=== PATIENT | male | born 1950 | race Caucasian/White ===

== ENCOUNTER 2023-01-20 08:00 | Emergency (ER) | payer MEDICARE, OTHER, SELFPAY ==
[2023-01-20] VITALS (14 sets, daily range): BP systolic 126–154; BP diastolic 71–110; PULSE 68–73; RESP 16; TEMP 36.8; O2SAT 98; BMI 29.1
--- NOTE | 2023-01-20 08:15 | ECG_ITS ---
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
--- NOTE | 2023-01-20 08:15 | XR_ITS ---
The [address] [address] Patient Name: KRISTEN RODRIGUEZ MRN: [id number] date: 1950 Sex: M Assigned Patient Location: ER Current Patient Location: ER Accession/Order Number: [id number] Exam Date: 01/20/2023 08:30 Report Date: 01/20/2023 09:09 At the request of: SUNG ROA Procedure: XR chest 1V EXAMINATION: XR chest 1V HISTORY: cp ; chest pain COMPARISON: No relevant comparison available. FINDINGS: LUNGS: No significant pulmonary parenchymal abnormalities. VASCULATURE: No increased pulmonary vasculature. PLEURA: No pneumothorax, effusion, or pleural thickening. CARDIAC: No cardiomegaly or cardiac silhouette abnormality. MEDIASTINUM: No visible mass or adenopathy. BONES: No fracture or visible bone lesion. OTHER: Negative. XR/XR chest 1V IMPRESSION: 1. No acute cardiopulmonary process. Electronically authenticated by: LYNDON CONTE Date: 01/20/2023 09:09
--- NOTE | 2023-01-20 08:19 | ED.CHESTPAI1 ---
HPI - Chest Pain General Chief Complaint: Chest Pain Stated Complaint: CHEST PAIN/WEIGHT BY HEART POSS AFIB Time Seen by Provider: 01/20/23 08:05 Source: patient Mode of arrival: walk-in Limitations: no limitations History of Present Illness HPI narrative: The patient have a history of hypertension as well as hyperlipidemia and A-fib coming to the ER with 3 days history of left-sided chest pain its in the upper chest , the pain is constant pressure-like associated with no other symptoms of nausea vomiting , cough or difficulty breathing Patient had a monitor placed for 3 days that was taken off a few days ago to make sure that he is in sinus after he had an ablation He is still taking Xarelto and he has a history of watchman the pt mentioned that the pain 5/10 and constant , and feels like he pulled a muscle no relation to breathing but somtimes moving his left shoulder cause the pain pt has no hx of smoking cigarettes Related Data Home Medications Medication Instructions Recorded Confirmed atorvastatin 20 mg tablet mg 01/20/23 lisinopril 30 mg tablet mg 01/20/23 magnesium 200 mg tablet 200 mg PO DAILY 01/20/23 01/20/23 mecobalamin (vitamin B12) 1,000 1,000 mcg PO DAILY 01/20/23 01/20/23 mcg lozenges metoprolol succinate 25 mg mg PO 01/20/23 tablet,extended release 24 hr rivaroxaban 20 mg tablet (Xarelto) mg 01/20/23 Allergies Allergy/AdvReac Type Severity Reaction Status Date / Time No Known Drug Allergies Allergy Verified 01/20/23 08:12 Review of Systems ROS Status of ROS 10 or more systems reviewed and unremarkable except as noted in history and below [facility] Social History Smoking status: Never smoker Exam Narrative Exam Narrative: Nurses notes and vital signs reviewed and patient is not hypoxic. General: Well-appearing and in no apparent distress. Skin: Warm, dry, no pallor noted. No rash. Head: Normocephalic, atraumatic. Neck: Supple, non-tender. Eye: Pupils are equal, round and EOMI. No scleral icterus. Ears, Nose, Mouth, and Throat: TM are clear, no nasal mucosal hypertrophy. Oral mucosa is moist, no posterior oropharynx erythema, uvula is mid-line Cardiovascular: Regular Rate and Rhythm without murmur, gallop or rub. Respiratory: No accessory muscle use or respiratory distress. Lungs are clear to auscultation, no wheezing, rales or rhonchi Chest Wall: no tenderness Back: No midline thoracic or lumbar vertebral tenderness. No CVA tenderness Musculoskeletal: normal ROM, no calf or popliteal tenderness, no lower extremity edema/swelling GI: Abdomen is soft, non-distended. Normal bowel sounds. No masses appreciated. No tenderness to palpation. No rebound, guarding, or rigidity noted. Neurological: A&O x4. No cranial nerve dysfunction observed. No truncal ataxia. Moves all extremities. Sensation intact. Psychiatric: Cooperative and interactive. Normal mood and affect. Constitutional Vital Signs, click to edit/add: Last Vital Signs Temp 98.2 F 01/20/23 08:13 Pulse 71 01/20/23 08:13 Resp 16 01/20/23 08:13 BP 142/110 H 01/20/23 10:30 Pulse Ox 98 01/20/23 08:13 Course Vital Signs Vital signs: Vital Signs Blood Pressure 148/92 H 01/20/23 08:12 Temperature 98.2 F 01/20/23 08:13 Pulse Rate 71 01/20/23 08:13 Respiratory Rate 16 01/20/23 08:13 Blood Pressure 142/110 H 01/20/23 10:30 Pulse Oximetry 98 01/20/23 08:13 MDM - Chest Pain MDM Narrative Medical decision making narrative: EKG showing some rhythm with a heart rate of 68 there is multiple occasional PVCs The patient CBC and chemistry showed no acute pathology and the repeated EKG still showed the same pattern and the troponin repeated was not elevated CT of the chest without contrast showed that the patient have some nodularity in the right lower lung but the patient have no cough or any signs of infection he will just follow-up with his doctor for that issue The patient have an 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 he be discharged home after his pain resolved with the Toradol in the ER with supportive care with Tylenol for the pain and rest he is to come back to the ER in case of any symptoms of concern Lab Data Labs: Lab Results 01/20/23 01/20/23 Range/Units 08:25 09:49 WBC 5.0 (4.0-11.0) 10^3/uL RBC 4.69 L (4.70-6.10) 10^6/uL Hgb 14.9 (14.0-18.0) g/dL Hct 43.9 (42.0-54.0) % MCV 93.6 (80.0-94.0) fL MCH 31.8 (25.9-34.0) pg MCHC 33.9 (29.9-35.2) g/dL RDW 14.4 (11.0-15.0) % Plt Count 140 L (150-450) 10^3/uL MPV 10.8 (9.5-13.5) fL Neut % (Auto) 62.3 (43.0-75.0) % Lymph % (Auto) 23.8 (20.5-60.0) % [place] % (Auto) 9.3 (1.7-12.0) % Eos % (Auto) 3.6 (0.9-7.0) % Baso % (Auto) 0.6 (0.2-2.0) % Neut # (Auto) 3.1 (1.4-6.5) 10^3/uL Lymph # (Auto) 1.2 (1.2-3.8) 10^3/uL [place] # (Auto) 0.5 (0.3-0.8) 10^3/uL Eos # (Auto) 0.2 (0.0-0.7) 10^3/uL Baso # (Auto) 0.0 (0.0-0.1) 10^3/uL Abs Immat Gran (auto) 0.02 (0.00-0.03) 10^3/uL Imm/Tot Granulo (auto) 0.4 (0.0-0.5) % PT 13.7 H (9.0-11.6) sec INR 1.31 Sodium 140 (136-145) mmol/L Potassium 4.2 (3.5-5.1) mmol/L Chloride 105 (98-107) mmol/L Carbon Dioxide 27.3 (21.0-32.0) mmol/L Anion Gap 11.9 BUN 22.0 H (7.0-18.0) mg/dL Creatinine 1.11 (0.70-1.30) mg/dL Est GFR ( Amer) >60 (>=60) Est GFR (Non-Af Amer) >60 (>=60) BUN/Creatinine Ratio 19.8 Glucose 101 (74-106) mg/dL Calcium 8.9 (8.5-10.1) mg/dL Magnesium 2.2 (1.8-2.4) mg/dL Total Bilirubin 0.6 (0.2-1.0) mg/dL AST 19 (15-37) U/L ALT 25 (16-63) U/L Alkaline Phosphatase 56 (46-116) U/L Troponin I High Sens 13.2 12.4 (4.0-76.1) pg/mL Total Protein 7.2 (6.4-8.2) g/dL Albumin 3.8 (3.4-5.0) g/dL Globulin 3.4 g/dL Albumin/Globulin Ratio 1.1 Heart Score History: Slightly/Non-Suspicious ECG: Normal Age: >65 years Risk Factors: 1 or 2 Risk Factors Troponin: <Normal Limit Total Heart Score Recommendations & Risks:: 3 Discharge Plan Discharge Chief Complaint: Chest Pain Clinical Impression: Atypical chest pain Patient Disposition: Home, Self-Care Time of Disposition Decision: 10:34 Condition: Good Mode of Transportation: Private Vehicle Prescriptions / Home Meds: No Action atorvastatin 20 mg tablet lisinopril 30 mg tablet metoprolol succinate 25 mg tablet extended release 24 hr PO Xarelto 20 mg tablet magnesium 200 mg tablet 200 mg PO DAILY mecobalamin (vitamin B12) 1,000 mcg lozenge 1,000 mcg PO DAILY Rx Instructions: allow to dissolve in mouth OR may chew lightly before swallowing Instructions: Chest Wall Pain (ED) Stand Alone Forms: Portal Instructions Referrals: Jonathon Hahn DO [Primary Care Provider] - 1 week
[2023-01-20 08:36] LABS: Basophils Percent Auto 0.6 % (0.2-2.0); Eosinophils Absolute Auto 0.2 10^3/uL (0.0-0.7); Eosinophils Percent Auto 3.6 % (0.9-7.0); Hematocrit 43.9 % (42.0-54.0); Hemoglobin 14.9 g/dL (14.0-18.0); Immature Granulocytes Abs Auto 0.02 10^3/uL (0.00-0.03); Immature Granulocytes Pct Auto 0.4 % (0.0-0.5); Lymphocytes Absolute Auto 1.2 10^3/uL (1.2-3.8); Lymphocytes Percent Auto 23.8 % (20.5-60.0); Mean Corpuscular HGB Conc 33.9 g/dL (29.9-35.2); Mean Corpuscular Hemoglobin 31.8 pg (25.9-34.0); Mean Corpuscular Volume 93.6 fL (80.0-94.0); Mean Platelet Volume 10.8 fL (9.5-13.5); Monocytes Absolute Auto 0.5 10^3/uL (0.3-0.8); Monocytes Percent Auto 9.3 % (1.7-12.0); Neutrophils Absolute Auto 3.1 10^3/uL (1.4-6.5); Neutrophils Percent Auto 62.3 % (43.0-75.0); Platelet Count 140 10^3/uL (150-450); Red Blood Count 4.69 10^6/uL (4.70-6.10); Red Cell Distribution Width 14.4 % (11.0-15.0)
[2023-01-20 08:49] LABS: Magnesium 2.2 mg/dL (1.8-2.4)
[2023-01-20 08:56] LABS: Anion Gap 11.9; Carbon Dioxide 27.3 mmol/L (21.0-32.0); Chloride 105 mmol/L (98-107); Glucose 101 mg/dL (74-106); Potassium 4.2 mmol/L (3.5-5.1); Sodium 140 mmol/L (136-145)
[2023-01-20 08:57] LABS: Alanine Aminotransferase 25 U/L (16-63); Albumin Globulin Ratio 1.1; Albumin Level 3.8 g/dL (3.4-5.0); Alkaline Phosphatase 56 U/L (46-116); Aspartate Amino Transferase 19 U/L (15-37); BUN Creatinine Ratio 19.8; Bilirubin Total 0.6 mg/dL (0.2-1.0); Calcium 8.9 mg/dL (8.5-10.1); Estimated GFR (African America >60 (>=60); Estimated GFR (Non-African Ame >60 (>=60); Globulin 3.4 g/dL; Total Protein 7.2 g/dL (6.4-8.2)
[2023-01-20 08:58] LABS: Troponin I High Sensitivity 13.2 pg/mL (4.0-76.1)
[2023-01-20] MEDS: FAMOTIDINE/PF 20 MG/2 ML VIAL IV (09:10)
[2023-01-20] MEDS: KETOROLAC TROMETHAMINE 30 MG/ML VIAL 15 MG IVP (09:10)
[2023-01-20 09:16] LABS: INR 1.31; Prothrombin Time 13.7 sec (9.0-11.6)
--- NOTE | 2023-01-20 09:31 | CT_ITS ---
[address] [address] Patient Name: KRISTEN RODRIGUEZ MRN: [id number] date: 1950 Sex: M Assigned Patient Location: ER Current Patient Location: ER Accession/Order Number: [id number] Exam Date: 01/20/2023 09:51 Report Date: 01/20/2023 10:14 At the request of: SUNG ROA Procedure: CT chest wo con EXAMINATION: CT chest wo con HISTORY: chest pain COMPARISON: None. TECHNIQUE: CT examination of the chest performed Without intravenous contrast. Coronal and sagittal reformations were performed. Dose reduction techniques were achieved by using automated exposure control and/or adjustment of mA and/or kV according to patient size and/or use of iterative reconstruction technique. Findings: LUNGS: Mild tree-in-bud nodularity in the right lower lobe. AIRWAYS: No significant finding. PLEURA: No significant finding. MEDIASTINUM AND FANNY: No significant finding. HEART AND PERICARDIUM: Watchman device noted. VESSELS: Heavy coronary calcification. CHEST WALL: No significant finding. NECK BASE: No significant finding. VISUALIZED UPPER ABDOMEN: No significant finding. BONES: Healed remote left clavicle fracture. CT/CT chest wo con Impression: Mild infectious/inflammatory changes in the right lower lobe. Electronically authenticated by: KEYSHA ALVARADO Date: 01/20/2023 10:14
--- NOTE | 2023-01-20 09:32 | ECG_ITS ---
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
[2023-01-20 10:10] LABS: Troponin I High Sensitivity 12.4 pg/mL (4.0-76.1)
== END 2023-01-20 10:39 | disposition home or self-care (01) ==
PROVIDERS: Emergency Provider Emergency Medicine; PCP Internal Medicine
DX: R07.89 Other chest pain (principal); E78.5 Hyperlipidemia, unspecified; I10 Essential (primary) hypertension; Z79.01 Long term (current) use of anticoagulants; Z79.899 Other long term (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 therapy
CPT/HCPCS: 36415; 71045; 71250; 80053; 83735; 84484; 85025; 85610; 93005; 96374; 96375; 99285

== ENCOUNTER 2023-01-22 09:53 | Outpatient (OUT) | payer MEDICARE, OTHER, SELFPAY ==
[2023-01-22 10:55] LABS: Anion Gap 11.7; BUN Creatinine Ratio 19.1; Calcium 9.3 mg/dL (8.5-10.1); Carbon Dioxide 27.8 mmol/L (21.0-32.0); Chloride 103 mmol/L (98-107); Chol HDL Ratio 2.9; Cholesterol 169 mg/dL (<=200); Estimated GFR (African America >60 (>=60); Estimated GFR (Non-African Ame >60 (>=60); Glucose 101 mg/dL (74-106); HDL Cholesterol 58 mg/dL (40-60); LDL Cholesterol Calculated 97.6 mg/dL; Potassium 4.5 mmol/L (3.5-5.1); Sodium 138 mmol/L (136-145); Triglycerides 67 mg/dL (<=150); VLDL CHOLESTEROL 13.4 mg/dL
[2023-01-22 10:59] LABS: Basophils Percent Auto 0.6 % (0.2-2.0); Eosinophils Absolute Auto 0.2 10^3/uL (0.0-0.7); Eosinophils Percent Auto 4.1 % (0.9-7.0); Hematocrit 44.8 % (42.0-54.0); Hemoglobin 14.9 g/dL (14.0-18.0); Immature Granulocytes Abs Auto 0.01 10^3/uL (0.00-0.03); Immature Granulocytes Pct Auto 0.2 % (0.0-0.5); Lymphocytes Absolute Auto 1.2 10^3/uL (1.2-3.8); Lymphocytes Percent Auto 23.9 % (20.5-60.0); Mean Corpuscular HGB Conc 33.3 g/dL (29.9-35.2); Mean Corpuscular Hemoglobin 31.6 pg (25.9-34.0); Mean Corpuscular Volume 94.9 fL (80.0-94.0); Mean Platelet Volume 11.1 fL (9.5-13.5); Monocytes Absolute Auto 0.4 10^3/uL (0.3-0.8); Monocytes Percent Auto 8.2 % (1.7-12.0); Neutrophils Absolute Auto 3.1 10^3/uL (1.4-6.5); Platelet Count 137 10^3/uL (150-450); Red Blood Count 4.72 10^6/uL (4.70-6.10); Red Cell Distribution Width 14.3 % (11.0-15.0); White Blood Count 4.9 10^3/uL (4.0-11.0)
[2023-01-22 12:28] LABS: Prostate Specific Antigen Scrn 0.82 ng/mL (<=4.00)
== END 2023-01-22 09:54 | disposition home or self-care (01) ==
LOC: LAB 09:56
PROVIDERS: PCP Internal Medicine; Visit Provider Internal Medicine
DX: E78.01 Familial hypercholesterolemia (principal); N18.31 Chronic kidney disease, stage 3a; Z12.5 Encounter for screening for malignant neoplasm of prostate; D69.6 Thrombocytopenia, unspecified
CPT/HCPCS: 36415; 80048; 80061; 85025; G0103

== ENCOUNTER 2023-10-29 12:19 | Outpatient (OUT) | payer MEDICARE, OTHER, SELFPAY ==
--- NOTE | 2023-10-29 12:26 | XR_ITS ---
The [place] [id number] Patient Name: KRISTEN RODRIGUEZ MRN: [id number] date: 1950 Sex: M Assigned Patient Location: RAD Current Patient Location: RAD Accession/Order Number: [id number] Exam Date: 10/29/2023 12:30 Report Date: 10/29/2023 14:04 At the request of: MUNA HATCH Procedure: XR hip RT 2V w/ pelvis PROCEDURE: XR hip RT 2V w/ pelvis COMPARISON: None. HISTORY: pain of right hip M25.551 FINDINGS: BONES:No acute fracture or dislocation. Severe right and moderate to severe left hip osteoarthropathy with joint space narrowing. Subchondral lytic and sclerotic changes. Some remodeling of the right acetabulum. Moderate degenerative changes of the spine SOFT TISSUES:Negative. No visible soft tissue swelling. EFFUSION:None visible. OTHER: Negative. XR/XR hip RT 2V w/ pelvis IMPRESSION: Severe right and moderate to severe left hip osteoarthritis Electronically authenticated by: CELENA SEPULVEDA Date: 10/29/2023 14:04
== END 2023-10-29 12:20 | disposition home or self-care (01) ==
LOC: RAD 12:20
PROVIDERS: PCP Internal Medicine; Visit Provider Internal Medicine
DX: M25.551 Pain in right hip (principal); M16.0 Bilateral primary osteoarthritis of hip
CPT/HCPCS: 73502

== ENCOUNTER 2024-01-27 11:59 | Outpatient (OUT) | payer MEDICARE, OTHER, SELFPAY ==
--- OUTSIDE RECORDS SUMMARY | 2024-01-27 12:20 | XMS_ITS | CCD ---
Author Organization [facility] Care Team Providers Care Automotive General Manager Name Role Phone PHYSICIAN, DEFAULT Unavailable Unavailable PHYSICIAN, DEFAULT Unavailable Unavailable PHYSICIAN, DEFAULT Unavailable Unavailable PHYSICIAN, DEFAULT Unavailable Unavailable DORA FERRARI AM Unavailable Unavailable KAREN, DORA AM Unavailable Unavailable JOVANI, JONATHON Unavailable Unavailable JOVANI, JONATHON Unavailable Unavailable ROMARIO, CELENA Campos Unavailable Unavailable CELENA DOSS Unavailable Unavailable SEBASTIAN, BRYAN Brower Unavailable Unavailable JOVANI, DR TORO Primary Care Unavailable BALL, DR TORO Consulting Unavailable BALL, DR TORO Attending Unavailable BALL, DR TORO Admitting Unavailable BALL, DR TORO Primary Care Unavailable BALL, DR TORO Consulting Unavailable BALL, DR TORO Attending Unavailable BALL, DR TORO Admitting Unavailable MISC, DR JACK Attending Unavailable BALL, DR TORO Primary Care Unavailable MISC, DR JACK Admitting Unavailable MISC, DR JACK Consulting Unavailable Bryan Lacy MD Unavailable Jovani CHILDERS Jonathon Unavailable Jonathon Hahn DO Primary Care Provider Bryan Lacy MD Unavailable Gordo Gifford MD Unavailable Brooklynn Woodson MD Unavailable Bryan Lacy MD Unavailable Jovani DO Jonathon Unavailable Jonathon Hahn DO Primary Care Provider Bryan Lacy MD Unavailable [phone] Gordo Gifford MD Unavailable Brooklynn Woodson MD Unavailable Jonathon Hahn Unavailable Bryan Lacy MD Unavailable Jovani CHILDERS Jonathon Unavailable Jonathon Hahn DO Primary Care Provider Bryan Lacy MD Unavailable Ирина COLÓN Gordo Unavailable Brooklynn Woodson MD Unavailable Bryan Lacy MD Unavailable Bryan Lacy MD Unavailable DO Jonathon Hahn Primary Care Provider MD Titi Arora II Attending Provider [phone] Titi Arora II Attending Unavailabl e Titi Arora II Admitting Unavailabl e Jonathon Hahn Primary Care Unavailable SYED, BROOKLYNN Williamson Admitting Unavailable SELF, SELF Referring Unavailable JOVANI, JONATHON Primary Care Unavailable SYED, BROOKLYNN Williamson Attending Unavailable SYED, BROOKLYNN Williamson Admitting Unavailable SYED, BROOKLYNN Williamson Attending Unavailable BALL, JONATHON Primary Care Unavailable BALL, JONATHON Primary Care Unavailable BALL, JONATHON Referring Unavailable SYED, BROOKLYNN Williamson Attending Unavailable SYED, BROOKLYNN Williamson Referring Unavailable JOSE MERRITT Attending Unavailable JOVANI, JONATHON Primary Care Unavailable GEETA JUÁREZ Attending Unavailable BALL, JONATHON Primary Care Unavailable BALL, JONATHON Referring Unavailable SYED, BROOKLYNN Williamsno Referring Unavailable BALL, JONATHON Primary Care Unavailable SYED, BROOKLYNN Williamson Attending Unavailable JOSE MERRITT Attending Unavailable JOSE MERRITT Referring Unavailable BALL, JONATHON Primary Care Unavailable SYED, BROOKLYNN Williamson Referring Unavailable BALL, [place] Primary Care Unavailable SYED, BROOKLYNN Williamson Attending Unavailable Allergies Allergy Classification Reported Allergen(s) Allergy Type Date of Onset Reaction(s) Facility (2 sources) No Known Allergies; Translations: [No Known Allergies] Propensity to adverse reactions (disorder) 7 [facility] Medications Current Medications Medication Drug Class(es) Dates Sig (Normalized) Sig (Original) acetaminophen 500 mg oral tablet (2 sources) take 1 tablet by mouth every six hours as needed acetaminophen (TYLENOL) 500 MG tablet Take 1 tablet by mouth every 6 hours as needed for Mild Pain. PRN for right hip pain Active atorvastatin 20 mg oral tablet (15 sources) HMG-CoA Reductase Inhibitor Start: 12-25-2023 End: 12-24-2023 Start: 11-29-2019 take 1 tablet by gallo th once daily atorvastatin 20 MG tablet Take 1 tablet by mouth daily. 30 tablet 11/29/2019 Active doxycycline hyclate 100 mg oral capsule (3 sources) Tetracycline-class Drug Start: 05-14-2023 take 1 capsule by mouth every twelve hours Doxycycline Hyclate 100 MG 1 capsule Orally Twice a day for 10 days Apr, Active lisinopril 20 mg oral tablet (15 sources) Angiotensin Converting Enzyme Inhibitor Start: 12-25-2023 End: 12-24-2023 Start: 11-11-2022 take 1 tablet by gallo th once daily Lisinopril 20 MG tablet Take 1 tablet by mouth daily. Patient taking 20 mg daily 11/11/2022 Active Start: 11-08-2021 take 1.5 tablets by mouth once daily lisinopril 20 MG tablet Take 1.5 tablets by mouth daily. 135 tablet 3 11/08/2021 Active magnesium oxide 400 mg oral tablet (14 sources) Start: 02-26-2022 take 400 mg by mouth once daily Magnesium Oxide Active 400 MG PO Daily October 28, 2023 12:00am 24 hr metoprolol succinate 25 mg extended release oral tablet (16 sources) beta-Adrenergic Vaughn Start: 12-25-2023 End: 12-24-2023 Start: 01-01-2022 End: 10-03-2023 take 1 tablet by mouth once daily Metoprolol succinate 25 MG tablet XL TAKE 1 TABLET BY MOUTH DAILY 90 tablet 3 12/27/2022 Active vitamin b12 1 mg oral tablet (14 sources) Vitamin B12 Start: 10-28-2023 take 1000 ug by mouth once daily Cyanocobalamin (Vitamin B-12) Active 1000 MCG PO Daily October 28, 2023 12:00am Start: 02-26-2022 take 1 tablet by gallo th every twenty-four hours Vitamin B-12 1000 MCG 1 tablet Orally Once a day for 0 days Jan, Active Start: 02-26-2022 take 1 tablet by gallo th every twenty-four hours Vitamin B-12 1000 MCG 1 tablet Orally Once a day for 0 days Jan, Active take 1 tablet by gallo th once daily Cyanocobalamin (Vitamin B12) 100 MCG tablet Take 1 tablet by mouth daily. Active take 1000 mg by mouth once daily Cyanocobalamin (VITAMIN B12 PO) Take 1,000 mg by mouth daily. 0 Active Completed/Discontinued Medications Medication Drug Class(es) Dates Sig (Normalized) Sig (Original) aspirin 81 mg delayed release oral tablet (10 sources) Platelet Aggregation Inhibitor, Nonsteroidal Anti-inflammatory Drug Start: 10-28-2023 End: 10-29-2023 Aspirin (Adult Low Dose Aspirin) 81 mg tablet,delayed release (DR/EC) Discontinued 81 MG PO Daily October 28, 2023 12:00am October 29, 2023 11:51am Start: 03-12-2022 End: 03-06-2023 aspirin 81 MG Chew Tab chewa ble tablet Chew 1 tablet daily. 30 tablet 5 03/12/2022 03/06/2023 Discontinued Start: 02-26-2022 Aspirin Adult Low Dose 81 MG Aspirin( 81MG Oral ) Active -Hx Entry Oral for 0 Jan, Not-Taking/PRN 2 ml fentaNYL 0.05 mg/ml injection (2 sources) Opioid Agonist Start: 03-06-2023 End: 03-06-2023 fentaNYL (SUBLIMAZE) injection 200 mcg Start: 04-29-2022 End: 04-29-2022 fentaNYL (SUBLIMAZE) injecti on 200 mcg iohexol (OMNIPAQUE) 350 MG/M L injection 1-120 mL (1 source) Start: 03-11-2022 End: 03-11-2022 iohexol (OMNIPAQUE) 350 MG/M L injection 1-120 mL iohexol (OMNIPAQUE) 350 MG/M L injection 1-171 mL (2 sources) Start: 11-10-2023 End: 11-10-2023 1-171 mL, Intravenous, ONCE, 1 dose, On Fri11/10/23 at 1300, Extravasation Risk, CT Procedure Start: 03-06-2023 End: 03-06-2023 iohexol (OMNIPAQUE) 350 MG/M L injection 1-171 mL lidocaine 0.05 mg/mg topical ointment (2 sources) Antiarrhythmic, Amide Local Anesthetic Start: 03-06-2023 End: 03-06-2023 Lidocaine (XYLOCAINE) 5 % ointment 1 Application Start: 04-29-2022 End: 04-29-2022 lidocaine (XYLOCAINE) 5 % oi ntment 1 Application 2 ml midazolam 1 mg/ml injection (2 sources) Benzodiazepine Start: 03-06-2023 End: 03-06-2023 midazolam (VERSED) injection 10 mg Start: 04-29-2022 End: 04-29-2022 midazolam (VERSED) injection 10 mg rivaroxaban 20 mg oral tablet (15 sources) Factor Xa Inhibitor Start: 01-01-2022 End: 12-24-2023 1000 ml sodium chloride 9 mg/ml injection (7 sources) Start: 12-24-2023 End: 12-24-2023 Intravenous, at 20 mL/hr, CONTINUOUS, Starting on Fri12/24/23 at 1245, Until Fri12/24/23 at 1908, KVO fluids, start the morning of procedure., Pre-op/Pre-Proc Start: 12-24-2023 End: 12-24-2023 1 dose, Starting on 12/23 at 1236, Until Fri12/24/23 at 1241, Created by cabinet override Start: 11-10-2023 End: 11-10-2023 1-100 mL, Intravenous, ONCE NEEDED, 1 dose, Starting on Fri11/10/23 at 1246, Until Fri11/10/23 at 1258, Flush, CT Procedure Start: 03-06-2023 End: 03-06-2023 Sodium chloride 0.9% IV solu tion Start: 03-06-2023 End: 03-06-2023 Sodium chloride (PF) 0.9 % i njection 1-100 mL Start: 04-29-2022 End: 04-29-2022 sodium chloride 0.9% IV solu tion Start: 03-11-2022 End: 03-11-2022 sodium chloride (PF) 0.9 % i njection 1-100 mL Vancomycin HCl in NaCl (Vancocin) 1,500 mg 290 ml premade IVPB (1 source) Start: 12-24-2023 End: 12-24-2023 1,500 mg, Intravenous, Admin ister over 1 Hours, 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 Vancomycin is preferred agent for device implants, based on national, community and local ([facility]) MRSA rates., Pre-op/Pre-Proc Problems Active Problems Problem Classification Problem Date Documented Date Episodic/Chronic Abdominal hernia (2 sources) Umbilical hernia; Translations: [Umbilical hernia without obstruction or gangrene] 10-29-2023 Episodic Cancer of kidney and renal pelvis (6 sources) Renal cell carcinoma; Translations: [Malignant neoplasm of right kidney, except renal pelvis] Chronic Cardiac dysrhythmias (20 sources) Bradycardia, unspecified; Translations: [Unspecified atrial fibrillation] Onset: 05-12-2017 Resolved: 04-22-2019 Chronic Chronic kidney disease (13 sources) Chronic kidney disease stage 3A ; Translations: [Chronic kidney disease, stage 3a] 10-28-2023 Chronic Coagulation and hemorrhagic disorders (7 sources) Thrombocytopenic disorder; Translations: [Thrombocytopenia, unspecified] Chronic Coronary atherosclerosis and other heart disease (1 source) Atherosclerotic heart disease of [place] coronary artery without angina pectoris; Translations: [ATHSCL HEART DISEASE OF [place] CORONARY ARTERY W/O ANG PCTRS] Onset: 05-12-2017 Chronic Deficiency and other anemia (7 sources) Pernicious anemia; Translations: [Vitamin B12 deficiency anemia due to intrinsic factor deficiency] 10-28-2023 Episodic Deficiency and other anemia (1 source) Vitamin B12 deficiency anemia due to intrinsic factor deficiency Episodic Diabetes mellitus without complication (1 source) Type 2 diabetes mellitus without complications; Translations: [TYPE 2 DIABETES MELLITUS WITHOUT COMPLICATIONS] Onset: 05-12-2017 Chronic Disorders of lipid metabolism (10 sources) Familial hypercholesterolemia; Translations: [Familial hypercholesterolemia] Onset: 01-25-2022 Chronic Essential hypertension (17 sources) Essential (primary) hypertension; Translations: [Essential hypertension] Onset: 05-12-2017 03-13-2018 Chronic Immunizations and screening for infectious disease (1 source) Encounter for immunization; Translations: [ENCOUNTER FOR IMMUNIZATION] Onset: 01-10-2022 Episodic Osteoarthritis (4 sources) Osteoarthritis of right hip joint; Translations: [Unilateral primary osteoarthritis, right hip] Onset: 11-20-2023 10-28-2023 Chronic Other aftercare (4 sources) Other terminal operations manager (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 therapy; Translations: [OTH CONTROL PANEL ASSEMBLER CURRENT DRUG THERAPY] Onset: 01-22-2022 Episodic Other circulatory disease (5 sources) Device in situ; Translations: [Presence of other cardiac implants and grafts] Onset: 03-12-2022 03-12-2022 Chronic Other circulatory disease (2 sources) Enlarged aortic root; Translations: [Other specified disorders of arteries and arterioles] 03-06-2023 Chronic Other circulatory disease (4 sources) Presence of other cardiac implants and grafts; Translations: [Other specified cardiac device in situ] Onset: 03-12-2022 03-12-2022 Chronic Other circulatory disease (2 sources) Other specified disorders of arteries and arterioles; Translations: [Other specified disorders of arteries and arterioles] Onset: 03-06-2023 Chronic Other non-traumatic joint disorders (1 source) Hip pain; Translations: [Pain in right hip] 10-29-2023 Episodic Other non-traumatic joint disorders (1 source) Pain in right hip; Translations: [Pain in joint, pelvic region and thigh] 10-29-2023 Episodic Other nutritional; endocrine; and metabolic disorders (7 sources) Obese class I; Translations: [Obesity, unspecified] Onset: 03-12-2018 03-12-2018 Chronic Other screening for suspected conditions (not mental disorders or infectious disease) (3 sources) Encounter for screening for malignant neoplasm of prostate; Translations: [Encounter for screening for malignant neoplasm of colon] Onset: 01-25-2022 Episodic Steph-; endo-; and myocarditis; cardiomyopathy (except that caused by tuberculosis or sexually transmitted disease) (7 sources) Cardiomyopathy; Translations: [Other cardiomyopathies] Onset: 03-12-2018 03-13-2018 Chronic Unclassified (2 sources) Unknown / UNK(Unknown) Onset: 05-12-2017 Unclassified (2 sources) New Patient; Translations: [New Patient] Onset: 03-18-2023 Viral infection (4 sources) COVID-19; Translations: [COVID-19] Onset: 01-09-2022 Past or Other Problems Problem Classification Problem Date Documented Date Episodic/Chronic Acute and unspecified renal failure (7 sources) Acute injury of kidney; Translations: [Acute kidney failure, unspecified] Onset: 03-16-2018 Resolved: 03-18-2018 03-18-2018 Episodic Chronic kidney disease (3 sources) Chronic kidney disease; Translations: [CHRONIC KIDNEY DISEASE STAGE 3A] Onset: 01-25-2022 Complication of device; implant or graft (14 sources) Infected pacemaker; Translations: [Infection and inflammatory reaction due to other cardiac and vascular devices, implants and grafts, initial encounter] Onset: 03-11-2018 03-13-2018 Episodic Other aftercare (2 sources) custodial (current) use of anticoagulants; Translations: [custodial (current) use of aspirin] Onset: 05-12-2017 Episodic Other aftercare (7 sources) Taking high risk medication; Translations: [Other senior living (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 therapy] Onset: 03-17-2018 03-17-2018 Episodic Other circulatory disease (1 source) Personal history of transient ischemic attack (TIA), and cerebral infarction without residual deficits; Translations: [PRSNL HX OF TIA (TIA), AND CEREB INFRC W/O RESID DEFICITS] Onset: 05-12-2017 Episodic Residual codes; unclassified (7 sources) H/O: atrial fibrillation; Translations: [Other specified postprocedural states] Onset: 04-20-2019 04-20-2019 Episodic Results Test Name Value Interpretation Reference Range Facility CBC AND ELECTRONIC DIFFon Basophils (Bld) [#/Vol] K/uL 0.00 - 0.09 K/uL [facility] Basophils/100 WBC (Bld) 0.5 % [facility] Differential cell count method Nom (Bld) Electronic Differential [facility] Eosinophils (Bld) [#/Vol] 0.11 10*3/uL 0.00 - 0.48 K/uL [facility] Eosinophils/100 WBC (Bld) 2.0 % [facility] Erythrocyte distribution width (RBC) [Ratio] 13.2 % 10.9 - 14.3 % [facility] Comment on above: This is an appended report. These result s have been appended to a previously preliminary verified report. Hematocrit (Bld) [Volume fraction] 46.7 % 39.6 - 48.8 % [facility] Comment on above: This is an appended report. These result s have been appended to a previously preliminary verified report. Hemoglobin (Bld) [Mass/Vol] 15.1 g/dL 13.4 - 16.8 g/dL [facility] Comment on above: This is an appended report. These result s have been appended to a previously preliminary verified report. Immature granulocytes (Bld) [#/Vol] K/uL NINF - 0.07 K/uL [facility] Immature granulocytes/100 WBC (Bld) 0.5 % [facility] Interpretation and review of laboratory results Abnormal [facility] Lymphocytes (Bld) [#/Vol] 1.40 10*3/uL 0.83 - 3.57 K/uL [facility] Lymphocytes/100 WBC (Bld) 25.4 % [facility] MCH (RBC) [Entitic mass] 31.3 pg 26.1 - 33.3 pg [facility] Comment on above: This is an appended report. These result s have been appended to a previously preliminary verified report. MCHC (RBC) [Mass/Vol] 32.3 g/dL 31.9 - 36.5 g/dL [facility] Comment on above: This is an appended report. These result s have been appended to a previously preliminary verified report. MCV (RBC) [Entitic vol] 96.9 fL High 79.0 - 94.5 fL [facility] Comment on above: This is an appended report. These result s have been appended to a previously preliminary verified report. Monocytes (Bld) [#/Vol] 0.42 10*3/uL 0.24 - 0.93 K/uL [facility] Monocytes/100 WBC (Bld) 7.6 % [facility] Neutrophils (Bld) [#/Vol] 3.53 10*3/uL 1.57 - 6.19 K/uL [facility] Nucleated RBC/100 WBC (Bld) [Ratio] 0.0 % [facility] Comment on above: This is an appended report. These result s have been appended to a previously preliminary verified report. Platelet mean volume (Bld) [Entitic vol] [facility] Comment on above: Not measured Platelets (Bld) [#/Vol] 131 10*3/uL Low 146 - 337 K/uL [facility] Comment on above: This is an appended report. These result s have been appended to a previously preliminary verified report. RBC (Bld) [#/Vol] 4.82 10*6/uL [facility] Comment on above: This is an appended report. These result s have been appended to a previously preliminary verified report. Segmented neutrophils/100 WBC (Bld) 64.0 % [facility] WBC (Bld) [#/Vol] 5.52 10*3/uL 3.73 - 10.10 K/uL [facility] Comment on above: This is an appended report. These result s have been appended to a previously preliminary verified report. [facility] Abs Baso Auto < Normal 0.00-0.09 [facility] Comment on above: Performed By: #### [id number] #### [facility] (DEFAULT) [address] [address] Basophils/100 WBC (Bld) 0.5 % Normal [facility] Comment on above: Performed By: #### [id number] #### [facility] (DEFAULT) [address] [address] DIFF STATUS Electronic Differential Normal [facility] Comment on above: Performed By: #### [id number] #### [facility] (DEFAULT) [address] [address] Eosinophils (Bld) [#/Vol] 0.11 10*3/uL Normal 0.00-0.48 [facility] Comment on above: Performed By: #### [id number] #### [facility] (DEFAULT) [address] [address] Eosinophils/100 WBC (Bld) 2.0 % Normal [facility] Comment on above: Performed By: #### [id number] #### [facility] (DEFAULT) [address] [address] Hematocrit (Bld) [Volume fraction] 46.7 % Normal 39.6-48.8 [facility] Comment on above: Result Comment: This is an appended repo rt. These results have been appended to a previously preliminary verified report. Performed By: #### L [id number] #### [facility] (DEFAULT) [address] [address] Hemoglobin (Bld) [Mass/Vol] 15.1 g/dL Normal 13.4-16.8 [facility] Comment on above: Result Comment: This is an appended repo rt. These results have been appended to a previously preliminary verified report. Performed By: #### L [id number] #### [facility] (DEFAULT) [address] [address] Immature Grans % 0.5 % Normal [facility] Comment on above: Performed By: #### [id number] #### [facility] (DEFAULT) [address] [address] Immature Grans Absolute < Normal <=0.07 [facility] Comment on above: Performed By: #### [id number] #### [facility] (DEFAULT) [address] [address] Lymphocytes (Bld) [#/Vol] 1.40 10*3/uL Normal 0.83-3.57 [facility] Comment on above: Performed By: #### [id number] #### [facility] (DEFAULT) [address] [address] Lymphocytes/100 WBC (Bld) 25.4 % Normal [facility] Comment on above: Performed By: #### [id number] #### [facility] (DEFAULT) [address] [address] MCV (RBC) [Entitic vol] 96.9 fL High 79.0-94.5 [facility] Comment on above: Result Comment: This is an appended repo rt. These results have been appended to a previously preliminary verified report. Performed By: #### L [id number] #### [facility] (DEFAULT) [address] [address] Mean Cell Hgb 31.3 pg Normal 26.1-33.3 [facility] Comment on above: Result Comment: This is an appended repo rt. These results have been appended to a previously preliminary verified report. Performed By: #### L [id number] #### [facility] (DEFAULT) [address] [address] Mean Cell Hgb Conc 32.3 g/dL Normal 31.9-36.5 [facility] Comment on above: Result Comment: This is an appended repo rt. These results have been appended to a previously preliminary verified report. Performed By: #### L [id number] #### [facility] (DEFAULT) [address] [address] Mean Platelet Volume Normal [facility] Comment on above: Result Comment: Not measured Performed By: #### L [id number] #### [facility] (DEFAULT) [address] [address] Monocytes (Bld) [#/Vol] 0.42 10*3/uL Normal 0.24-0.93 [facility] Comment on above: Performed By: #### [id number] #### [facility] (DEFAULT) [address] [address] Monocytes/100 WBC (Bld) 7.6 % Normal [facility] Comment on above: Performed By: #### [id number] #### [facility] (DEFAULT) [address] [address] Nucleated RBC 0.0 /100 WBC Normal <=0.2 [facility] Comment on above: Result Comment: This is an appended repo rt. These results have been appended to a previously preliminary verified report. Performed By: #### L [id number] #### [facility] (DEFAULT) [address] [address] Platelets (Bld) [#/Vol] 131 10*3/uL Low 146-337 [facility] Comment on above: Result Comment: This is an appended repo rt. These results have been appended to a previously preliminary verified report. Performed By: #### L [id number] #### [facility] (DEFAULT) [address] [place] [address] RBC (Bld) [#/Vol] 4.82 10*6/uL Normal 4.38-5.83 [facility] Comment on above: Result Comment: This is an appended repo rt. These results have been appended to a previously preliminary verified report. Performed By: #### L [id number] #### [facility] (DEFAULT) [address] [place] [address] RBC Distribution 13.2 % Normal 10.9-14.3 [facility] Comment on above: Result Comment: This is an appended repo rt. These results have been appended to a previously preliminary verified report. Performed By: #### L [id number] #### [facility] (DEFAULT) [address] [address] Segs + Bands Auto 64.0 % Normal [facility] Comment on above: Performed By: #### [id number] #### [facility] (DEFAULT) [address] [address] Segs + Bands,Absolute Auto 3.53 K/uL Normal 1.57-6.19 [facility] Comment on above: Performed By: #### [id number] #### [facility] (DEFAULT) [address] [address] WBC (Bld) [#/Vol] 5.52 10*3/uL Normal 3.73-10.10 [facility] Comment on above: Result Comment: This is an appended repo rt. These results have been appended to a previously preliminary verified report. Performed By: #### L [id number] #### [facility] (DEFAULT) [address] [address] CHEM 7 (LYTES,BUN,CREA,GLUC) on 12-24-2023 Anion gap [Moles/Vol] 14 mmol/L 7 - 17 mmol/L [facility] Chloride [Moles/Vol] 103 mmol/L 98 - 108 mmol/L [facility] CO2 [Moles/Vol] 23 mmol/L 21 - 31 mmol/L [facility] Creatinine [Mass/Vol] 0.99 mg/dL 0.70 - 1.30 mg/dL [facility] eGFR, CKD-EPI, Male 81 - PINF [facility] Comment on above: Reported eGFR is based on the CKD-EPI 20 21 equation using creatinine, age, and sex. Glucose [Mass/Vol] 81 mg/dL 70 - 99 mg/dL [facility] Osmolality Calc [Osmolality] 286 [facility] Potassium [Moles/Vol] 4.4 mmol/L 3.5 - 5.0 mmol/L [facility] Sodium [Moles/Vol] 136 mmol/L 135 - 145 mmol/L [facility] Urea nitrogen [Mass/Vol] 15 mg/dL 7 - 25 mg/dL [facility] Urea nitrogen/Creatin ine [Mass ratio] 15 mg/mg [facility] Anion gap [Moles/Vol] 14 mmol/L Normal 7-17 [facility] Comment on above: Performed By: #### CHM7 #### [facility] (DEFAULT) [address] [place] [address] Chloride [Moles/Vol] 103 mmol/L Normal 98-108 [facility] Comment on above: Performed By: #### CHM7 #### [facility] (DEFAULT) [address] [place] [address] CO2 [Moles/Vol] 23 mmol/L Normal 21-31 [facility] Comment on above: Performed By: #### CHM7 #### [facility] (DEFAULT) [address] [place] [address] Creatinine [Mass/Vol] 0.99 mg/dL Normal 0.70-1.30 [facility] Comment on above: Performed By: #### CHM7 #### [facility] (DEFAULT) [address] [place] [address] GFR/1.73 sq M.predicted among non-blacks MDRD (S/P/Bld) [Vol rate/Area] 81 mL/min/{1.73_m2} Normal >=60 [facility] Comment on above: Result Comment: Reported eGFR is based o n the CKD-EPI 2020 equation using creatinine, age, and sex. Performed By: #### C HM7 #### [facility] (DEFAULT) [address] [place] [address] Glucose [Mass/Vol] 81 mg/dL Normal 70-99 [facility] Comment on above: Performed By: #### CHM7 #### [facility] (DEFAULT) [address] [place] [address] Osmolality [Osmolality] 286 mosm/kg Normal 278-305 [facility] Comment on above: Performed By: #### CHM7 #### [facility] (DEFAULT) [address] [place] [address] Potassium [Moles/Vol] 4.4 mmol/L Normal 3.5-5.0 [facility] Comment on above: Performed By: #### CHM7 #### [facility] (DEFAULT) [address] [place] [address] Sodium [Moles/Vol] 136 mmol/L Normal 135-145 [facility] Comment on above: Performed By: #### CHM7 #### [facility] (DEFAULT) [address] [place] [address] Urea nitrogen [Mass/Vol] 15 mg/dL Normal 7-25 [facility] Comment on above: Performed By: #### CHM7 #### [facility] (DEFAULT) [address] [place] [address] Urea nitrogen/Creatin ine [Mass ratio] 15 mg/mg Normal [facility] Comment on above: Performed By: #### CHM7 #### [facility] (DEFAULT) [address] [place] [address] PT,INR,PTTon 12-24-2023 aPTT Coag (PPP) [Time] 27.6 s [facility] INR Coag (Bld) [Relative time] 1.1 {INR} 0.9 - 1.1 [facility] Interpretation and review of laboratory results Normal [facility] PT Coag (PPP) [Time] 14.2 s [facility] aPTT Coag (Bld) [Time] 27.6 s Normal 24.0-34.3 [facility] Comment on above: Performed By: #### PTPTT #### [facility] (DEFAULT) [address] [place] [address] INR Coag (PPP) [Relative time] 1.1 {INR} Normal 0.9-1.1 [facility] Comment on above: Performed By: #### PTPTT #### [facility] (DEFAULT) [address] [place] [address] PT Coag (PPP) [Time] 14.2 s Normal 11.9-14.2 [facility] Comment on above: Performed By: #### PTPTT #### [facility] (DEFAULT) [address] [place] [address] XR hip RT min 2V(w/wo pelvis )*on 11-20-2023 XR hip RT min 2V(w/wo pelvis)* [facility] [address] [place] [address] XRay Report Signed Patient: Kristen Coates MR#: [id number] 31 : 1950 Acct:[id number] Age/Sex: 73 / M ADM Date: 11/20/23 [place] [facility] [place] Type: [facility] Attending Dr: Titi Arora II, MD Copies to: Titi Arora MD Ordering Provider: Titi Arora MD Date of Service: 11/20/23 XR/XR hip RT min 2V(w/wo pelvis)*: M16.11 - Unilateral primary osteoarthritis, right hip XR hip RT min 2V(w/wo pelvis)* 11/20/2023 8:50 AM SIGNS AND SYMPTOMS: Right hip pain, pain in right groin PROTOCOL: Frontal radiograph of the pelvis with crosstable lateral view of the right hip COMPARISON: 10/29/2023 FINDINGS: The bony ring of the pelvis is intact. There is no evidence of acute displaced fracture. Degenerative changes are noted in the hips, right greater than left. This is similar to the prior exam. Degenerative changes are noted in the sacroiliac joints. Vascular calcifications are present in the pelvis and thighs. XR/XR hip RT min 2V(w/wo pelvis)* IMPRESSION: No fracture or dislocation. Degenerative changes are noted in the hips bilaterally, right greater than left. This is similar to the prior exam. Impression dictated by: Kristen Thomson M.D.11/20/2023 1:30 PM Dictation Location: [place] [address] Transcribed By: ARASELI 11/20/23 1330 Dictated By: Kristen Thosmon II, MD 11/20/23 1324 Signed By: 11/20/23 1330 Normal [facility] CREAT/GFRon 11-11-2023 Creatinine [Mass/Vol] 0.99 mg/dL 0.70 - 1.30 mg/dL [facility] GFR/1.73 sq M.predicted CKD-EPI (S/P/Bld) [Vol rate/Area] 81 - PINF [facility] Comment on above: Reported eGFR is based on the CKD-EPI 20 21 equation using creatinine, age, and sex. Interpretation and review of laboratory results Normal [facility] Test performed at ad dress of the patient encounter. [facility] CT CARDIAC PULMONARY VENOGRA [facility] 11-11-2023 CT CARDIAC PULMONARY VENOGRAM [facility] CT Report Name: MICHAELKRISTEN : 1950 Scan Date: 2023-11-10 12:55:52 Electronically signed by Smith Solomon 12:02:51 SUMMARY ======= Pulmonary veins: Normal anatomy. No significant stenosis. --------- Chest Wall: Degenerative changes of the thoracic spine Mediastinum: Normal, without adenopathy. Diffuse circumferential esophageal wall thickening. Lindsay: Normal, without adenopathy Pleural Spaces: Normal, without thickening/effusion or pneumothorax Lung Parenchyma: No consolidation or mass. Diffuse bronchial thickening. Pericardium: Normal, without thickening/effusion Atria: Watchman: - Watchman is seen in situ, with asymmetric positioning of the posterior shoulder - Evidence of incomplete LA closure with contrast opacification within the device and the distal ADAN. - Contrast is seen funneling/tracking along the posterior shoulder. More proximally the posterior shoulder-LA distance measures 6 mm in width, with a distal 2-3 mm focal communication to within the device through its struts, likely suggestive of sub-fabric leak (series 6, image 2565). - No definite evidence of device-related thrombus - No evidence of thrombus within the left atrium proper. Right Ventricle: Normal Left Ventricle: Normal Coronary Arteries: Severe multivessel coronary calcifications. Valves: Mild aortic valve leaflets calcification. Pulmonary Arteries: Normal Thoracic Aorta: Dilated thoracic aorta, measuring up to 4.1 cm in diameter at the aortic root level, and 3.9 cm at the ascending segment. Upper abdomen: Unremarkable CRITICAL RESULT: No STUDY QUALITY: Good ======= 1. Findings likely suggestive of small focal sub-fabric leak along the posterior watchman shoulder as described above 2. Ectatic thoracic aorta, measuring up to 4.1 cm at the aortic root level. 3. Other ancillary findings are noted as above. SCAN INFO ======= GENERAL SETUP DATE OF EVENT: SCAN TYPE: Clinical PATIENT TYPE: Outpatient SCAN COVERAGE ZONE: Pulmonary vein/ADAN ECG GATING TECHNIQUE: Retrospective REFERRING PHYSICIAN: 1) Brooklynn Woodson MD ATTENDING PHYSICIAN: SMITH SOLOMON FELLOW: ÁLVARO SANTIAGO TECHNOLOGIST: Lindsay Stafford RT (R) (CT) NURSE: Javi Langston CONTRAST AGENT DOSE: 50 ml RATE: 4 ml/s ROUTE: IV BOLUS TECHNIQUE: Biphasic SCAN DELAY TIME METHOD: Bolus Track DLP: 2555 mGy-cm VITALS HEIGHT: 77 in HEIGHT: 195.58 cm WEIGHT: 260.00 lbs WEIGHT: 117.93 kgs BSA: 2.50 m^2 VITALS SYSTOLIC BP: 163 mmHg DIASTOLIC BP: 91 mmHg BASELINE HR: 67 BPM INDICATION(S) FOR SCAN \X09\Other symptoms OTHER, DESCRIBE:: Post watchman BILLING ======= APPROPRIATENESS OF ORDER: Appropriate BILLING Patient Account [id number] CPT Codes 33539 ICD10 Codes I48.0, I48.4 Report generated by [employer], a product of [employer] Normal [facility] Chest>Heart.atrium.left+Pulm onary veins CT angiogram and 3D reconstruction W contrast Allie 11-10-[address] [facility] [address] Report Name: KRISTEN COATES : 1950 Scan Date: 2023-11-10 12:55:52 Electronically signed by Smith Solomon 14:26:46 SUMMARY ======= Pulmonary veins: Normal anatomy. No significant stenosis. --------- Chest Wall: Degenerative changes of the thoracic spine Mediastinum: Normal, without adenopathy. Diffuse circumferential esophageal wall thickening. Lindsay: Normal, without adenopathy Pleural Spaces: Normal, without thickening/effusion or pneumothorax Lung Parenchyma: No consolidation or mass. Diffuse bronchial thickening. Pericardium: Normal, without thickening/effusion Atria: Watchman: - Watchman is seen in situ. - No definite evidence of device-related thrombus - Evidence of incomplete LA closure with contrast opacification within the device and the distal ADAN. - There is a 2 mm focal contrast filled gap between the superior aspect of the watchman and the atrial wall surface (series 6, image 86), which appears to be communicating to the inside of the device, however the communication with the left atrium proper is not confidently depicted. - No evidence of thrombus within the left atrium proper. Right Ventricle: Normal Left Ventricle: Normal Coronary Arteries: Severe multivessel coronary calcifications. Valves: Mild aortic valve leaflets calcification. Pulmonary Arteries: Normal Thoracic Aorta: Dilated thoracic aorta, measuring up to 4.1 cm in diameter at the aortic root level, and 3.9 cm at the ascending segment. Upper abdomen: Unremarkable CRITICAL RESULT: No STUDY QUALITY: Good IMPRESSION ======= 1. Suspected 2 mm gap between the superior aspect of the watchman, and the atrial surface. 2. Ectatic thoracic aorta, measuring up to 4.1 cm at the aortic root level. 3. Other ancillary findings are noted as above. SCAN INFO ======= GENERAL SETUP DATE OF EVENT: SCAN TYPE: Clinical PATIENT TYPE: Outpatient SCAN COVERAGE ZONE: Pulmonary vein/ADAN ECG GATING TECHNIQUE: Retrospective REFERRING PHYSICIAN: 1) Brooklynn Woodson MD ATTENDING PHYSICIAN: SMITH SOLOMON FELLOW: ÁLVARO SANTIAGO TECHNOLOGIST: Lindsay GRAVES (R) (CT) NURSE: Javi Langston CONTRAST AGENT DOSE: 50 ml RATE: 4 ml/s ROUTE: IV BOLUS TECHNIQUE: Biphasic SCAN DELAY TIME METHOD: Bolus Track DLP: 2555 mGy-cm VITALS HEIGHT: 77 in HEIGHT: 195.58 cm WEIGHT: 260.00 lbs WEIGHT: 117.93 kgs BSA: 2.50 m^2 VITALS SYSTOLIC BP: 163 mmHg DIASTOLIC BP: 91 mmHg BASELINE HR: 67 BPM INDICATION(S) FOR SCAN Other symptoms OTHER, DESCRIBE:: Post watchman BILLING ======= APPROPRIATENESS OF ORDER: Appropriate BILLING Patient Account [id number] CPT Codes 04348 ICD10 Codes I48.0, I48.4 Report generated by [employer], a product of [employer] CARDIOLOGY Smith Solomon M D - 11/10/[address] [facility] [address] Report Name: KRISTEN COATES : 1950 Scan Date: 2023-11-10 12:55:52 Electronically signed by Smith Solomon 14:26:46 SUMMARY ========= Pulmonary veins: Normal anatomy. No significant stenosis. --------- Chest Wall: Degenerative changes of the thoracic spine Mediastinum: Normal, without adenopathy. Diffuse circumferential esophageal wall thickening. Lindsay: Normal, without adenopathy Pleural Spaces: Normal, without thickening/effusion or pneumothorax Lung Parenchyma: No consolidation or mass. Diffuse bronchial thickening. Pericardium: Normal, without thickening/effusion --------- - Atria: Watchman: - Watchman is seen in situ. - No definite evidence of device-related thrombus - Evidence of incomplete LA closure with contrast opacification within the device and the distal ADAN. - There is a 2 mm focal contrast filled gap between the superior aspect of the watchman and the atrial wall surface (series 6, image 86), which appears to be communicating to the inside of the device, however the communication with the left atrium proper is not confidently depicted. - No evidence of thrombus within the left atrium proper. Right Ventricle: Normal Left Ventricle: Normal Coronary Arteries: Severe multivessel coronary calcifications. Valves: Mild aortic valve leaflets calcification. Pulmonary Arteries: Normal --------- -- Thoracic Aorta: Dilated thoracic aorta, measuring up to 4.1 cm in diameter at the aortic root level, and 3.9 cm at the ascending segment. --------- -- Upper abdomen: Unremarkable CRITICAL RESULT: No STUDY QUALITY: Good IMPRESSION ========= 1. Suspected 2 mm gap between the superior aspect of the watchman, and the atrial surface. 2. Ectatic thoracic aorta, measuring up to 4.1 cm at the aortic root level. 3. Other ancillary findings are noted as above. SCAN INFO ========= GENERAL --------- SETUP DATE OF EVENT: SCAN TYPE: Clinical PATIENT TYPE: Outpatient SCAN COVERAGE ZONE: Pulmonary vein/ADAN ECG GATING TECHNIQUE: Retrospective REFERRING PHYSICIAN: 1) Brooklynn Woodson MD ATTENDING PHYSICIAN: SMITH SOLOMON FELLOW: ÁLVARO SANTIAGO TECHNOLOGIST: Lindsay Stafford RT (R) (CT) NURSE: Javi Langston CONTRAST AGENT DOSE: 50 ml RATE: 4 ml/s ROUTE: IV BOLUS TECHNIQUE: Biphasic SCAN DELAY TIME METHOD: Bolus Track DLP: 2555 mGy-cm VITALS HEIGHT: 77 in HEIGHT: 195.58 cm WEIGHT: 260.00 lbs WEIGHT: 117.93 kgs BSA: 2.50 m^2 VITALS SYSTOLIC BP: 163 mmHg DIASTOLIC BP: 91 mmHg BASELINE HR: 67 BPM INDICATION(S) FOR SCAN Other symptoms OTHER, DESCRIBE:: Post watchman BILLING ========= APPROPRIATENESS OF ORDER: Appropriate BILLING --------- Patient Account [id number] CPT Codes 41359 ICD10 Codes I48.0, I48.4 Report generated by [employer], a product of [employer] [facility] Radiology Study observation (narrative) [facility] Chest>Heart.atrium.left+Pulm onary veins CT angiogram and 3D reconstruction W contrast IVOrdered By: Smith Solomon on 11-10-2023 [facility] CREAT/GFRon 03-06-2023 Creatinine [Mass/Vol] 0.82 mg/dL 0.70 - 1.30 mg/dL [facility] GFR/1.73 sq M.predicted CKD-EPI (S/P/Bld) [Vol rate/Area] - PINF [facility] Comment on above: Reported eGFR is based on the CKD-EPI 20 21 equation using creatinine, age, and sex. Interpretation and review of laboratory results Normal [facility] Test performed at ad dress of the patient encounter. [facility] CT ANGIO CHEST (NONCORONARY) on 03-06-2023 CT ANGIO CHEST (NONCORONARY) EXAM: CT ANGIO CHEST (NONCORONARY), 03/06/2023 08:35 AM CLINICAL INDICATIONS: aneurysm; COMPARISON: No prior studies available for comparison. TECHNIQUE: The imaging was performed using a MDCT system. It included a spiral acquisition from the shoulders to the upper abdomen in order to assess the entire thoracic aorta and arch vessels, as well as suprarenal abdominal aorta. 3D reconstruction was performed on an independent workstation based on specific patient condition and were reviewed and approved by Smith Solomon MD. CONTRAST: iohexol (OMNIPAQUE) 350 MG/ML injection 1-171 mL; Route of Administration: Intravenous; Dose: 50 mL. FINDINGS: Chest Wall: Degenerative changes of the thoracic spine Mediastinum: Normal, without adenopathy Lindsay: Normal, without adenopathy Pleural Spaces: Normal, without thickening/effusion or pneumothorax Lung Parenchyma: No mass or consolidation. Fine bibasilar reticular changes. Pericardium: Normal, without thickening/effusion Atria: Watchman device is seen in situ, with incomplete seal with opacification of the left atrial appendage. Right Ventricle: Normal Left Ventricle: Normal Coronary Arteries: Severe multivessel coronary calcifications. Valves: Normal Pulmonary Arteries: Normal Thoracic Aorta: Root: Diameter - 40 mm Sino-Tubular Junction: Intact Mid-Ascending Segment = No atherosclerosis; 37 mm Proximal Arch = No atherosclerosis, Normal in diameter Distal Arch = No atherosclerosis, Normal in diameter Isthmus = Mild atherosclerosis, Normal in diameter Mid-Descending Segment = No atherosclerosis, Normal in diameter Diaphragm Level = No atherosclerosis, Normal in diameter Arch Branches: Normal Abdominal Aorta: Normal Liver: Normal Biliary System: Normal Pancreas: Normal Spleen: Normal Kidneys: Normal Adrenal Glands: Normal Abdominal Wall: Normal IMPRESSION: 1. Borderline dimensions of the aortic root, measuring 4 cm in diameter. 2. Other ancillary findings are noted as above. Normal [facility] IMPRESSION: 1. Borderline dimensions of the aortic root, measuring 4 cm in diameter. 2. Other ancillary findings are noted as above. OLOG Y EXAM: CT ANGIO CHEST (NONCORONARY), 03/06/2023 08:35 AM CLINICAL INDICATIONS: aneurysm; COMPARISON: No prior studies available for comparison. TECHNIQUE: The imaging was performed using a MDCT system. It included a spiral acquisition from the shoulders to the upper abdomen in order to assess the entire thoracic aorta and arch vessels, as well as suprarenal abdominal aorta. 3D reconstruction was performed on an independent workstation based on specific patient condition and were reviewed and approved by Smith Solomon MD. CONTRAST: iohexol (OMNIPAQUE) 350 MG/ML injection 1-171 mL; Route of Administration: Intravenous; Dose: 50 mL. FINDINGS: Chest Wall: Degenerative changes of the thoracic spine Mediastinum: Normal, without adenopathy Lindsay: Normal, without adenopathy Pleural Spaces: Normal, without thickening/effusion or pneumothorax Lung Parenchyma: No mass or consolidation. Fine bibasilar reticular changes. Pericardium: Normal, without thickening/effusion Atria: Watchman device is seen in situ, with incomplete seal with opacification of the left atrial appendage. Right Ventricle: Normal Left Ventricle: Normal Coronary Arteries: Severe multivessel coronary calcifications. Valves: Normal Pulmonary Arteries: Normal Thoracic Aorta: Root: Diameter - 40 mm Sino-Tubular Junction: Intact Mid-Ascending Segment = No atherosclerosis; 37 mm Proximal Arch = No atherosclerosis, Normal in diameter Distal Arch = No atherosclerosis, Normal in diameter Isthmus = Mild atherosclerosis, Normal in diameter Mid-Descending Segment = No atherosclerosis, Normal in diameter Diaphragm Level = No atherosclerosis, Normal in diameter Arch Branches: Normal Abdominal Aorta: Normal Liver: Normal Biliary System: Normal Pancreas: Normal Spleen: Normal Kidneys: Normal Adrenal Glands: Normal Abdominal Wall: Normal RADIOLOGY Smith Solomon M B/[facility] - 03/06/2023 EXAM: CT ANGIO CHEST (NONCORONARY), 03/06/2023 08:35 AM CLINICAL INDICATIONS: aneurysm; COMPARISON: No prior studies available for comparison. TECHNIQUE: The imaging was performed using a MDCT system. It included a spiral acquisition from the shoulders to the upper abdomen in order to assess the entire thoracic aorta and arch vessels, as well as suprarenal abdominal aorta. 3D reconstruction was performed on an independent workstation based on specific patient condition and were reviewed and approved by Smith Solomon MD. CONTRAST: iohexol (OMNIPAQUE) 350 MG/ML injection 1-171 mL; Route of Administration: Intravenous; Dose: 50 mL. FINDINGS: Chest Wall: Degenerative changes of the thoracic spine Mediastinum: Normal, without adenopathy Lindsay: Normal, without adenopathy Pleural Spaces: Normal, without thickening/effusion or pneumothorax Lung Parenchyma: No mass or consolidation. Fine bibasilar reticular changes. Pericardium: Normal, without thickening/effusion --------- -- Atria: Watchman device is seen in situ, with incomplete seal with opacification of the left atrial appendage. Right Ventricle: Normal Left Ventricle: Normal Coronary Arteries: Severe multivessel coronary calcifications. Valves: Normal Pulmonary Arteries: Normal --------- -- Thoracic Aorta: Root: Diameter - 40 mm Sino-Tubular Junction: Intact Mid-Ascending Segment = No atherosclerosis; 37 mm Proximal Arch = No atherosclerosis, Normal in diameter Distal Arch = No atherosclerosis, Normal in diameter Isthmus = Mild atherosclerosis, Normal in diameter Mid-Descending Segment = No atherosclerosis, Normal in diameter Diaphragm Level = No atherosclerosis, Normal in diameter Arch Branches: Normal --------- -- Abdominal Aorta: Normal --------- -- Liver: Normal Biliary System: Normal Pancreas: Normal Spleen: Normal Kidneys: Normal Adrenal Glands: Normal Abdominal Wall: Normal IMPRESSION IMPRESSION: 1. Borderline dimensions of the aortic root, measuring 4 cm in diameter. 2. Other ancillary findings are noted as above. [facility] Radiology Study observation (narrative) [facility] CT ANGIO CHEST (NONCORONARY) Ordered By: Smith Solomon on 03-06-2023 [facility] ECHOCARDIOGRAM TRANSESOPHAGE AL (ALLI)on 03-06-2023 ECHOCARDIOGRAM TRANSESOPHAGEAL (ALLI) S/p LAAOD placement on 03/12/2022 with Watchman FLX 31 mm The left ventricle is normal in size with borderline systolic function LVEF ~50% The right ventricle is normal in size and systolic function. No RA/LA thrombus. No right to left shunt noted on saline contrast study or color doppler. A ADAN occlusion device is present in the ADAN, the device is well seated without thrombus. There is a small residual communication on the lateral aspect of the device, measuring 4 mm in width. There is no significant valve disease. No pericardial effusion is present. Scattered aortic atherosclerosis Table formatting from the original result was not included. Images from the original result were not included. Facility [facility] Patient Information Patient Name Kristen Coates Legal Sex Male Indication for Exam Priority: Routine Dx: Presence of Watchman left atrial appendage closure device [Z95.818 (ICD-10-CM)]; Paroxysmal atrial fibrillation [I48.0 (ICD-10-CM)]; Atypical atrial flutter [I48.4 (ICD-10-CM)] Comments: ALLI in 4 months to see if appendage is closed, s/p Watchman Interpretation Summary S/p LAAOD placement on 03/12/2022 with Watchman FLX 31 mm The left ventricle is normal in size with borderline systolic function LVEF ~50% The right ventricle is normal in size and systolic function. No RA/LA thrombus. No right to left shunt noted on saline contrast study or color doppler. A ADAN occlusion device is present in the ADAN, the device is well seated without thrombus. There is a small residual communication on the lateral aspect of the device, measuring 4 mm in width. There is no significant valve disease. No pericardial effusion is present. Scattered aortic atherosclerosis Findings Left Ventricle Chamber size is normal. Normal global systolic function. Ejection fraction is low normal (50-55%). Diastolic function not assessed. Right Ventricle Chamber size is normal. Systolic function is normal. Left Atrium Chamber size is enlarged. No left atrial appendage thrombus present. No spontaneous contrast is present in the appendage. Left atrial appendage occluder is present. A residual ADAN-LA communication remains. The width of the residual flow is 4.0 mm. Systolic blunting of pulmonary venous inflow in the pulmonary veins. Right Atrium Chamber size is normal. No thrombus is present. Septum The atrial septum is normal. No evidence of patent foramen ovale determined by color flow and saline contrast. Mitral Valve Non-specific leaflet thickening. Leaflet mobility is normal. Mild regurgitation. No valve stenosis. Aortic Valve Trileaflet valve. Leaflet mobility is normal. Trace regurgitation. Tricuspid Valve Normal leaflets. Leaflet mobility is normal. Trace regurgitation. No stenosis. Pulmonic Valve Normal structure. Trace regurgitation. Aorta No dilation to extent seen. There is grade 3 (<5mm) diffuse plaque throughout the aorta.Ascendin.60 cm. Pericardium No pericardial effusion. IVC/SVC The superior vena cava structure is normal. Reading Providers Reading Role Read Date Micky Trent MD Fellow - Performing 03/06/2023 Jose Davis DO Echo [place] 03/06/2023 [facility] Aortic Root - End Diastolic Ascending aorta 3.6 cm Vitals Height Weight BSA (Calculated - sq m) BP Pulse 1.93 m (6' 4 ) 114.3 kg (252 lb) 2.44 m2 144/77 42 Performing Staff Luis Manuel Sahni RN Study Details The risks and alternatives of the procedure and conscious sedation were explained to the patient/family member and/or their power of environmental attorney. Informed consent was obtained. All staff members involved in the procedure completed a timeout prior to the start of the procedure verifying correct patient identity and correct procedure to be performed. A transesophageal echocardiography study (including color flow Doppler, limited spectral Doppler and 3D) was performed. Total time physician provided [id number] service beginning with the administration of sedation medications until the patient was sufficiently recovered after the procedure was 22 minutes. Indications for study: ADAN Occluder pre / post. There were no complications. Exam Details Performed Procedure Technologist Supporting Staff Performing Physician ECHO TRANSESOPHAGEAL W/3D W/COLORFLOW W/LIMITED DOPPLER Luis Manuel Sahni RN Appointment Date/Status Modality Department 03/06/2023 Arrived ALLI TESTING, [facility] ECHOCARDIOGRAPHY ROSS Begin Exam End Exam 03/06/2023 9:01 AM 03/06/2023 9:36 AM Moderate sedation provided by performing physician. Sedation/Procedure Log Medications (03/06/2023 00:00 to 03/06/2023 09:36) 03/06/2023 Event Details User 09:10 Medication Given Lidocaine (XYLOCAINE) 5 % ointment 1 Application - Dose: 1 Application ; Route: Topical Luis Manuel Sahni RN 09:11 Medication $$New Bag$$ Sodium chloride 0.9% IV solution - Rate: 20 mL/hr ; Route: Intrave (more content not included)... Normal [facility] S/p LAAOD placement on 03/12/2022 with Watchman FLX 31 mm The left ventricle is normal in size with borderline systolic function LVEF ~50% The right ventricle is normal in size and systolic function. No RA/LA thrombus. No right to left shunt noted on saline contrast study or color doppler. A ADAN occlusion device is present in the ADAN, the device is well seated without thrombus. There is a small residual communication on the lateral aspect of the device, measuring 4 mm in width. There is no significant valve disease. No pericardial effusion is present. Scattered aortic atherosclerosis Left Ventricle Chamber size is normal. Normal global systolic function. Ejection fraction is low normal (50-55%). Diastolic function not assessed. Right Ventricle Chamber size is normal. Systolic function is normal. Left Atrium Chamber size is enlarged. No left atrial appendage thrombus present. No spontaneous contrast is present in the appendage. Left atrial appendage occluder is present. A residual ADAN-LA communication remains. The width of the residual flow is 4.0 mm. Systolic blunting of pulmonary venous inflow in the pulmonary veins. Right Atrium Chamber size is normal. No thrombus is present. IVC/SVC The superior vena cava structure is normal. Mitral Valve Non-specific leaflet thickening. Leaflet mobility is normal. Mild regurgitation. No valve stenosis. Tricuspid Valve Normal leaflets. Leaflet mobility is normal. Trace regurgitation. No stenosis. Aortic Valve Trileaflet valve. Leaflet mobility is normal. Trace regurgitation. Pulmonic Valve Normal structure. Trace regurgitation. Pericardium No pericardial effusion. Septum The atrial septum is normal. No evidence of patent foramen ovale determined by color flow and saline contrast. Aorta No dilation to extent seen. There is grade 3 (<5mm) diffuse plaque throughout the aorta.Ascendin.60 cm. Study Details The risks and alternatives of the procedure and conscious sedation were explained to the patient/family member and/or their power of environmental attorney. Informed consent was obtained. All staff members involved in the procedure completed a timeout prior to the start of the procedure verifying correct patient identity and correct procedure to be performed. A transesophageal echocardiography study (including color flow Doppler, limited spectral Doppler and 3D) was performed. Total time physician provided [id number] service beginning with the administration of sedation medications until the patient was sufficiently recovered after the procedure was 22 minutes. Indications for study: ADAN Occluder pre / post. There were no complications. [facility] Radiology Study observation (narrative) [facility] ECHOCARDIOGRAM TRANSESOPHAGE AL (ALLI)Ordered By: Jose Davis on 03-06-2023 Ao ASC index 1.48 cm/m2 [facility] Work Phone: Ascending aorta 3.60 cm [facility] Work Phone: Body surface area Derived from formula 2.44 m2 [facility] Work Phone: [facility] Work Phone: CREAT/GFRon 03-11-2022 Creatinine [Mass/Vol] 1.08 mg/dL 0.70 - 1.30 mg/dL [facility] GFR/1.73 sq M.predicted among non-blacks MDRD (S/P/Bld) [Vol rate/Area] 70 mL/min/{1.73_m2} >=60 mL/min/1.7 3m2 [facility] Comment on above: Reported eGFR equation is based on the C KD-EPI 2009 equation. Interpretation and review of laboratory results Normal [facility] Test performed at ad dress of the patient encounter. [facility] CT CARDIAC PULMONARY VENOGRA [facility] 03-11-[address] [facility] [address] Report Name: KRISTEN COATES : 1950 Scan Date: 2022-03-11 10:59:43 Electronically signed by Ailin Roland 14:01:56 VITALS ======= HEIGHT: 76.5 in (194.31 cm) WEIGHT: 270.00 lbs (122.47 kgs) BSA: 2.53 m^2 BMI: 32 kg/m^2 BP: 151 / 90 mmHg BASELINE HR: 55 BPM FINAL IMPRESSION ======= 1. No LA, RA or ADAN thrombus. 2. Severe coronary calcification within the limitation of the study 3. Normal pulmonary venous anatomy STUDY QUALITY: Study quality is good. OTHER FINDINGS: 1. There is no LA, RA or ADAN thrombus by first pass and delayed images. Watchman landing zone: Measured 10 mm from the tip of coumadin ridge. Area 4.75 cm2, Distance 29 x 22 mm. Average Diameter 24 mm. Perimeter 80 mm 2. Severe coronary calcification is seen. However, the study is not optimized for coronary calcification detection or for luminal stenosis evaluation.. 3. There is mild aortic valve calcification. There is mild descending aorta calcification. There is no mitral annular calcification. The ascending aorta is normal in size measuring 34 mm at the PA bifurcation. The main pulmonary artery measure 23 mm in diameter which is normal in size. 4. Extra cardiac findings: limited field of view. Chest Wall: no major deformity. Mediastinum: Normal, without adenopathy. Lindsay: no adenopathy Pleural Spaces: Normal, without thickening/effusion or pneumothorax Lung Parenchyma: No evidence of significantly lung disease, or masses. Evidence of small left sided calcification (<5 mm) PULMONARY VEIN ======= LEFT SIDE MEASUREMENTS UPPER DIMENSIONS: 2.2 cm UPPER DIMENSIONS (2): 1.5 cm LOWER DIMENSIONS: 1.6 cm LOWER DIMENSIONS (2): 0.9 cm RIGHT SIDE MEASUREMENTS UPPER DIMENSIONS: 2.5 cm UPPER DIMENSIONS (2): 1.8 cm LOWER DIMENSIONS: 2.2 cm LOWER DIMENSIONS (2): 1.6 cm SCAN INFO ======= TEST TYPE: Venogram SCANNER BLASTING MINER: Communication Science SCANNER MODEL: [employer] CT750 6Rooms DOSE REDUCTION ALGORITHM: Helical with dose modulation SCAN COVERAGE ZONE: Pulmonary Veins/ADAN EKG GATED: No GENERAL CONTRAST AGENT CONTRAST AGENT USED?: Yes TYPE: Omnipaque 350 DOSE: 70 ml RATE: 4 ml/s ROUTE: IV BOLUS TECHNIQUE: Biphasic SCAN DELAY TIME METHOD: Smart Prep SERUM CREATININE: 1.08 mg/dL GFR: 72.05 ml/min/1.73m^2 CREATININE DATE: CT CONTRAST REACTION: None RADIATION DOSE DLP: 696.96 SETUP DATE OF EVENT: SCAN TYPE: Clinical PATIENT TYPE: Outpatient REASON(S) FOR SCAN: EP procedure planning REFERRING PHYSICIAN: 1) Brooklynn Woodson MD FELLOW: HECTOR BOWMAN DO NURSE: Maria Ines Wong ATTENDING PHYSICIAN: AILIN ROLAND TECHNOLOGIST: Lindsay Stafford RT (R) (CT) BILLING ======= Patient Account [id number] CPT Codes 77543 ICD10 Codes I48.91 Report generated by [employer], a product of [employer] CARDIOLOGY Ailin Roland MBB S - 03/11/2022 [facility] [address] Report Name: KRISTEN COATES : 1950 Scan Date: 2022-03-11 10:59:43 Electronically signed by Ailin Roland 14:01:56 VITALS ========= HEIGHT: 76.5 in (194.31 cm) WEIGHT: 270.00 lbs (122.47 kgs) BSA: 2.53 m^2 BMI: 32 kg/m^2 BP: 151 / 90 mmHg BASELINE HR: 55 BPM FINAL IMPRESSION ========= 1.No LA, RA or ADAN thrombus. 2.Severe coronary calcification within the limitation of the study 3.Normal pulmonary venous anatomy STUDY QUALITY: Study quality is good. OTHER FINDINGS: 1.There is no LA, RA or ADAN thrombus by first pass and delayed images. Watchman landing zone:Measured 10 mm from the tip of coumadin ridge. Area 4.75 cm2, Distance 29 x 22 mm. Average Diameter 24 mm. Perimeter 80 mm 2. Severe coronary calcification is seen. However, the study is not optimized for coronary calcification detection or for luminal stenosis evaluation.. 3.There is mild aortic valve calcification. There is mild descending aorta calcification. There is no mitral annular calcification. The ascending aorta is normal in size measuring 34 mm at the PA bifurcation. The main pulmonary artery measure 23 mm in diameter which is normal in size. 4.Extra cardiac findings: limited field of view. Chest Wall: no major deformity. Mediastinum: Normal, without adenopathy. Lindsay: no adenopathy Pleural Spaces: Normal, without thickening/effusion or pneumothorax Lung Parenchyma: No evidence of significantly lung disease, or masses. Evidence of small left sided calcification (<5 mm) PULMONARY VEIN ========= LEFT SIDE MEASUREMENTS --------- UPPER DIMENSIONS: 2.2 cm UPPER DIMENSIONS (2): 1.5 cm LOWER DIMENSIONS: 1.6 cm LOWER DIMENSIONS (2): 0.9 cm RIGHT SIDE MEASUREMENTS --------- UPPER DIMENSIONS: 2.5 cm UPPER DIMENSIONS (2): 1.8 cm LOWER DIMENSIONS: 2.2 cm LOWER DIMENSIONS (2): 1.6 cm SCAN INFO ========= TEST TYPE: Venogram SCANNER BLASTING MINER: Communication Science SCANNER MODEL: [employer] CT750 6Rooms DOSE REDUCTION ALGORITHM: Helical with dose modulation SCAN COVERAGE ZONE: Pulmonary Veins/ADAN EKG GATED: No GENERAL --------- CONTRAST AGENT CONTRAST AGENT USED?: Yes TYPE: Omnipaque 350 DOSE: 70 ml RATE: 4 ml/s ROUTE: IV BOLUS TECHNIQUE: Biphasic SCAN DELAY TIME METHOD: Smart Prep SERUM CREATININE: 1.08 mg/dL GFR: 72.05 ml/min/1.73m^2 CREATININE DATE: CT CONTRAST REACTION: None RADIATION DOSE DLP: 696.96 SETUP DATE OF EVENT: SCAN TYPE: Clinical PATIENT TYPE: Outpatient REASON(S) FOR SCAN: EP procedure planning REFERRING PHYSICIAN: 1) Brooklynn Woodson MD FELLOW: HECTOR BOWMAN DO NURSE: Maria Ines Wong ATTENDING PHYSICIAN: AILIN ROLAND TECHNOLOGIST: Lindsay Stafford RT (R) (CT) BILLING ========= Patient Account [id number] CPT Codes 08145 ICD10 Codes I48.91 Report generated by [employer], a product of [employer] [facility] Radiology Study observation (narrative) [facility] CT CARDIAC PULMONARY VENOGRA MOrdered By: Ailin Roland on 03-11-2022 [facility] Work Phone: CBC AUTO DIFFon 01-22-2022 BASO # 0.0 103/ul Normal 0.0-0.1 [facility] Comment on above: Performed By: #### CBC #### [facility] [address] [place] [address] Dr. Patricia Mcconnell Basophils/100 WBC (Bld) 0.7 % Normal 0.2-2.0 [facility] Comment on above: Performed By: #### CBC #### [facility] [address] [address] [address] Patricia Mcconnell EO # 0.1 103/ul Normal 0.0-0.7 [facility] Comment on above: Performed By: #### CBC #### [facility] [address] [place] [address] Dr. Patricia Mcconnell Eosinophils/100 WBC (Bld) 2.4 % Normal 0.9-7.0 [facility] Comment on above: Performed By: #### CBC #### [facility] [address] [place] [address] Dr. Patricia Mcconnell Erythrocyte distribution width (RBC) [Ratio] 12.8 % Normal 11.0-15.0 [facility] Comment on above: Performed By: #### CBC #### [facility] [address] [place] [address] Dr. Patricia Mcconnell Hematocrit (Bld) [Volume fraction] 44.5 % Normal 42.0-54.0 [facility] Comment on above: Performed By: #### CBC #### [facility] [address] [place] [address] Dr. Patricia Mcconnell Hemoglobin (Bld) [Mass/Vol] 14.9 g/dL Normal 14.0-18.0 [facility] Comment on above: Performed By: #### CBC #### [facility] [address] [place] [address] Dr. Patricia Mcconnell IG # 0.02 10e3/ul Normal 0.00-0.03 [facility] Comment on above: Performed By: #### CBC #### [facility] [address] [place] [address] Dr. Patricia Mcconnell IG % 0.4 % Normal 0.0-0.5 [facility] Comment on above: Performed By: #### CBC #### [facility] [address] [place] [address] Dr. Patricia Mcconnell LYMPH # 1.8 103/ul Normal 1.2-3.8 [facility] Comment on above: Performed By: #### CBC #### [facility] [address] [place] [address] Dr. Patricia Mcconnell Lymphocytes/100 WBC (Bld) 33.0 % Normal 20.5-60.0 [facility] Comment on above: Performed By: #### CBC #### [facility] [address] [place] [address] Dr. Patricia Mcconnell MANUAL DIFF REQ NO Normal [facility] Comment on above: Performed By: #### CBC #### [facility] [address] [place] [address] Dr. Patricia Mcconnell MCH (RBC) [Entitic mass] 31.6 pg Normal 25.9-34.0 [facility] Comment on above: Performed By: #### CBC #### [facility] [address] [place] [address] Dr. Patricia Mcconnell MCHC (RBC) [Mass/Vol] 33.5 g/dL Normal 29.9-35.2 [facility] Comment on above: Performed By: #### CBC #### [facility] [address] [place] [address] Dr. Patricia Mcconnell MCV (RBC) [Entitic vol] 94.3 fL Critically high 80.0-94.0 [facility] Comment on above: Performed By: #### CBC #### [facility] [address] [place] [address] Dr. Patricia Mcconnell MONO # 0.5 103/ul Normal 0.3-0.8 [facility] Comment on above: Performed By: #### CBC #### [facility] [address] [place] [address] Dr. Patricia Mcconnell Monocytes/100 WBC (Bld) 9.3 % Normal 1.7-12.0 [facility] Comment on above: Performed By: #### CBC #### [facility] [address] [place] [address] Dr. Patricia Mcconnell NEUT # 2.9 103/ul Normal 1.4-6.5 [facility] Comment on above: Performed By: #### CBC #### [facility] [address] [place] [address] Dr. Patricia Mcconnell Neutrophils/100 WBC (Bld) 54.2 % Normal 43.0-75.0 [facility] Comment on above: Performed By: #### CBC #### [facility] [address] [place] [address] Dr. Patricia Mcconnell Platelet mean volume (Bld) [Entitic vol] 11.4 fL Normal 9.5-13.5 [facility] Comment on above: Performed By: #### CBC #### [facility] [address] [place] [address] Dr. Patricia Mcconnell PLT 145 103/ul Critically low 150-450 [facility] Comment on above: Performed By: #### CBC #### [facility] [address] [place] [address] Dr. Patricia Mcconnell RBC 4.72 106/ul Normal 4.70-6.10 [facility] Comment on above: Performed By: #### CBC #### [facility] [address] [place] [address] Dr. Patricia Mcconnell WBC 5.4 103/ul Normal 4.0-11.0 [facility] Comment on above: Performed By: #### CBC #### [facility] [address] [place] [address] Dr. Patricia Mcconnell LIPID PROFILEon 01-22-2022 CHOL-HDL RATIO NORM SEE BELOW Normal [facility] Comment on above: Result Comment: 3.3 - 4.4 LOW RISK 4.4 - 7.1 AVERAGE RISK 7.1 - 11.0 MODERATE RISK >11.0 HIGH RISK Performed By: #### B MP, LIPID, ALT #### [facility] [address] [place] [address] Dr. Patricia Mcconnell Cholesterol [Mass/Vol] 152 mg/dL Normal <=200 [facility] Comment on above: Performed By: #### BMP, LIPID, ALT #### [facility] [address] [place] [address] Dr. Patricia Mcconnell Cholesterol in HDL [Mass/Vol] 47 mg/dL Normal 40-60 [facility] Comment on above: Performed By: #### BMP, LIPID, ALT #### [facility] [address] [address] [address] Patricia Mcconnell Cholesterol in LDL [Mass/Vol] 88.2 mg/dL Normal [facility] Comment on above: Performed By: #### BMP, LIPID, ALT #### [facility] [address] [address] [address] Patricia Mcconnell Cholesterol.tota l/Cholesterol in HDL [Mass ratio] 3.2 {ratio} Normal [facility] Comment on above: Performed By: #### BMP, LIPID, ALT #### [facility] [address] [address] [address] Patricia Mcconnell HDL NORMAL > or = 60 mg/dl - LO W CARDIOVASCULAR RISK <40 mg/dl - HIGH CARDIOVASCULAR RISK Normal [facility] Comment on above: Performed By: #### BMP, LIPID, ALT #### [facility] [address] [place] [address] Dr. Patricia Mcconnell LDL CALC NORMAL SEE BELOW Normal [facility] Comment on above: Result Comment: <100 mg/dl OPTIMAL 100 - 129 mg/dl NEAR OR ABOVE OPTIMAL 130 - 159 mg/dl BORDERLINE HIGH 160 - 189 mg/dl HIGH >190 mg/dl VERY HIGH Performed By: #### B MP, LIPID, ALT #### [facility] [address] [address] [address] Patricia Mcconnell Triglyceride [Mass/Vol] 84 mg/dL Normal <=150 [facility] Comment on above: Performed By: #### BMP, LIPID, ALT #### [facility] [address] [address] [address] Patricia Mcconnell VLDL CALC 16.8 mg/dL Normal [facility] Comment on above: Performed By: #### BMP, LIPID, ALT #### [facility] [address] [address] [address] Patricia Mcconnell PROF CHEM 8 (BAS METB)on Anion gap [Moles/Vol] 12.5 mmol/L Normal [facility] Comment on above: Performed By: #### BMP, LIPID, ALT #### [facility] [address] [place] [address] Dr. Patricia Mcconnell Calcium [Mass/Vol] 9.2 mg/dL Normal 8.5-10.1 [facility] Comment on above: Performed By: #### BMP, LIPID, ALT #### [facility] [address] [address] [address] Patricia Mcconnell Chloride [Moles/Vol] 103 mmol/L Normal 98-107 [facility] Comment on above: Performed By: #### BMP, LIPID, ALT #### [facility] [address] [address] [address] Patricia Mcconnell CO2 [Moles/Vol] 26.1 mmol/L Normal 21.0-32.0 [facility] Comment on above: Performed By: #### BMP, LIPID, ALT #### [facility] [address] [place] [address] Dr. Patricia Mcconnell Creatinine [Mass/Vol] 1.14 mg/dL Normal 0.70-1.30 [facility] Comment on above: Performed By: #### BMP, LIPID, ALT #### [facility] [address] [place] [address] Dr. Patricia Mcconnell EGFR-AF UZBEK >60 Normal >=60 [facility] Comment on above: Performed By: #### BMP, LIPID, ALT #### [facility] [address] [place] [address] Dr. Patricia Mcconnell EGFR-NON AF UZBEK >60 Normal >=60 [facility] Comment on above: Performed By: #### BMP, LIPID, ALT #### [facility] [address] [place] [address] Dr. Patricia Mcconnell Glucose [Mass/Vol] 103 mg/dL Normal 74-106 [facility] Comment on above: Performed By: #### BMP, LIPID, ALT #### [facility] [address] [place] [address] Dr. Patricia Mcconnell Potassium [Moles/Vol] 4.6 mmol/L Normal 3.5-5.1 [facility] Comment on above: Performed By: #### BMP, LIPID, ALT #### [facility] [address] [place] [address] Dr. Patricia Mcconnell Sodium [Moles/Vol] 137 mmol/L Normal 136-145 [facility] Comment on above: Performed By: #### BMP, LIPID, ALT #### [facility] [address] [place] [address] Dr. Patricia Mcconnell Urea nitrogen [Mass/Vol] 22.0 mg/dL Critically high 7.0-18.0 [facility] Comment on above: Performed By: #### BMP, LIPID, ALT #### [facility] [address] [place] [address] Dr. Patricia Mcconnell Urea nitrogen/Creatin ine [Mass ratio] 19.3 mg/mg Normal [facility] Comment on above: Performed By: #### BMP, LIPID, ALT #### [facility] [address] [place] [address] Dr. Patricia Mcconnell SGPTon 01-22-2022 ALT [Catalytic activity/Vol] 43 U/L Normal 16-63 [facility] Comment on above: Performed By: #### JERONIMO, LIPID, ALT #### [facility] [address] [place] [address] Dr. Patricia Mcconnell URINE T PROTEIN CREAT RATIOo n 01-22-2022 UR PROT CREAT RAT 0.07 Normal [facility] Comment on above: Performed By: #### URTPCR #### [facility] [address] [place] [address] Dr. Patricia Mcconnell UR TOTAL PROTEIN <6.0 Normal <=12.0 [facility] Comment on above: Performed By: #### URTPCR #### [facility] [address] [place] [address] Dr. Patricia Mcconnell URINE CREAT 86.86 mg/dL Normal 20.00-300. 00 [facility] Comment on above: Performed By: #### URTPCR #### [facility] [address] [place] [address] Dr. Patricia Mcconnell PROF CHEM 8 (BAS METB)on Anion gap [Moles/Vol] 13.6 mmol/L Normal [facility] Comment on above: Performed By: #### BMP #### [facility] [address] [address] [address] Patricia Mcconnell Calcium [Mass/Vol] 9.2 mg/dL Normal 8.5-10.1 [facility] Comment on above: Performed By: #### BMP #### [facility] [address] [address] [address] Patricia Mcconnell Chloride [Moles/Vol] 101 mmol/L Normal 98-107 [facility] Comment on above: Performed By: #### BMP #### [facility] [address] [address] [address] Patricia Mcconnell CO2 [Moles/Vol] 26.0 mmol/L Normal 21.0-32.0 [facility] Comment on above: Performed By: #### BMP #### [facility] [address] [place] [address] Dr. Patricia Mcconnell Creatinine [Mass/Vol] 1.29 mg/dL Normal 0.70-1.30 [facility] Comment on above: Performed By: #### BMP #### [facility] [address] [place] [address] Dr. Patricia Mcconnell EGFR-AF UZBEK >60 Normal >=60 [facility] Comment on above: Performed By: #### BMP #### [facility] [address] [address] [address] Patricia Mcconnell EGFR-NON AF UZBEK 55 mL/min/1.73m2 Critically low >=60 [facility] Comment on above: Performed By: #### BMP #### [facility] [address] [address] [address] Patricia Mcconnell Glucose [Mass/Vol] 100 mg/dL Normal 74-106 [facility] Comment on above: Performed By: #### BMP #### [facility] [address] [place] [address] Dr. Patricia Mcconnell Potassium [Moles/Vol] 4.6 mmol/L Normal 3.5-5.1 [facility] Comment on above: Performed By: #### BMP #### [facility] [address] [place] [address] Dr. Patricia Mcconnell Sodium [Moles/Vol] 136 mmol/L Normal 136-145 [facility] Comment on above: Performed By: #### BMP #### [facility] [address] [address] [address] Patricia Mcconnell Urea nitrogen [Mass/Vol] 21.0 mg/dL Critically high 7.0-18.0 [facility] Comment on above: Performed By: #### BMP #### [facility] [address] [address] [address] Patricia Mcconnell Urea nitrogen/Creatin ine [Mass ratio] 16.3 mg/mg Normal [facility] Comment on above: Performed By: #### BMP #### [facility] [address] [address] [address] Patricia Mcconnell Auto Diffon 03-23-2018 Basophils Auto #/vol (Bld) 0.8 % Normal 0.0-2.0 [facility] Comment on above: Order Comment: Order Added by True Ex pert. Performed By: #### 2 874465, 9231172, 5236969, 1932473, 63499775, 5299169 ####[facility] [address] [place] [address] Basophils/Leukoc ytes Auto Pure number fraction (Bld) 0.0 E9/L Normal 0.0-0.2 [facility] Comment on above: Order Comment: Order Added by True Ex pert. Performed By: #### 2 241368, 7984777, 9215754, 7251412, 02227828, 1916260 ####[facility] [address] [place] [address] Eosinophils/100 WBC Auto (Bld) 3.7 % Normal 0.0-8.0 [facility] Comment on above: Order Comment: Order Added by True Ex pert. Performed By: #### 2 718317, 2196211, 1202993, 8952818, 44079138, 9220625 ####[facility] [address] [place] [address] Eosinophils/Leuk ocytes Auto Pure number fraction (Bld) 0.2 E9/L Normal 0.0-0.5 [facility] Comment on above: Order Comment: Order Added by True Ex pert. Performed By: #### 2 378931, 5600332, 0539748, 8429346, 79122835, 5649852 ####[facility] [address] [place] [address] Lymphocytes/100 WBC Auto (Bld) 23.1 % Normal 14.0-50.0 [facility] Comment on above: Order Comment: Order Added by True Ex pert. Performed By: #### 2 774054, 1321011, 9299415, 5033609, 62786388, 4002819 ####[facility] [address] [place] [address] Lymphocytes/Leuk ocytes Auto Pure number fraction (Bld) 1.2 E9/L Normal 1.0-4.0 [facility] Comment on above: Order Comment: Order Added by True Ex pert. Performed By: #### 2 487389, 9720834, 1559594, 2635534, 02144851, 6249974 ####[address] [address] Monocytes/100 WBC Auto (Bld) 7.3 % Normal 4.0-14.0 [facility] Comment on above: Order Comment: Order Added by True Ex pert. Performed By: #### 2 284208, 2273017, 2448898, 1547813, 15453368, 3479550 ####[address] [address] Monocytes/Leukoc ytes Auto Pure number fraction (Bld) 0.4 E9/L Normal 0.2-1.0 [facility] Comment on above: Order Comment: Order Added by True Ex pert. Performed By: #### 2 262747, 9563783, 9521505, 8198057, 80569079, 4912292 ####[facility] [address] [place] [address] Neutrophils/100 WBC Auto (Bld) 65.1 % Normal 36.0-75.0 [facility] Comment on above: Order Comment: Order Added by True brasher. Performed By: #### 2 679448, 1424764, 2279497, 1230892, 91526234, 7457114 ####[facility] [address] [place] [address] Neutrophils/Leuk ocytes Auto Pure number fraction (Bld) 3.4 E9/L Normal 2.0-7.5 [facility] Comment on above: Order Comment: Order Added by True brasher. Performed By: #### 2 514986, 8767535, 0674591, 4473240, 90741222, 9804767 ####[facility] [address] [place] [address] BUNon 03-23-2018 Urea nitrogen mass conc 16 mg/dL Normal 5-21 [facility] Comment on above: Performed By: #### 4522416, 4321268, 292 1862, 1016219, 08271912, 9224945 ####[address] [address] CBC w/ Auto Diffon 8 Erythrocyte distribution width Auto Ratio (RBC) 13.6 % Normal 10.9-14.2 [facility] Comment on above: Performed By: #### 0593573, 7872028, 292 1862, 3127908, 59469746, 8500784 ####[address] [place] [address] Hematocrit Auto Volume Fraction (Bld) 41.7 % Normal 37.7-49.0 [facility] Comment on above: Performed By: #### 7552079, 1145387, 292 1862, 6345495, 13182102, 6846805 ####[address] [place] [address] Hemoglobin mass conc (Bld) 14.3 g/dL Normal 13.5-17.5 [facility] Comment on above: Performed By: #### 1596112, 2958212, 292 1862, 5461601, 59663558, 5727917 ####[address] [address] MCH Auto Entitic mass (RBC) 31.8 pg Normal 27.0-34.0 [facility] Comment on above: Performed By: #### 8202961, 3993965, 292 1862, 5479056, 60321058, 4138192 ####[facility] [address] [place] [address] MCHC Auto mass conc (RBC) 34.3 g/dL Normal 31.4-39.3 [facility] Comment on above: Performed By: #### 0756766, 1285940, 292 1862, 7919757, 11697693, 5596944 ####[address] MCV Auto Entitic volume (RBC) 92.5 fL Normal 80.0-100.0 [facility] Comment on above: Performed By: #### 0924070, 6456006, 292 1862, 8862236, 63835555, 2267868 ####[address] Platelet mean volume Auto Entitic volume (Bld) 10.1 fL Normal 6.4-10.8 [facility] Comment on above: Performed By: #### 5482639, 2871068, 292 1862, 6855592, 54768040, 4564790 ####[address] [address] Platelets Auto #/vol (Bld) 142.0 E9/L Low 150.0-500. 0 [facility] Comment on above: Performed By: #### 6788923, 4741362, 292 1862, 8030447, 27366263, 2851482 ####[address] [address] RBC Auto #/vol (Bld) 4.5 E12/L Normal 4.3-5.9 [facility] Comment on above: Performed By: #### 6482523, 8416922, 292 1862, 7975278, 60675260, 9234749 ####[facility] [address] [place] [address] WBC corrected for nucl RBC Auto #/vol (Bld) 5.2 E9/L Normal 4.0-11.0 [facility] Comment on above: Performed By: #### 5175068, 4144486, 292 1862, 8446917, 90986149, 4954926 ####[facility] [address] [place] [address] Coding Summary.on 03-23-2018 Coding Summary. CODING DATE: 018 FINAL [facility] STATUS: PAYOR: Medicare ADMIT DX: REASON FOR VISIT DX: B96.5 Pseudomonas (aeruginosa) (mallei) (pseudomallei) as the cause of diseases classified elsewhere FINAL DX: PRINCIPAL: B96.5 Pseudomonas (aeruginosa) (mallei) (pseudomallei) as the cause of diseases classified elsewhere SECONDARY: PROCEDURES DOCTOR NAME DATE NOTE: The code number assigned matches the documented diagnosis and / or procedure in the patient's chart. However, the narrative phrase printed from the coding software may appear abbreviated, or result in slightly different terminology. Coded By: Lia Salguero Date Saved: 03/23/2018 02:49 pm Normal [facility] Creatinineon 03-23-2018 Creatinine mass conc 1.1 mg/dL Normal 0.5-1.3 [facility] Comment on above: Performed By: #### 1497470, 3549997, 292 1862, 4562488, 66169529, 2669113 ####[facility] [address] [place] [address] Lyteson 03-23-2018 Anion gap 3 molar conc 11 mmol/L Normal 6-16 [facility] Comment on above: Performed By: #### 0959441, 9716106, 292 1862, 7656435, 77455717, 8059224 ####[facility] [address] [place] [address] Chloride molar conc 105 mmol/L Normal 101-111 [facility] Comment on above: Performed By: #### 4780159, 5411573, 292 1862, 1435500, 31532496, 0403940 ####[facility] [address] [place] [address] CO2 molar conc 24 mmol/L Normal 21-31 [facility] Comment on above: Performed By: #### 6685425, 1987240, 292 1862, 0447559, 14545552, 1113347 ####[facility] [address] [place] [address] Potassium molar conc 4.1 mmol/L Normal 3.5-5.3 [facility] Comment on above: Performed By: #### 8488962, 1971415, 292 1862, 0546950, 12640962, 4265188 ####[facility] [address] [place] [address] Sodium molar conc 136 mmol/L Normal 135-145 [facility] Comment on above: Performed By: #### 4051087, 6365290, 292 1862, 4217357, 89558032, 2163550 ####[facility] [address] [place] [address] eGFRon 03-23-2018 GFR/1.73 sq M predicted among blacks MDRD vol rate/area (S/P/Bld) mL/min/{1.73_m2} Normal >=59 [facility] Comment on above: Order Comment: Order added by Discern Ex pert. Result Comment: eGFR is race adjusted. AA=. Performed By: #### 2 114159, 6967915, 9148953, 0937170, 45559827, 8903171 ####[facility] [address] [place] [address] GFR/1.73 sq M predicted among non-blacks MDRD vol rate/area (S/P/Bld) mL/min/{1.73_m2} Normal >=59 [facility] Comment on above: Order Comment: Order added by Discern Ex pert. Result Comment: [employer] alec kidney disease could be indicated at eGFR's of less than 60 mL/min/1.73m2. Kidney failure is indicated at less than 15 mL/min/1.73m2. Performed By: #### 2 848972, 4685486, 1724071, 4797617, 48364142, 2064498 ####[facility] [address] [place] [address] Cardiovascular Lab Reporton 05-15-2017 Cardiovascular Lab Report [facility] #: [id number] Physician: Dora Ferrari,Department of M.D.Medicine Service Date: 05/12/2017Division of Birthdate: 3Cardiology Room #: CC[facility]ult [id number] [place], [place] [address]Nhdls Fax Cardiovascular Laboratory ReportPROCEDURE: LINQ implant.INDICATION: Atrial fibrillation burden and will be following response totherapy.PROCEDURE IN DETAIL: The patient was consented for the procedure. Thepatient was brought to the EP lab, continuous EKG, blood pressure, andoxygenation monitoring. Antibiotics were then given. The left upper chestwas prepped and draped in usual sterile fashion. 1% lidocaine was used tolocally anesthetize the left upper chest and an incision was made over witha 4:00 o'clock to 10:00 o'clock position and then a pocket was fashioned inthe same 4:00 o'clock to 10:00 o'clock position. This was done using theLINQ applicator and then the LINQ applicator was also used to place a LINQinto the pocket and then the pocket was closed using 4-0 absorbable suture.This was followed by Dermabond glue, sterile Steri-Strips, Telfa, andTegaderm. The patient tolerated the procedure well.R-waves equal 0.4 mV.Medtronic LINQ serial #[id number].[employer]onic LINQ model 28759 monitor [id number].CONCLUSION: Successful LINQ implant.Electronically Signed by:Dora Ferrari M.D. 05/21/2017 02:27 P Dora Ferrari M.D.Date Dict: 05/13/2017/11:50 P/Dora Ferrari M.D.Date Trans: 05/14/2017 11:02 P/[id number]: Jonathon Hahn D.O. [address] [place] [address] [facility] [phone] [facility] Vital Signs Date Time Vital Sign Value Performing Clinician Facility 12-24-2023 12:50-0400 Body height 195.6 cm Brooklynn Woodson MD Work Phone: [facility] 12-24-2023 12:50-0400 Body mass index (BMI) [Ratio] 30.83 kg/m2 Brooklynn Woodson MD Work Phone: [facility] 12-24-2023 12:50-0400 Body weight 117.94 kg Brooklynn Woodson MD Work Phone: [facility] 12-24-2023 12:39-0400 Respiratory rate 16 /min Brooklynn Woodson MD Work Phone: [facility] 11-10-2023 12:47-0400 Body height 195.6 cm Brooklynn Woodson MD Work Phone: [facility] 11-10-2023 12:47-0400 Diastolic blood pressure 91 mm[Hg] Brooklynn Woodson MD Work Phone: [facility] 11-10-2023 12:47-0400 Heart rate 67 /min Brooklynn Woodson MD Work Phone: [facility] 11-10-2023 12:47-0400 Systolic blood pressure 163 mm[Hg] Brooklynn Woodson MD Work Phone: [facility] 10-29-2023 11:14-0400 Body height 198.12 cm DO Jonathon Hahn Work Phone: [facility] 10-29-2023 11:14-0400 Body mass index (BMI) [Ratio] 30.4 kg/m2 DO Jonathon Hahn Work Phone: [facility] 10-29-2023 11:14-0400 Body weight 119.74 kg DO Jonathon Ball Work Phone: [facility] 10-29-2023 11:14-0400 Diastolic blood pressure 78 mm[Hg] DO Jonathon Ball Work Phone: [facility] 10-29-2023 11:14-0400 Heart rate 88 /min DO Jonathon Ball Work Phone: [facility] 10-29-2023 11:14-0400 SaO2% (BldA) [Mass fraction] 98 % DO Jonathon Ball Work Phone: [facility] 10-29-2023 11:14-0400 Systolic blood pressure 132 mm[Hg] DO Jonathon Ball Work Phone: [facility] 03-18-2023 11:53-0400 Body height 182.9 cm Jose Merritt MD Work Phone: [facility] 03-18-2023 11:53-0400 Body mass index (BMI) [Ratio] 34.64 kg/m2 Jose Merritt MD Work Phone: [facility] 03-18-2023 11:53-0400 Body temperature 98.29 [degF] Jose Merritt MD Work Phone: [facility] 03-18-2023 11:53-0400 Body weight 115.85 kg Jose Merritt MD Work Phone: [facility] 03-18-2023 11:53-0400 Diastolic blood pressure 80 mm[Hg] Jose Merritt MD Work Phone: [facility] 03-18-2023 11:53-0400 Heart rate 66 /min Jose Merritt MD Work Phone: [facility] 03-18-2023 11:53-0400 Respiratory rate 18 /min Jose Merritt MD Work Phone: [facility] 03-18-2023 11:53-0400 SaO2% (BldA) [Mass fraction] 97 % Jose Merritt MD Work Phone: [facility] 03-18-2023 11:53-0400 Systolic blood pressure 138 mm[Hg] Jose Merritt MD Work Phone: [facility] 03-06-2023 10:00-0400 Diastolic blood pressure 65 mm[Hg] Brooklynn Woodson MD Work Phone: [facility] 03-06-2023 10:00-0400 Heart rate 62 /min Brooklynn Woodson MD Work Phone: [facility] 03-06-2023 10:00-0400 Respiratory rate 22 /min Brooklynn Woodson MD Work Phone: [facility] 03-06-2023 10:00-0400 SaO2% (BldA) [Mass fraction] 95 % Brooklynn Woodson MD Work Phone: [facility] 03-06-2023 10:00-0400 Systolic blood pressure 127 mm[Hg] Brooklynn Woodson MD Work Phone: [facility] 03-06-2023 08:49-0400 Body height 193 cm Brooklynn Woodson MD Work Phone: [facility] 03-06-2023 08:49-0400 Body mass index (BMI) [Ratio] 30.67 kg/m2 Brooklynn Woodson MD Work Phone: [facility] 03-06-2023 08:49-0400 Body weight 114.31 kg Brooklynn Woodson MD Work Phone: [facility] 03-06-2023 08:21-0400 Heart rate 58 /min Jose Merritt MD Work Phone: [facility] 03-06-2023 08:19-0400 Body height 193 cm Jose Merritt MD Work Phone: [facility] 03-06-2023 08:19-0400 Diastolic blood pressure 85 mm[Hg] Jose Merritt MD Work Phone: [facility] 03-06-2023 08:19-0400 Systolic blood pressure 159 mm[Hg] Jose Merritt MD Work Phone: [facility] 01-22-2023 09:00-0400 Body height 198.12 cm Jonathon Ball Other [facility] Other 01-22-2023 09:00-0400 Body mass index (BMI) [Ratio] 29.19 kg/m2 Jonathon Ball Other [facility] Other 01-22-2023 09:00-0400 Body weight 114.58 kg Jonathon Ball Other [facility] Other 01-22-2023 09:00-0400 Diastolic blood pressure 72 mm[Hg] Jonathon Ball Other [facility] Other 01-22-2023 09:00-0400 Respiratory rate 12 /min Jonathon Ball Other [facility] Other 01-22-2023 09:00-0400 Systolic blood pressure 117 mm[Hg] Jonathon Ball Other [facility] Other 04-29-2022 10:50-0400 Diastolic blood pressure 58 mm[Hg] Brooklynn Woodson MD Work Phone: [facility] 04-29-2022 10:50-0400 Heart rate 44 /min Brooklynn Woodson MD Work Phone: [facility] 04-29-2022 10:50-0400 Respiratory rate 17 /min Brooklynn Woodson MD Work Phone: [facility] 04-29-2022 10:50-0400 SaO2% (BldA) [Mass fraction] 92 % Brooklynn Woodson MD Work Phone: [facility] 04-29-2022 10:50-0400 Systolic blood pressure 99 mm[Hg] Brooklynn Woodson MD Work Phone: [facility] 04-29-2022 09:20-0400 Body height 193 cm Brooklynn Woodson MD Work Phone: [facility] 04-29-2022 09:20-0400 Body mass index (BMI) [Ratio] 32.26 kg/m2 Brooklynn Woodson MD Work Phone: [facility] 04-29-2022 09:20-0400 Body weight 120.2 kg Brooklynn Woodson MD Work Phone: [facility] 03-11-2022 10:52-0400 Body height 194.3 cm Brooklynn Woodson MD Work Phone: [facility] 03-11-2022 10:52-0400 Diastolic blood pressure 90 mm[Hg] Brooklynn Woodson MD Work Phone: [facility] 03-11-2022 10:52-0400 Heart rate 55 /min Brooklynn Woodson MD Work Phone: [facility] 03-11-2022 10:52-0400 Systolic blood pressure 151 mm[Hg] Brooklynn Woodson MD Work Phone: [facility] Encounters Encounter Date Encounter Type Care Provider Facility Start: 01-28-2024 ambulatory BROOKLYNN WOODSON Facility: [facility] Start: 12-24-2023 End: 12-24-2023 Evaluation and management of inpatient Brooklynn Woodson MD Work Phone: [facility] Comment on above: PAF (paroxysmal atri al fibrillation) Start: 11-20-2023 End: 11-20-2023 ambulatory Titi Arora II Facility:[facility] Start: 11-20-2023 End: 11-20-2023 ambulatory DO Jonathon Ball Work Phone: [facility] Work Phone: Start: 11-20-2023 End: 11-20-2023 Patient encounter procedure DO Jonathon Ball Work Phone: [facility] Work Phone: Start: 11-10-2023 ambulatory BROOKLYNN WOODSON Facility: [facility] Start: 11-10-2023 End: 11-10-2023 Subsequent hospital visit by physician Brooklynn Woodson MD Work Phone: [facility] Comment on above: Arrived Start: 11-04-2023 ambulatory GEETA JUÁREZ Facility: [facility] Start: 10-29-2023 End: 10-29-2023 Patient encounter procedure DO Jonathon Ball Work Phone: [facility] Work Phone: Start: 10-03-2023 Non-patient / Non-visit DO Jonathon Ball Work Phone: [facility] Work Phone: Start: 07-20-2023 End: 07-20-2023 ambulatory Jonathon Ball Other [facility] Other Start: 07-20-2023 Telephone encounter Jonathon Ball [facility] Start: 05-21-2023 End: 05-21-2023 ambulatory Jonathon Ball Other [facility] Other Start: 05-21-2023 Telephone encounter Jonathon Ball [facility] Start: 05-14-2023 End: 05-14-2023 ambulatory Jonathon Ball Other [facility] Other Start: 05-14-2023 Telephone encounter Jonathon Ball [facility] Start: 04-23-2023 End: 04-23-2023 ambulatory Jonathon Hahn Other [facility] Other Start: 04-23-2023 Telephone encounter [facility] Start: 03-18-2023 End: 03-18-2023 Office outpatient new 60 minutes Jsoe Merritt MD Work Phone: [facility] Comment on above: Enlargement of aorti c root Start: 03-18-2023 ambulatory BROOKLYNN WOODSON Facility: [facility] Start: 03-06-2023 ambulatory JONATHON HAHN Facility: [facility] Start: 03-06-2023 End: 03-06-2023 Subsequent hospital visit by physician Jose Merritt MD Work Phone: [facility] Comment on above: Arrived Start: 01-23-2023 End: 01-23-2023 ambulatory Jonathon Jovani Other [facility] Other Start: 01-23-2023 Telephone encounter [facility] Start: 01-22-2023 End: 01-22-2023 ambulatory Jonathon Hahn Other [facility] Other Start: 01-22-2023 Patient encounter procedure [facility] Start: 04-29-2022 End: 04-29-2022 Subsequent hospital visit by physician Brooklynn Woodson MD Work Phone: [facility] Comment on above: Arrived Start: 03-11-2022 End: 03-11-2022 Subsequent hospital visit by physician Brooklynn Woodson MD Work Phone: [facility] Comment on above: Arrived Start: 01-22-2022 End: 01-23-[address] JONATHON HAHN Facility:[facility] Start: 01-09-2022 End: 01-09-[address] JONATHON HAHN Facility:[facility] Start: 11-19-2021 End: 11-20-[address] DOCTOR BATISTA Facility:[facility] Start: 03-20-2018 End: 03-28-2018 Patient encounter CELENA DOSS Facility:[facility] Start: 05-12-2017 End: 05-13-2017 Ambulatory DORA BUCKLEY FERRARI Facility:[facility] Start: 05-05-2017 End: 05-06-2017 Ambulatory DEFAULT PHYSICIAN Facility:[facility] Start: 04-15-2017 End: 04-16-2017 Ambulatory DEFAULT PHYSICIAN Facility:[facility] Procedures Date Procedure Procedure Detail Performing Clinician Start: 12-24-2023 CBC AND ELECTRONIC DIFF Denise L Tartt [employer] Work Phone: Start: 12-24-2023 Complete blood count with white cell differential, automated Denise L Tartt [employer] Work Phone: Start: 12-24-2023 Creatinine blood Janey ly L Tartt [employer] Work Phone: Start: 11-20-2023 Plain X-ray of right hip DO Jonathon Hahn Work Phone: Start: 11-10-2023 Ct heart contrast ev al cardiac structure&morph Brooklynn oWodson MD Work Phone: Start: 11-10-2023 Creatinine blood Brooklynn Woodson MD Work Phone: Start: 03-06-2023 Echo transesophag r- t 2d w/prb img acquisj i&r Brooklynn Woodson MD Work Phone: Start: 03-06-2023 Ct angiography chest w/contrast/noncontrast Jose Merritt MD Work Phone: Start: 03-06-2023 Creatinine blood Freda Merritt MD Work Phone: Start: 04-29-2022 Echo transesophag r- t 2d w/prb img acquisj i&r Brooklynn Woodson MD Work Phone: Start: 03-11-2022 Ct heart contrast ev al cardiac structure&morph Brooklynn Woodson MD Work Phone: Start: 03-11-2022 Creatinine blood Brooklynn Woodson MD Work Phone: Start: 01-22-[address] SHERIDAN IN [facility] Comment on above: Performed By: #### P [facility] #### [facility] [address] [place] [address] Dr. Patricia Mcconnell Plan of Treatment Date Care Activity Detail Author Start: 04-26-2025 Tetanus vaccination TETANUS [facility] Start: 11-02-2024 End: 11-02-2024 Patient encounter procedure 11/02/2024 9:30 AM EDT Office Visit [facility] [address] [place] [phone] Geeta Juárez, [employer] [address] [place] [phone] [facility] Start: 04-15-2024 Screening for malignant neoplasm of colon COLORECTAL CANCER SCREENING DISCUSSION [facility] Start: 02-29-2024 Influenza vaccination INFLUENZA VACCINE (Season Ended) [facility] Start: 01-15-2024 End: 01-15-2024 Patient encounter procedure 01/15/2024 10:30 AM EDT Office Visit [facility] [address] [place] [phone] Brooklynn Woodson MD [address] [place] [phone] [facility] Start: 11-04-2023 End: 11-04-2023 Patient encounter procedure 11/04/2023 1:30 PM EDT Office Visit [facility] [address] [place] [phone] Geeta Juárez, BIOMETRY TEACHER-RESTROOMS [facility] [address] [place] [phone] [facility] Start: 03-13-2023 End: 03-13-2023 Patient encounter procedure 03/13/2023 12:30 PM EDT Office Visit [facility] [address] [place] [address] [facility] Start: 02-28-2023 COVID-19 VACCINE ( season) COVID-19 VACCINE ( season) [facility] Start: 02-28-2023 Influenza vaccination INFLUENZA VACCINE (#1) [facility] Start: 11-05-2022 End: 11-05-2022 Patient encounter procedure 11/05/2022 Office Visit Electrophysiology Geeta Juárez, BIOMETRY TEACHER-RESTROOMS [facility] MA[facility] [address] [place] [address] [facility] Start: 04-30-2022 End: 04-30-2022 Telemedicine consultation with patient 04/30/2022 Telemedicine Electrophysiology Lisa Medellin, BIOMETRY TEACHER-RESTROOMS [facility] MA[facility] [address] [place] [address] Paroxysmal atrial fibrillation (Primary Dx); Typical atrial flutter; Presence of Watchman left atrial appendage closure device; Hypertension, essential [facility] Comment on above: Paroxysmal atrial fibrillation (Primary Dx); Typical atrial flutter; Presence of Watchman left atrial appendage closure device; Hypertension, essential Start: 02-28-2022 Influenza vaccination INFLUENZA VACCINE (#1) [facility] Start: 01-29-2022 COVID-19 VACCINE (2 - Pfizer series) COVID-19 VACCINE (2 - Pfizer series) [facility] Start: 12-25-2021 COVID-19 VACCINE (2 - Pfizer series) COVID-19 VACCINE (2 - Pfizer series) [facility] Start: 04-03-2021 Colonoscopy COLORECTAL CANCER SCREENING DISCUSSION [facility] Start: 04-03-2021 Screening for malignant neoplasm of colon COLORECTAL CANCER SCREENING DISCUSSION [facility] Start: 2017 Pneumococcal vaccination PNEUMOCOCCAL VACCINE SERIES (1 - PCV) [facility] Start: 2002 Prostate specific antigen measurement PROSTATE CANCER SCREENING DISCUSSION [facility] Start: 2002 Zoster vaccine hzv live for subcutaneous use ZOSTER (SHINGLES) VACCINE (1 of 2) [facility] Start: 1992 Fasting lipid profile LIPID SCREENING [facility] Start: 1992 Lipid panel LIPID SCREENING [facility] Start: 09-23-1971 Third diphtheria, tetanus and acellular pertussis (DTaP) vaccination TDAP (ADULT) [facility] Start: 1970 Tetanus vaccination TETANUS [facility] Start: 1952 Hepatitis C antibody, confirmatory test HEPATITIS C VIRUS SCREENING [facility] Start: 1952 Hepatitis C screening HEPATITIS C VIRUS SCREENING [facility] Start: 1952 Tetanus vaccination TETANUS [facility] End: 12-22-2023 Electrophysiology study EP PROCEDURE - EPS/ABLATION/DEVICE Electrophysiology Routine Paroxysmal atrial fibrillation Atypical atrial flutter One Time for 1 Occurrences starting 12/22/2023 until 12/22/2023 [facility] Comment on above: One Time for 1 Occurrences starting 11/29 until 12/22/2023 Perq clsr tcat l atr apndge w/endocardial implnt LEFT ATRIAL APPENDAGE SCHED CLOSURE W/ IMPLANT ([id number]) Paroxysmal atrial fibrillation Atypical atrial flutter [facility] EP XR Hip - right 2 Views [facility] Immunizations Immunization Date Immunization Notes Care Provider Fa cility 04-24-2020 influenza virus vaccine, split virus (incl. purified surface antigen) Jonathon Hahn Other [facility] Other 04-24-2020 influenza virus vaccine, unspecified formulation Brooklynn Woodson MD Work Phone: [facility] 01-13-2018 pneumococcal polysaccharide vaccine, 23 valent Jonathon Hahn Other [facility] 04-02-2017 influenza virus vaccine, split virus (incl. purified surface antigen) Jonathon Hahn Other [facility] Other 04-02-2017 influenza virus vaccine, unspecified formulation DO Jonathon Hahn Work Phone: [facility] 12-03-2016 pneumococcal conjuga te vaccine, 13 valent Jonathon Hahn Other [facility] 04-26-2015 tetanus and diphther ia toxoids, adsorbed, preservative free, for adult use (5 Lf of tetanus toxoid and 2 Lf of diphtheria toxoid) Jonathon Hahn Other [facility] Payers Date Payer Category Payer Self-pay [id number] 2017 Private Health Insurance [id number] 2013 Medicare MEDICARE MEDICAR E RAILROAD [id number] 2013-Present [address] [place] [address] [id number] 1959 Medicare [id number] 1959 Private Health Insurance [id number] 1952 Unknown [id number]. [id number] 1952 Unknown [id number]. 2.593 1952 Unknown [id number] 2..[id number]. 2.593 1952 Unknown [id number] [id number]. 2.594 1952 Unknown [id number] [id number]. 2.594 1952 Unknown [id number] [id number]. 2.594 1952 Unknown [id number] [id number]. 2.594 1952 Unknown [id number] [id number]. 2.594 1952 Unknown [id number] [id number]. 2.594 1952 Unknown [id number] [id number]. 2.594 1952 Unknown [id number] [id number]. 2.594 Medicare [id number] Unknown Unknown Regular Insurance [id number] Unknown [id number] [id number] Social History Date Type Detail Facility Start: 03-12-2018 End: 04-30-2022 Tobacco smoking status NHIS Never smoked tobacco [facility] Start: 03-12-2018 End: 04-30-2022 Tobacco use and exposure Smokeless tobacco non-user [facility] Start: 11-07-2021 End: 03-18-2023 Alcohol intake Current drinker of alcohol (finding) [facility] Start: 03-12-2018 End: 04-30-2022 Tobacco Comment rare cigar [facility] Start: 1950 Sex Assigned At Not on file [facility] Start: 03-06-2023 End: 12-24-2023 Sex Assigned At [facility] Other Start: 03-06-2023 End: 12-24-2023 History of Social function [facility] Start: 03-10-2018 Gender identity Identifies as male gender (finding) [facility] Start: 12-21-2022 Sexual orientation Heterosexual (finding) [facility] Start: 11-04-2023 End: 12-24-2023 Alcoholic beverage intake Ex-drinker (finding) [facility] Start: 1950 Sex Assigned At Male [facility] Medical Equipment Procedure Code Equipment Code Equipment Original Text Equipment Identifier Dates Occluder Cardiov ascular 31mm Delivery System Watchwally Greenberg - [id number] [facility] Start: 03-12-2022 Clinical Notes 04-29-2022 to 12-24-2023 Discharge Instr - ActivityDischarge Instr - DietDischarge Instr - NotifyDischarge Instr - Wound CareDischarge Instr - DMEResult Encounter Note - Brooklynn Woodson MD - 11/10/2023 1:40 PM EDT Note Date & Type Note Facility 12-24-2023 Hospital Discharg e instructions SHYANNE Singh - 12/24/2023 12:55 PM EDT Your Activity restrictions for the next week - No driving for 48 hours after your surgery - No tub baths or hot tub for 2 weeks or until groin site is healed - Keep groin site incision clean and dry (you may shower) - Return to work in 1 week within the activity limitations listed in your discharge instructions - Avoid lifting any objects heavier than 10 pounds DO NOT make any important decisions for 24 hours. DO NOT work around the stove, machinery or power equipment for 24 hours. SHYANNE Singh - 12/24/2023 12:55 PM EDT Diet: Your doctor has recommended that you follow these diet instructions at home. Refer to the patient education materials you received during your hospital stay. If you would like more nutrition counseling, ask your doctor about making an appointment with an outpatient dietitian. Heart Healthy Diet to promote heart health. Choose healthy fats and oils such as canola or olive oil. Limit high cholesterol foods. Avoid added salt and caffeine in your foods. Controlled Carbohydrate Diet This diet controls carbohydrate intake to help manage and maintain consistent blood glucose levels. Simple sugars are limited and carbohydrate intake is balanced throughout the day. Avoid adding salt to your food and use heart healthy fats such as canola or olive oil. SHYANNE Singh - 12/24/2023 12:55 PM EDT LEFT ATRIAL APPENDAGE CLOSURE DEVICE POST-IMPLANT INSTRUCTIONS At 45 days post-implant, you will be scheduled for a follow-up appointment and we will perform device assessment with ALLI to assess the presence of ADAN blood flow through and/or around the LEFT ATRIAL APPENDAGE CLOSURE device Do NOT stop your medication until advised by your physician that it is safe to do so YOUR ACTIVITY RESTRICTIONS FOR THE NEXT WEEK No driving for 48 hours after your surgery No tub baths or hot tub for 2 weeks or until groin site is healed Keep groin site incision clean and dry (you may shower) Return to work in 1 week within the activity limitations listed in your discharge instructions Avoid lifting any objects heavier than 10 pounds REGARDING YOUR MEDICATIONS - Your medications may have changed during your hospital admission. - Please review the discharge medication list provided and only take the medications listed here. Do NOT take any additional medications unless you first check with your health care provider. - Bring this medication list to all of your follow up appointments. WHEN TO CALL THE DOCTOR: If you have questions or concerns about your EP procedure or EP follow-up care please call: Chest pain or shortness of breath Bleeding/Bruising -If severe bleeding, apply pressure -Increased bleeding from site -Increased bruising or hematoma Symptoms of GI bleed - Slow blood loss: o Black tarry stools o Cold hands and feet o Weakness - Rapid blood loss: o Vomiting of blood o Increase heart rate o Fainting (blacking out) o Bright red blood from the rectum Respiratory Changes -Call your doctor or nurse if you have shortness of breath that gets worse -Cough that gets worse -Coughing up blood Stroke Symptoms Call 911 if you suddenly have any of these signs of a stroke: -Numbness or muscle weakness -Trouble swallowing -Problems talking -Dizziness or feeling unsteady -Unexplained severe headache -Confusion Symptoms of DVT DVT = Deep Vein Thrombus, or Blood Clot -any tender, swollen, or reddened areas from your groin to your heels. -numbness or tingling in groin or calf -the skin on your leg looks pale or blue or it feels cold to touch -any shortness of breath -chest pain -fever or chills While on blood thinners - While on blood thinning medications you have a higher risk of increased or unusual bleeding. - Follow these bleeding precautions: o Plan a safe environment at home. Arrange furniture to reduce falls o Get plenty of rest. Ask for help with walking if unsteady on feet. o Avoid activities where you could fall, get bumps, or cut yourself. o Do not go barefoot. Do not use a bladed razor, use electric razor. - Report signs and symptoms of bleeding to your doctor right away: o Unusual heavy bleeding from gums when brushing teeth. o Increased menstrual flow or vaginal bleeding. o Urine that looks dark brown or red. o Stool that looks black or tarry. o Bruising for unknown reasons, unusual pain, swelling or headache. o Bleeding from cuts, or a nosebleed that does not stop. - Check your skin every day for new cuts, bruises, or injuries. - Apply pressure to any cut for 3-5 minutes; seek medical attention immediately if you continue to bleed or notice any unusual bleeding. SYHANNE Singh - 12/24/2023 12:55 PM EDT Catheter site care You can remove your bandages the day after the procedure. You may shower 24 to 48 hours after the procedure, if your doctor okays it. Pat the incision dry. Do not soak the catheter site until it is healed. Don't take a bath for 1 week, or until your doctor tells you it is okay. Watch for bleeding from the site. A small amount of blood (up to the size of a quarter) on the bandage can be normal. If you are bleeding, lie down and press on the area for 15 minutes to try to make it stop. If the bleeding does not stop, call your doctor or seek immediate medical care. Kristin Stephen APRN-RESTROOMS [facility] - 12/24/2023 12:55 PM EDT EP Patient Information If you have questions or concerns about your EP procedure or EP follow-up care please call: . Appointments You will find your scheduled appointments within your discharge instructions, it is very important that you keep these appointments or reschedule as soon as possible if you are unable to make the appointment that has been scheduled for you. Follow Up Appointment It is your responsibility to check that this appointment is covered by your insurance carrier. If the appointment requires pre-authorization or doctor referral, you must bring that paperwork to your visit. You can verify if the doctor you are scheduled to see is a participant in your insurance plan by calling your carrier. If your insurance will not cover this visit or you have no insurance coverage, you will be required to make a down payment at the time of service. At 45 days post-implant, you will be scheduled for a follow-up appointment and we will perform device assessment with ALLI to assess the presence of ADAN blood flow through and/or around the LEFT ATRIAL APPENDAGE CLOSURE device. Additional Contacts: If you have questions or concerns about your EP procedure or EP follow-up care please call: . Evening and Weekend Contacts If you have questions or concerns during evening, weekend, or holiday hours, please call: [phone] If you having an emergency, call 911. Miscellaneous Education New Depression Warning Sign - The rate of clinical depression is higher in individuals with a serious medical illness, such as heart disease and stroke, than in the general population. Because of this you should be aware of the warning signs for depression. They include problems concentrating and remembering details or making decisions, fatigue, decreased energy, feeling guilty, worthless, helpless, pessimistic or hopeless, insomnia, early-morning waking or excessive sleeping, irritability, restlessness, loss of interest in favorite activities or hobbies, loss of libido, overeating or appetite loss, persistent aches or pains, headaches, cramps and/or digestive problems that do not ease with treatment, persistent sad, anxious or empty feelings, thoughts of suicide and suicide attempts. People treated for depression often have improvement in their overall medical condition and have a better quality of life. If you have any of the symptoms above please contact your primary care doctor. Falls Prevention Many falls can be prevented. Here are some things you can do. First, tell your doctor or nurse if you have fallen or nearly fallen. Ask if you could see a physical therapist (PT) to help you improve your strength and balance. Check with your doctor or pharmacist to see if any of the medicines that you take may increase your risk for falls. Have your vision checked each year. See your doctor if you are dizzy or weak with any illness. Wear comfortable shoes with low, broad heels and soles that travograph operator. Drink enough liquid each day. Ask your doctor how much is enough. Consider using an emergency personal medical alert system. Get up slowly after sitting or lying down. Remove throw rugs, improve lighting, use reflective tape on stairs. If you get a prescription for PT, call the [facility] at [phone] to schedule an appointment. If you don't have a primary doctor, call [phone] or your local hospital to get one. Discharge Instructions You will be given two copies of this discharge instruction. Keep one copy with you. This document has a copy of your current medicines. Take one copy to all of your doctor appointments. If medicines are added or deleted at your doctor visits, update this document. If you are readmitted to the hospital give a copy to the admitting doctor so he or she will know your current medicines. Education: While on blood thinners: - While on blood thinning medications you have a higher risk of increased or unusual bleeding. - Follow these bleeding precautions: - Plan a safe environment at home. Arrange furniture to reduce falls - Get plenty of rest. Ask for help with walking if unsteady on feet - Avoid activities where you could fall, get bumps, or cut yourself. - Do not go barefoot. Do not use a bladed razor, use electric razor. Report signs and symptoms of bleeding to your doctor right away: - Unusual heavy bleeding from gums when brushing teeth. - Increased menstrual flow or vaginal bleeding. - Urine that looks dark brown or red. - Stool that looks black or tarry. - Bruising for unknown reasons, unusual pain, swelling or headache. - Bleeding from cuts, or a nosebleed that does not stop. - Check your skin every day for new cuts, bruises, or injuries. - Apply pressure to any cut for 3-5 minutes; seek medical attention immediately if you continue to bleed or notice any unusual bleeding. EP / ALLI - You will receive information for your follow up ALLI and appt with the nurse practitioner. You must not eat or drink anything after midnight the day before. You MUST have a commercial collections driver with you. If you have any questions please call [phone]. documented in this encounter [facility] 11-10-2023 Miscellaneous Notes Formattin g of this note might be different from the original. I am unsure this leak needs closure. Not clear it connects to posterior ADAN documented in this encounter [facility] 11-10-2023 Progress note Formatting of t his note might be different from the original. I am unsure this leak needs closure. Not clear it connects to posterior ADAN [facility] 07-20-2023 Evaluation note Encounter Date Diagnosis Assessment Notes Jun, Paroxysmal atrial fibrillation (ICD-10 - I48.0) This patient is in NSR. This patient is anticoagulated to prevent thromboembolic events. They are maintaining regular scheduled appts with their is analyst. s/p ablation for atrial fibrillation and atrial flutter. He is being scheduled for Watchman's device in order for him to d/c lifelong anticoagulation and associated increased bleeding complications. [facility] Other 11-22-2023 Evaluation note* Encounter Date Diagnosis Assessment Notes Treatment Notes Treatment Clinical Notes Apr, Familial hypercholesterolemia (ICD-10 - E78.01) Diet and exercise w/ continued statin therapy. [facility] Other 09-19-2023 History of Present illness Narrative* SHYANNE Alvarado - 03/18/2023 12:30 PM EDT Cardiothoracic Surgery H&P CC dilated root HPI Mr. Coates is a 72 y.o. 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 CT with dilated aortic root. He was referred by Dr. Woodson. He denies family history of aortopathy. He denies shortness of breath or chest pain. BP is well controlled. NYHA Classification: [X] Class I - Cardiac disease, but no symptoms and no limitation in ordinary physical activity, e.g. no shortness of breath when walking, climbing stairs etc. [ ] Class II - Mild symptoms (mild shortness of breath and/or angina) and slight limitation during ordinary activity. [ ] Class III - Marked limitation in activity due to symptoms, even during jmgs-jemg-lofaanly activity, e.g. walking short distances (20-100 m). Comfortable only at rest. [ ] Class IV - Severe limitations. Experiences symptoms even while at rest. Mostly bedbound patients. Past Medical History Past Medical History: Diagnosis Date A-fib Arrhythmia Bradycardia Congestive heart failure Coronary arteriosclerosis Dyslipidemia Hyperlipidemia Hypertensive disorder MARYLOU on CPAP Peripheral vascular disease TIA (transient ischemic attack) Transient cerebral ischemia Past Surgical History: Procedure Laterality Date PACEMAKER PLACEMENT 08/2017 APPENDECTOMY ARTHROPLASTY KNEE TOTAL Left CLOSURE PERCUTANEOUS LEFT ATRIAL APPENDAGE WITH IMPLANT Family History Family History Problem Relation Age of Onset Stroke Mother Hypertension Mother Emphysema Father Myocardial Infarction Father Arrhythmia Brother Social History reports that he has never smoked. He has never used smokeless tobacco. He reports current alcohol use of about 3.0 - 4.0 standard drinks of alcohol per week. He reports that he does not use drugs. Social History Tobacco Use Smoking Status Never Smokeless Tobacco Never Tobacco Comments rare cigar Social History Substance and Sexual Activity Alcohol Use Yes Alcohol/week: 3.0 - 4.0 standard drinks of alcohol Types: 3 - 4 Cans of beer per week Allergies No Known Allergies Current Medication Current Outpatient Medications Medication Sig Dispense Refill atorvastatin 20 MG tablet Take 1 tablet by mouth daily. 30 tablet 0 Cyanocobalamin (Vitamin B12) 100 MCG tablet Take 1 tablet by mouth daily. Lisinopril 20 MG tablet Take 1 tablet by mouth daily. Patient taking 20 mg daily magnesium oxide 400 MG tablet Take 1 tablet by mouth daily. Metoprolol succinate 25 MG tablet XL TAKE 1 TABLET BY MOUTH DAILY 90 tablet 3 Rivaroxaban (Xarelto) 20 MG tablet Take 1 tablet by mouth daily with dinner. Take for 30 days and then stop. No current facility-administered medications for this visit. Physical Exam Vitals: 03/18/23 1153 BP: 138/80 Pulse: 66 Resp: 18 Temp: 98.3 degrees F (36.8 degrees C) TempSrc: Oral SpO2: 97% Weight: 115.8 kg (255 lb 6.4 oz) Height: 1.829 m (6') General appearance: alert, cooperative, appears stated age Lungs: clear bilaterally Heart: regular rate and rhythm Abdomen: soft, rounded Extremities: no lower extremity edema. Skin: Warm and dry. Musculoskeletal: gait is coordinated and symmetrical Neurologic: no gross focal deficits noted. Psych: appropriate mood and affect for clinical situation Diagnostic Results/Procedures- Reviewed with Dr. Merritt CTA Chest 03/06/[address] Cardiac 04/20/19 Root 42 mm ALLI 03/06/23 Aortic Valve Trileaflet valve. Leaflet mobility is normal. Trace regurgitation. Left Ventricle Chamber size is normal. Normal global systolic function. Ejection fraction is low normal (50-55%). Diastolic function not assessed. ASSESSMENT AND PLAN Kristen Coates is a 72 y.o. male with dilated aortic root, stable since 2019. Patient evaluated with Dr. Merritt and given the above data, Kristen Coates would benefit from ongoing surveillance. CTA Chest in 2 years. If stable at that time, would likely not continue surveillance. * Lynn Fontana RN - 03/18/2023 12:30 PM EDT Discussed with the patient that an aneurysm is a weakness in a blood vessel that can cause the vessel to bulge like a balloon, disrupting the smooth flow and circulation of blood. Aneurysms also can,like a balloon, swell under pressure and burst. The aorta is the largest artery, supplying oxygen-rich blood directly from the heart to all major regions of the body. It ascends out of the top of theheart, then curls around 180 degrees and descends through the chest (thoracic) cavity to the abdomen. The symptoms of a thoracic aortic aneurysm might be asymptomatic (without symptoms); about half of the people who suffer from thoracic aortic aneurysm do not notice any symptoms. The appearance of symptoms often depends on the aneurysm s size and location, and the presence of aortic dissection (separation of layers within the aorta). Discussed with the patient that when symptoms do appear they may manifest as: Sudden pain in the chest or upper back Difficulty breathing Pain in the jaw or neck region In some instances, the first sign of thoracic aortic aneurysm is a stroke or a transient ischemic attack (TIA, or mini-stroke ). Symptoms of TIA can last up to 24 hours and include: Weakness or numbness on one side the body Loss of control of movement in an arm or leg Loss of vision in one eye Slurring of speech Fainting, dizziness or confusion Sudden, severe headache The goal of self-care regimen is to prevent rupture. If you smoke, you should look into resources that are available to help you stop smoking, as smoking is a risk factor for developing thoracic aortic aneurysm, as well as other life- threatening diseases. Other self-care methods include: Eating a well-balanced, heart-healthy (low-salt, low-fat) diet. Following such a diet can reduce blood pressure, blood cholesterol and blood sugar levels. Maintaining a healthy weight. Receiving regular physical exams. Patient acknowledges understanding of above. Care Coordination/scheduling was coordinated today between departments to facilitate same day testing prior to planned surgery to ensure completion of needed tests and patient satisfaction of care management. * Jose Merritt MD - 03/18/2023 12:30 PM EDT CARDIAC SURGERY - STAFF Today I had the pleasure of seeing and examining Kristen Coates with my advanced practitioner Hafsa KIMBLE in consultation. The patient was referred to me for an aortic root aneurysm. I have reviewed the patient's history, medications, and current complaints. Please see note for details regarding these. 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 He underwent CT that showed a dilated aortic root and he was sent over for evaluation. I have personally reviewed the imaging in regards to this issue and results are as follows: Echocardiogram: EF 50%, trace AI, Watchman in place CT: aortic root of 4.1-4.2cm, ascending 3.7 - similar to 2019 PLAN: Would pursue surveillance and repeat CT aneurysm study in two years given small size and stability over 4 years. All questions were answered. Jose Merritt MD Attending Surgeon Division of Cardiac Surgery documented in this encounterMer[facility] Instructions* Patient Instructions* Hafsa Avalos APRN-RESTROOMS OR LOUNGES MAID - 03/18/2023 12:30 PM EDT Thank you for choosing [facility] s Division of Cardiac Surgery & [facility] for your cardiac surgical needs. We will plan to see you back in our clinic in 2 years for follow-up with Dr. Merritt. Your appointment is on TBD at TBD at the [facility]. In preparation for this appointment, we will need the following testing completed: CT Scan - Your appointment is on TBD at the following facility: TBD. Your arrival time for your study is TBD. For Questions regarding these appointments or if you need to cancel them, please call [phone] Merritt s office administrative assistant. Guidelines for maintaining a healthy and stable Aorta - Blood Pressure Goals: SBP (top number) < 130, DBP (bottom number) < 90, Heart rate < 80. You should monitor these numbers at home on a regular basis. If you notice they are above these recommendations, please see you Primary Doctor (family doctor) or Bakery Team Member (heart doctor) right away. Avoid strenuous exercises that causes increased thoracic (chest) pressure - Activities such as weight lifting or exercises that cause you to bear down. If you have SEVERE chest pain or back pain, or feels of tearing/ripping in your chest or arms, please call 911 as this may be an indication that your aneurysm has become unstable and need immediate attention. Make sure to tell the EMS or Emergency Room personnel that you have an AORTIC ANEURYSM. documented in this encounterU [facility] NoteLAA OCCLUDER COMMUNICATION DIAMETER OF FLOW4.0mmMercy Health Kings Mills Hospital Work Phone: 1(500) 651-912809-07-2023 History and physical note* Micky Trent MD - 03/06/2023 9:00 AM EDT ALLI HISTORY AND PHYSICAL IDENTIFYING INFORMATION PATIENT: Kristen Coates ADMIT DATE: 03/06/2023 TIME OF EVALUATION: 03/06/2023 8:21 AM HPI / Assessment & Plan Kristen Coates is a 72 y.o. male presenting for outpatient ALLI after Watchman device placement. ALLI Review of Systems Dentures / Loose Teeth - NO Dysphagia - NO GI Bleeding- NO Prior Gastric Surgery or Banding - NO Sleep Apnea / Home Oxygen Use - NO Prior Surgery, Radiation, or Malignancy of the Chest or Esophagus - NO EtOH or Drug Use- NO Adverse Reactions/Allergies to Sedatives: No ALLI 04/29/22: Watchman device is well seated with no residual communication. Left ventricle is normal in size with low-normal function; estimated LVEF 50-55%. Normal right ventricle size and systolic function. No thrombus in left atrium, right atrium or left atrial appendage. No hemodynamically significant valvular disease. RVSP estimated 25-30 mmHg. Mildly dilated aortic root, 4.5 cm. Consent signed and sedation assessment completed. Will proceed with ALLI. Micky Trent MD Fellow, Cardiovascular Medicine HISTORY Past Medical History: Diagnosis Date A-fib Arrhythmia Bradycardia Congestive heart failure Coronary arteriosclerosis Dyslipidemia Hyperlipidemia Hypertensive disorder MARYLOU on CPAP Peripheral vascular disease TIA (transient ischemic attack) Transient cerebral ischemia Past Surgical History: Procedure Laterality Date PACEMAKER PLACEMENT 08/2017 APPENDECTOMY ARTHROPLASTY KNEE TOTAL Left CLOSURE PERCUTANEOUS LEFT ATRIAL APPENDAGE WITH IMPLANT Cannot display prior to admission medications because the patient has not been admitted in this contact. No Known Allergies Social History Socioeconomic History Marital status: Spouse name: Not on file Number of children: Not on file Years of education: Not on file Highest education level: Not on file Occupational History Not on file Tobacco Use Smoking status: Never Smokeless tobacco: Never Tobacco comments: rare cigar Vaping Use Vaping Use: Never used Substance and Sexual Activity Alcohol use: Yes Alcohol/week: 3.0 - 4.0 standard drinks of alcohol Types: 3 - 4 Cans of beer per week Drug use: No Sexual activity: Not on file Other Topics Concern Not on file Social History Narrative Not on file Social Determinants of Health Financial Resource Strain: Not on file Food Insecurity: Not on file Transportation Needs: Not on file Physical Activity: Not on file Stress: Not on file Social Connections: Not on file Intimate Partner Violence: Not on file Housing Stability: Not on file Family History Problem Relation Age of Onset Stroke Mother Hypertension Mother Emphysema Father Myocardial Infarction Father Arrhythmia Brother REVIEW OF SYSTEMS A full review of systems and found to be negative unless otherwise mentioned. PHYSICAL EXAM BP: (159)/(85) 159/85 There is no height or weight on file to calculate BMI. General: NAD, lying in bed comfortably HEENT: Normocephalic, atraumatic. Moist mucus membranes, oropharynx clear w/o erythema or exudates,normal dentition. Mallampati Class: 2 Neck: Trachea is midline, normal range of motion Resp/Back: Lungs are clear to auscultation bilaterally; no wheezes/rales/rhonchi Cardiac: Regular rate and rhythm, normal S1+S2; no S3 or S4; no murmurs or rubs LABS Lab Results Component Value Date SODIUM 139 11/11/2022 SODIUM 138 03/20/2018 POTASSIUM 4.3 11/11/2022 POTASSIUM 4.0 03/20/2018 CHLORIDE 105 11/11/2022 CHLORIDE 105 03/20/2018 CO2 27 11/11/2022 CO2 26 03/20/2018 BUN 22 11/11/2022 BUN 17 03/20/2018 CREATSERUM 1.11 11/11/2022 CREATSERUM 1.08 03/11/2022 CREATSERUM 0.96 03/20/2018 Lab Results Component Value Date WBC 5.24 03/11/2022 WBC 6.37 03/20/2018 HGB 15.0 03/11/2022 HGB 13.7 03/20/2018 HCT 44.8 03/11/2022 HCT 42.1 03/20/2018 PLATELET 151 03/11/2022 PLATELET 144 (L) 03/20/2018 MCV 94.7 (H) 03/11/2022 MCV 93.8 (H) 03/20/2018 Lab Results Component Value Date INR 1.1 03/12/2022 INR 1.1 03/11/2018 PTT 28.7 03/12/2022 PTT 100.3 (HH) 03/12/2018 [facility] Work Phone: 1(518) 516-830209-07-2023 History and physical note* Micky Trent MD - 03/06/2023 9:00 AM EDT ALLI HISTORY AND PHYSICAL IDENTIFYING INFORMATION PATIENT: Kristen Coates ADMIT DATE: 03/06/2023 TIME OF EVALUATION: 03/06/2023 8:21 AM HPI / Assessment & Plan Kristen Coates is a 72 y.o. male presenting for outpatient ALLI after Watchman device placement. ALLI Review of Systems Dentures / Loose Teeth - NO Dysphagia - NO GI Bleeding- NO Prior Gastric Surgery or Banding - NO Sleep Apnea / Home Oxygen Use - NO Prior Surgery, Radiation, or Malignancy of the Chest or Esophagus - NO EtOH or Drug Use- NO Adverse Reactions/Allergies to Sedatives: No ALLI 04/29/22: Watchman device is well seated with no residual communication. Left ventricle is normal in size with low-normal function; estimated LVEF 50-55%. Normal right ventricle size and systolic function. No thrombus in left atrium, right atrium or left atrial appendage. No hemodynamically significant valvular disease. RVSP estimated 25-30 mmHg. Mildly dilated aortic root, 4.5 cm. Consent signed and sedation assessment completed. Will proceed with ALLI. Micky Trent MD Fellow, Cardiovascular Medicine HISTORY Past Medical History: Diagnosis Date A-fib Arrhythmia Bradycardia Congestive heart failure Coronary arteriosclerosis Dyslipidemia Hyperlipidemia Hypertensive disorder MARYLOU on CPAP Peripheral vascular disease TIA (transient ischemic attack) Transient cerebral ischemia Past Surgical History: Procedure Laterality Date PACEMAKER PLACEMENT 08/2017 APPENDECTOMY ARTHROPLASTY KNEE TOTAL Left CLOSURE PERCUTANEOUS LEFT ATRIAL APPENDAGE WITH IMPLANT Cannot display prior to admission medications because the patient has not been admitted in this contact. No Known Allergies Social History Socioeconomic History Marital status: Spouse name: Not on file Number of children: Not on file Years of education: Not on file Highest education level: Not on file Occupational History Not on file Tobacco Use Smoking status: Never Smokeless tobacco: Never Tobacco comments: rare cigar Vaping Use Vaping Use: Never used Substance and Sexual Activity Alcohol use: Yes Alcohol/week: 3.0 - 4.0 standard drinks of alcohol Types: 3 - 4 Cans of beer per week Drug use: No Sexual activity: Not on file Other Topics Concern Not on file Social History Narrative Not on file Social Determinants of Health Financial Resource Strain: Not on file Food Insecurity: Not on file Transportation Needs: Not on file Physical Activity: Not on file Stress: Not on file Social Connections: Not on file Intimate Partner Violence: Not on file Housing Stability: Not on file Family History Problem Relation Age of Onset Stroke Mother Hypertension Mother Emphysema Father Myocardial Infarction Father Arrhythmia Brother REVIEW OF SYSTEMS A full review of systems and found to be negative unless otherwise mentioned. PHYSICAL EXAM BP: (159)/(85) 159/85 There is no height or weight on file to calculate BMI. General: NAD, lying in bed comfortably HEENT: Normocephalic, atraumatic. Moist mucus membranes, oropharynx clear w/o erythema or exudates,normal dentition. Mallampati Class: 2 Neck: Trachea is midline, normal range of motion Resp/Back: Lungs are clear to auscultation bilaterally; no wheezes/rales/rhonchi Cardiac: Regular rate and rhythm, normal S1+S2; no S3 or S4; no murmurs or rubs LABS Lab Results Component Value Date SODIUM 139 11/11/2022 SODIUM 138 03/20/2018 POTASSIUM 4.3 11/11/2022 POTASSIUM 4.0 03/20/2018 CHLORIDE 105 11/11/2022 CHLORIDE 105 03/20/2018 CO2 27 11/11/2022 CO2 26 03/20/2018 BUN 22 11/11/2022 BUN 17 03/20/2018 CREATSERUM 1.11 11/11/2022 CREATSERUM 1.08 03/11/2022 CREATSERUM 0.96 03/20/2018 Lab Results Component Value Date WBC 5.24 03/11/2022 WBC 6.37 03/20/2018 HGB 15.0 03/11/2022 HGB 13.7 03/20/2018 HCT 44.8 03/11/2022 HCT 42.1 03/20/2018 PLATELET 151 03/11/2022 PLATELET 144 (L) 03/20/2018 MCV 94.7 (H) 03/11/2022 MCV 93.8 (H) 03/20/2018 Lab Results Component Value Date INR 1.1 03/12/2022 INR 1.1 03/11/2018 PTT 28.7 03/12/2022 PTT 100.3 (HH) 03/12/2018 documented in this encounterMer[facility]07-26-2023 Evaluation note * Encounter Date Diagnosis Assessment Notes Treatment Notes Treatment Clinical Notes Dec, Medicare annual well ness visit, subsequent (ICD-10 - Z00.00) Personalized health advice was given to the beneficiary including a written plan for screenings discussed and provided. Advanced care planning reviewed and/or information given as requested. Additional counseling was provided here today in regards to, [ ]. The above visit was performed by [ ], under direct supervision of [ ]. Document reviewed and amended by provider signed below. Dec, Chronic kidney disea se, stage 3a (ICD-10 - N18.31) The patient is instructed on adequate control of hypertension and diabetes, if appropriate. They are also educated on the associated risks of NSAIDs and PPI use with kidney disease They are also instructed on adequate fluid balance and to avoid dehydration. The patient is instructed on adequate control of hypertension and diabetes, if appropriate. They are also educated on the associated risks of NSAIDs and PPI use with kidney disease. They were instructed on adequate fluid balance and to avoid dehydration. Dec, Familial hypercholesterolemia (ICD-10 - E78.01) Diet and exercise w/ continued statin therapy. Instructed on diet and exercise with continued statin therapy.Discussed the beneficial effects of lowering cholesterol in reducing the risk for cerebrovascular and cardiovascular disease. Dec, Stage 3a chronic kid aj disease (ICD-10 - N18.31) The patient is instructed on adequate control of hypertension and diabetes, if appropriate. They are also educated on the associated risks of NSAIDs and PPI use with kidney disease. They were instructed on adequate fluid balance and to avoid dehydration. Dec, Primary hypertension (ICD-10 - I10) This patient is instructed to consume a healthy, low-fat, low-salt diet. They are also encouraged to continue exercise to achieve/maintain a normal BMI. Dec, Paroxysmal atrial fibrillation (ICD-10 - I48.0) This patient is in NSR. This patient is anticoagulated to prevent thromboembolic events. They are maintaining regular scheduled appts with their is analyst. s/p ablation for atrial fibrillation and atrial flutter. He is being scheduled for Watchman's device in order for him to d/c lifelong anticoagulation and associated increased bleeding complications. This patient is in NSR. This patient is anticoagulated to prevent thromboembolic events. They are maintaining regular scheduled appts with their is analyst. Dec, Pernicious anemia (ICD-10 - D51.0) Continue healthy Dec, Thrombocytopenia (IC D-10 - D69.6) No bleeding complications Recheck Plt count Dec, Screening for colon cancer (ICD-10 - Z12.11) Dec, Screening PSA (prost ate specific antigen) (ICD-10 - Z12.5) [facility] Other 10-31-2022 History and physical note* Jimenez Wilkins MD - 04/29/2022 10:00 AM EDT ALLI HISTORY AND PHYSICAL IDENTIFYING INFORMATION PATIENT: Kristen Coates ADMIT DATE: 04/29/2022 TIME OF EVALUATION: 04/29/2022 9:37 AM HPI / Assessment & Plan Kristen Coates is a 71 y.o. male presenting for outpatient ALLI after Watchman device placement on02/2022. ALLI Review of Systems Dentures / Loose Teeth - NO Dysphagia - NO GI Bleeding- NO Prior Gastric Surgery or Banding - NO Sleep Apnea / Home Oxygen Use - NO Prior Surgery, Radiation, or Malignancy of the Chest or Esophagus - NO EtOH or Drug Use- NO Adverse Reactions/Allergies to Sedatives: No Consent signed and sedation assessment completed. Will proceed with ALLI. Jimenez Wilkins MD Fellow, Cardiovascular Medicine HISTORY Past Medical History: Diagnosis Date A-fib Arrhythmia Bradycardia Coronary arteriosclerosis Dyslipidemia Hyperlipidemia Hypertensive disorder MARYLOU on CPAP Peripheral vascular disease Transient cerebral ischemia Past Surgical History: Procedure Laterality Date PACEMAKER PLACEMENT 08/2017 APPENDECTOMY ARTHROPLASTY KNEE TOTAL Left Cannot display prior to admission medications because the patient has not been admitted in this contact. No Known Allergies Social History Socioeconomic History Marital status: Spouse name: Not on file Number of children: Not on file Years of education: Not on file Highest education level: Not on file Occupational History Not on file Tobacco Use Smoking status: Never Smokeless tobacco: Never Tobacco comments: rare cigar Substance and Sexual Activity Alcohol use: Yes Alcohol/week: 3.0 - 4.0 standard drinks Types: 3 - 4 Cans of beer per week Drug use: No Sexual activity: Not on file Other Topics Concern Not on file Social History Narrative Not on file Social Determinants of Health Financial Resource Strain: Not on file Food Insecurity: Not on file Transportation Needs: Not on file Physical Activity: Not on file Stress: Not on file Social Connections: Not on file Intimate Partner Violence: Not on file Housing Stability: Not on file Family History Problem Relation Age of Onset Stroke Mother Hypertension Mother Emphysema Father Myocardial Infarction Father REVIEW OF SYSTEMS A full review of systems and found to be negative unless otherwise mentioned. PHYSICAL EXAM Pulse (Heart Rate): [58] 58 Resp Rate: [20] 20 BP: (138)/(83) 138/83 O2 Sat (%): [100 %] 100 % There is no height or weight on file to calculate BMI. General: NAD, lying in bed comfortably HEENT: Normocephalic, atraumatic. Moist mucus membranes, oropharynx clear w/o erythema or exudates,normal dentition. Mallampati Class: 2 Neck: Trachea is midline, normal range of motion Resp/Back: Lungs are clear to auscultation bilaterally; no wheezes/rales/rhonchi Cardiac: Regular rate and rhythm, normal S1+S2; no S3 or S4; no murmurs or rubs LABS Lab Results Component Value Date SODIUM 138 03/11/2022 SODIUM 138 03/20/2018 POTASSIUM 4.6 03/11/2022 POTASSIUM 4.0 03/20/2018 CHLORIDE 103 03/11/2022 CHLORIDE 105 03/20/2018 CO2 27 03/11/2022 CO2 26 03/20/2018 BUN 19 03/11/2022 BUN 17 03/20/2018 CREATSERUM 1.08 03/11/2022 CREATSERUM 1.15 03/11/2022 CREATSERUM 0.96 03/20/2018 Lab Results Component Value Date WBC 5.24 03/11/2022 WBC 6.37 03/20/2018 HGB 15.0 03/11/2022 HGB 13.7 03/20/2018 HCT 44.8 03/11/2022 HCT 42.1 03/20/2018 PLATELET 151 03/11/2022 PLATELET 144 (L) 03/20/2018 MCV 94.7 (H) 03/11/2022 MCV 93.8 (H) 03/20/2018 Lab Results Component Value Date INR 1.1 03/12/2022 INR 1.1 03/11/2018 PTT 28.7 03/12/2022 PTT 100.3 (HH) 03/12/2018 [facility] Work Phone: 1(215) 304-741010-31-2022 History and physical note* Jimenez Wilkins MD - 04/29/2022 10:00 AM EDT ALLI HISTORY AND PHYSICAL IDENTIFYING INFORMATION PATIENT: Kristen Coates ADMIT DATE: 04/29/2022 TIME OF EVALUATION: 04/29/2022 9:37 AM HPI / Assessment & Plan Kristen Coates is a 71 y.o. male presenting for outpatient ALLI after Watchman device placement on02/2022. ALLI Review of Systems Dentures / Loose Teeth - NO Dysphagia - NO GI Bleeding- NO Prior Gastric Surgery or Banding - NO Sleep Apnea / Home Oxygen Use - NO Prior Surgery, Radiation, or Malignancy of the Chest or Esophagus - NO EtOH or Drug Use- NO Adverse Reactions/Allergies to Sedatives: No Consent signed and sedation assessment completed. Will proceed with ALLI. Jimenez Wilkins MD Fellow, Cardiovascular Medicine HISTORY Past Medical History: Diagnosis Date A-fib Arrhythmia Bradycardia Coronary arteriosclerosis Dyslipidemia Hyperlipidemia Hypertensive disorder MARYLOU on CPAP Peripheral vascular disease Transient cerebral ischemia Past Surgical History: Procedure Laterality Date PACEMAKER PLACEMENT 08/2017 APPENDECTOMY ARTHROPLASTY KNEE TOTAL Left Cannot display prior to admission medications because the patient has not been admitted in this contact. No Known Allergies Social History Socioeconomic History Marital status: Spouse name: Not on file Number of children: Not on file Years of education: Not on file Highest education level: Not on file Occupational History Not on file Tobacco Use Smoking status: Never Smokeless tobacco: Never Tobacco comments: rare cigar Substance and Sexual Activity Alcohol use: Yes Alcohol/week: 3.0 - 4.0 standard drinks Types: 3 - 4 Cans of beer per week Drug use: No Sexual activity: Not on file Other Topics Concern Not on file Social History Narrative Not on file Social Determinants of Health Financial Resource Strain: Not on file Food Insecurity: Not on file Transportation Needs: Not on file Physical Activity: Not on file Stress: Not on file Social Connections: Not on file Intimate Partner Violence: Not on file Housing Stability: Not on file Family History Problem Relation Age of Onset Stroke Mother Hypertension Mother Emphysema Father Myocardial Infarction Father REVIEW OF SYSTEMS A full review of systems and found to be negative unless otherwise mentioned. PHYSICAL EXAM Pulse (Heart Rate): [58] 58 Resp Rate: [20] 20 BP: (138)/(83) 138/83 O2 Sat (%): [100 %] 100 % There is no height or weight on file to calculate BMI. General: NAD, lying in bed comfortably HEENT: Normocephalic, atraumatic. Moist mucus membranes, oropharynx clear w/o erythema or exudates,normal dentition. Mallampati Class: 2 Neck: Trachea is midline, normal range of motion Resp/Back: Lungs are clear to auscultation bilaterally; no wheezes/rales/rhonchi Cardiac: Regular rate and rhythm, normal S1+S2; no S3 or S4; no murmurs or rubs LABS Lab Results Component Value Date SODIUM 138 03/11/2022 SODIUM 138 03/20/2018 POTASSIUM 4.6 03/11/2022 POTASSIUM 4.0 03/20/2018 CHLORIDE 103 03/11/2022 CHLORIDE 105 03/20/2018 CO2 27 03/11/2022 CO2 26 03/20/2018 BUN 19 03/11/2022 BUN 17 03/20/2018 CREATSERUM 1.08 03/11/2022 CREATSERUM 1.15 03/11/2022 CREATSERUM 0.96 03/20/2018 Lab Results Component Value Date WBC 5.24 03/11/2022 WBC 6.37 03/20/2018 HGB 15.0 03/11/2022 HGB 13.7 03/20/2018 HCT 44.8 03/11/2022 HCT 42.1 03/20/2018 PLATELET 151 03/11/2022 PLATELET 144 (L) 03/20/2018 MCV 94.7 (H) 03/11/2022 MCV 93.8 (H) 03/20/2018 Lab Results Component Value Date INR 1.1 03/12/2022 INR 1.1 03/11/2018 PTT 28.7 03/12/2022 PTT 100.3 (HH) 03/12/2018 documented in this encounterU [facility]* Diagnosis Atrial fibrillation, unspecified type [facility] noteNo InformationNoDepartment of [facility] LetsWombat Other Evaluation note* Diagnosis Enlargement of aortic root [facility]* Diagnosis Presence of Watchman left atrial appendage closure device Paroxysmal atrial fibrillation Atrial fibrillation Atypical atrial flutter Atrial flutter documented in this [facility]* Diagnosis Enlargement of aortic root documented in this encounter [facility]* Diagnosis Paroxysmal atrial fibrillation Atrial fibrillation Atypical atrial flutter Atrial flutter documented [facility] this encounter [facility]* Diagnosis Onset Date Resolution Status Hypertension acute Pain of right hip acute Primary osteoarthritis of right hip acute Umbilical hernia acute Primary osteoarthritis of right hip acute [facility] Work Phone: Evaluation note* Diagnosis PAF (paroxysmal atrial fibrillation)- Primary Atrial fibrillation Paroxysmal atrial fibrillation Atrial fibrillation Atypical atrial flutter Atrial flutter documented [facility] this encounter [facility] Narrative - Reported* Type Description Date Medical History Palpitations Medical History Essential (primary) hypertension Medical History custodial (current) use of antic oagulants Medical History Malignant neoplasm of right kidn ey, except renal pelvis Medical History Neoplasm of uncertain behavior o f other specified sites Medical History Vitamin B deficiency, unspecifie d Medical History Hyperlipidemia, unspecified Medical History Paroxysmal atrial fibrillation Medical History Umbilical hernia wit hout obstruction and without gangrene Medical History Hemorrhage of anus and rectum Surgical History AFib Ablation 2017 Surgical History Watchman Procedure 2020 Surgical History Afib Ablation 2019 Hospitalization History see surgical hx [place] Musement Other Summary Purpose Family History No Family History Records Found Relationship Condition Age at Onset Recorded Date/T yas father Heart disease Unknown Hypertension Unknown Unknown Not Specified Unknown History of stroke Unknown Advance Directives No Advanced Directives Records FoundLatest Code Status on File Code Status Date Activated Date Inactivated Comments Full Code 04/20/2019 7:38 PM Full Code 03/12/2018 11:13 AM 04/20/2019 7:38 PM Latest Code Status on File Code Status Date Activated Date Inactivated Comments Full Code 03/12/2022 2:19 PM Code Status History Code Status Date Activated Date Inactivated Comments Full Code 04/20/2019 7:38 PM 03/12/2022 2:19 PM Full Code 03/12/2018 11:13 AM 04/20/2019 7:38 PM Latest Code Status on File Code Status Date Activated Date Inactivated Comments Full Code 03/12/2022 2:19 PM Code Status History Code Status Date Activated Date Inactivated Comments Full Code 04/20/2019 7:38 PM 03/12/2022 2:19 PM Full Code 03/12/2018 11:13 AM 04/20/2019 7:38 PM Date Activated Date Inactivated Comments 03/12/2022 2:19 PM Date Activated Date Inactivated Comments 04/20/2019 7:38 PM 03/12/2022 2:19 PM Date Activated Date Inactivated Comments 03/12/2018 11:13 AM 04/20/2019 7:38 PM Advance Directive Response Recorded Date/ Time Advance Directives No May 05, 2017 11:32am Reason for Referral Specialty Diagnoses / Procedures Referred By Contac t Referred To Contact Diagnoses Atrial fibrillation, unspecified type Procedures CT CARDIAC PULMONARY [place]ENOGRAM [place] HEART CONTRAST EVAL CARDIAC STRUCT/MORPH Brooklynn Woodson MD [address] [place] [address] Referral ID Status Reason Start Date Expiration Date V isits Requested Visits Authorized [id number] New Request 02/12/2022 03/09/2023 1 1 Specialty Diagnoses / Procedures Referred By Contac t Referred To Contact Diagnoses Enlargement of aortic root Procedures CT ANGIO CHEST (NONCORONARY) [place] CT ANGIO, CHEST (NON-CORON), COMBO, INCL IMG PROC Jose Merritt MD [address] [place] [address] Referral ID Status Reason Start Date Expiration Date V isits Requested Visits Authorized [id number] New Request 08/06/2022 08/31/2023 1 1 Specialty Diagnoses / Procedures Referred By Contac t Referred To Contact Diagnoses Presence of Watchman left atrial appendage closure device Paroxysmal atrial fibrillation Atypical atrial flutter Procedures ECHOCARDIOGRAM TRANSESOPHAGEAL (ALLI) [place] ECHO TRANSESOPHAG R-T 2D W/PRB IMG ACQUISJ I&R Brooklynn Woodson MD [address] [place] [address] Referral ID Status Reason Start Date Expiration Date V isits Requested Visits Authorized [id number] New Request 11/11/2022 12/06/2023 1 1 Specialty Diagnoses / Procedures Referred By Marin poole Referred To Contact Diagnoses Paroxysmal atrial fibrillation Atypical atrial flutter Procedures CT CARDIAC PULMONARY VENOGRAM [place]G CT HEART CONTRAST EVAL CARDIAC STRUCT/MORPH Brooklynn Woodson MD [address] [place] [address] Referral ID Status Reason Start Date Expiration Date V isits Requested Visits Authorized [id number] New Request 11/06/2023 11/30/2024 1 1 Chief Complaint and Reason for Visit Chief Complaint Amb Documentation RIGHT HIP PAIN CONSULT DR HAHN RT HIP PAIN, XR/[facility] M16.11 - Unilateral primary osteoarthritis, right Reason for Visit Hypertension Pain of right hip Primary osteoarthritis of right hip Umbilical hernia Primary osteoarthritis of right hip Additional Source Comments (unrecognized sect ion and content) No Status Records FoundNo Status Records FoundNo Status Records FoundNo Status Records FoundNo Status Records Found INFORMATION SOURCE (unrecogn ized section and content) DATE CREATED AUTHOR 12/23/2017 [facility] DATE CREATED AUTHOR AUTHOR'S ORGANIZ ATION 04/20/2018 [facility] DATE CREATED AUTHOR AUTHOR'S ORGANIZ ATION 01/29/2022 [facility] DATE CREATED AUTHOR AUTHOR'S ORGANIZ ATION 11/22/2023 [facility] DATE CREATED AUTHOR AUTHOR'S ORGANIZ ATION 01/14/2024 [facility] Reason for Visit (unrecogniz ed section and content) Specialty Diagnoses / Procedures Referred By Contac t Referred To Contact Diagnoses Atrial fibrillation, unspecified type Procedures CT CARDIAC PULMONARY VENOGRAM [place] CT HEART CONTRAST EVAL CARDIAC STRUCT/MORPH Brooklynn Woodson MD [address] [place] [address] Referral ID Status Reason Start Date Expiration Date V isits Requested Visits Authorized [id number] New Request 02/12/2022 03/09/2023 1 1 Specialty Diagnoses / Procedures Referred By Contac t Referred To Contact Diagnoses Atrial fibrillation, unspecified type Procedures ECHOCARDIOGRAM TRANSESOPHAGEAL (ALLI) [place] ECHO TRANSESOPHAG R-T 2D W/PRB IMG ACQUKIMBERLY I&R Brooklynn Woodson MD [address] [place] [phone] Referral ID Status Reason Start Date Expiration Date V isits Requested Visits Authorized [id number] New Request 03/13/2022 04/07/2023 1 1 Specialty Diagnoses / Procedures Referred By Contac t Referred To Contact Diagnoses Enlargement of aortic root Procedures CT ANGIO CHEST (NONCORONARY) [place] CT ANGIO, CHEST (NON-CORON), COMBO, INCL IMG PROC Jose Merritt MD [address] [place] [phone] Referral ID Status Reason Start Date Expiration Date V isits Requested Visits Authorized [id number] New Request 08/06/2022 08/31/2023 1 1 Specialty Diagnoses / Procedures Referred By Contac t Referred To Contact Diagnoses Presence of Watchman left atrial appendage closure device Paroxysmal atrial fibrillation Atypical atrial flutter Procedures ECHOCARDIOGRAM TRANSESOPHAGEAL (ALLI) [place] ECHO TRANSESOPHAG R-T 2D W/PRB MIGUELG DRU VenegasR Brooklynn Woodson MD [address] [place] [phone] Referral ID Status Reason Start Date Expiration Date V isits Requested Visits Authorized [id number] New Request 11/11/2022 12/06/2023 1 1 Reason Comments New Patient Specialty Diagnoses / Procedures Referred By Contac t Referred To Contact Thoracic Surgery Diagnoses Enlargement of aortic root Brooklynn Woodson MD [address] [place] [phone] Jose Merritt MD [address] [place] [phone] Referral ID Status Reason Start Date Expiration Date V isits Requested Visits Authorized [id number] New Request 08/13/2022 09/07/2023 1 1 Specialty Diagnoses / Procedures Referred By Contac t Referred To Contact Diagnoses Paroxysmal atrial fibrillation Atypical atrial flutter Procedures CT CARDIAC PULMONARY [place]ENOGRAM [place] CT HEART CONTRAST EVAL CARDIAC STRUCT/MORPH Brooklynn Woodson MD [address] [place] [phone] Referral ID Status Reason Start Date Expiration Date V isits Requested Visits Authorized [id number] New Request 11/06/2023 11/30/2024 1 1 Specialty Diagnoses / Procedures Referred By Contac t Referred To Contact Diagnoses Paroxysmal atrial fibrillation Atypical atrial flutter Paroxysmal atrial fibrillation [I48.0] Atypical atrial flutter [I48.4] Procedures [place] PERQ CLSR TCAT L ATR APNDGE W/ENDOCARDIAL IMPLNT LEFT ATRIAL APPENDAGE SCHED CLOSURE W/ IMPLANT ([id number]) Brooklynn Woodson MD [address] [place] [phone] [facility] [address] [place] [phone] Referral ID Status Reason Start Date Expiration Date Visits Re quested Visits Authorized [id number] 1 1 Care Teams (unrecognized sec tion and content) Automotive General Manager Relationship Specialty Start Date End Date Jonathon Hahn DO [address] [place] [address] PCP - General Internal Medicine 03/17/18 Bryan Lacy MD [address] [place] [address] (Fax) PCP - Referring 1 Cardiovascular Disease 03/17/18 Brooklynn Woodson MD [address] [place] [address] PCP - Referring 2 Clinical Cardiac Electrophysiology 04/20/19 Bryan Lacy MD [address] [facility] [place] [address] Cardiovascular Disease 03/12/18 Jonathon Hahn, DO [address] [place] [facility] [address] Internal Medicine 03/12/18 [place] [address] [place] [address] Consulting Physician Clinical Cardiac Electrophysiology 05/29/18 Automotive General Manager Relationship Specialty Start Date End Date Jonathon Hahn DO [address] [place] [facility] [place] [phone] PCP - General Internal Medicine 03/17/18 Bryan Lacy MD [address] [facility] [place] [facility] [address] (Fax) PCP - Referring 1 Cardiovascular Disease 03/17/18 Brooklynn Woodson MD [address] [place] [address] PCP - Referring 2 Clinical Cardiac Electrophysiology 04/20/19 Bryan Lacy MD [address] [facility] [place] [address] Cardiovascular Disease 03/12/18 Jonathon Hahn DO [address] [place] [facility] [address] Internal Medicine 03/12/18 Gordo Gifford MD [address] [place] [address] Consulting Physician Clinical Cardiac Electrophysiology 05/29/18 Automotive General Manager Relationship Specialty Start Date End Date Jonathon Hahn DO [address] [place] [facility] [place] [address] PCP - General Internal Medicine 03/17/18 Bryan Lacy MD [address] [facility] [place] [facility] [address] (Fax) PCP - Referring 1 Cardiovascular Disease 03/17/18 Brooklynn Woodson MD [address] [place] [phone] PCP - Referring 2 Clinical Cardiac Electrophysiology 04/20/19 Bryan Lacy MD [address] [facility] [place] [address] (Fax) Cardiovascular Disease 03/12/18 Jonathon Hahn DO [address] [place] [facility] [place] [address] Internal Medicine 03/12/18 Gordo Gifford MD [address] [place] [address] Consulting Physician Clinical Cardiac Electrophysiology 05/29/18 Automotive General Manager Relationship Specialty Start Date End Date Jonathon Hahn DO [address] [place] [facility] [place] [phone] PCP - General Internal Medicine 03/17/18 Bryan Lacy MD [address] [place] [address] (Fax) PCP - Referring 1 Cardiovascular Disease 03/17/18 Brooklynn Woodson MD [address] [place] [phone] PCP - Referring 2 Clinical Cardiac Electrophysiology 04/20/19 Bryan Lacy MD [address] [place] [address] Cardiovascular Disease 03/12/18 Jonathon Hahn DO [address] [place] [facility] [place] [address] Internal Medicine 03/12/18 Gordo Gifford MD [address] [place] [address] Consulting Physician Clinical Cardiac Electrophysiology 05/29/18 Automotive General Manager Relationship Specialty Start Date End Date Jonathon Hahn DO [address] [place] [address] PCP - General Internal Medicine 03/17/18 Bryan Lacy MD [address] [place] [address] PCP - Referring 1 Cardiovascular Disease 03/17/18 Brooklynn Woodson MD [address] [place] [address] PCP - Referring 2 Clinical Cardiac Electrophysiology 04/20/19 Bryan Lacy MD [address] [facility] [place] [address] Cardiovascular Disease 03/12/18 Jonathon Hahn DO [address] [place] [facility] [place] [address] Internal Medicine 03/12/18 Gordo Gifford MD [facility] [place] [address] Consulting Physician Clinical Cardiac Electrophysiology 05/29/18 Automotive General Manager Relationship Specialty Start Date End Date Jonathon Hahn DO [address] [place] [address] PCP - General Internal Medicine 03/17/18 Bryan Lacy MD PCP - Referring 1 Cardiovascular Disease 03/17/18 Brooklynn Woodson MD [address] [place] [phone] PCP - Referring 2 Clinical Cardiac Electrophysiology 04/20/19 Bryan Lacy MD Cardiovascular Disease 03/12/18 Jonathon Hahn DO [address] [place] [address] Internal Medicine 03/12/18 Gordo Gifford MD [address] [place] [address] Consulting Physician Clinical Cardiac Electrophysiology 05/29/18 Team Status: Active Member Role Status Dates Jonathon Hahn DO Primary Care Provider Active Team Status: Active Member Role Status Dates Jonathon Hahn DO Primary Care Provider Active Start: October 03, 2023 IZABELLA Cartagena Attending Provider Active Start : October 03, 2023 Team Status: Inactive Member Role Status Dates Jonathon Hahn DO Primary Care Provide r, Attending Provider Active Start: October 29, 2023 End: October 29, 2023 Team Status: Inactive Member Role Status Dates Jonathon Hahn DO Primary Care Provider Active Start: November 20, 2023 End: November 20, 2023 Titi Arora II, MD Attending Provider Active Start: November 20, 2023 End: November 20, 2023 Automotive General Manager Relationship Specialty Start Date End Date Jonathon Hahn DO [address] [place] [address] PCP - General Internal Medicine 03/17/18 Bryan Lacy MD PCP - Referring 1 Cardiovascular Disease 03/17/18 Brooklynn Woodson MD [address] [place] [phone] PCP - Referring 2 Clinical Cardiac Electrophysiology 04/20/19 Bryan Lacy MD Cardiovascular Disease 03/12/18 Jonathon Hahn DO [address] [place] [address] Internal Medicine 03/12/18 Gordo Gifford MD [address] [place] [address] Consulting Physician Clinical Cardiac Electrophysiology 05/29/18 Goals (unrecognized section and content) Goals may be documented in a n alternate section Scheduled Active and Recently Administ ered Medications (unrecognized section and content) Medication Order 12/22/2023 12/23/2023 12/24/2023 Atorvastatin (LIPITOR) tablet 20 mg 20 mg, Oral, DAILY, First dose on Lesli 12/25/23 at 0900, Until Discontinued Lisinopril (PRINIVIL) tablet 20 mg 20 mg, Oral, DAILY, First dose on Lesli 12/25/23 at 0900, Until Discontinued Metoprolol succinate (TOPROL-XL) tablet XL 25 mg 25 mg, Oral, DAILY, First dose on Lesli 12/25/23 at 0900, Until Discontinued, Slow release product. Do not crush. Extended release can be cut in half. Rivaroxaban (XARELTO) tablet 20 mg 20 mg, Oral, DAILY WITH DINNER, First dose on Fri12/24/23 at 1900, Until Discontinued, Restart 4 hours post sheath pull Due to the rapid onset of action of rivaroxaban, no overlap is needed with other anticoagulants (e.g. enoxaparin, heparin). Administer doses of 15mg or greater with food. For patients who cannot swallow whole tablets, the tablets may be crushed and mixed with applesauce immediately prior to use. If administered via feeding tube, crush tablets and mix with 50 mL water. Tube must empty into the stomach for this route., Indications: Atrial Fibrillation 1900 (Canceled Entry - Provider: System Discharge - Comment: Automatically canceled at discontinue of medication order) Continuous Medication Order 12/22/2023 12/23/2023 12/24/2023 Sodium chloride 0.9% IV solution 500 mL Intravenous, at 20 mL/hr, CONTINUOUS, Starting on Fri12/24/23 at 1245, Until Fri12/24/23 at 1908, KVO fluids, start the morning of procedure., Pre-op/Pre-Proc 1241 ($$New Bag$$ - Provider: Isidoro Rouse RN) PRN Medication Order 12/22/2023 12/23/2023 12/24/2023 Vancomycin HCl in NaCl (Vancocin) 1,500 mg 290 ml premade IVPB (COMPLETED) 1,500 mg, Intravenous, Administer over 1 Hours, 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 Vancomycin is preferred agent for device implants, based on national, community and local ([facility]) MRSA rates., Pre-op/Pre-Proc 1254 ($$New Bag$$ - Provider: Isidoro Rouse RN) FOR RECORDS PERTAINING TO PATIENTS WHO ARE OR HAVE BEEN ENROLLED IN A CHEMICAL DEPENDENCY/SUBSTANCEABUSE PROGRAM, SOME INFORMATION MAY BE OMITTED. This clinical summary was aggregated from multiple sources. Caution should be exercised in using it in the provision of clinical care. This summary normalizes information from multiple sources, and as a consequence, information in this document may materially change the coding, format and clinical context of patient data. In addition, data may be omitted in some cases. CLINICAL DECISIONS SHOULD BE BASED ON THE PRIMARY CLINICAL RECORDS. [employer] [facility]. provides no warranty or guarantee of the accuracy or completeness of information in this document.
[2024-01-27 12:58] LABS: Basophils Percent Auto 0.7 % (0.2-2.0); Eosinophils Absolute Auto 0.1 10^3/uL (0.0-0.7); Hematocrit 45.5 % (42.0-54.0); Hemoglobin 14.9 g/dL (14.0-18.0); Immature Granulocytes Abs Auto 0.03 10^3/uL (0.00-0.03); Immature Granulocytes Pct Auto 0.5 % (0.0-0.5); Lymphocytes Absolute Auto 1.3 10^3/uL (1.2-3.8); Lymphocytes Percent Auto 21.5 % (20.5-60.0); Mean Corpuscular HGB Conc 32.7 g/dL (29.9-35.2); Mean Corpuscular Volume 97.8 fL (80.0-94.0); Mean Platelet Volume 11.5 fL (9.5-13.5); Monocytes Absolute Auto 0.5 10^3/uL (0.3-0.8); Monocytes Percent Auto 8.5 % (1.7-12.0); Neutrophils Absolute Auto 4.1 10^3/uL (1.4-6.5); Neutrophils Percent Auto 66.8 % (43.0-75.0); Platelet Count 141 10^3/uL (150-450); Red Blood Count 4.65 10^6/uL (4.70-6.10); Red Cell Distribution Width 13.8 % (11.0-15.0); White Blood Count 6.1 10^3/uL (4.0-11.0)
[2024-01-27 14:01] LABS: Alanine Aminotransferase 25 U/L (16-63); Albumin Globulin Ratio 1.1; Albumin Level 3.8 g/dL (3.4-5.0); Alkaline Phosphatase 57 U/L (46-116); Anion Gap 10.3; Aspartate Amino Transferase 18 U/L (15-37); BUN Creatinine Ratio 13.9; Bilirubin Total 0.8 mg/dL (0.2-1.0); Calcium 9.2 mg/dL (8.5-10.1); Carbon Dioxide 28.1 mmol/L (21.0-32.0); Chloride 102 mmol/L (98-107); Chol HDL Ratio 2.9; Cholesterol 172 mg/dL (<=200); Estimated GFR (African America >60 (>=60); Estimated GFR (Non-African Ame 59 (>=60); Globulin 3.4 g/dL; Glucose 80 mg/dL (74-106); HDL Cholesterol 60 mg/dL (40-60); LDL Cholesterol Calculated 93.8 mg/dL; Potassium 4.4 mmol/L (3.5-5.1); Sodium 136 mmol/L (136-145); Total Protein 7.2 g/dL (6.4-8.2); Triglycerides 91 mg/dL (<=150); VLDL CHOLESTEROL 18.2 mg/dL
[2024-01-27 14:22] LABS: Prostate Specific Antigen Scrn 0.86 ng/mL (<=4.00)
== END 2024-01-27 12:00 | disposition home or self-care (01) ==
LOC: LAB 12:00
PROVIDERS: PCP Internal Medicine; Visit Provider Internal Medicine
DX: E78.00 Pure hypercholesterolemia, unspecified (principal); I48.91 Unspecified atrial fibrillation; N18.9 Chronic kidney disease, unspecified; D51.0 Vitamin B12 deficiency anemia due to intrinsic factor deficiency; Z12.5 Encounter for screening for malignant neoplasm of prostate; I12.9 Hypertensive chronic kidney disease with stage 1 through stage 4 chronic kidney disease, or unspecified chronic kidney disease
CPT/HCPCS: 36415; 80053; 80061; 82607; 85025; G0103

== ENCOUNTER 2025-01-06 11:39 | Emergency (ER) | payer MEDICARE, OTHER, SELFPAY ==
[2025-01-06] VITALS (18 sets, daily range): BP systolic 119–171; BP diastolic 57–122; PULSE 71–125; TEMP 36.9; O2SAT 93–98; BMI 32.0
--- NOTE | 2025-01-06 11:53 | ECG_ITS ---
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1950 Requested By: MUNA HATCH Order Number: [id number] Reading MD: DENISSE DEVRIES Measurements Intervals [place] Rate: 131 P: -76 ID: 168 QRS: 259 QRSD: 158 T: 72 QT: 380 QTc: 457 Interpretive Statements Probable atrial fibrillation 1574 with frequent ventricular premature complexes 2550 Left bundle branch block 6230 Left atrial enlargement 7100 Abnormal right axis deviation 9150 abnormal ECG Compared to ECG 01/20/2023 09:33:22 Left bundle-branch block now present Atrial abnormality now present Sinus rhythm no longer present Possible ischemia no longer present Electronically Signed On 01-11-2025 13:03:40 EDT by DENISSE DEVRIES
--- NOTE | 2025-01-06 11:53 | XR_ITS ---
The [address] [address] Patient Name: KRISTEN RODRIGUEZ MRN: [id number] date: 1950 Sex: M Assigned Patient Location: ER Current Patient Location: ER Accession/Order Number: [id number] Exam Date: 01/06/2025 12:12 Report Date: 01/06/2025 12:16 At the request of: CHRISTIAN JAIMES MD Procedure: XR chest 1V PORTABLE AP ERECT CHEST 1205 hours 01/20/2023 chest x-ray and CT CLINICAL HISTORY: tachycardia COMPARISON: None The heart is top normal in size. The hilar and mediastinal contours are similar. There is a radiopaque rounded density projecting at the AP window suggesting a left atrial appendage occlusion device. There is no vascular congestion. No consolidation is noted. There is no sizable effusion or pneumothorax. The osseous structures are intact. XR/XR chest 1V IMPRESSION: NO ACUTE FINDINGS Impression dictated by: Cheryl Rothman M.D. 01/06/2025 12:16 PM Dictation Location: [place] [address] Electronically authenticated by: [id number] Y Date: 01/06/2025 12:16
--- OUTSIDE RECORDS SUMMARY | 2025-01-06 11:53 | XMS_ITS | Clinical Summary ---
Author Organization [facility] Address [address] [place] [address] Care Team Providers Care Manager Drive Name Role Phone Bryan Lacy MD Unavailable [phone] Jonathon Hahn DO Unavailable [phone] Jonathon Hahn DO Primary Care Provider [phone] Bryan Lacy MD Unavailable Gordo Gifford MD Unavailable Stuart Woodson MD Unavailable [phone] Allergies No known active allergies Medications magnesium oxide 400 MG tablet Take 1 tablet by mouth daily. Active atorvastatin 20 MG tablet Take 1 tablet by mouth daily. 30 tablet 11/29/19 20 Active Cyanocobalamin (Vitamin B12) 100 MCG tablet Take 1 tablet by mouth daily. Active Metoprolol succinate 25 MG tablet XL TAKE 1 TABLET BY MOUTH DAILY 90 tablet 3 12/28/19 23 Active acetaminophen (TYLENOL) 500 MG tablet Take 1 tablet by mouth every 6 hours as needed for Mild Pain. PRN for right hip pain Active Clopidogrel 75 MG tablet Take 1 tablet by mouth daily. 90 tablet 3 11/03/19 25 Active Lisinopril 40 MG tablet Take 1 tablet by mouth daily. Patient taking 20 mg daily 90 tablet 3 12/15/19 25 Active Additional Information Patient taking differently:40 mg Oral DAILY,(No instructions reported), Reported on 12/15/2024 Lisinopril 20 MG tablet Take 1 tablet by mouth daily. Patient taking 20 mg daily 11/12/19 23 025 Discontinued Active Problems Problem Noted Date Diagnosed Date Atrial fibrillation, unspecified type 01/28/2024 Presence of left atrial appe ndage closure device composed of nickel-titanium alloy with polyethylene terephthalate membrane 03/12/2022 Status post ablation of atrial fibrillation 03/31 PAF (paroxysmal atrial fibrillation) 06/17/2018 Overview (06/17/2018): Added automatically from request for surgery [id number] Sick sinus syndrome 03/17/2018 Assessment & Plan (03/19/2018 2:52 PM EDT): Hx dual chamber pacemaker implanted 09/19/17 at [facility] Presented with device infection, now s/p extraction EPS 03/17 with CSNRT ~800ms S/P Chronotropic incompetence assessment with CAEP stress 03/19. Reached 91% MPHR Will hold on reimplanting pacemaker until seen as outpatient High risk medication use 03/17/2018 Assessment & Plan (03/19/2018 2:51 PM EDT): Rythmol stopped due to reduced LV EF Started Sotalol 120 mg Q 12 hours. QT prolonged to 480 after 3rd dose, reduced to 80 mg QT prolonged to 524 after 4th total dose, will reduce to 40 BID Monitor for total of 5 doses Maintain serum K~ 4.0 and Mg ~ 2.0 Will arrange for ongoing outpatient surveillance at discharge. Essential hypertension 03/12/2018 Assessment & Plan (03/19/2018 2:50 PM EDT): Home regimen Lopressor and Benazepril Lisinopril on hold here with renal function, restarted 03/18 Lopressor was changed to Toprol, will discontinue with Sotalol start Monitor with recent medicine changes Nonischemic cardiomyopathy 03/12/2018 Assessment & Plan (03/19/2018 2:51 PM EDT): New diagnosis Likely tachy-mediated from AFL Previous EF 49% on stress test 07/2017; now 20% on echo 02/2018 Continue on sotalol, dced Toprol 08/01 bradycardia. Renal function improved , QUINN resumed Will attempt anglican and maintenance of NSR to improve EF Clinically compensated. Paroxysmal atrial fibrillation 03/12/2018 Assessment & Plan (03/18/2018 4:30 PM EDT): History of PAF, recent device check: now with 100% AT/AF burden Rythmol stopped 2/2 CM, now on Sotalol for suppression. Remains in sinus Obesity: body mass index of 30.0-34.9 03/12/2018 Pacemaker infection 03/11/2018 Assessment & Plan (03/18/2018 4:38 PM EDT): Complete PPM system extraction-- 03/12 ID consulted, appreciate final recommendations Pocket + Pseudomonas Blood cultures NGTD 2 Now on 14 day course of Cefepime. Afebrile, WBC 5.8 Continue packing Q day. Cardiac device, implant, or graft infection or inflammation, initial encounter 03/11/2018 Overview (03/11/2018): Added automatically from request for surgery [id number] Atrial flutter 03/11/2018 Overview (03/16/2018): Added automatically from request for surgery [id number] Resolved Problems Problem Noted Date Diagnosed Date Resolved Date KJ (acute kidney injury) 03/16/2018 Assessment & Plan (03/17/2018 12:18 PM EDT): KJ (Cr 1.36) most likely 2/2 to vancomycin Creatinine improvin.2 today Continue to avoid hypotension and nephrotoxins. Typical atrial flutter 03/12/201804/22 Assessment & Plan (03/18/2018 4:26 PM EDT): Rythmol stopped due to reduced EF and persistent AFL S/P DCCV and isthmus dependent flutter ablation 03/17, Abn SNRT. Started on Sotalol for suppression [id number] Continue Xarelto Encounters Date Type Department Care Team Description 11/30/2024 Nurse Triage [facility] [address] [place] [address] Lindsay Johnson RN 11/29/2024 Documentation Only [facility] [address] [place] [phone] Dottie Brown APRN-CNP Dyspnea on exertion (Primary Dx) 11/05/2024 6:42 AM EDT - 11/05/2024 11:59 PM EDT Hospital Encounter [facility] [place] [id number] [address] Dottie Brown APRN-CNP Discharge Disposition: Home or Self Care 11/02/2024 10:00 AM EDT Ancillary Procedure [facility] [id number] [place] [address] PVC's (premature ventricular contractions) 11/02/2024 9:30 AM EDT Office Visit [facility] [address] [phone] Dottie Brown APRN-CNP Paroxysmal atrial fibrillation (Primary Dx); Atypical atrial flutter; PVC's (premature ventricular contractions); Dyspnea on exertion 10/25/2024 Refill [facility] [address] [phone] Fátima Colon APRN-CNP 10/25/2024 Refill [facility] [address] [phone] Fátima Colon APRN-CNP from Last 3 Months Family History Medical History Relation Name Comments Arrhythmia Brother Emphysema Father Myocardial Infarction Father Hypertension Mother Stroke Mother Relation Name Status Comments Brother Father Mother Social History Tobacco Use Types Packs/Day Years Used Date Smoking Tobacco: Never Smokeless Tobacco: Never Tobacco Cessation:Counseling Given: Not Answered Comments:rare cigar Alcohol Use Standard Drinks/Week Comments Not Currently 11 (1 standard drink = 0.6 oz pu re alcohol) Sex and Gender Information Value Date Recorded Sex Assigned at Not on file Legal Sex Male 1:21 PM EDT Gender Identity Male 03/10/2018 1:53 PM EDT Sexual Orientation Straight 12/21/2022 8: 03 AM EDT Last Filed Vital Signs Vital Sign Reading Time Taken Comments Blood Pressure 162/80 11/02/2024 9:14 AM EDT Pulse 51 11/02/2024 9:14 AM EDT Temperature 36.7 C (98 F) 01/28/2024 2:45 PM EDT Respiratory Rate 16 11/02/2024 9:14 AM EDT Oxygen Saturation 97% 11/02/2024 9:14 AM EDT Inhaled Oxygen Concentration - - Weight 122.5 kg (270 lb) 11/05/2024 9:11 AM EDT Height 196.9 cm (6' 5.5 ) 11/05/2024 9:11 AM EDT Body Mass Index 31.61 11/05/2024 9:11 AM EDT Plan of Treatment Upcoming Encounters Date Type Department Care Team (Late st Contact Info) Description 03/18/2025 9:00 AM EDT Appointment [facility] [address] [facility] 2nd [place] [address] Dottie Brown, RECORDS ANALYSIS MANAGER-MANDOLIN REPAIRER [address] [place] [phone] 11/01/2025 9:30 AM EDT Office Visit [facility] Guajardo [facility] [address] [place] [phone] Dottie Brown, RECORDS ANALYSIS MANAGER-MANDOLIN REPAIRER [address] [place] [phone] Health Maintenance Due Date Last Done Comments HEPATITIS C VIRUS SCREENING 1952 TETANUS 1952 TDAP (ADULT) 09/23/1971 LIPID SCREENING 1992 ZOSTER (SHINGLES) VACCINE (1 of 2) 2002 COVID-19 VACCINE (2 - 2023-2 5 season) 2024 12/04/2021 COLORECTAL CANCER SCREENING DISCUSSION 04/15/2024 04/15/2023, 04/03/2020 INFLUENZA VACCINE (Season Ended) 2025 04/24/2020, 05/01/2018 RSV VACCINE (1 - 1-dose 75+ series) 09/23/2027 PNEUMOCOCCAL VACCINE SERIES Completed 12/28, 12/03/2016 HEP B VACCINE Aged Out No longer elig ible based on patient's age to complete this topic Medical Devices Implanted Type Area Assembler Liquid Center Device Identifier Shelf Expiration Date Model / Serial / Lot Azur 35 Implanted:Qty: 1 on 01/28/2024 by Harinder Varma MD at [facility] Coil N/A: Heart HELICAL HYDROCOIL EMBOLIZATION SYSTEM / [id number] / Azur 35 Implanted:Qty: 1 on 01/28/2024 by Harinder Varma MD at [facility] Coil N/A: Heart 04/29/2025 HELICAL HYDROCOIL EMBOLIZATION SYSTEM / [id number] / [id number] Terumo Azur Cx35 Implanted:Qty: 2 on 01/28/2024 by Harinder Varma MD at [facility] Coil N/A: Heart 11/27/2028 [id number] / [id number] / [id number] Terumo Azur Cx35 Implanted:Qty: 1 on 01/28/2024 by Harinder Varma MD at [facility] Coil N/A: Heart 11/27/2028 [id number] / [id number] / [id number] Terumo Azur Cx35 Implanted:Qty: 1 on 01/28/2024 by Harinder Varma MD at [facility] Coil N/A: Heart 11/27/2028 [id number] / [id number] / [id number] Terumo Azur Cx Coil Implanted:Qty: 1 on 01/28/2024 by Stuart Woodson MD at [facility] Coil N/A: Heart 03/29/2027 [id number] / [id number] / [id number] Azur 35 Implanted:Qty: 1 on 01/28/2024 by Harinder Varma MD at [facility] Coil N/A: Heart 09/27/2028 HELICAL HYDROCOIL EMBOLIZATION / [id number] / [id number] Azur 35 Implanted:Qty: 1 on 01/28/2024 by Harinder Varma MD at [facility] Coil N/A: Heart 09/27/2028 HELICAL HYDROCOIL EMBOLIZATION / [id number] / [id number] Terumo Azur Cx35 Implanted:Qty: 1 on 01/28/2024 by Stuart Woodson MD at [facility] Coil N/A: Heart 11/27/2028 [id number] / [id number] / [id number] Azur Cx35 Implanted:Qty: 1 on 01/28/2024 by Harinder Varma MD at [facility] Coil N/A: Heart 03/29/2027 CX COIL / [id number] / Azur Cx35 Implanted:Qty: 1 on 01/28/2024 by Harinder Varma MD at [facility] Coil N/A: Heart CX COIL / [id number] / Azur Cx35 Implanted:Qty: 1 on 01/28/2024 by Harinder Varma MD at [facility] Coil N/A: Heart 07/30/2028 CX COIL / [id number] / Azur 35 Implanted:Qty: 1 on 01/28/2024 by Harinder Varma MD at [facility] Coil N/A: Heart 03/29/2027 CX COIL / [id number] / Azur 35 Implanted:Qty: 1 on 01/28/2024 by Harinder Varma MD at [facility] Coil N/A: Heart HELICAL HYDROCOIL EMBOLIZATION SYSTEM / [id number] / [id number] Occluder Cardiovascular 31mm Delivery System Watchman Flx - [id number] Implanted:Qty: 1 on 03/12/2022 by Stuart Woodson MD at [facility] ADAN Closure Device N/A: Heart [employer]/PERIPHERAL INTERVEN [id number] 07/04/2024 [id number] / / [id number] Device Closure Perclose Proglide 6fr - [id number] Implanted:Qty: 1 on 01/28/2024 by Stuart Woodson MD at [facility] Other Right: Groin [address] [employer] 10/27/2025 [id number] / [id number] / [id number] Device Closure Perclose Proglide 6fr - [id number] Implanted:Qty: 1 on 01/28/2024 by Ash Lewis DO at [facility] Other Right: Pushpa [address] [employer] 10/27/2025 34476-30 / [id number] / [id number] Explanted Type Area Assembler Liquid Center Device Identifier Shelf Expiration Date Model / Serial / Lot Lead Pace Standard Mdt 5076 - [id number] Explanted:Qty : 1 on 03/12/2018 at [facility] Lead N/A: Heart MEDTRONIC PACER 5076-45 / [id number] / Lead Pace Standard Mdt 5076 - [id number] Explanted:Qty : 1 on 03/12/2018 by Jovon Montero MD at [facility] Lead N/A: Heart MEDTRONIC PACER 5076-45 / [id number] / Pacer Dual Mri Advisa Chamber - [id number] Explanted:Qty : 1 on 03/12/2018 by Jovon Montero MD at [facility] Pacemaker N/A: Chest MEDTRONIC PACER [id number] / [id number] / Procedures Procedure Name Priority Date/Time Associated Diagnosis Comments NUC MYOCARD PERF STRESS MIBI - REST, STRESS, AND ECG Routine 11/05/2024 9:11 AM EDT PVC's (premature ventricular contractions) Dyspnea on exertion HOLTER MONITOR - LONG-TERM Routine 11/02/2024 9:57 AM EDT PVC's (premature ventricular contractions) ECG Routine 11/02/2024 9:24 AM EDT Paroxysmal atrial fibrillation Atypical atrial flutter from Last 3 Months Results * NUC MYOCARD PERF STRESS MIBI - REST, STRESS, AND ECG (11/05/2024 9:11 AM EDT) BSA 2.55 m2 APHRMAX 148 bpm Baseline HR 59 bpm Baseline SBP 172 mmHg Baseline DBP 88 mmHg Peak HR 86 bpm Peak SBP 144 mmHg Peak DBP 72 mmHg Rate Pressure Product 12,384 % APHRMAX 58 % Nuc Stress EF 52.00 % NM ED vol idx 61.17 mL/m2 NM ES vol idx 29.41 mL/m2 Anatomical Region Laterality Modality Chest Nuclear Medicine Narrative 11/05/2024 3:10 PM EDT Overall: This pharmacologic stress nuclear perfusion scan is NORMAL and negative for ischemia. EKG portion indeterminate due to baseline LBBB. Nuclear portion of the exam: There is a small sized, moderate intensity, fixed defect in the mid inferior/inferoseptal wall which improves with stress and revolves with attenuation correction. It likely represents increased subdiaphragmatic activity. There is a moderate sized, moderate intensity, fixed defect in the apex which likely represents apical thinning artifact or artifact due to the LBBB. No evidence of ischemia. No evidence of infarction. Normal left ventricular systolic function (LVEF 52%). There are no regional wall motion abnormalities. ECG portion of the exam: Baseline ECG: normal sinus rhythm with LBBB. He was given 0.4mg regadenason, max HR 86. With Lexiscan, he had no ST segment changes or arrhythmias however baseline LBBB makes it difficult to intepret for ischemia. Stress ECG is indeterminate for ischemia given baseline LBBB. CT portion of the scan: CT images were obtained for attenuation correction purposes only. Diagnostic quality of the images is limited. Coronary calcification (CAC) is seen, although the study is not optimized for CAC detection or quantification. Study Details Pharmacological nuclear stress test performed using 1-day rest/stress protocol. Regadenoson infusion given over 10 seconds. Resting Single-Photon Emission Computed Tomography (SPECT) three axis myocardial perfusion images of the heart were acquired with an acquisition time of 08:17 EDT. Post-stress Single-Photon Emission Computed Tomography (SPECT) three axis myocardial perfusion images of the heart were acquired with an acquisition time of 10:01 EDT. Gated SPECT images obtained. Frame rate: 8 frames/sec. Stress SPECT CT images were obtained. Imaging system used: [facility]. Stress Findings A pharmacological stress test was performed using regadenoson. The patient reported no symptoms prior to the stress test. The patient reported shortness of breath during the stress test. The patient reached the end of the protocol. Patient unable to exercise as ordered; stress changed to pharmacological. ECG Baseline ECG shows left bundle branch block. QRS duration is widened (>120ms). Stress ECG is unchanged from baseline. There was no ST segment deviation noted during stress. There were no arrhythmias during stress. Stress QRS duration is widened (>120ms). Recovery ECG returned to baseline. There were no arrhythmias during recovery. Recovery QRS duration is widened (>120ms). ECG results indeterminate due to left bundle branch block. Nuclear Study Quality Overall image quality is fair. Apical thinning and subdiaphragmatic activity artifact was visualized. Isotope Admin The isotope used for nuclear imaging was technetium sestamibi.No radiopharmaceutical dose was extravasated. Nuclear Stress Gating Stress perfusion cavity size was 142 mL. Resting perfusion cavity size was 150 mL. The stress/rest perfusion ratio is 0.95. There is no evidence of transient ischemic dilation (TID). Ejection fraction is 52.00%. End diastolic index is 61.17 mL/m2. End systolic index is 29.41 mL/m2. Lung to heart ratio is normal determined by sestamibi (less than 0.44). The lung to heart ratio is 0.31. Perfusion Scoring Stress Summed Score: 5 Percent Normal: 7.35% Mild count reduction in the following segments: mid inferoseptal, mid inferior, apical septal, apical inferior and apex. All other segments are normal. Perfusion Scoring Resting Summed Score: 9 Percent Normal: 13.24% Moderate count reduction in the following segments: mid inferoseptal, mid inferior, apical septal and apical inferior. Mild count reduction in the following segments: apex. All other segments are normal. Perfusion Scoring Attenuation Correction Summed Score: 1 Percent Normal: 1.47% Mild count reduction in the following segments: apex. All other segments are normal. Dottie Brown RECORDS ANALYSIS MANAGER-MANDOLIN REPAIRER NM ORDERABLES Final Res ult * HOLTER MONITOR - LONG-TERM (11/02/2024 9:57 AM EDT) Heart rate minimum 36 bpm I [employer] Heart rate maximum 185 bpm I [employer] Heart rate (average) 67 bpm [employer] Ventricular tachycardia - number of episodes 16 [employer] Ventricular tachycardia - heart rate minimum 70 bpm [employer] Ventricular tachycardia - heart rate maximum 182 bpm [employer] Ventricular tachycardia - heart rate (average) 131 bpm [employer] Longest ventricular tachycardia episode start 11/05/2024 4:57:34 PM EDT [employer] Longest ventricular tachycardia episode end 11/05/2024 4:57:37 PM EDT [employer] Longest ventricular tachycardia episode - duration 2.5 [employer] Longest ventricular tachycardia episode - number of beats 5 beats [employer] Longest ventricular tachycardia episode - heart rate minimum 97 bpm [employer] Longest ventricular tachycardia episode - heart rate maximum 146 bpm [employer] Longest ventricular tachycardia episode - heart rate (average) 125 [employer] Ventricular tachycardia with fastest heart rate start 11/06/2024 8:31:10 PM EDT [employer] Ventricular tachycardia with fastest heart rate end 11/06/2024 8:31:12 PM EDT [employer] Ventricular tachycardia with fastest heart rate - duration 1.5 sec [employer] Ventricular tachycardia with fastest heart rate - number of beats 4 beats [employer] Ventricular tachycardia with fastest heart rate - heart rate min 124 [employer] Ventricular tachycardia with fastest heart rate - heart rate max 182 [employer] Ventricular tachycardia with fastest heart rate - heart rate (average) 150 [employer] Supraventricular tachycardia - number of episodes 21 [employer] Supraventricular tachycardia - heart rate minimum 81 bpm [employer] Supraventricular tachycardia - heart rate maximum 185 bpm [employer] Supraventricular tachycardia - heart rate (average) 115 bpm [employer] Longest supraventricular tachycardia episode start 11/06/2024 10:08:26 AM EDT [employer] Longest supraventricular tachycardia episode end 11/06/2024 10:08:51 AM EDT [employer] Longest supraventricular tachycardia episode - duration 25 sec [employer] Longest supraventricular tachycardia episode - number of beats 50 beats [employer] Longest supraventricular tachycardia episode - heart rate min 101 bpm [employer] Longest supraventricular tachycardia episode - heart rate max 152 bpm [employer] Longest supraventricular tachycardia episode - heart rate (average) 120 bpm [employer] Supraventricular tachycardia with fastest heart rate start 11/08/2024 7:53:40 AM EDT [employer] Supraventricular tachycardia with fastest heart rate end 11/08/2024 7:53:47 AM EDT [employer] Supraventricular tachycardia with fastest heart rate - duration 7.1 sec [employer] Supraventricular tachycardia with fastest heart rate - number of beats 18 beats [employer] Supraventricular tachycardia with fastest heart rate - heart rate min 126 bpm [employer] Supraventricular tachycardia with fastest heart rate - heart rate max 185 bpm [employer] Supraventricular tachycardia with fastest heart rate - heart rate (average) 155 bpm [employer] Pause - number of episodes 0 [employer] Longest bigeminy start 11/07/2024 6:46:23 PM EDT [employer] Longest bigeminy end 11/07/2024 6:47:39 PM EDT [employer] Longest bigeminy - duration 76 sec [employer] Longest trigeminy start 11/06/2024 11:47:20 AM EDT [employer] Longest trigeminy end 11/06/2024 11:53:30 AM EDT [employer] Longest trigeminy - duration 369.9 sec [employer] Isolated SVE frequency Occasional [employer] Isolated SVE count 11,582 episodes I [employer] Ectopic SVE isolated percent 3.95 % [employer] SVE couplets frequency Rare [employer] SVE couplets counts 265 episodes [employer] Ecptopic SVE couplet percent 0.18 % [employer] SVE triplets frequency Rare [employer] SVE triplets counts 23 episodes [employer] Ectopic SVE triplet percent 0.02 % [employer] Isolated VE frequency Frequent [employer] Isolated VE counts 48,175 episodes I [employer] Ectopic VE isolated percent 16.43 % [employer] VE couplets frequency Occasional [employer] VE couplets counts 2,531 episodes I [employer] Ecptopic VE couplet percent 1.73 % [employer] VE triplets frequency Rare [employer] VE triplets counts 72 episodes I [employer] Ecptopic VE triplet percent 0.07 % [employer] Enrollment period start 11/05/2024 4:54:51 PM EDT [employer] Enrollment period end 11/08/2024 3:26:01 PM EDT [employer] Total enrollment period 2 days 23 hours [employer] Device analysis time 2 days 22 hours [employer] Total patient event diaries 0 [employer] Total patient event triggers 0 [employer] Combined report prescription status COMPLETE [employer] Anatomical Region Laterality Modality Electrocardiogra phy Impressions 11/16/2024 7:14 PM EDT Agree with Findings. Narrative 11/16/2024 7:14 PM EDT Patient had a min HR of 36 bpm, max HR of 185 bpm, and avg HR of 67 bpm. Predominant underlying rhythm was Sinus Rhythm. First Degree AV Block was present. Bundle Branch Block/IVCD was present. 16 Ventricular Tachycardia runs occurred, the run with the fastest interval lasting 4 beats with a max rate of 182 bpm, the longest lasting 5 beats with an avg rate of 125 bpm. 21 Supraventricular Tachycardia runs occurred, the run with the fastest interval lasting 18 beats with a max rate of 185 bpm, the longest lasting 25.0 secs with an avg rate of 120 bpm. Isolated SVEs were occasional (4.0%, [id number]), SVE Couplets were rare (<1.0%, 265), and SVE Triplets were rare (<1.0%, 23). Isolated VEs were frequent (16.4%, 89485), VE Couplets were occasional (1.7%, 2531), and VE Triplets were rare (<1.0%, 72). Ventricular Bigeminy and Trigeminy were present. Inverted QRS complexes possibly due to inverted placement of device. Procedure Note Zee Mckeon MD - 11/25/2024 Patient had a min HR of 36 bpm, max HR of 185 bpm, and avg HR of 67 bpm.Predominant underlying rhythm was Sinus Rhythm. First Degree AV Block waspresent. Bundle Branch Block/IVCD was present. 16 Ventricular Tachycardiaruns occurred, the run with the fastest interval lasting 4 beats with amax rate of 182 bpm, the longest lasting 5 beats with an avg rate of 125bpm. 21 Supraventricular Tachycardia runs occurred, the run with thefastest interval lasting 18 beats with a max rate of 185 bpm, the longestlasting 25.0 secs with an avg rate of 120 bpm. Isolated SVEs wereoccasional (4.0%, 18511), SVE Couplets were rare (<1.0%, 265), and SVETriplets were rare (<1.0%, 23). Isolated VEs were frequent (16.4%, 56758),VE Couplets were occasional (1.7%, 2531), and VE Triplets were rare(<1.0%, 72). Ventricular Bigeminy and Trigeminy were present. Inverted QRScomplexes possibly due to inverted placement of device. IMPRESSION: Agree with Findings. Dottie Brown RECORDS ANALYSIS MANAGER-MANDOLIN REPAIRER CARDIAC SERVICES ORDERABL ES Final Result * ECG (11/02/2024 9:24 AM EDT) 11/02/2024 9:24 AM EDT 11/05/2024 9:15 PM EDT Dottie Shane Stephanie RECORDS ANALYSIS MANAGER-MANDOLIN REPAIRER ECG ORDERABLES Final Res ult RADIOLOGY from Last 3 Months Insurance [facility] MEDICARE RAILROAD Advance Directives For more information, please contact: [phone] (7:30 AM - 6PM [facility], Friday-Friday) * Full Code (Latest Code Status on File) Date Activated Date Inactivated Comments 03/12/2022 2:19 PM * Full Code Date Activated Date Inactivated Comments 04/20/2019 7:38 PM 03/12/2022 2:19 PM * Full Code Date Activated Date Inactivated Comments 03/12/2018 11:13 AM 04/20/2019 7:[address] Relationship Specialty Start Date End Date Jonathon Hahn DO PCP - General Internal Medicine 03/17/18 Bryan Lacy MD PCP - Referring 1 Cardiovascular Disease 03/17/18 Stuart Woodson MD [address] [place], [place] [phone] PCP - Referring 2 Clinical Cardiac Electrophysiology 04/20/19 Bryan Lacy MD Cardiovascular Disease 03/12/18 Jonathon Hahn DO Internal Medicine 03/12/18 Gordo Gifford MD [address] [place] [address] Consulting Physician Clinical Cardiac Electrophysiology 05/29/18
--- OUTSIDE RECORDS SUMMARY | 2025-01-06 11:53 | XMS_ITS | Clinical Summary ---
Author Organization [facility] Address [address] [place] [address] Care Team Providers Care Clinical Psychologist Name Role Phone Unavailable Primary Care Provider Unavailabl e Social History Tobacco Use Types Packs/Day Years Used Date Smoking Tobacco: Never Assessed Sex and Gender Information Value Date Recorded Sex Assigned at Not on file Legal Sex Male 10:51 PM EDT Gender Identity Not on file Sexual Orientation Not on file Last Filed Vital Signs Vital Sign Reading Time Taken Comments Blood Pressure 141/74 03/30/2019 11:43 AM EDT Pulse 57 03/30/2019 11:43 AM EDT Temperature - - Respiratory Rate - - Oxygen Saturation 98% 03/30/2019 11:44 AM EDT Inhaled Oxygen Concentration - - Weight 126 kg (278 lb) 03/30/2019 11:38 AM EDT Height 195.6 cm (6' 5 ) 03/30/2019 11:38 AM EDT Body Mass Index 32.97 03/30/2019 11:38 AM EDT Plan of Treatment Not on file
--- OUTSIDE RECORDS SUMMARY | 2025-01-06 11:53 | XMS_ITS | Encounter Summary ---
Author Organization [facility] Address [address] [place] [address] Care Team Providers Care Fire Inspector Name Role Phone Bryan Lacy MD Unavailable [phone] Jonathon Hahn DO Unavailable [phone] Jonathon Hahn DO Primary Care Provider [phone] Bryan Lacy MD Unavailable [phone] Gordo Gifford MD Unavailable Stuart Woodson MD Unavailable [phone] Encounter Details Date Type Department Care Team (Late st Contact Info) Description 04/26/2022 Telephone Cardiovascular Imaging Lab [facility] [address] [place] [phone] Nestor [place] RN Social History Tobacco Use Types Packs/Day Years Used Date Smoking Tobacco: Never Smokeless Tobacco: Never Comments:rare cigar Alcohol Use Standard Drinks/Week Comments Yes 3 (1 standard drink = 0.6 oz pur e alcohol) Sex and Gender Information Value Date Recorded Sex Assigned at Not on file Legal Sex Male 1:21 PM EDT Gender Identity Male 03/10/2018 1:53 PM EDT Sexual Orientation Straight 12/21/2022 8: 03 AM EDT documented as of this encounter Functional Status * Are you deaf or do you have serious difficulty hearing? Answer Date of Assessment Author No 03/11/2018 4:39 PM EDT Areli Kendall RN * Are you blind or do you have serious difficulty seeing, even when wearing glasses? Answer Date of Assessment Author No 03/11/2018 4:39 PM EDT Areli Kendall RN * Do you have serious difficulty walking or climbing stairs (5 years or older)? Answer Date of Assessment Author No 03/11/2018 4:39 PM EDT Areli Kendall RN * Do you have difficulty dressing or bathing (5 yrs or older)? Answer Date of Assessment Author No 03/11/2018 4:39 PM EDT Areli Kendall RN * Because of a physical, mental, or emotional condition, do you have difficulty doing errands alone such as visiting a doctor's office or shopping (5 yrs or older)? Answer Date of Assessment Author No 03/11/2018 4:39 PM EDT Areli Kendall RN documented as of this encounter Mental Status * Because of a physical, mental, or emotional condition, do you have serious difficulty concentrating, remembering, or making decisions (5 yrs or older)? Answer Entry Date Author No 03/11/2018 4:39 PM EDT Areli Kendall RN documented in this encounter Plan of Treatment Upcoming Encounters Date Type Department Care Team (Late st Contact Info) Description 03/18/2025 9:00 AM EDT Appointment [facility] and Vascular [address]nd [place] [phone] Dottie Brown, RETURN TO SERVICE INSPECTOR-TEST DESIGNER [address] [place] [phone] 11/01/2025 9:30 AM EDT Office Visit Animal Care Assistant Center Micky Guajardo [facility] [address] [place] [phone] Dottie Brown, RETURN TO SERVICE INSPECTOR-TEST DESIGNER [address] [place] [phone] documented as of this encounter Visit Diagnoses Not on filedocumented in this encounter Care Teams Fire Inspector Relationship Specialty Start Date End Date Jonathon Hahn DO PCP - General Internal Medicine 03/17/18 Bryan Lacy MD PCP - Referring 1 Cardiovascular Disease 03/17/18 Stuart Woodson MD [address] [place] [phone] PCP - Referring 2 Clinical Cardiac Electrophysiology 04/20/19 Bryan Lacy MD Cardiovascular Disease 03/12/18 Jonathon Hahn DO Internal Medicine 03/12/18 Gordo Gifford MD [address] [place] [address] Consulting Physician Clinical Cardiac Electrophysiology 05/29/18 documented as of this encounter
--- OUTSIDE RECORDS SUMMARY | 2025-01-06 11:53 | XMS_ITS | Patient Health Record ---
Author Organization [facility] Address [address] [facility] [address] [place] [address] Care Team Providers Care Resilient Tile Installer Name Role Phone CELENA HONG MD Primary Care Provider Unavail able John Escobarnath Unavailable [phone] Titi Garrison DO Unavailable Unavailable Reason For Referral No Information Medications Medication SIG (Take, Route, Frequency, Duration) Notes Start Date End Date Status Metoprolol 25 mg 1 tab(s) orally 2 times a day Active Fish Oil 500 mg 1 tab(s) orally once daily Active rivaroxaban 20 mg 1 tab(s) orally once a day (in the evening) Not-Taking xarelto 20 mg 1 tab(s) orally once a day (in the evening) Active hydroCHLOROthiazide 12.5 mg 1 tab(s) ora lly once a day Active Vitamin B12 1000 mcg 1 tab(s) orally onc e a day Active BENAZEPRIL 20 mg 1 tab(s) orally once daily Active Aspir 81 81 mg 1 tab(s) orally once a day Not-Taking atorvastatin 10 mg 1 tab(s) orally once daily Active ciprofloxacin 500 mg 1 tab(s) orally every 12 hours Not-Taking magnesium oxide 400 mg 1 tab(s) orally o nce a day Active Problems Problem Type SNOMED Code ICD Code Onset Dates Problem Status W/U Status Risk Notes Problem Sick sinus syndrome (27507522) Sick sinus syndrome (I49.5) Active confirmed Problem Cardiovascular stress test abnormal (714333395) Abnormal stress test (R94.39) Active confirmed Problem Atrial fibrillation (25408507) AF (paroxysmal atrial fibrillation) (I48.0) Active confirmed Problem Essential hypertension (25371737) HTN, goal below 140/90 (I10) Active confirmed Problem Cardiac pacemaker in situ (657878912) S/P placement of cardiac pacemaker (Z95.0) Active confirmed Problem History of cerebrovascular accident without residual deficits (755938790) H/O TIA (transient ischemic attack) and stroke (Z86.73) Active confirmed Problem Personal risk factor (317429595) At risk for coronary artery disease (Z91.89) Active confirmed Plan Of Treatment Pending Test Test Name Order Date Nuclear Cardiolite Stress Test 63374, 93 015, A9500 08/08/2017 LHC/Graft/LV 69533 08/15/2017 PPM SINGLE Insertion of new transvenous electrode(s); atrial 09/12/2017 Pacer check Dual Chamber device [place] [address] 08/08/2017 Loop recoder removal 08057 09/12/2017 Insurance Providers Payer Name Payer Address Payer Phone Subscriber Number Group Number Insured Name Patient Relationship to Insured Coverage Start Date Coverage End Date MEDICARE [employer] [address] [address] [place] [address] [phone] [id number] KRISTEN COWAN Self - patient is the insured [facility] [address] [place] [address] [id number] KRISTEN COWAN Self - patient is the insured Medical (General) History Medical History History ICD Code TIA 2016 htn hyperlipidemia pacemaker atrial fibrilation Surgical History Surgery Date(Month/Year) l tkr 2010 appey 1972 pacemaker placement 09/2017 Hospitalization History Reason Date(Month/Year) No cardiac hospitalizations
--- NOTE | 2025-01-06 11:55 | ED.GENADUL1 ---
HPI HPI - General Adult General Chief complaint: Arrhythmia/Palpitations Stated complaint: HIGH HEART RATE SENT BY DR HATCH Time Seen by Provider: 01/06/25 11:41 Source: patient Mode of arrival: walk-in History of Present Illness HPI narrative: 74-year-old male presents to the emergency department for a chief complaint of. He does not have any symptoms. He was sent in from his PCPs office. The patient has a history of atrial fibrillation and had Watchman procedure. He has had no fever or cough or vomiting or diarrhea. No new medications. Related Data Home Medications ?Medication ?Instructions ?Recorded ?Confirmed atorvastatin 20 mg tablet 40 mg 01/20/23 lisinopril 30 mg tablet 30 mg 01/20/23 magnesium 200 mg tablet 200 mg PO DAILY 01/20/23 01/06/25 mecobalamin (vitamin B12) 1,000 1,000 mcg PO DAILY 01/20/23 01/06/25 mcg lozenges metoprolol succinate 25 mg 25 mg PO 01/20/23 tablet,extended release 24 hr clopidogrel 75 mg tablet mg 01/06/25 Allergies Allergy/AdvReac Type Severity Reaction Status Date / Time No Known Drug Allergies Allergy Verified 01/06/25 11:43 Opioid HPI Opioid Management Most Recent Opioid Data: Last Pain Scale 3 01/20/23, 09:45 Review of Systems ROS Narrative A ten point review of systems is negative except as noted above. [facility] Medical History (Updated 01/06/25 @ 14:00 by Jamison Hernández MD) FHx: total knee replacement ?Z82.69 - Family history of other diseases of the musculoskeletal system and connective tissue (ICD-10) Atrial fibrillation ?I48.91 - Unspecified atrial fibrillation (ICD-10) Social History Smoking status: Never smoker Little interest or pleasure in doing things: not at all Feeling down, depressed, or hopeless: not at all Exam Narrative Exam Narrative: Nurses note and vital signs reviewed and patient is not hypoxic. General: The patient appears well and in no apparent distress. Patient is resting comfortably on cart. Skin: Warm, dry, no pallor noted. There is no rash noted. Head: Normocephalic, atraumatic Eye: Normal conjunctiva, no drainage Ears, Nose, Mouth, and Throat: oral mucosa is moist. Nares patent. Cardiovascular: Regular Rate and Rhythm, tachycardic Respiratory: Patient is in no distress, no accessory muscle use, lungs are clear to auscultation, no wheezing, rales or rhonchi Back: non-tender GI: Soft and nontender Musculoskeletal: Bilateral ankle edema, more on the right than the left. Patient states this is normal since his knee surgeries. Neurological: A&O, normal speech Psychiatric: Cooperative Constitutional Vital Signs, click to edit/add: Last Vital Signs Temp 98.5 F 01/06/25 11:44 Pulse 105 H 01/06/25 12:22 Resp 19 01/06/25 12:22 BP 119/57 01/06/25 12:22 Pulse Ox 96 01/06/25 12:22 O2 Del Method Room Air 01/06/25 11:44 Course Vital Signs Vital signs: Vital Signs Temperature 98.5 F 01/06/25 11:44 Pulse Rate 75 01/06/25 11:44 Respiratory Rate 16 01/06/25 11:44 Blood Pressure 171/122 H 01/06/25 11:44 Pulse Oximetry 98 01/06/25 11:44 Oxygen Delivery Method Room Air 01/06/25 11:44 Temperature 98.5 F 01/06/25 11:44 Pulse Rate 105 H 01/06/25 12:22 Respiratory Rate 19 01/06/25 12:22 Blood Pressure 119/57 01/06/25 12:22 Pulse Oximetry 96 01/06/25 12:22 Oxygen Delivery Method Room Air 01/06/25 11:44 Medical Decision Making MDM Narrative Medical decision making narrative: The patient is in atrial fibrillation and is having some PVCs. He has no symptoms. His workup is negative and no further intervention is needed at this point. Findings were discussed thoroughly with the patient. Differential Diagnosis Differential Diagnosis: Atrial fibrillation, atrial flutter Lab Data Lab results reviewed: Yes I reviewed the patient's lab results Labs: Lab Results 01/06/25 Range/Units 11:55 WBC 6.7 (4.0-11.0) 10^3/uL RBC 4.87 (4.70-6.10) 10^6/uL Hgb 15.4 (14.0-18.0) g/dL Hct 45.7 (42.0-54.0) % MCV 93.8 (80.0-94.0) fL MCH 31.6 (25.9-34.0) pg MCHC 33.7 (29.9-35.2) g/dL RDW 13.5 (11.0-15.0) % Plt Count 141 L (150-450) 10^3/uL MPV 11.6 (9.5-13.5) fL Neut % (Auto) 70.7 (43.0-75.0) % Lymph % (Auto) 18.9 L (20.5-60.0) % Brule % (Auto) 8.2 (1.7-12.0) % Eos % (Auto) 1.3 (0.9-7.0) % Baso % (Auto) 0.6 (0.2-2.0) % Neut # (Auto) 4.8 (1.4-6.5) 10^3/uL Lymph # (Auto) 1.3 (1.2-3.8) 10^3/uL Brule # (Auto) 0.6 (0.3-0.8) 10^3/uL Eos # (Auto) 0.1 (0.0-0.7) 10^3/uL Baso # (Auto) 0.0 (0.0-0.1) 10^3/uL Abs Immat Gran (auto) 0.02 (0.00-0.03) 10^3/uL Imm/Tot Granulo (auto) 0.3 (0.0-0.5) % Sodium 140 (136-145) mmol/L Potassium 4.7 (3.5-5.1) mmol/L Chloride 106 (98-107) mmol/L Carbon Dioxide 23.1 (21.0-32.0) mmol/L Anion Gap 15.6 BUN 17.0 (7.0-18.0) mg/dL Creatinine 1.15 (0.70-1.30) mg/dL Est GFR ( Amer) >60 (>=60 mL/min/1.73m^2) Est GFR (Non-Af Amer) >60 (>=60 mL/min/1.73m^2) BUN/Creatinine Ratio 14.8 Glucose 105 (74-106) mg/dL Calcium 9.6 (8.5-10.1) mg/dL Magnesium 2.2 (1.8-2.4) mg/dL Troponin I High Sens 31.0 (4.0-76.1) pg/mL Imaging Data Chest x-ray: Radiologist's impression: ITS Impressions Chest X-Ray 01/06/25 11:53 IMPRESSION: NO ACUTE FINDINGS Impression dictated by: Cheryl Rothman M.D. 01/06/2025 12:16 PM Dictation Location: [place] [address] Electronically authenticated by: [id number] Y Date: 01/06/2025 12:16 ECG Data Attestation: I personally reviewed and interpreted this ECG as follows: (EKG on my interpretation shows atrial fibrillation with PVCs) Discharge Plan Discharge Chief Complaint: Arrhythmia/Palpitations Clinical Impression: Atrial fibrillation Patient Disposition: Home, Self-Care Time of Disposition Decision: 14:00 Condition: Good Mode of Transportation: Private Vehicle Prescriptions / Home Meds: No Action atorvastatin 20 mg tablet 40 mg lisinopril 30 mg tablet 30 mg metoprolol succinate 25 mg tablet extended release 24 hr 25 mg PO magnesium 200 mg tablet 200 mg PO DAILY mecobalamin (vitamin B12) 1,000 mcg lozenge 1,000 mcg PO DAILY Rx Instructions: allow to dissolve in mouth OR may chew lightly before swallowing clopidogrel 75 mg tablet Print Language: Uzbek Instructions: A-fib (Atrial Fibrillation) (ED) Referrals: Jonathon Hatch DO [Primary Care Provider, Internal Medicine] - 1 week
[2025-01-06 12:06] LABS: Hematocrit 45.7 % (42.0-54.0); Hemoglobin 15.4 g/dL (14.0-18.0); Immature Granulocytes Abs Auto 0.02 10^3/uL (0.00-0.03); Immature Granulocytes Pct Auto 0.3 % (0.0-0.5); Lymphocytes Absolute Auto 1.3 10^3/uL (1.2-3.8); Mean Corpuscular HGB Conc 33.7 g/dL (29.9-35.2); Mean Corpuscular Hemoglobin 31.6 pg (25.9-34.0); Mean Corpuscular Volume 93.8 fL (80.0-94.0); Platelet Count 141 10^3/uL (150-450); Red Blood Count 4.87 10^6/uL (4.70-6.10); White Blood Count 6.7 10^3/uL (4.0-11.0)
[2025-01-06 12:30] LABS: Magnesium 2.2 mg/dL (1.8-2.4)
[2025-01-06 13:16] LABS: Anion Gap 15.6; Blood Urea Nitrogen 17.0 mg/dL (7.0-18.0); Calcium 9.6 mg/dL (8.5-10.1); Carbon Dioxide 23.1 mmol/L (21.0-32.0); Chloride 106 mmol/L (98-107); Estimated GFR (African America >60 (>=60 mL/min/1.73m^2); Estimated GFR (Non-African Ame >60 (>=60 mL/min/1.73m^2); Glucose 105 mg/dL (74-106); Potassium 4.7 mmol/L (3.5-5.1); Sodium 140 mmol/L (136-145)
--- NOTE | 2025-01-06 17:55 | ECG_ITS ---
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1950 Requested By: 1030 Order Number: [id number] Reading MD: DENISSE DEVRIES Measurements Intervals [place] Rate: 96 P: -[address] IA: -78099 QRS: -87 QRSD: 156 T: 87 QT: 408 QTc: 461 Interpretive Statements 85883 Atrial fibrillation with aberrant conduction, or ventricular premature complexes 2550 Left bundle branch block 7200 Abnormal left axis deviation 9150 abnormal ECG Compared to ECG 01/06/2025 11:50:11 Aberrant conduction of supraventricular beat(s) now present Left-axis deviation now present Ventricular premature complex(es) no longer present Atrial abnormality no longer present Right-axis deviation no longer present Electronically Signed On 01-11-2025 13:08:05 EDT by DENISSE DEVRIES
== END 2025-01-06 14:08 | disposition home or self-care (01) ==
PROVIDERS: Emergency Provider Emergency Medicine; PCP Internal Medicine
DX: I48.91 Unspecified atrial fibrillation (principal); Z95.818 Presence of other cardiac implants and grafts
CPT/HCPCS: 36415; 71045; 80048; 83735; 84484; 85025; 93005; 99285

== ENCOUNTER 2025-01-14 15:47 | Outpatient (OUT) | payer MEDICARE, OTHER, SELFPAY ==
--- NOTE | 2025-01-14 15:49 | ECG_ITS ---
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 Measurements Intervals Castell Rate: 99 P: IA: QRS: -78 QRSD: 158 T: 98 QT: 352 QTc: 452 Interpretive Statements ATRIAL FLUTTER/TACHYCARDIA WITH ABERRANT CONDUCTION OR VENTRICULAR PREMATURE COMPLEXES INDETERMINATE AXIS INTRAVENTRICULAR CONDUCTION DELAY [130+ ms QRS DURATION] Compared to ECG 01/06/2025 13:54:40 Indeterminate axis now present Electronically Signed On 01-16-2025 15:35:38 EDT by SMITH ISAAC M.D.
--- OUTSIDE RECORDS SUMMARY | 2025-01-14 15:54 | XMS_ITS | CCD ---
Author Organization [facility] Care Team Providers Care Critical Care Nurse Name Role Phone PHYSICIAN, DEFAULT Unavailable Unavailable PHYSICIAN, DEFAULT Unavailable Unavailable PHYSICIAN, DEFAULT Unavailable Unavailable PHYSICIAN, DEFAULT Unavailable Unavailable DORA FERRARI AM Unavailable Unavailable DORA FERRARI AM Unavailable Unavailable HOLDEN, JONATHON Unavailable Unavailable HOLDEN, JONATHON Unavailable Unavailable ROMARIO, CELENA Campos Unavailable Unavailable ROMARIO, CELENA Campos Unavailable Unavailable BRYAN CORTES Unavailable Unavailable BALL, DR HOLT Primary Care Unavailable BALL, DR HOLT Consulting Unavailable BALL, DR HOLT Attending Unavailable BALL, DR HOLT Admitting Unavailable BALL, DR HOLT Primary Care Unavailable BALL, DR HOLT Consulting Unavailable BALL, DR HOLT Attending Unavailable BALL, DR OHLT Admitting Unavailable MISC, DR JACK Attending Unavailable BALL, DR HOLT Primary Care Unavailable MISC, DR JACK Admitting Unavailable MISC, DR JACK Consulting Unavailable Bryan Cortes MD Unavailable Jonathon Hahn DO Unavailable Jonathon Hahn DO Primary Care Provider [phone] Bryan Cortes MD Unavailable [phone] Gordo Gifford MD Unavailable Brooklynn Woodson MD Unavailable Bryan Cortes MD Unavailable [phone] Holden CHILDERS Jonathon Unavailable Jonathon Hahn DO Primary Care Provider Bryan Cortes MD Unavailable [phone] Gordo Gifford MD Unavailable Brooklynn Woodson MD Unavailable Jonathon Hahn Unavailable Bryan Cortes MD Unavailable [phone] Holden CHILDERS Jonathon Unavailable Jonathon Hahn DO Primary Care Provider [phone] Bryan Cortes MD Unavailable [phone] Ирина COLÓN, Gordo Unavailable Brooklynn Woodson MD Unavailable Regino COLÓN, Bryan Unavailable Bryan Cortes MD Unavailable [phone] BallDO Holt Primary Care Provider [phone] MD Titi Arora II Attending Provider [phone] Holden DO, Jonathon Unavailable Ball DO, Jonathon Primary Care Provider CHINTAN, BROOKLYNN Williamson Referring Unavailable CHINTAN, BROOKLYNN Williamson Admitting Unavailable BALL, JONATHON Primary Care Unavailable CHINTAN, BROOKLYNN Williamson Attending Unavailable CHINTAN, BROOKLYNN Williamson Admitting Unavailable SELF, SELF Referring Unavailable BALL, JONATHON Primary Care Unavailable CHINTAN, BROOKLYNN Williamson Attending Unavailable BALL, JONATHON Primary Care Unavailable GURNEY, DOTTIE Referring Unavailable MAT, CD Hernandez Attending Unavailable BALL, JONATHON Primary Care Unavailable CHINTAN, BROOKLYNN Williamson Referring Unavailable CHINTAN, BROOKLYNN Williamson Referring Unavailable BALL, JONATHON Primary Care Unavailable CHINTAN, BROOKLYNN Williamson Attending Unavailable CHINTAN, BROOKLYNN Williamson Referring Unavailable HOUMSSE, MAHMOUD Attending Unavailable HOLDEN, JONATHON Primary Care Unavailable GURCRISSY, DOTTIE Attending Unavailable GURCRISSY, DOTTIE Referring Unavailable BALL, JONATHON Primary Care Unavailable GURCRISSY, DOTTIE Attending Unavailable BALL, JONATHON Primary Care Unavailable BALL, JONATHON Referring Unavailable Ball DO, Jonathon Primary Care Provider Holden CHILDERS, Jonathon Attending Provider Jonathon Hahn DO Other Provider Cassandra Chavez MD Attending Provider Jonathon Hahn Attending Unavailable Ball, Jonathon Primary Care Unavailable Ball, Jonathon Admitting Unavailable Allergies Allergy Classification Reported Allergen(s) Allergy Type Date of Onset Reaction(s) Facility (2 sources) No Known Allergies; Translations: [No Known Allergies] Propensity to adverse reactions (disorder) 7 [facility] Medications Current Medications Medication Drug Class(es) Dates Sig (Normalized) Sig (Original) atorvastatin 20 mg oral tablet (20 sources) HMG-CoA Reductase Inhibitor Start: 02-14-2024 take 1 tablet by mouth once daily Start: 12-25-2023 End: 12-24-2023 Start: 11-29-2019 End: 02-14-2024 take 1 tablet by mouth once daily Atorvastatin 20 mg tablet Discontinued 20 MG PO Daily October 28, 2023 12:00am February 14, 2024 12:10pm clopidogrel 75 mg oral tablet (4 sources) P2Y12 Platelet Inhibitor Start: 01-06-2025 take 1 tablet by mouth once daily Start: 11-02-2024 take 1 tablet by gallo th once daily Clopidogrel 75 MG tablet Take 1 tablet by mouth daily. 90 tablet 3 11/02/2024 Active doxycycline hyclate 100 mg oral capsule (3 sources) Tetracycline-class Drug Start: 05-14-2023 take 1 capsule by mouth every twelve hours Doxycycline Hyclate 100 MG 1 capsule Orally Twice a day for 10 days Apr, Active hydrocortisone 25 mg/ml topical cream (4 sources) Corticosteroid Start: 01-15-2024 End: 01-15-2024 lisinopril 20 mg oral tablet (20 sources) Angiotensin Converting Enzyme Inhibitor Start: 01-06-2025 take 2 tablets by mouth once daily Start: 12-02-2024 End: 01-06-2025 take 1 tablet by mouth once daily Lisinopril 20 mg tablet Discontinued 0 .ROUTE .COMPLEX 90 December 02, 2024 12:34pm January 06, 2025 10:42am TAKE 1 TABLET BY MOUTH DAILY Start: 12-25-2023 End: 12-24-2023 Start: 12-15-2023 End: 12-15-2023 take 1 tablet by mouth once daily Lisinopril 30 mg tablet Discontinued 0 .ROUTE .COMPLEX 90 December 15, 2023 1:15pm December 15, 2023 5:38pm TAKE 1 TABLET BY MOUTH EVERY DAY Start: 12-15-2023 End: 12-15-2023 take 1 tablet by mouth once daily Lisinopril 30 mg tablet Discontinued 30 MG PO Daily December 15, 2023 12:00am December 15, 2023 12:44pm Start: 11-11-2022 End: 12-02-2024 take 1 tablet by mouth once daily Lisinopril 20 mg tablet Discontinued 20 MG PO Daily October 28, 2023 12:00am December 15, 2023 11:55am Start: 11-08-2021 take 1.5 tablets by mouth once daily lisinopril 20 MG tablet Take 1.5 tablets by mouth daily. 135 tablet 3 11/08/2021 Active 24 hr metoprolol succinate 25 mg extended release oral tablet (20 sources) beta-Adrenergic Vaughn Start: 09-14-2024 End: 10-25-2024 take 1 tablet by mouth once daily Start: 12-25-2023 End: 12-24-2023 Start: 01-01-2022 End: 09-14-2024 take 1 tablet by mouth once daily Metoprolol Succinate 25 mg tablet extended release 24 hr Discontinued 25 MG PO Daily 90 90 October 03, 2023 4:23pm September 14, 2024 7:04am vitamin b12 1 mg oral tablet (20 sources) Vitamin B12 Start: 10-28-2023 take 1 tablet by gallo th once daily Start: 02-26-2022 take 1 tablet by gallo [...] Class(es) Dates Sig (Normalized) Sig (Original) acetaminophen 325 mg oral tablet (7 sources) Start: 01-28-2024 End: 01-28-2024 take 1 tablet by mouth every six hours as needed 650 mg, Oral, EVERY 6 HOURS NEEDED, Starting on Fri01/28/24 at 1448, Until Fri01/28/24 at 2156, Mild Pain, Maximum dose of acetaminophen is 4000 mg from all sources in 24 hours., Post-op/Post-Proc take 1 tablet by gallo th every six hours as needed acetaminophen (TYLENOL) 500 MG tablet Ta ke 1 tablet by mouth every 6 hours as needed for Mild Pain. PRN for right hip pain Active aluminum hydroxide 40 mg/ml / magnesium hydroxide 40 mg/ml / simethicone 4 mg/ml oral suspension (1 source) Start: 01-28-2024 End: 01-28-2024 take 30 mL by mouth every six hours as needed 30 mL, Oral, EVERY 6 HOURS NEEDED, Starting on Fri01/28/24 at 1448, Until Fri01/28/24 at 2156, Indigestion, Per 5 mL is equivalent to: (Alum-Mag Hydroxide 200-225 mg and Simethicone 20 mg) and (Alum-Mag Hydroxide 200-200 mg and Simethicone 20 mg), Post-op/Post-Proc amoxicillin 500 mg oral capsule (2 sources) Penicillin-class Antibacterial Start: 03-04-2024 End: 04-21-2024 Amoxicillin 500 mg capsule Discontinued 2000 MG PO As Directed March 04, 2024 12:00am April 21, 2024 9:35am aspirin 81 mg delayed release oral tablet (12 sources) Platelet Aggregation Inhibitor, Nonsteroidal Anti-inflammatory Drug Start: 10-28-2023 End: 10-29-2023 Aspirin (Adult Low Dose Aspirin) 81 mg tablet,delayed release (DR/EC) Discontinued 81 MG PO Daily October 28, 2023 12:00am October 29, 2023 11:51am Start: 03-12-2022 End: 03-06-2023 aspirin 81 MG Chew Tab chewa ble tablet Chew 1 tablet daily. 30 tablet 03/12/2022 03/06/2023 Discontinued Start: 02-26-2022 Aspirin Adult Low Dose 81 MG Aspirin( 81MG Oral ) Active -Hx Entry Oral for 0 Jan, Not-Taking/PRN 2 ml fentaNYL 0.05 mg/ml injection (3 sources) Opioid Agonist Start: 03-15-2024 End: 03-15-2024 200 mcg, Intravenous, Administer over 2 Minutes, ADMINISTER DIRECTED, Starting on Fri03/15/24 at 1204, Until Fri03/15/24 at 1403, intraoperative procedure pain management, FOR ALLI PROCEDURE ONLY Administration during procedure as directed by physician. Recorded MAR dose is cumulative amount given during procedure., Intra-op/Intra-Proc Start: 03-06-2023 End: 03-06-2023 fentaNYL (SUBLIMAZE) injecti on 200 mcg Start: 04-29-2022 End: 04-29-2022 fentaNYL (SUBLIMAZE) injecti on 200 mcg 1 ml HYDROmorphone hydrochloride 1 mg/ml cartridge (1 source) Opioid Agonist Start: 01-28-2024 End: 01-28-2024 0.2 mg, Intravenous, EVERY 10 MINUTES NEEDED, 10 doses, Starting on Fri01/28/24 at 1210, Until Fri01/28/24 at 2156, Moderate Pain, Severe Pain, May give a total of 2mg in PACU., Recovery iohexol (OMNIPAQUE) 350 MG/ML injection 1-120 mL (1 source) Start: 03-11-2022 End: 03-11-2022 iohexol (OMNIPAQUE) 350 MG/ML injection 1-120 mL iohexol (OMNIPAQUE) 350 MG/ML injection 1-171 mL (2 sources) Start: 11-10-2023 End: 11-10-2023 1-171 mL, Intravenous, ONCE, 1 dose, On Fri11/10/23 at 1300, Extravasation Risk, CT Procedure Start: 03-06-2023 End: 03-06-2023 iohexol (OMNIPAQUE) 350 MG/M L injection 1-171 mL lidocaine 0.05 mg/mg topical ointment (3 sources) Antiarrhythmic, Amide Local Anesthetic Start: 03-15-2024 End: 03-15-2024 1 Application, Topical, ADMINISTER DIRECTED, Starting on Fri03/15/24 at 1204, Until Fri03/15/24 at 1403, FOR ALLI PROCEDURE ONLY, FOR ALLI PROCEDURE ONLY Max: 20gm/day. Apply to back of throat., Intra-op/Intra-Proc Start: 03-06-2023 End: 03-06-2023 Lidocaine (XYLOCAINE) 5 % oi ntment 1 Application Start: 04-29-2022 End: 04-29-2022 lidocaine (XYLOCAINE) 5 % oi ntment 1 Application magnesium oxide 400 mg oral tablet (20 sources) Start: 01-28-2024 End: 01-28-2024 800 mg, Oral, ADMINISTER DIRECTED, Starting on Fri01/28/24 at 1448, Until Fri01/28/24 at 2156, See admin instructions, For Magnesium 1.6 - 2.0, give 800 mg of Magnesium oxide, Post-op/Post-Proc Start: 02-26-2022 take 1 tablet by mouth once da sabra melatonin 3 mg oral tablet (1 source) Start: 01-28-2024 End: 01-28-2024 take 3 mg by mouth once daily at bedtime as needed 3 mg, Oral, DAILY AT BEDTIME NEEDED, Starting on Fri01/28/24 at 1448, Until Fri01/28/24 at 2156, Insomnia, Post-op/Post-Proc 2 ml midazolam 1 mg/ml injection (3 sources) Benzodiazepine Start: 03-15-2024 End: 03-15-2024 10 mg, Intravenous, ADMINISTER DIRECTED, Starting on Fri03/15/24 at 1204, Until Fri03/15/24 at 1403, for procedure sedation, FOR ALLI PROCEDURE ONLY Administration during procedure as directed by physician. Record cumulative dose on AUG., Intra-op/Intra-Proc Start: 03-06-2023 End: 03-06-2023 midazolam (VERSED) injection 10 mg Start: 04-29-2022 End: 04-29-2022 midazolam (VERSED) injection 10 mg 2 ml ondansetron 2 mg/ml injection (1 source) Serotonin-3 Receptor Antagonist Start: 01-28-2024 End: 01-28-2024 4 mg, Intravenous, ONCE NEEDED, 1 dose, Starting on Fri01/28/24 at 1210, Until Fri01/28/24 at 215, Nausea / Vomiting, FIRST line antiemetic, Do not administer within 6 hours of intra-operative dose., Recovery polyethylene glycol [id number] [id number] mg powder for oral solution (1 source) Osmotic Laxative Start: 01-28-2024 End: 01-28-2024 17 g, Oral, DAILY NEEDED, Starting on Fri01/28/24 at 1448, Until Fri01/28/24 at 2156, Constipation 1st Line, Post-op/Post-Proc microencapsulated potassium chloride 20 meq extended release oral tablet (1 source) Start: 01-28-2024 End: 01-28-2024 take 60 mEq by mouth every eight hours 40-60 mEq, Oral, ADMINISTER DIRECTED, Starting on Fri01/28/24 at 1448, Until Fri01/28/24 at 215, See admin instructions, If Cr less than 2.0 mg/dL 1. For Potassium 3.6 - 4.0, give 40 mEq of Potassium Chloride orally, recheck in the AM. 2. For Potassium less than 3.6, give 60 mEq Potassium Chloride orally, recheck in 8 hours. 3. If potassium is low please administer magnesium first if indicated., Post-op/Post-Proc regadenoson (LEXISCAN) injection 0.4 mg (1 source) Start: 11-05-2024 End: 11-05-2024 take 0.4 mg intravenously once 0.4 mg, Intravenous, ONCE, 1 dose, On Fri11/05/24 at 0930, Give rapid iv push over 10 seconds, NM Procedure rivaroxaban 20 mg oral tablet (20 sources) Factor Xa Inhibitor Start: 01-01-2022 End: 01-06-2025 take 1 tablet by mouth once daily Rivaroxaban 20 mg tablet Discontinued 20 MG PO Daily October 28, 2023 12:00am December 01, 2023 12:58pm 1000 ml sodium chloride 9 mg/ml injection (10 sources) Start: 03-15-2024 End: 03-15-2024 Intravenous, at 20 mL/hr, CONTINUOUS, Starting on Fri03/15/24 at 1215, Until Fri03/15/24 at 1414, FOR TRANSESOPHAGEAL ECHO ONLY , Intra-op/Intra-Pro c Start: 01-28-2024 End: 01-28-2024 Intravenous, at 10 mL/hr, CO NTINUOUS, Starting on Fri01/28/24 at 0930, Until Fri01/28/24 at 2129, KVO fluids, start the morning of procedure., Pre-op/Pre-Proc Start: 12-24-2023 End: 12-24-2023 Intravenous, at 20 mL/hr, CO NTINUOUS, Starting on Fri12/24/23 at 1245, Until Fri12/24/23 at 1908, KVO fluids, start the morning of procedure., Pre-op/Pre-Proc Start: 11-10-2023 End: 11-10-2023 1-100 mL, Intravenous, [...] (PF) 0.9 % i njection 1-100 mL Technetium tc 99m sestamibi (SESTAMIBI) 7.2-38.5 millicurie (1 source) Start: 11-05-2024 End: 11-05-2024 7.2-38.5 millicurie, Intravenous, ONCE, 1 dose, On Fri11/05/24 at 0800 Technetium tc 99m sestamibi (SESTAMIBI) 7.2-49.5 millicurie (1 source) Start: 11-05-2024 End: 11-05-2024 7.2-49.5 millicurie, Intravenous, ONCE, 1 dose, On Fri11/05/24 at 0915 Vancomycin HCl in NaCl (Vancocin) 1,500 mg 290 ml premade IVPB (2 sources) Start: 01-28-2024 End: 01-28-2024 1,500 mg, Intravenous, Administer over 1 Hours, INDUSTRIAL RELATIONS WORKER TO PROCEDURE, 1 dose, Starting on Fri01/28/24 at 0000, Until Fri01/28/24 at 1043, Other, Preoperative antibiotic, Order should be timed for day of procedure. 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 Vancomycin is preferred agent for device implants, based on national, community and local ([facility]) MRSA rates., Pre-op/Pre-Proc Start: 12-24-2023 End: 12-24-2023 1,500 mg, Intravenous, Admin ister over 1 Hours, INDUSTRIAL RELATIONS WORKER TO PROCEDURE, 1 dose, Starting on Fri12/24/23 at 0000, Until Fri12/24/23 at 1354, Other, Preoperative antibiotic, Order should be timed for day of procedure. 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 Vancomycin is preferred agent for device implants, based on national, community and local ([facility]) MRSA rates., Pre-op/Pre-Proc Problems Active Problems Problem Classification Problem Date Documented Da te Episodic/Chronic Abdominal hernia (4 sources) Umbilical hernia; Translations: [Umbilical hernia without obstruction or gangrene] 10-29-2023 Episodic Cancer of kidney and renal pelvis (6 sources) Renal cell carcinoma; Translations: [Malignant neoplasm of right kidney, except renal pelvis] Chronic Cardiac dysrhythmias (20 sources) Bradycardia, unspecified; Translations: [Unspecified atrial fibrillation] Onset: 7 Resolved: 9 Chronic Chronic kidney disease (17 sources) Chronic kidney disease stage 3A ; Translations: [Chronic kidney disease, stage 3a] 10-28-2023 Chronic Coagulation and hemorrhagic disorders (7 sources) Thrombocytopenic disorder; Translations: [Thrombocytopenia, unspecified] Chronic Coronary atherosclerosis and other heart disease (1 source) Atherosclerotic heart disease of [place] coronary artery without angina pectoris; Translations: [ATHSCL HEART DISEASE OF [place] CORONARY ARTERY W/O ANG PCTRS] Onset: 7 Chronic Deficiency and other anemia (11 sources) Pernicious anemia; Translations: [Vitamin B12 deficiency anemia due to intrinsic factor deficiency] 10-28-2023 Episodic Deficiency and other anemia (1 source) Vitamin B12 deficiency anemia due to intrinsic factor deficiency Episodic Diabetes mellitus without complication (1 source) Type 2 diabetes mellitus without complications; Translations: [TYPE 2 DIABETES MELLITUS WITHOUT COMPLICATIONS] Onset: 7 Chronic Disorders of lipid metabolism (14 sources) Familial hypercholesterolemia; Translations: [Familial hypercholesterolemia] Onset: 2 Chronic Essential hypertension (20 sources) Essential (primary) hypertension; Translations: [Essential hypertension] Onset: 7 03-13-2018 Chronic Immunizations and screening for infectious disease (1 source) Encounter for immunization; Translations: [ENCOUNTER FOR IMMUNIZATION] Onset: 2 Episodic Osteoarthritis (5 sources) Osteoarthritis of right hip joint; Translations: [Unilateral primary osteoarthritis, right hip] 10-28-2023 Chronic Osteoporosis (2 sources) Osteoporosis; Translations: [Age-related osteoporosis without current pathological fracture] 02-23-2024 Chronic Other aftercare (4 sources) Other 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 terminal operator (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 therapy; Translations: [OTH DIRECTOR INDUSTRIAL MUSEUM CURRENT DRUG THERAPY] Onset: 2 Episodic Other aftercare (2 sources) Long-term current use of drug therapy; Translations: [Other intermediate (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 therapy] 02-23-2024 Episodic Other circulatory disease (5 sources) Device in situ; Translations: [Presence of other cardiac implants and grafts] Onset: 2 03-12-2022 Chronic Other circulatory disease (2 sources) Enlarged aortic root; Translations: [Other specified disorders of arteries and arterioles] 03-06-2023 Chronic Other circulatory disease (10 sources) Presence of other cardiac implants and grafts; Translations: [Other specified cardiac device in situ] Onset: 2 03-12-2022 Chronic Other gastrointestinal disorders (4 sources) Stool DNA-based colorectal cancer screening positive; Translations: [Other fecal abnormalities] 01-25-2024 Episodic Other lower respiratory disease (2 sources) Dyspnea on exertion; Translations: [Other forms of dyspnea] 11-05-2024 Episodic Other lower respiratory disease (2 sources) Other forms of dyspnea; Translations: [Other forms of dyspnea] Onset: 5 Episodic Other non-traumatic joint disorders (3 sources) Hip pain; Translations: [Pain in right hip] 10-29-2023 Episodic Other non-traumatic joint disorders (1 source) Pain in right hip; Translations: [Pain in joint, pelvic region and thigh] 10-29-2023 Episodic Other nutritional; endocrine; and metabolic disorders (11 sources) Obese class I; Translations: [Obesity, unspecified] Onset: 8 03-12-2018 Chronic Other screening for suspected conditions (not mental disorders or infectious disease) (11 sources) Encounter for screening for malignant neoplasm of prostate; Translations: [Encounter for screening for malignant neoplasm of colon] Onset: 2 Episodic Steph-; endo-; and myocarditis; cardiomyopathy (except that caused by tuberculosis or sexually transmitted disease) (11 sources) Cardiomyopathy; Translations: [Other cardiomyopathies] Onset: 8 03-13-2018 Chronic Unclassified (2 sources) Unknown / UNK(Unknown) Onset: 7 Unclassified (1 source) Z12.11 - Encounter for screening for malignant neoplasm of colon,R19.5 - Other fecal abnormalities Viral infection (4 sources) COVID-19; Translations: [COVID-19] Onset: 2 Past or Other Problems Problem Classification Problem Date Documented Date Episodic/Chronic Acute and unspecified renal failure (11 sources) Acute injury of kidney; Translations: [Acute kidney failure, unspecified] Onset: 03-16-2018 Resolved: 03-18-2018 03-18-2018 Episodic Chronic kidney disease (3 sources) Chronic kidney disease; Translations: [CHRONIC KIDNEY DISEASE STAGE 3A] Onset: 01-25-2022 Complication of device; implant or graft (20 sources) Infected pacemaker; Translations: [Infection and inflammatory reaction due to other cardiac and vascular devices, implants and grafts, initial encounter] Onset: 03-11-2018 03-13-2018 Episodic Other aftercare (2 sources) MCFP (current) use of anticoagulants; Translations: [MCFP (current) use of aspirin] Onset: 05-12-2017 Episodic Other aftercare (11 sources) Taking high risk medication; Translations: [Other computer terminal operator (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 therapy] Onset: 03-17-2018 03-17-2018 Episodic Other circulatory disease (1 source) Personal history of transient ischemic attack (TIA), and cerebral infarction without residual deficits; Translations: [PRSNL HX OF TIA (TIA), AND CEREB INFRC W/O RESID DEFICITS] Onset: 05-12-2017 Episodic Residual codes; unclassified (11 sources) H/O: atrial fibrillation; Translations: [Other specified postprocedural states] Onset: 04-20-2019 04-20-2019 Episodic Results Test Name Value Interpretation Reference Range Facility Basophils Auto (Bld) [#/Vol] Ordered By: Jonathon Hahn on 01-06-2025 Basophils (Bld) [#/Vol] 0.0 10 3/uL 0.0-0.1 [facility] Basophils/100 WBC Auto (Bld) Ordered By: Jonathon Hahn on 01-06-2025 Basophils/100 WBC (Bld) 0.6 % 0.2-2.0 [facility] Eosinophils/100 WBC Auto (Bl d)Ordered By: Jonathon Hahn on 01-06-2025 Eosinophils/100 WBC (Bld) 1.3 % 0.9-7.0 [facility] Erythrocyte distribution wid th Auto (RBC) [Ratio]Ordered By: Jonathon Hahn on 01-06-2025 Erythrocyte distribution width (RBC) [Ratio] 13.5 % 11.0-15.0 [facility] Estimated glomerular filtrat ion rate (GFR) non- AmericanOrdered By: Eliazar Hernández on 01-06-2025 GFR/1.73 sq M.predicted among non-blacks MDRD (S/P/Bld) [Vol rate/Area] mL/min/{1.73_m2} >=60 mL/min/1.7 3m 2 [facility] FPG ECG *PCP OFFICE ONLY*on 01-06-2025 FPG ECG *PCP OFFICE ONLY* [facility] Main [place] [address] [place] [address] Electrocardiograph Report Signed Patient: Kristen Coates MR#: [id number] 31 : 1950 Acct:[id number] Age/Sex: 74 / M ADM Date: 01/06/25 Loc: [facility] Room: Type: [facility] Attending Dr: Jonathon Hahn DO Ordering Provider: Jonathon Hahn DO Date of Service: 01/06/2504/23/1121 ECG/FPG ECG *PCP OFFICE ONLY*: I48.0 - Paroxysmal atrial fibrillation Copies to: Test Reason : Blood Pressure : */* mmHG Vent. Rate : 96 BPM Atrial Rate : 277 BPM P-R Int : * ms QRS Dur : 150 ms QT Int : 416 ms P-R-T Axes : 59 -58 139 degrees QTcB Int : 525 ms Atrial flutter with variable AV block frequent premature ventricular complexes. Left bundle branch block Abnormal ECG No previous ECGs available Confirmed by Cassandra Chavez ([id number]) on 01/06/2025 1:57:59 PM Referred By: Electronically Signed By: Cassandra Chavez Transcribed By: MUS Signed By Cassandra Chavez MD [id number] Normal [facility] Hematocrit Auto (Bld) [Volum e fraction]Ordered By: Jonathon Hahn on 01-06-2025 Hematocrit (Bld) [Volume fraction] 45.7 % 42.0-54.0 [facility] Hemoglobin [Mass/volume] in BloodOrdered By: Jonathon Hahn on 01-06-2025 Hemoglobin (Bld) [Mass/Vol] 15.4 g/dL 14.0-18.0 [facility] Laboratory - Chemistry and C hemistry - challengeOrdered By: Eliazar Hernández on 01-06-2025 Calcium [Mass/Vol] 9.6 mg/dL 8.5-10.1 [facility] Chloride [Moles/Vol] 106 mmol/L 98-107 [facility] CO2 [Moles/Vol] 23.1 mmol/L 21.0-32.0 [facility] Creatinine [Mass/Vol] 1.15 mg/dL 0.70-1.30 [facility] GFR/1.73 sq M.predicted MDRD (S/P/Bld) [Vol rate/Area] mL/min/{1.73_m2} >=60 mL/min/1.7 3m 2 [facility] Glucose [Mass/Vol] 105 mg/dL 74-106 [facility] Magnesium [Mass/Vol] 2.2 mg/dL 1.8-2.4 [facility] Potassium [Moles/Vol] 4.7 mmol/L 3.5-5.1 [facility] Sodium [Moles/Vol] 140 mmol/L 136-145 [facility] Urea nitrogen [Mass/Vol] 17.0 mg/dL 7.0-18.0 [facility] Urea nitrogen/Creatinine [Mass ratio] 14.8 mg/mg [facility] Laboratory - Hematology and Cell countsOrdered By: Jonathon Hahn on 01-06-2025 Immature granulocytes/100 WBC (Bld) 0.3 % 0.0-0.5 [facility] Leukocytes [#/volume] correc jose for nucleated erythrocytes in Blood by Automated counOrdered By: Jonathon Hahn on 01-06-2025 WBC corrected for nucl RBC Auto (Bld) [#/Vol] 6.7 10 3/uL 4.0-11.0 [facility] Lymphocytes Auto (Bld) [#/Vo l]Ordered By: Jonathon Hahn on 01-06-2025 Lymphocytes (Bld) [#/Vol] 1.3 10 3/uL 1.2-3.8 [facility] Lymphocytes/100 WBC Auto (Bl d)Ordered By: Jonathon Hahn on 01-06-2025 Lymphocytes/100 WBC (Bld) 18.9 % Low 20.5-60.0 [facility] MCH Auto (RBC) [Entitic mass ]Ordered By: Jonathon Hahn on 01-06-2025 MCH (RBC) [Entitic mass] 31.6 pg 25.9-34.0 [facility] MCHC Auto (RBC) [Mass/Vol]Or dered By: Jonathon Hahn on 01-06-2025 MCHC (RBC) [Mass/Vol] 33.7 g/dL 29.9-35.2 [facility] MCV Auto (RBC) [Entitic vol] Ordered By: Jonathon Hahn on 01-06-2025 MCV (RBC) [Entitic vol] 93.8 fL 80.0-94.0 [facility] Monocytes Auto (Bld) [#/Vol] Ordered By: Jonathon Hahn on 01-06-2025 Monocytes (Bld) [#/Vol] 0.6 10 3/uL 0.3-0.8 [facility] Monocytes/100 WBC Auto (Bld) Ordered By: Jonathon Hahn on 01-06-2025 Monocytes/100 WBC (Bld) 8.2 % 1.7-12.0 [facility] Neutrophils Auto (Bld) [#/Vo l]Ordered By: Jonathon Hahn on 01-06-2025 Neutrophils (Bld) [#/Vol] 4.8 10 3/uL 1.4-6.5 [facility] Neutrophils/100 WBC Auto (Bl d)Ordered By: Jonathon Hahn on 01-06-2025 Neutrophils/100 WBC (Bld) 70.7 % 43.0-75.0 [facility] No Panel InformationOrdered By: Jonathon Hahn on 01-06-2025 Eosinophils # (Auto) 0.1 10 3/uL 0.0-0.7 [facility] Immature Granulocyte # (Auto) 0.02 10 3/uL 0.00-0.03 [facility] No Panel InformationOrdered By: Eliazar Hernández on 01-06-2025 Troponin I High Sensitivity 31.0 pg/mL 4.0-76.1 [facility] Comment on above: CUT-OFF POINTS HAVE BEEN ESTABLISHED BASED ON THE FOURTHUNIVERSAL DEFINITION OF MYOCARDIAL INFARCTION. THE UPPERREFERENCE LIMIT (URL) OF TROPONIN, DEFINED THE 99THPERCENTILE OF cTnI DISTRIBUTION IN A REFERENCE POPULATION,HAS BEEN CONFIRMED THE DECISION THRESHOLD FOR MIDIAGNOSIS.99TH PERCENTILE = 76.2 PG/MLNOTE: HIGH-SENSITIVITY TROPONIN ASSAY IS NOT INTENDED TO BEUSED IN ISOLATION BUT SHOULD BE INTERPRETED IN CONJUNCTIONWITH OTHER DIAGNOSTIC AND CLINICAL INFORMATION. Platelet mean volume Auto (B ld) [Entitic vol]Ordered By: Jonathon Hahn on 01-06-2025 Platelet mean volume (Bld) [Entitic vol] 11.6 fL 9.5-13.5 [facility] Platelets Auto (Bld) [#/Vol] Ordered By: Jonathon Hahn on 01-06-2025 Platelets (Bld) [#/Vol] 141 10 3/uL Low 150-450 [facility] RBC Auto (Bld) [#/Vol]Ordere d By: Jonathon Hahn on 01-06-2025 RBC (Bld) [#/Vol] 4.87 10 6/uL 4.70-6.10 [facility] Serum or plasma anion gap de terminationOrdered By: Eliazar Hernández on 01-06-2025 Anion gap [Moles/Vol] 15.6 mmol/L [facility] NUC MYOCARD PERF STRESS MIBI EXERCISEon 11-05-2024 NUC MYOCARD PERF STRESS MIBI EXERCISE Overall: This pharmacologic stress nuclear perfusion scan [...] not optimized for CAC detection or quantification. Table formatting from the original result was not included. Images from the original result were not included. [facility] Facility [facility] Patient Information Patient Name Kristen Coates Legal Sex Male Indication for Exam Priority: Routine Dx: PVC's (premature ventricular contractions) [I49.3 (ICD-10-CM)]; Dyspnea on exertion [R06.09 (ICD-10-CM)] Order Question Reason for Exam PVCs Interpretation Summary Result History is available. Overall: This pharmacologic stress nuclear perfusion scan [...] not optimized for CAC detection or quantification. Stress Findings ECG Baseline ECG shows left bundle branch [...] indeterminate due to left bundle branch block. Stress Findings A pharmacological stress test was performed using regadenoson. The patient reported no symptoms prior to the stress test. The patient reported shortness of breath during the stress test. The patient reached the end of the protocol. Patient unable to exercise as ordered; stress changed to pharmacological. Reading Providers Reading Role Read Date Kathy Huerta MD Fellow - Reading 11/05/2024 Rubi Saldivar MD ECG Tower, SPECT Tower, Test Electrical Prospecting Observer 11/05/2024 Stress Measurements Baseline Vitals-Supine Baseline HR 59 bpm Baseline SBP 172 mmHg Baseline DBP 88 mmHg Peak Stress Vitals Peak HR 86 bpm Peak SBP 144 mmHg Peak DBP 72 mmHg Rate Pressure Product 12,384 Exercise Data APHRMAX 148 bpm % APHRMAX 58 % Nuclear Stress Findings Isotope Admin The isotope used for nuclear imaging was technetium sestamibi.No radiopharmaceutical dose was extravasated. Nuclear Study Quality Overall image quality is fair. Apical thinning and subdiaphragmatic activity artifact was visualized. Nuclear Stress Gating Stress perfusion cavity size was 142 mL. Resting perfusion cavity size was 150 mL. The stress/rest perfusion ratio is 0.95. There is no evidence of transient ischemic dilation (TID). Ejection fraction is 52.00%. End diastolic index is 61.17 mL/m2. End systolic index is 29.41 mL/m2. Lung to heart ratio is normal (more content not included)... Normal [facility] SPECT Heart perfusion at res t and W stress and W radionuclide IVOrdered By: Rubi Saldivar on 11-05-2024 % APHRMAX 58 % [facility] Work Phone: APHRMAX 148 bpm [facility] Work Phone: Baseline DBP 88 mmHg [facility] Work Phone: Baseline HR 59 bpm [facility] Work Phone: Baseline SBP 172 mmHg [facility] Work Phone: Body surface area Derived from formula 2.55 m2 [facility] Work Phone: NM ED vol idx 61.17 mL/m2 [facility] Work Phone: NM ES vol idx 29.41 mL/m2 [facility] Work Phone: Nuc Stress EF 52 % [facility] Work Phone: Peak DBP 72 mmHg [facility] Work Phone: Peak HR 86 bpm [facility] Work Phone: Peak SBP 144 mmHg [facility] Work Phone: Rate Pressure Product [phone] [facility] Work Phone: [facility] Work Phone: SPECT Heart perfusion at res t and W stress and W radionuclide Allie 11-05-2024 Overall: This pharma cologic stress nuclear perfusion scan is NORMAL and [...] CT images were obtained. Imaging system used: [facility]. Stress Findings A pharmacological stress test was [...] segments: apex. All other segments are normal. [facility] Radiology Study observation (narrative) [facility] EP PROCEDURE - EPS/ABLATION/ DEVICEon 06-10-2024 EP PROCEDURE - EPS/ABLATION/DEVICE ? Successful closure of Watchman steph-device leak via coiling Hx: 73 y.o. 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 Follow up imaging on ALLI at 45 day interval with no evidence of steph-device leak however further imaging in October 2022 revealed steph-device leak on CT. ALLI - no LA thrombus, confirmed steph-device leak 1- Successful access via right femoral vein under the guidance of ultrasound x 2 2- Successful trans-septal puncture under trans-esophageal echocardiogram [ALLI] guidance. 3- Successful contrast injection of ADAN defined anatomy an steph-device leak as well as intraoperative ALLI imaging 4- Successful coiling of the Watchman device with 15 coils implanted with no residual steph-device leak on ALLI imaging 5- Successful removal of sheaths and closure with Perclose x 2 Recommendation Resume oral anticoagulation therapy with Xarelto Continue medical therapy for atrial fibrillation Trans-esophageal echocardiogram [ALLI] in 45 days and then follow up with SL[facility]BING MACHINE OPERATOR clinic at the [facility] at the [place] Femoral access care protocol (Perclose) May send home today if meets criteria ? Successful closure of Watchman steph-device leak via coiling Hx: 73 y.o. 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 Follow up imaging on ALLI at 45 day interval with no evidence of steph-device leak however further imaging in October 2022 revealed steph-device leak on CT. ALLI - no LA thrombus, confirmed steph-device leak 1- Successful access via right femoral vein under the guidance of ultrasound x 2 2- Successful trans-septal puncture under trans-esophageal echocardiogram [ALLI] guidance. 3- Successful contrast injection of ADAN defined anatomy an steph-device leak as well as intraoperative ALLI imaging 4- Successful coiling of the Watchman device with 15 coils implanted with no residual steph-device leak on ALLI imaging 5- Successful removal of sheaths and closure with Perclose x 2 Recommendation Resume oral anticoagulation therapy with Xarelto Continue medical therapy for atrial fibrillation Trans-esophageal echocardiogram [ALLI] in 45 days and then follow up with SLABBING MACHINE OPERATOR clinic at the [facility] at the [place] Femoral access care protocol (Perclose) May send home today if meets criteria Table formatting from the original result was not included. Images from the original result were not included. Kristen Coates EP Procedure - EPS/Ablation/Device Ordering Physician: BROOKLYNN WOODSON Order #: [id number] Study Date: 01/28/2024 Patient Information Name MRN Description Kristen Coates [id number] 73 y.o. male Physicians Panel Physicians Referring Physician Case Authorizing Physician Brooklynn Woodson MD (Primary) MD Harinder Bay MD (Assisting) Ash Lewis DO (Fellow) Procedures Left Atrial Appendage Closure Pre Procedure Diagnosis Atrial fibrillation, unspecified type [I48.91] Post Procedure Diagnosis Atrial fibrillation, unspecified type [I48.91] Indications Atrial fibrillation, unspecified type [I48.91 (ICD-10-CM)] Conclusion ? Successful closure of Watchman steph-device leak via coiling Hx: 73 y.o. 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 Follow up imaging on ALLI at 45 day interval with no evidence of steph-device leak however further imaging in October 2022 revealed steph-device leak on CT. ALLI - no LA thrombus, confirmed steph-device leak 1- Successful access via right femoral vein under the guidance of ultrasound x 2 2- Successful trans-septal puncture under trans-esophageal echocardiogram [ALLI] guidance. 3- Successful contrast injection of ADAN defined anatomy an steph-device leak as well as intraoperative ALLI imaging 4- Successful coiling of the Watchman device with 15 coils implanted with no residual steph-device leak on ALLI imaging 5- Successful removal of sheaths and closure with Perclose x 2 Recommendation Resume oral anticoagulation therapy with Xarelto Continue medical therapy for atrial fibrillation Trans-esophageal echocardiogram [ALLI] in 45 days and then follow up with SLABBING MACHINE OPERATOR clinic at the [facility] at the [place] Femoral access care protocol (Perclose) May send home today if meets criteria Consent The procedure was explained including the potential risks of infection, heart perforation, re-operation, and other risks pertinent to procedure. Informed consent and permission to proceed was given. Site Preparation On the day of the procedure, the patient was brought to the operating room and the groin prepped with chl (more content not included)... Normal [facility] ACT* LOW RANGE, POCon 2023 ACT LOW RANGE, POC 274.0 High [facility] Interpretation and review of laboratory results Abnormal [facility] Test performed at ad dress of the patient encounter. [facility] ACT LOW RANGE, POC 384.0 High [facility] Interpretation and review of laboratory results Abnormal [facility] Test performed at ad dress of the [facility] encounter[facility] ACT LOW RANGE, POC 385.0 High [facility] Interpretation and review of laboratory results Abnormal [facility] Test performed at ad dress of the patient encounter. [facility] ACT LOW RANGE, POC [facility] Comment on above: Out of Range High. The test result is outside clinical range and should not be used for patient-management decisions. Test performed at ad dress of the patient encounter. [facility] CBC AND ELECTRONIC DIFFon Basophils (Bld) [#/Vol] K/uL 0.00 - 0.09 K/uL [facility] Basophils/100 WBC (Bld) 0.6 % [facility] Differential cell count method Nom (Bld) Electronic Differential [facility] Eosinophils (Bld) [#/Vol] 0.10 10*3/uL 0.00 - 0.48 K/uL [facility] Eosinophils/100 WBC (Bld) 1.9 % [facility] Erythrocyte distribution width (RBC) [Ratio] 13.7 % 10.9 - 14.3 % [facility] Comment on above: This is an appended report. These results have been appended to a previously preliminary verified report. Hematocrit (Bld) [Volume fraction] 43.0 % 39.6 - 48.8 % [facility] Comment on above: This is an appended report. These results have been appended to a previously preliminary verified report. Hemoglobin (Bld) [Mass/Vol] 14.7 g/dL 13.4 - 16.8 g/dL [facility] Comment on above: This is an appended report. These results have been appended to a previously preliminary verified report. Immature granulocytes (Bld) [#/Vol] 0.04 10*3/uL NINF - 0.07 K/uL [facility] Immature granulocytes/100 WBC (Bld) 0.8 % [facility] Interpretation and review of laboratory results Abnormal [facility] Lymphocytes (Bld) [#/Vol] 1.16 10*3/uL 0.83 - 3.57 K/uL [facility] Lymphocytes/100 WBC (Bld) 22.2 % [facility] MCH (RBC) [Entitic mass] 32.8 pg 26.1 - 33.3 pg [facility] Comment on above: This is an appended report. These results have been appended to a previously preliminary verified report. MCHC (RBC) [Mass/Vol] 34.2 g/dL 31.9 - 36.5 g/dL [facility] Comment on above: This is an appended report. These results have been appended to a previously preliminary verified report. MCV (RBC) [Entitic vol] 96.0 fL High 79.0 - 94.5 fL [facility] Comment on above: This is an appended report. These results have been appended to a previously preliminary verified report. Monocytes (Bld) [#/Vol] 0.45 10*3/uL 0.24 - 0.93 K/uL [facility] Monocytes/100 WBC (Bld) 8.6 % [facility] Neutrophils (Bld) [#/Vol] 3.44 10*3/uL 1.57 - 6.19 K/uL [facility] Nucleated RBC/100 WBC (Bld) [Ratio] 0.0 % NINF [facility] Comment on above: This is an appended report. These results have been appended to a previously preliminary verified report. Platelet mean volume (Bld) [Entitic vol] [facility] Comment on above: Not measured Platelets (Bld) [#/Vol] 130 10*3/uL Low 146 - 337 K/uL [facility] Comment on above: This is an appended report. These results have been appended to a previously preliminary verified report. RBC (Bld) [#/Vol] 4.48 10*6/uL [facility] Comment on above: This is an appended report. These results have been appended to a previously preliminary verified report. Segmented neutrophils/100 WBC (Bld) 65.9 % [facility] WBC (Bld) [#/Vol] 5.22 10*3/uL 3.73 - 10.10 K/uL [facility] Comment on above: This is an appended report. These results have been appended to a previously preliminary verified report. [facility] Abs Baso Auto < Normal 0.00-0.09 [facility] Comment on above: Performed By: #### L [id number] #### [facility] (DEFAULT) [address] [address] Basophils/100 WBC (Bld) 0.6 % Normal [facility] Comment on above: Performed By: #### L [id number] #### [facility] (DEFAULT) [address] [address] DIFF STATUS Electronic Differential Normal [facility] Comment on above: Performed By: #### L [id number] #### [facility] (DEFAULT) [address] [address] Eosinophils (Bld) [#/Vol] 0.10 10*3/uL Normal 0.00-0.48 [facility] Comment on above: Performed By: #### L [id number] #### [facility] (DEFAULT) [address] [address] Eosinophils/100 WBC (Bld) 1.9 % Normal [facility] Comment on above: Performed By: #### L [id number] #### [facility] (DEFAULT) [address] [address] Hematocrit (Bld) [Volume fraction] 43.0 % Normal 39.6-48.8 [facility] Comment on above: Result Comment: This is an appended report. These results have been appended to a previously preliminary verified report. Performed By: #### L [id number] #### [facility] (DEFAULT) [address] [address] Hemoglobin (Bld) [Mass/Vol] 14.7 g/dL Normal 13.4-16.8 [facility] Comment on above: Result Comment: This is an appended report. These results have been appended to a previously preliminary verified report. Performed By: #### L [id number] #### [facility] (DEFAULT) [address] [address] Immature Grans % 0.8 % Normal [facility] Comment on above: Performed By: #### L [id number] #### [facility] (DEFAULT) [address] [address] Immature Grans Absolute 0.04 K/uL Normal <=0.07 [facility] Comment on above: Performed By: #### L [id number] #### [facility] (DEFAULT) [address] [address] Lymphocytes (Bld) [#/Vol] 1.16 10*3/uL Normal 0.83-3.57 [facility] Comment on above: Performed By: #### L [id number] #### [facility] (DEFAULT) [address] [address] Lymphocytes/100 WBC (Bld) 22.2 % Normal [facility] Comment on above: Performed By: #### L [id number] #### [facility] (DEFAULT) [address] [address] MCV (RBC) [Entitic vol] 96.0 fL High 79.0-94.5 [facility] Comment on above: Result Comment: This is an appended report. These results have been appended to a previously preliminary verified report. Performed By: #### L [id number] #### [facility] (DEFAULT) [address] [address] Mean Cell Hgb 32.8 pg Normal 26.1-33.3 [facility] Comment on above: Result Comment: This is an appended report. These results have been appended to a previously preliminary verified report. Performed By: #### L [id number] #### [facility] (DEFAULT) [address] [address] Mean Cell Hgb Conc 34.2 g/dL Normal 31.9-36.5 [facility] Comment on above: Result Comment: This is an appended report. These results have been appended to a previously preliminary verified report. Performed By: #### L [id number] #### [facility] (DEFAULT) [address] [address] Mean Platelet Volume Normal [facility] Comment on above: Result Comment: Not measured Performed By: #### L [id number] #### [facility] (DEFAULT) [address] [address] Monocytes (Bld) [#/Vol] 0.45 10*3/uL Normal 0.24-0.93 [facility] Comment on above: Performed By: #### L [id number] #### [facility] (DEFAULT) [address] [address] Monocytes/100 WBC (Bld) 8.6 % Normal [facility] Comment on above: Performed By: #### L [id number] #### [facility] (DEFAULT) [address] [address] Nucleated RBC 0.0 /100 WBC Normal <=0.2 [facility] Comment on above: Result Comment: This is an appended report. These results have been appended to a previously preliminary verified report. Performed By: #### L [id number] #### [facility] (DEFAULT) [address] [place] [address] Platelets (Bld) [#/Vol] 130 10*3/uL Low 146-337 [facility] Comment on above: Result Comment: This is an appended report. These results have been appended to a previously preliminary verified report. Performed By: #### L [id number] #### [facility] (DEFAULT) [address] [address] RBC (Bld) [#/Vol] 4.48 10*6/uL Normal 4.38-5.83 [facility] Comment on above: Result Comment: This is an appended report. These results have been appended to a previously preliminary verified report. Performed By: #### L [id number] #### [facility] (DEFAULT) [address] [address] RBC Distribution 13.7 % Normal 10.9-14.3 [facility] Comment on above: Result Comment: This is an appended report. These results have been appended to a previously preliminary verified report. Performed By: #### L [id number] #### [facility] (DEFAULT) [address] [address] Segs + Bands Auto 65.9 % Normal [facility] Comment on above: Performed By: #### L [id number] #### [facility] (DEFAULT) [address] [address] Segs + Bands,Absolute Auto 3.44 K/uL Normal 1.57-6.19 [facility] Comment on above: Performed By: #### L [id number] #### [facility] (DEFAULT) [address] [address] WBC (Bld) [#/Vol] 5.22 10*3/uL Normal 3.73-10.10 [facility] Comment on above: Result Comment: This is an appended report. These results have been appended to a previously preliminary verified report. Performed By: #### L [id number] #### [facility] (DEFAULT) [address] [place] [address] CHEM 7 (LYTES,BUN,CREA,GLUC) on 01-28-2024 Anion gap [Moles/Vol] 12 mmol/L 7 - 17 mmol/L [facility] Chloride [Moles/Vol] 104 mmol/L 98 - 10 8 mmol/L [facility] CO2 [Moles/Vol] 24 mmol/L 21 - 31 mmol/L [facility] Creatinine [Mass/Vol] 1.05 mg/dL 0.70 - 1.30 mg/dL [facility] eGFR, CKD-EPI, Male 78 - PINF [facility] Comment on above: Reported eGFR is bas ed on the CKD-EPI 2020 equation using creatinine, age, and sex. Glucose [Mass/Vol] 97 mg/dL 70 - 99 mg/dL [facility] Osmolality Calc [Osmolality] 287 [facility] Potassium [Moles/Vol] 4.2 mmol/L 3.5 - 5.0 mmol/L [facility] Sodium [Moles/Vol] 136 mmol/L 135 - 145 mmol/L [facility] Urea nitrogen [Mass/Vol] 18 mg/dL 7 - 25 mg/dL [facility] Urea nitrogen/Creatinine [Mass ratio] 17 mg/mg [facility] Anion gap [Moles/Vol] 12 mmol/L Normal 7-17 [facility] Comment on above: Performed By: #### C HM7 #### [facility] (DEFAULT) [address] [place] [address] Chloride [Moles/Vol] 104 mmol/L Normal 98-108 [facility] Comment on above: Performed By: #### C HM7 #### [facility] (DEFAULT) [address] [place] [address] CO2 [Moles/Vol] 24 mmol/L Normal 21-31 [facility] Comment on above: Performed By: #### C HM7 #### [facility] (DEFAULT) [address] [address] Creatinine [Mass/Vol] 1.05 mg/dL Normal 0.70-1.30 [facility] Comment on above: Performed By: #### C HM7 #### [facility] (DEFAULT) [address] [address] GFR/1.73 sq M.predicted among non-blacks MDRD (S/P/Bld) [Vol rate/Area] 76 mL/min/{1.73_m2} Normal >=60 [facility] Comment on above: Result Comment: Repo rted eGFR is based on the CKD-EPI 2020 equation using creatinine, age, and sex. Performed By: #### C HM7 #### [facility] (DEFAULT) [address] [address] Glucose [Mass/Vol] 97 mg/dL Normal 70-99 [facility] Comment on above: Performed By: #### C HM7 #### [facility] (DEFAULT) [address] [address] Osmolality [Osmolality] 287 mosm/kg Normal 278-305 [facility] Comment on above: Performed By: #### C HM7 #### [facility] (DEFAULT) [address] [address] Potassium [Moles/Vol] 4.2 mmol/L Normal 3.5-5.0 [facility] Comment on above: Performed By: #### C HM7 #### [facility] (DEFAULT) [address] [address] Sodium [Moles/Vol] 136 mmol/L Normal 135-145 [facility] Comment on above: Performed By: #### C HM7 #### [facility] (DEFAULT) [address] [address] Urea nitrogen [Mass/Vol] 18 mg/dL Normal 7-25 [facility] Comment on above: Performed By: #### C HM7 #### [facility] (DEFAULT) [address] [address] Urea nitrogen/Creatinine [Mass ratio] 17 mg/mg Normal [facility] Comment on above: Performed By: #### C HM7 #### [facility] (DEFAULT) [address] [address] PT,INR,PTTon 01-28-2024 aPTT Coag (PPP) [Time] 27.4 s [facility] INR Coag (Bld) [Relative time] 1.2 {INR} High 0.9 - 1.1 [facility] Interpretation and review of laboratory results Abnormal [facility] PT Coag (PPP) [Time] 14.8 s High [facility] aPTT Coag (Bld) [Time] 27.4 s Normal 24.0-34.3 [facility] Comment on above: Performed By: #### P TPTT #### [facility] (DEFAULT) [address] [address] INR Coag (PPP) [Relative time] 1.2 {INR} High 0.9-1.1 [facility] Comment on above: Performed By: #### P TPTT #### [facility] (DEFAULT) [address] [address] PT Coag (PPP) [Time] 14.8 s High 11.9-14.2 [facility] Comment on above: Performed By: #### P TPTT #### [facility] (DEFAULT) [address] [address] CBC AND ELECTRONIC DIFFon Basophils (Bld) [#/Vol] K/uL 0.00 - 0.09 K/uL [facility] Basophils/100 WBC (Bld) 0.5 % [facility] Differential cell count method Nom (Bld) Electronic Differential [facility] Eosinophils (Bld) [#/Vol] 0.11 10*3/uL 0.00 - 0.48 K/uL [facility] Eosinophils/100 WBC (Bld) 2.0 % [facility] Erythrocyte distribution width (RBC) [Ratio] 13.2 % 10.9 - 14.3 % [facility] Comment on above: This is an appended report. These results have been appended to a previously preliminary verified report. Hematocrit (Bld) [Volume fraction] 46.7 % 39.6 - 48.8 % [facility] Comment on above: This is an appended report. These results have been appended to a previously preliminary verified report. Hemoglobin (Bld) [Mass/Vol] 15.1 g/dL 13.4 - 16.8 g/dL [facility] Comment on above: This is an appended report. These results have been appended to a previously preliminary verified report. Immature granulocytes (Bld) [#/Vol] K/uL NINF - 0.07 K/uL [facility] Immature granulocytes/100 WBC (Bld) 0.5 % [facility] Interpretation and review of laboratory results Abnormal [facility] Lymphocytes (Bld) [#/Vol] 1.40 10*3/uL 0.83 - 3.57 K/uL [facility] Lymphocytes/100 WBC (Bld) 25.4 % [facility] MCH (RBC) [Entitic mass] 31.3 pg 26.1 - 33.3 pg [facility] Comment on above: This is an appended report. These results have been appended to a previously preliminary verified report. MCHC (RBC) [Mass/Vol] 32.3 g/dL 31.9 - 36.5 g/dL [facility] Comment on above: This is an appended report. These results have been appended to a previously preliminary verified report. MCV (RBC) [Entitic vol] 96.9 fL High 79.0 - 94.5 fL [facility] Comment on above: This is an appended report. These results have been appended to a previously preliminary verified report. Monocytes (Bld) [#/Vol] 0.42 10*3/uL 0.24 - 0.93 K/uL [facility] Monocytes/100 WBC (Bld) 7.6 % [facility] Neutrophils (Bld) [#/Vol] 3.53 10*3/uL 1.57 - 6.19 K/uL [facility] Nucleated RBC/100 WBC (Bld) [Ratio] 0.0 % NINF [facility] Comment on above: This is an appended report. These results have been appended to a previously preliminary verified report. Platelet mean volume (Bld) [Entitic vol] [facility] Comment on above: Not measured Platelets (Bld) [#/Vol] 131 10*3/uL Low 146 - 337 K/uL [facility] Comment on above: This is an appended report. These results have been appended to a previously preliminary verified report. RBC (Bld) [#/Vol] 4.82 10*6/uL [facility] Comment on above: This is an appended report. These results have been appended to a previously preliminary verified report. Segmented neutrophils/100 WBC (Bld) 64.0 % [facility] WBC (Bld) [#/Vol] 5.52 10*3/uL 3.73 - 10.10 K/uL [facility] Comment on above: This is an appended report. These results have been appended to a previously preliminary verified report. [facility] Abs Baso Auto < Normal 0.00-0.09 [facility] Comment on above: Performed By: #### L [id number] #### [facility] (DEFAULT) [address] [address] Basophils/100 WBC (Bld) 0.5 % Normal [facility] Comment on above: Performed By: #### L [id number] #### [facility] (DEFAULT) [address] [address] DIFF STATUS Electronic Differential Normal [facility] Comment on above: Performed By: #### L [id number] #### [facility] (DEFAULT) [address] [address] Eosinophils (Bld) [#/Vol] 0.11 10*3/uL Normal 0.00-0.48 [facility] Comment on above: Performed By: #### L AB980 #### [facility] (DEFAULT) [address] [address] Eosinophils/100 WBC (Bld) 2.0 % Normal [facility] Comment on above: Performed By: #### L [id number] #### [facility] (DEFAULT) [address] [address] Hematocrit (Bld) [Volume fraction] 46.7 % Normal 39.6-48.8 [facility] Comment on above: Result Comment: This is an appended report. These results have been appended to a previously preliminary verified report. Performed By: #### L [id number] #### [facility] (DEFAULT) [address] [address] Hemoglobin (Bld) [Mass/Vol] 15.1 g/dL Normal 13.4-16.8 [facility] Comment on above: Result Comment: This is an appended report. These results have been appended to a previously preliminary verified report. Performed By: #### L [id number] #### [facility] (DEFAULT) [address] [address] Immature Grans % 0.5 % Normal [facility] Comment on above: Performed By: #### L AB980 #### [facility] (DEFAULT) [address] [address] Immature Grans Absolute < Normal <=0.07 [facility] Comment on above: Performed By: #### L [id number] #### [facility] (DEFAULT) [address] [address] Lymphocytes (Bld) [#/Vol] 1.40 10*3/uL Normal 0.83-3.57 [facility] Comment on above: Performed By: #### L AB980 #### [facility] (DEFAULT) [address] [address] Lymphocytes/100 WBC (Bld) 25.4 % Normal [facility] Comment on above: Performed By: #### L [id number] #### [facility] (DEFAULT) [address] [address] MCV (RBC) [Entitic vol] 96.9 fL High 79.0-94.5 [facility] Comment on above: Result Comment: This is an appended report. These results have been appended to a previously preliminary verified report. Performed By: #### L [id number] #### [facility] (DEFAULT) [address] [address] Mean Cell Hgb 31.3 pg Normal 26.1-33.3 [facility] Comment on above: Result Comment: This is an appended report. These results have been appended to a previously preliminary verified report. Performed By: #### L [id number] #### [facility] (DEFAULT) [address] [address] Mean Cell Hgb Conc 32.3 g/dL Normal 31.9-36.5 [facility] Comment on above: Result Comment: This is an appended report. These results have been appended to a previously preliminary verified report. Performed By: #### L [id number] #### [facility] (DEFAULT) [address] [address] Mean Platelet Volume Normal [facility] Comment on above: Result Comment: Not measured Performed By: #### L [id number] #### [facility] (DEFAULT) [address] [address] Monocytes (Bld) [#/Vol] 0.42 10*3/uL Normal 0.24-0.93 [facility] Comment on above: Performed By: #### L AB980 #### [facility] (DEFAULT) [address] [address] Monocytes/100 WBC (Bld) 7.6 % Normal [facility] Comment on above: Performed By: #### L [id number] #### [facility] (DEFAULT) [address] [address] Nucleated RBC 0.0 /100 WBC Normal <=0.2 [facility] Comment on above: Result Comment: This is an appended report. These results have been appended to a previously preliminary verified report. Performed By: #### L [id number] #### [facility] (DEFAULT) [address] [address] Platelets (Bld) [#/Vol] 131 10*3/uL Low 146-337 [facility] Comment on above: Result Comment: This is an appended report. These results have been appended to a previously preliminary verified report. Performed By: #### L [id number] #### [facility] (DEFAULT) [address] [address] RBC (Bld) [#/Vol] 4.82 10*6/uL Normal 4.38-5.83 [facility] Comment on above: Result Comment: This is an appended report. These results have been appended to a previously preliminary verified report. Performed By: #### L [id number] #### [facility] (DEFAULT) [address] [address] RBC Distribution 13.2 % Normal 10.9-14.3 [facility] Comment on above: Result Comment: This is an appended report. These results have been appended to a previously preliminary verified report. Performed By: #### L AB980 #### [facility] (DEFAULT) [address] [address] Segs + Bands Auto 64.0 % Normal [facility] Comment on above: Performed By: #### L AB980 #### [facility] (DEFAULT) [address] [address] Segs + Bands,Absolute Auto 3.53 K/uL Normal 1.57-6.19 [facility] Comment on above: Performed By: #### L [id number] #### [facility] (DEFAULT) [address] [place] [address] WBC (Bld) [#/Vol] 5.52 10*3/uL Normal 3.73-10.10 [facility] Comment on above: Result Comment: This is an appended report. These results have been appended to a previously preliminary verified report. Performed By: #### L [id number] #### [facility] (DEFAULT) [address] [place] [address] CHEM 7 (LYTES,BUN,CREA,GLUC) on 12-24-2023 Anion gap [Moles/Vol] 14 mmol/L 7 - 17 mmol/L [facility] Chloride [Moles/Vol] 103 mmol/L 98 - 10 8 mmol/L [facility] CO2 [Moles/Vol] 23 mmol/L 21 - 31 mmol/L [facility] Creatinine [Mass/Vol] 0.99 mg/dL 0.70 - 1.30 mg/dL [facility] eGFR, CKD-EPI, Male 81 - PINF [facility] Comment on above: Reported eGFR is bas ed on the CKD-EPI 2020 equation using creatinine, age, and sex. Glucose [Mass/Vol] 81 mg/dL 70 - 99 mg/dL [facility] Osmolality Calc [Osmolality] [facility] Potassium [Moles/Vol] 4.4 mmol/L 3.5 - 5.0 mmol/L [facility] Sodium [Moles/Vol] 136 mmol/L 135 - 145 mmol/L [facility] Urea nitrogen [Mass/Vol] 15 mg/dL 7 - 25 mg/dL [facility] Urea nitrogen/Creatinine [Mass ratio] 15 mg/mg [facility] Anion gap [Moles/Vol] 14 mmol/L Normal 7-17 [facility] Comment on above: Performed By: #### C HM7 #### [facility] (DEFAULT) [address] [place] [address] Chloride [Moles/Vol] 103 mmol/L Normal 98-108 [facility] Comment on above: Performed By: #### C HM7 #### [facility] (DEFAULT) [address] [place] [address] CO2 [Moles/Vol] 23 mmol/L Normal 21-31 [facility] Comment on above: Performed By: #### C HM7 #### [facility] (DEFAULT) [address] [place] [address] Creatinine [Mass/Vol] 0.99 mg/dL Normal 0.70-1.30 [facility] Comment on above: Performed By: #### C HM7 #### [facility] (DEFAULT) [address] [address] GFR/1.73 sq M.predicted among non-blacks MDRD (S/P/Bld) [Vol rate/Area] 81 mL/min/{1.73_m2} Normal >=60 [facility] Comment on above: Result Comment: Repo rted eGFR is based on the CKD-EPI 2020 equation using creatinine, age, and sex. Performed By: #### C HM7 #### [facility] (DEFAULT) [address] [address] Glucose [Mass/Vol] 81 mg/dL Normal 70-99 [facility] Comment on above: Performed By: #### C HM7 #### [facility] (DEFAULT) [address] [place] [address] Osmolality [Osmolality] 286 mosm/kg Normal 278-305 [facility] Comment on above: Performed By: #### C HM7 #### [facility] (DEFAULT) [address] [address] Potassium [Moles/Vol] 4.4 mmol/L Normal 3.5-5.0 [facility] Comment on above: Performed By: #### C HM7 #### [facility] (DEFAULT) [address] [place] [address] Sodium [Moles/Vol] 136 mmol/L Normal 135-145 [facility] Comment on above: Performed By: #### C HM7 #### [facility] (DEFAULT) [address] [place] [address] Urea nitrogen [Mass/Vol] 15 mg/dL Normal 7-25 [facility] Comment on above: Performed By: #### C HM7 #### [facility] (DEFAULT) [address] [place] [address] Urea nitrogen/Creatinine [Mass ratio] 15 mg/mg Normal [facility] Comment on above: Performed By: #### C HM7 #### [facility] (DEFAULT) [address] [place] [address] PT,INR,PTTon 12-24-2023 aPTT Coag (PPP) [Time] 27.6 s [facility] INR Coag (Bld) [Relative time] 1.1 {INR} 0.9 - 1.1 [facility] Interpretation and review of laboratory results Normal [facility] PT Coag (PPP) [Time] 14.2 s [facility] aPTT Coag (Bld) [Time] 27.6 s Normal 24.0-34.3 [facility] Comment on above: Performed By: #### P TPTT #### [facility] (DEFAULT) [address] [place] [address] INR Coag (PPP) [Relative time] 1.1 {INR} Normal 0.9-1.1 [facility] Comment on above: Performed By: #### P TPTT #### [facility] (DEFAULT) [address] [place] [address] PT Coag (PPP) [Time] 14.2 s Normal 11.9-14.2 [facility] Comment on above: Performed By: #### P TPTT #### [facility] (DEFAULT) [address] [place] [address] CREAT/GFRon 11-11-2023 Creatinine [Mass/Vol] 0.99 mg/dL 0.70 - 1.30 mg/dL [facility] GFR/1.73 sq M.predicted CKD-EPI (S/P/Bld) [Vol rate/Area] 81 - PINF [facility] Comment on above: Reported eGFR is bas ed on the CKD-EPI 2020 equation using creatinine, age, and sex. Interpretation and review of laboratory results Normal [facility] Test performed at ad dress of the patient encounter. [facility] Chest>Heart.atrium.left+Pulm onary veins CT angiogram and 3D reconstruction W contrast Allie 11-10-[address] [facility] [address] Report Name: KRISTEN COATES : 1950 Scan Date: 2023-11-10 12:55:52 Electronically signed by Smith Solomon 14:26:46 SUMMARY Pulmonary veins: Normal anatomy. No significant stenosis. Chest Wall: Degenerative changes of the thoracic [...] CRITICAL RESULT: No STUDY QUALITY: Good IMPRESSION 1. Suspected 2 mm gap between the superior aspect of the watchman, and the atrial surface. 2. Ectatic thoracic aorta, measuring up to 4.1 cm at the aortic root level. 3. Other ancillary findings are noted as above. SCAN INFO GENERAL ---- SETUP DATE OF EVENT: SCAN TYPE: Clinical [...] Other symptoms OTHER, DESCRIBE:: Post watchman BILLING APPROPRIATENESS OF ORDER: Appropriate BILLING ---- Patient Account [id number] CPT Codes 31479 ICD10 Codes I48.0, I48.4 Report generated by [employer], a product of [employer] CARDIOLOGY Smith Solomon M D - 11/10/[address] [facility] [address] Report Name: KRISTEN COATES : 1950 Scan Date: 2023-11-10 12:55:52 Electronically signed by Smith Solomon 14:26:46 SUMMARY === Pulmonary veins: Normal anatomy. No significant stenosis. Chest Wall: Degenerative changes of the thoracic spine Mediastinum: Normal, without adenopathy. Diffuse circumferential esophageal wall thickening. Lindsay: Normal, without adenopathy Pleural Spaces: Normal, without thickening/effusion or pneumothorax Lung Parenchyma: No consolidation or mass. Diffuse bronchial thickening. Pericardium: Normal, without thickening/effusion - Atria: Watchman: - Watchman is seen [...] aortic valve leaflets calcification. Pulmonary Arteries: Normal -- Thoracic Aorta: Dilated thoracic aorta, measuring up to 4.1 cm in diameter at the aortic root level, and 3.9 cm at the ascending segment. -- Upper abdomen: Unremarkable CRITICAL RESULT: No STUDY QUALITY: Good IMPRESSION === 1. Suspected 2 mm gap between the superior aspect of the watchman, and the atrial surface. 2. Ectatic thoracic aorta, measuring up to 4.1 cm at the aortic root level. 3. Other ancillary findings are noted as above. SCAN INFO === GENERAL SETUP DATE OF EVENT: SCAN TYPE: [...] Other symptoms OTHER, DESCRIBE:: Post watchman BILLING === APPROPRIATENESS OF ORDER: Appropriate BILLING Patient Account [id number] CPT Codes 89001 ICD10 Codes I48.0, I48.4 Report generated by [employer], a product of [employer] [facility] Radiology Study observation (narrative) [facility] Chest>Heart.atrium.left+Pulm onary veins CT angiogram and 3D reconstruction W contrast IVOrdered By: Smith Solomon on 11-10-2023 [facility] CREAT/GFRon 03-06-2023 Creatinine [Mass/Vol] 0.82 mg/dL 0.70 - 1.30 mg/dL [facility] GFR/1.73 sq M.predicted CKD-EPI (S/P/Bld) [Vol rate/Area] - PINF [facility] Comment on above: Reported eGFR is bas ed on the CKD-EPI 2020 equation using creatinine, age, and sex. Interpretation and review of laboratory results Normal [facility] Test performed at ad dress of the patient encounter. [facility] CT ANGIO CHEST (NONCORONARY) on 03-06-2023 IMPRESSION: 1. Borderline dimensions of the aortic root, measuring 4 cm in diameter. 2. Other ancillary findings are noted as above. OLOGY EXAM: CT ANGIO CHEST (NONCORONARY), 03/06/2023 08:35 [...] Abdominal Wall: Normal RADIOLOGY Smith Solomon M B/[facility] - 03/06/2023 EXAM: CT ANGIO CHEST (NONCORONARY), [...] bibasilar reticular changes. Pericardium: Normal, without thickening/effusion -- Atria: Watchman device is seen in situ, with incomplete seal with opacification of the left atrial appendage. Right Ventricle: Normal Left Ventricle: Normal Coronary Arteries: Severe multivessel coronary calcifications. Valves: Normal Pulmonary Arteries: Normal -- Thoracic Aorta: Root: Diameter - 40 mm Sino-Tubular Junction: Intact Mid-Ascending Segment = No atherosclerosis; 37 mm Proximal Arch = No atherosclerosis, Normal in diameter Distal Arch = No atherosclerosis, Normal in diameter Isthmus = Mild atherosclerosis, Normal in diameter Mid-Descending Segment = No atherosclerosis, Normal in diameter Diaphragm Level = No atherosclerosis, Normal in diameter Arch Branches: Normal -- Abdominal Aorta: Normal -- Liver: Normal Biliary System: Normal Pancreas: Normal Spleen: Normal Kidneys: Normal Adrenal Glands: Normal Abdominal Wall: Normal IMPRESSION IMPRESSION: 1. Borderline dimensions of the aortic root, measuring 4 cm in diameter. 2. Other ancillary findings are noted as above. [facility] Radiology Study observation (narrative) [facility] CT ANGIO CHEST (NONCORONARY) Ordered By: Smith Solomon on 03-06-2023 [facility] ECHOCARDIOGRAM TRANSESOPHAGE AL (ALLI)Ordered By: Kt Davis on 03-06-2023 Ao ASC index 1.48 cm/m2 [facility] Work Phone: Ascending aorta 3.60 cm [facility] Work Phone: Body surface area Derived from formula 2.44 m2 [facility] Work Phone: [facility] Work Phone: ECHOCARDIOGRAM TRANSESOPHAGE AL (ALLI)on 03-06-2023 S/p LAAOD placement on 03/12/2022 with Watchman [...] the patient/family member and/or their power of insurance attorney. Informed consent was obtained. All staff members involved in the procedure completed a timeout prior to the start of the procedure verifying correct patient identity and correct procedure to be performed. A transesophageal echocardiography study (including color flow Doppler, limited spectral Doppler and 3D) was performed. Total time physician provided [id number] service beginning with the administration of sedation medications until the patient was sufficiently recovered after the procedure was 22 minutes. Indications for study: ADAN Occluder pre / post. There were no complications. [facility] Radiology Study observation (narrative) [facility] CREAT/GFRon 03-11-2022 Creatinine [Mass/Vol] 1.08 mg/dL 0.70 - 1.30 mg/dL [facility] GFR/1.73 sq M.predicted among non-blacks MDRD (S/P/Bld) [Vol rate/Area] 70 mL/min/{1.73_m2} >=60 mL/min/1.7 3m2 [facility] Comment on above: Reported eGFR equati on is based on the CKD-EPI 2009 equation. Interpretation and review of laboratory results Normal [facility] Test performed at ad dress of the patient encounter. [facility] CT CARDIAC PULMONARY VENOGRA [facility] 03-11-[address] [facility] [address] Report Name: KRISTEN COATES : 1950 Scan Date: 2022-03-11 10:59:43 Electronically signed by Ailin Roland 14:01:56 VITALS HEIGHT: 76.5 in (194.31 cm) WEIGHT: 270.00 lbs (122.47 kgs) BSA: 2.53 m^2 BMI: 32 kg/m^2 BP: 151 / 90 mmHg BASELINE HR: 55 BPM FINAL IMPRESSION 1. No LA, RA or ADAN thrombus. [...] left sided calcification (<5 mm) PULMONARY VEIN LEFT SIDE MEASUREMENTS ---- UPPER DIMENSIONS: 2.2 cm UPPER DIMENSIONS (2): 1.5 cm LOWER DIMENSIONS: 1.6 cm LOWER DIMENSIONS (2): 0.9 cm RIGHT SIDE MEASUREMENTS ---- UPPER DIMENSIONS: 2.5 cm UPPER DIMENSIONS (2): 1.8 cm LOWER DIMENSIONS: 2.2 cm LOWER DIMENSIONS (2): 1.6 cm SCAN INFO TEST TYPE: Venogram SCANNER DIRECTOR CRITICAL CARE: [facility] SCANNER MODEL: [employer] CT750 Effective Measure DOSE REDUCTION ALGORITHM: Helical with dose modulation SCAN COVERAGE ZONE: Pulmonary Veins/ADAN EKG GATED: No GENERAL ---- CONTRAST AGENT CONTRAST AGENT USED?: Yes TYPE: [...] TECHNOLOGIST: Lindsay Stafford RT (R) (CT) BILLING Patient Account [id number] CPT Codes 45222 ICD10 Codes I48.91 Report generated by [employer], a product of [employer] CARDIOLOGY Ailin Roland MBB S - 03/11/[address] [facility] [address] Report Name: KRISTEN COATES : 1950 Scan Date: 2022-03-11 10:59:43 Electronically signed by Ailin Roland 14:01:56 VITALS === HEIGHT: 76.5 in (194.31 cm) WEIGHT: 270.00 lbs (122.47 kgs) BSA: 2.53 m^2 BMI: 32 kg/m^2 BP: 151 / 90 mmHg BASELINE HR: 55 BPM FINAL IMPRESSION === 1.No LA, RA or ADAN thrombus. 2.Severe [...] left sided calcification (<5 mm) PULMONARY VEIN === LEFT SIDE MEASUREMENTS UPPER DIMENSIONS: 2.2 cm UPPER DIMENSIONS (2): 1.5 cm LOWER DIMENSIONS: 1.6 cm LOWER DIMENSIONS (2): 0.9 cm RIGHT SIDE MEASUREMENTS UPPER DIMENSIONS: 2.5 cm UPPER DIMENSIONS (2): 1.8 cm LOWER DIMENSIONS: 2.2 cm LOWER DIMENSIONS (2): 1.6 cm SCAN INFO === TEST TYPE: Venogram SCANNER DIRECTOR CRITICAL CARE: [facility] SCANNER MODEL: [employer] DOSE REDUCTION ALGORITHM: Helical with dose modulation [...] TECHNOLOGIST: Lindsay Stafford RT (R) (CT) BILLING === Patient Account [id number] CPT Codes 50530 ICD10 Codes I48.91 Report generated by [employer], a product of [employer] [facility] Radiology Study observation (narrative) [facility] CT CARDIAC PULMONARY VENOGRA MOrdered By: Ailin Roland on 03-11-2022 [facility] Work Phone: CBC AUTO DIFFon 01-22-2022 BASO # 0.0 103/ul Normal 0.0-0.1 [facility] Comment on above: Performed By: #### C BC #### [facility] [address] [place] [address] Dr. Patricia Mcconnell Basophils/100 WBC (Bld) 0.7 % Normal 0.2-2.0 [facility] Comment on above: Performed By: #### C BC #### [facility] [address] [place] [address] Dr. Patricia Mcconnell EO # 0.1 103/ul Normal 0.0-0.7 [facility] Comment on above: Performed By: #### C BC #### [facility] [address] [place] [address] Dr. Patricia Mcconnell Eosinophils/100 WBC (Bld) 2.4 % Normal 0.9-7.0 [facility] Comment on above: Performed By: #### C BC #### [facility] [address] [place] [address] Dr. Patricia Mcconnell Erythrocyte distribution width (RBC) [Ratio] 12.8 % Normal 11.0-15.0 [facility] Comment on above: Performed By: #### C BC #### [facility] [address] [place] [address] Dr. Patricia Mcconnell Hematocrit (Bld) [Volume fraction] 44.5 % Normal 42.0-54.0 [facility] Comment on above: Performed By: #### C BC #### [facility] [address] [place] [address] Dr. Patricia Mcconnell Hemoglobin (Bld) [Mass/Vol] 14.9 g/dL Normal 14.0-18.0 [facility] Comment on above: Performed By: #### C BC #### [facility] [address] [place] [address] Dr. Patricia Mcconnell IG # 0.02 10e3/ul Normal 0.00-0.03 [facility] Comment on above: Performed By: #### C BC #### [facility] [address] [place] [address] Dr. Patricia Mcconnell IG % 0.4 % Normal 0.0-0.5 [facility] Comment on above: Performed By: #### C BC #### [facility] [address] [place] [address] Dr. Patricia Mcconnell LYMPH # 1.8 103/ul Normal 1.2-3.8 [facility] Comment on above: Performed By: #### C BC #### [facility] [address] [place] [address] Dr. Patricia Mcconnell Lymphocytes/100 WBC (Bld) 33.0 % Normal 20.5-60.0 [facility] Comment on above: Performed By: #### C BC #### [facility] [address] [place] [address] Dr. Patricia Mcconnell MANUAL DIFF REQ NO Normal [facility] Comment on above: Performed By: #### C BC #### [facility] [address] [place] [address] Dr. Patricia Mcconnell MCH (RBC) [Entitic mass] 31.6 pg Normal 25.9-34.0 [facility] Comment on above: Performed By: #### C BC #### [facility] [address] [place] [address] Dr. Patricia Mcconnell MCHC (RBC) [Mass/Vol] 33.5 g/dL Normal 29.9-35.2 [facility] Comment on above: Performed By: #### C BC #### [facility] [address] [place] [address] Dr. Patricia Mcconnell MCV (RBC) [Entitic vol] 94.3 fL Critically high 80.0-94.0 [facility] Comment on above: Performed By: #### C BC #### [facility] [address] [place] [address] Dr. Patricia Mcconnell MONO # 0.5 103/ul Normal 0.3-0.8 [facility] Comment on above: Performed By: #### C BC #### [facility] [address] [place] [address] Dr. Patricia Mcconnell Monocytes/100 WBC (Bld) 9.3 % Normal 1.7-12.0 [facility] Comment on above: Performed By: #### C BC #### [facility] [address] [place] [address] Dr. Patricia Mcconnell NEUT # 2.9 103/ul Normal 1.4-6.5 [facility] Comment on above: Performed By: #### C BC #### [facility] [address] [place] [address] Dr. Patricia Mcconnell Neutrophils/100 WBC (Bld) 54.2 % Normal 43.0-75.0 [facility] Comment on above: Performed By: #### C BC #### [facility] [address] [place] [address] Dr. Patricia Mcconnell Platelet mean volume (Bld) [Entitic vol] 11.4 fL Normal 9.5-13.5 [facility] Comment on above: Performed By: #### C BC #### [facility] [address] [place] [address] Dr. Patricia Mcconnell PLT 145 103/ul Critically low 150-[address] [facility] Comment on above: Performed By: #### C BC #### [facility] [address] [place] [address] Dr. Patricia Mcconnell RBC 4.72 106/ul Normal 4.70-6.[address] [facility] Comment on above: Performed By: #### C BC #### [facility] [address] [place] [address] Dr. Patricia Mcconnell WBC 5.4 103/ul Normal 4.0-11.[address] [facility] Comment on above: Performed By: #### C BC #### [facility] [address] [place] [address] Dr. Patricia Mcconnell LIPID PROFILEon 01-22-2022 CHOL-HDL RATIO NORM SEE BELOW Normal [facility] Comment on above: Result Comment: 3.3 - 4.4 LOW RISK 4.4 - 7.1 AVERAGE RISK 7.1 - 11.0 MODERATE RISK >11.0 HIGH RISK Performed By: #### B MP, LIPID, ALT #### [facility] [address] [address] [address] Patricia Mcconnell Cholesterol [Mass/Vol] 152 mg/dL Normal <=200 [facility] Comment on above: Performed By: #### B MP, LIPID, ALT #### [facility] [address] [place] [address] Dr. Patricia Mcconnell Cholesterol in HDL [Mass/Vol] 47 mg/dL Normal 40-60 [facility] Comment on above: Performed By: #### B MP, LIPID, ALT #### [facility] [address] [place] [address] Dr. Patricia Mcconnell Cholesterol in LDL [Mass/Vol] 88.2 mg/dL Normal [facility] Comment on above: Performed By: #### B MP, LIPID, ALT #### [facility] [address] [place] [address] Dr. Patricia Mcconnell Cholesterol.total/Cho lesterol in HDL [Mass ratio] 3.2 {ratio} Normal [facility] Comment on above: Performed By: #### B MP, LIPID, ALT #### [facility] [address] [place] [address] Dr. Patricia Mcconnell HDL NORMAL > or = 60 mg/dl - LO W CARDIOVASCULAR RISK <40 mg/dl - HIGH CARDIOVASCULAR RISK Normal [facility] Comment on above: Performed By: #### B MP, LIPID, ALT #### [facility] [address] [place] [address] Dr. Patricia Mcconnell LDL CALC NORMAL SEE BELOW Normal [facility] Comment on above: Result Comment: <100 mg/dl OPTIMAL 100 - 129 mg/dl NEAR OR ABOVE OPTIMAL 130 - 159 mg/dl BORDERLINE HIGH 160 - 189 mg/dl HIGH >190 mg/dl VERY HIGH Performed By: #### B MP, LIPID, ALT #### [facility] [address] [address] [address] Patricia Mcconnell Triglyceride [Mass/Vol] 84 mg/dL Normal <=150 [facility] Comment on above: Performed By: #### B MP, LIPID, ALT #### [facility] [address] [address] [address] Patricia Mcconnell VLDL CALC 16.8 mg/dL Normal [facility] Comment on above: Performed By: #### B MP, LIPID, ALT #### [facility] [address] [address] [address] Patricia Mcconnell PROF CHEM 8 (BAS METB)on Anion gap [Moles/Vol] 12.5 mmol/L Normal [facility] Comment on above: Performed By: #### B MP, LIPID, ALT #### [facility] [address] [address] [address] Patricia Mcconnell Calcium [Mass/Vol] 9.2 mg/dL Normal 8.5-10.1 [facility] Comment on above: Performed By: #### B MP, LIPID, ALT #### [facility] [address] [address] [address] Patricia Mcconnell Chloride [Moles/Vol] 103 mmol/L Normal 98-107 [facility] Comment on above: Performed By: #### B MP, LIPID, ALT #### [facility] [address] [address] [address] Patricia Mcconnell CO2 [Moles/Vol] 26.1 mmol/L Normal 21.0-32.0 [facility] Comment on above: Performed By: #### B MP, LIPID, ALT #### [facility] [address] [address] [address] Patricia Mcconnell Creatinine [Mass/Vol] 1.14 mg/dL Normal 0.70-1.30 [facility] Comment on above: Performed By: #### B MP, LIPID, ALT #### [facility] [address] [address] [address] Patricia Mcconnell EGFR-AF INDONESIAN >60 Normal >=[address] [facility] Comment on above: Performed By: #### B MP, LIPID, ALT #### [facility] [address] [address] [address] Patricia Mcconnell EGFR-NON AF INDONESIAN >60 Normal >=60 [facility] Comment on above: Performed By: #### B MP, LIPID, ALT #### [facility] [address] [address] [address] Patricia Mcconnell Glucose [Mass/Vol] 103 mg/dL Normal 74-106 [facility] Comment on above: Performed By: #### B MP, LIPID, ALT #### [facility] [address] [place] [address] Dr. Patricia Mcconnell Potassium [Moles/Vol] 4.6 mmol/L Normal 3.5-5.1 [facility] Comment on above: Performed By: #### B MP, LIPID, ALT #### [facility] [address] [place] [address] Dr. Patricia Mcconnell Sodium [Moles/Vol] 137 mmol/L Normal 136-145 [facility] Comment on above: Performed By: #### B MP, LIPID, ALT #### [facility] [address] [place] [address] Dr. Patricia Mcconnell Urea nitrogen [Mass/Vol] 22.0 mg/dL Critically high 7.0-18.0 [facility] Comment on above: Performed By: #### B MP, LIPID, ALT #### [facility] [address] [place] [address] Dr. Patricia Mcconnell Urea nitrogen/Creatinine [Mass ratio] 19.3 mg/mg Normal [facility] Comment on above: Performed By: #### B MP, LIPID, ALT #### [facility] [address] [place] [address] Dr. Patricia Mcconnell [facility] 01-22-2022 ALT [Catalytic activity/Vol] 43 U/L Normal 16-63 [facility] Comment on above: Performed By: #### B MP, LIPID, ALT #### [facility] [address] [place] [address] Dr. Patricia Mcconnell URINE T PROTEIN CREAT RATIOo n 01-22-2022 UR PROT CREAT RAT 0.07 Normal [facility] Comment on above: Performed By: #### U RTPCR #### [facility] [address] [place] [address] Dr. Patricia Mcconnell UR TOTAL PROTEIN <6.0 Normal <=12.0 [facility] Comment on above: Performed By: #### U RTPCR #### [facility] [address] [place] [address] Dr. Patricia Mcconnell URINE CREAT 86.86 mg/dL Normal 20.00-300. 00 [facility] Comment on above: Performed By: #### U RTPCR #### [facility] [address] [place] [address] Dr. Patricia Mcconnell PROF CHEM 8 (BAS METB)on Anion gap [Moles/Vol] 13.6 mmol/L Normal [facility] Comment on above: Performed By: #### B MP #### [facility] [address] [place] [address] Dr. Patricia Mcconnell Calcium [Mass/Vol] 9.2 mg/dL Normal 8.5-10.1 [facility] Comment on above: Performed By: #### B MP #### [facility] [address] [place] [address] Dr. Patricia Mcconnell Chloride [Moles/Vol] 101 mmol/L Normal 98-[address] [facility] Comment on above: Performed By: #### B MP #### [facility] [address] [place] [address] Dr. Patricia Mcconnell CO2 [Moles/Vol] 26.0 mmol/L Normal 21.0-32.0 [facility] Comment on above: Performed By: #### B MP #### [facility] [address] [place] [address] Dr. Patricia Mcconnell Creatinine [Mass/Vol] 1.29 mg/dL Normal 0.70-1.30 [facility] Comment on above: Performed By: #### B MP #### [facility] [address] [place] [address] Dr. Patricia Mcconnell EGFR-AF INDONESIAN >60 Normal >=60 [facility] Comment on above: Performed By: #### B MP #### [facility] [address] [address] [address] Patricia Mcconnell EGFR-NON AF INDONESIAN 55 mL/min/1.73m2 Critically low >=60 [facility] Comment on above: Performed By: #### B MP #### [facility] [address] [address] [address] Patricia Mcconnell Glucose [Mass/Vol] 100 mg/dL Normal 74-106 [facility] Comment on above: Performed By: #### B MP #### [facility] [address] [place] [address] Dr. Patricia Mcconnell Potassium [Moles/Vol] 4.6 mmol/L Normal 3.5-5.1 [facility] Comment on above: Performed By: #### B MP #### [facility] [address] [place] [address] Dr. Patricia Mcconnell Sodium [Moles/Vol] 136 mmol/L Normal 136-145 [facility] Comment on above: Performed By: #### B MP #### [facility] [address] [place] [address] Dr. Patricia Mcconnell Urea nitrogen [Mass/Vol] 21.0 mg/dL Critically high 7.0-18.0 [facility] Comment on above: Performed By: #### B MP #### [facility] [address] [place] [address] Dr. Patricia Mcconnell Urea nitrogen/Creatinine [Mass ratio] 16.3 mg/mg Normal [facility] Comment on above: Performed By: #### B MP #### [facility] [address] [place] [address] Dr. Patricia Mcconnell Auto Diffon 03-23-2018 Basophils Auto #/vol (Bld) 0.8 % Normal 0.0-2.0 [facility] Comment on above: Order Comment: Order Added by Discern Expert. Performed By: #### 2 486606, 0448998, 8919629, 9078333, 49384329, 2832569 ####[facility] [address] [place] [address] Basophils/Leukocytes Auto Pure number fraction (Bld) 0.0 E9/L Normal 0.0-0.2 [facility] Comment on above: Order Comment: Order Added by Discern Expert. Performed By: #### 2 339254, 4177003, 8615910, 9413939, 71176349, 4863220 ####[address] [place] [address] Eosinophils/100 WBC Auto (Bld) 3.7 % Normal 0.0-8.0 [facility] Comment on above: Order Comment: Order Added by Discern Expert. Performed By: #### 2 616018, 7709505, 5490575, 9422728, 66486766, 4323940 ####[address] [address] Eosinophils/Leukocyte s Auto Pure number fraction (Bld) 0.2 E9/L Normal 0.0-0.5 [facility] Comment on above: Order Comment: Order Added by Discern Expert. Performed By: #### 2 263530, 6691853, 4867375, 5333002, 65423056, 1727277 ####[address] [address] Lymphocytes/100 WBC Auto (Bld) 23.1 % Normal 14.0-50.0 [facility] Comment on above: Order Comment: Order Added by Discern Expert. Performed By: #### 2 498028, 6016677, 7760521, 9212052, 24172122, 8913376 ####[address] [place] [address] Lymphocytes/Leukocyte s Auto Pure number fraction (Bld) 1.2 E9/L Normal 1.0-4.0 [facility] Comment on above: Order Comment: Order Added by Discern Expert. Performed By: #### 2 227262, 8540721, 9468551, 7462940, 58414716, 5186047 ####[address] [place] [address] Monocytes/100 WBC Auto (Bld) 7.3 % Normal 4.0-14.0 [facility] Comment on above: Order Comment: Order Added by Discern Expert. Performed By: #### 2 434272, 6830485, 4848625, 1176431, 06865484, 2656634 ####[facility] [address] [place] [address] Monocytes/Leukocytes Auto Pure number fraction (Bld) 0.4 E9/L Normal 0.2-1.0 [facility] Comment on above: Order Comment: Order Added by Discern Expert. Performed By: #### 2 983871, 1760565, 3643076, 8854068, 31693767, 8580131 ####[facility] [address] [place] [address] Neutrophils/100 WBC Auto (Bld) 65.1 % Normal 36.0-75.0 [facility] Comment on above: Order Comment: Order Added by Discern Expert. Performed By: #### 2 819832, 9276412, 0958343, 5154104, 48725118, 4973614 ####[facility] [address] [place] [address] Neutrophils/Leukocyte s Auto Pure number fraction (Bld) 3.4 E9/L Normal 2.0-7.5 [facility] Comment on above: Order Comment: Order Added by Discern Expert. Performed By: #### 2 189320, 4363962, 9236028, 3937621, 19797106, 8953167 ####[facility] [address] [place] [address] BUNon 03-23-2018 Urea nitrogen mass conc 16 mg/dL Normal 5-21 [facility] Comment on above: Performed By: #### 2 229115, 0343932, 8978988, 3349835, 29302263, 1506562 ####[facility] [address] [place] [address] CBC w/ Auto Diffon 8 Erythrocyte distribution width Auto Ratio (RBC) 13.6 % Normal 10.9-14.2 [facility] Comment on above: Performed By: #### 2 485972, 2514989, 2307288, 3995682, 46293783, 6009025 ####[facility] [address] [id number] Hematocrit Auto Volume Fraction (Bld) 41.7 % Normal 37.7-49.0 [facility] Comment on above: Performed By: #### 2 129497, 2220309, 1018939, 8628068, 40340683, 3551354 ####[facility] [address] [place] [address] Hemoglobin mass conc (Bld) 14.3 g/dL Normal 13.5-17.5 [facility] Comment on above: Performed By: #### 2 408521, 1368325, 6528032, 4862692, 18054473, 8561960 ####[address] MCH Auto Entitic mass (RBC) 31.8 pg Normal 27.0-34.0 [facility] Comment on above: Performed By: #### 2 496016, 9734270, 1296281, 1530867, 35987546, 3862715 ####[facility] [address] [place], [place] [address] MCHC Auto mass conc (RBC) 34.3 g/dL Normal 31.4-39.3 [facility] Comment on above: Performed By: #### 2 717607, 2165210, 1811077, 8020515, 27412398, 5007645 ####[facility] [address] [place] [address] MCV Auto Entitic volume (RBC) 92.5 fL Normal 80.0-100.0 [facility] Comment on above: Performed By: #### 2 490707, 1345453, 4357892, 6898390, 07837829, 1071087 ####[address] Platelet mean volume Auto Entitic volume (Bld) 10.1 fL Normal 6.4-10.8 [facility] Comment on above: Performed By: #### 2 424720, 3875961, 0883716, 8971915, 52838089, 7350538 ####[facility] [address] [place] [address] Platelets Auto #/vol (Bld) 142.0 E9/L Low 150.0-500. 0 [facility] Comment on above: Performed By: #### 2 620345, 7471941, 5396506, 6398249, 53079273, 5876664 ####[facility] [address] [place] [address] RBC Auto #/vol (Bld) 4.5 E12/L Normal 4.3-5.9 [facility] Comment on above: Performed By: #### 2 256712, 5653070, 6227976, 8965879, 23851475, 2887200 ####[facility] [address] [place] [address] WBC corrected for nucl RBC Auto #/vol (Bld) 5.2 E9/L Normal 4.0-11.0 [facility] Comment on above: Performed By: #### 2 708545, 1649044, 8979785, 3599480, 68069784, 7371839 ####[address] [address] Coding Summary.on 03-23-2018 Coding Summary. CODING DATE: 018 FINAL [facility] STATUS: PAYOR: Medicare ADMIT DX: REASON FOR [...] Salguero Date Saved: 03/23/2018 02:49 pm Normal [facility] Creatinineon 03-23-2018 Creatinine mass conc 1.1 mg/dL Normal 0.5-1.3 [facility] Comment on above: Performed By: #### 2 474343, 2084374, 0357602, 6504209, 01292698, 6108663 ####[facility] [address] [place] [address] Lyteson 03-23-2018 Anion gap 3 molar conc 11 mmol/L Normal 6-16 [facility] Comment on above: Performed By: #### 2 616369, 4259277, 2203357, 6661861, 27728454, 8822748 ####[facility] [address] [place] [address] Chloride molar conc 105 mmol/L Normal 101-111 [facility] Comment on above: Performed By: #### 2 072204, 0060492, 3910197, 2830527, 86837078, 1796523 ####[facility] [address] [place] [address] CO2 molar conc 24 mmol/L Normal 21-31 [facility] Comment on above: Performed By: #### 2 345015, 0668100, 0432110, 7461605, 16363910, 6024381 ####[facility] [address] [place] [address] Potassium molar conc 4.1 mmol/L Normal 3.5-5.3 [facility] Comment on above: Performed By: #### 2 333658, 6675070, 7631720, 6061039, 36232166, 8916718 ####[facility] [address] [place] [address] Sodium molar conc 136 mmol/L Normal 135-145 [facility] Comment on above: Performed By: #### 2 889066, 0712841, 4605464, 1626881, 96087003, 3805779 ####[facility] [address] [place] [address] eGFRon 03-23-2018 GFR/1.73 sq M predicted among blacks MDRD vol rate/area (S/P/Bld) mL/min/{1.73_m2} Normal >=59 [facility] Comment on above: Order Comment: Order added by Discern Expert. Result Comment: eGFR is race adjusted. AA=. Performed By: #### 2 840451, 5220649, 4744219, 2710969, 33619500, 7569707 ####[facility] [address] [place] [address] GFR/1.73 sq M predicted among non-blacks MDRD vol rate/area (S/P/Bld) mL/min/{1.73_m2} Normal >=59 [facility] Comment on above: Order Comment: Order added by Discern Expert. Result Comment: [employer] alec kidney disease could be indicated at eGFR's of less than 60 mL/min/1.73m2. Kidney failure is indicated at less than 15 mL/min/1.73m2. Performed By: #### 2 607744, 0454418, 7230209, 6747845, 62585004, 2361906 ####[facility] [address] [place] [address] Cardiovascular Lab Reporton 05-15-2017 Cardiovascular Lab Report [facility] Patient Name: [facility] MR #: [id number] Physician: Dora Ferrari,Department of M.D.Medicine Service Date: 05/12/2017Division of Birthdate: 3Cardiology Room #: CCAdult CardiovascularServices[address] [place], [place] [address]Gbpbe Fax Cardiovascular Laboratory ReportPROCEDURE: LINQ implant.INDICATION: Atrial [...] procedure well.R-waves equal 0.4 mV.[employer]onic LINQ serial #[id number].[employer]onic LINQ model 00458 monitor [id number].CONCLUSION: Successful LINQ implant.Electronically Signed by:Dora Ferrari M.D. 05/21/2017 02:27 P Dora Ferrari M.D.Date Dict: 05/13/2017/11:50 P/Dora Ferrari M.D.Date Trans: 05/14/2017 11:02 P/[id number]: Jonathon Hahn D.O. [address] [place] [id number] [place] [facility] Vital Signs Date Time Vital Sign Value Performing Clinician Facility 01-06-2025 10:43-040 Body height 198.12 cm Jonathon Hahn DO Work Phone: [facility] 01-06-2025 10:43-0400 Body mass index (BMI) [Ratio] 31.4 kg/m2 Jonathon Hahn DO Work Phone: [facility] 01-06-2025 10:43-040 Body weight 123.09 kg Jonathon Hahn DO [facility] System 01-06-2025 10:43-0400 Diastolic blood pressure 84 mm[Hg] Jonathon Hahn DO Work Phone: [facility] 01-06-2025 10:43-0400 Heart rate 153 /min Jonathon Ball DO Work Phone: [facility] 01-06-2025 10:43-0400 Respiratory rate 12 /min Jonathon Ball DO Work Phone: [facility] 01-06-2025 10:43-0400 Systolic blood pressure 121 mm[Hg] Jonathon Ball DO Work Phone: [facility] 11-05-2024 09:11-0400 Body height 196.9 cm Dottie Oswaldcarlos DENTAL TECHNICIAN INSTRUCTOR-SLABBING MACHINE OPERATOR Work Phone: [facility] 11-05-2024 09:11-0400 Body mass index (BMI) [Ratio] 31.61 kg/m2 Dottienaeem Brown DENTAL TECHNICIAN INSTRUCTOR-SLABBING MACHINE OPERATOR Work Phone: [facility] 11-05-2024 09:11-0400 Body weight 122.47 kg Dottienaeem Oswaldcarlos DENTAL TECHNICIAN INSTRUCTOR-SLABBING MACHINE OPERATOR Work Phone: [facility] 03-15-2024 13:09-0400 Diastolic blood pressure 78 mm[Hg] Brooklynn Woodson MD Work Phone: [facility] 03-15-2024 13:09-0400 Heart rate 59 /min Brooklynn Woodson MD Work Phone: [facility] 03-15-2024 13:09-0400 Respiratory rate 20 /min Brooklynn Woodson MD Work Phone: [facility] 03-15-2024 13:09-0400 Systolic blood pressure 148 mm[Hg] Brooklynn Woodson MD Work Phone: [facility] 03-15-2024 13:05-0400 SaO2% (BldA) [Mass fraction] 93 % Brooklynn Woodson MD Work Phone: [facility] 03-15-2024 10:36-0400 Body height 195.6 cm Brooklynn Woodson MD Work Phone: [facility] 03-15-2024 10:36-0400 Body mass index (BMI) [Ratio] 30.48 kg/m2 Brooklynn Woodson MD Work Phone: [facility] 03-15-2024 10:36-0400 Body weight 116.57 kg Brooklynn Woodson MD Work Phone: [facility] 01-28-2024 19:15-0400 Heart rate 68 /min Brooklynn Woodson MD Work Phone: [facility] 01-28-2024 19:15-0400 Respiratory rate 24 /min Brooklynn Woodson MD Work Phone: [facility] 01-28-2024 17:30-0400 Diastolic blood pressure 64 mm[Hg] Brooklynn Woodson MD Work Phone: [phone](136)[phone] [address] 01-28-2024 17:30-0400 SaO2% (BldA) [Mass fraction] 96 % Brooklynn Woodson MD Work Phone: [facility] 01-28-2024 17:30-0400 Systolic blood pressure 117 mm[Hg] Brooklynn Woodson MD Work Phone: [facility] 01-28-2024 14:45-0400 Body temperature 98.01 [degF] Brooklynn Woodson MD Work Phone: [facility] 01-28-2024 09:16-0400 Body height 195.6 cm Brooklynn Woodson MD Work Phone: [facility] 01-28-2024 09:16-0400 Body mass index (BMI) [Ratio] 30.59 kg/m2 Brooklynn Woodson MD Work Phone: [facility] 01-28-2024 09:16-0400 Body weight 117 kg Brooklynn Woodson MD Work Phone: [facility] 12-24-2023 12:50-0400 Body height 195.6 cm Brooklynn Woodson MD Work Phone: [facility] 12-24-2023 12:50-0400 Body mass index (BMI) [Ratio] 30.83 kg/m2 Brooklynn Woodson MD Work Phone: [facility] 12-24-2023 12:50-0400 Body weight 117.94 kg Brooklynn Woodson MD Work Phone: [facility] 12-24-2023 12:39-0400 Respiratory rate 16 /min Brooklynn Woodson MD Work Phone: [facility] 11-10-2023 12:47-0400 Body height 195.6 cm Brooklynn Woodson MD Work Phone: 5([phone] [address] 11-10-2023 12:47-0400 Diastolic blood pressure 91 mm[Hg] Brooklynn Woodson MD Work Phone: [facility] 11-10-2023 12:47-0400 Heart rate 67 /min Brooklynn Woodson MD Work Phone: [facility] 11-10-2023 12:47-0400 Systolic blood pressure 163 mm[Hg] Brooklynn Woodson MD Work Phone: [facility] 10-29-2023 11:14-0400 Body height 198.12 cm DO Jonathon Ball Work Phone: [facility] 10-29-2023 11:14-0400 Body mass index (BMI) [Ratio] 30.4 kg/m2 DO Jonathon Ball Work Phone: [facility] 10-29-2023 11:14-0400 Body weight 119.74 kg DO Jonathon Ball Work Phone: [facility] 10-29-2023 11:14-0400 Diastolic blood pressure 78 mm[Hg] DO Jonathon Ball Work Phone: [facility] 05-01-2024 11:14-0400 Heart rate 88 /min DO Jonathon Ball Work Phone: [facility] 10-29-2023 11:14-0400 SaO2% (BldA) [Mass fraction] 98 % DO Jonathon Ball Work Phone: [facility] 10-29-2023 11:14-0400 Systolic blood pressure 132 mm[Hg] DO Jonathon Ball Work Phone: [facility] 03-18-2023 11:53-0400 Body height 182.9 cm Kt Merritt MD Work Phone: [facility] 03-18-2023 11:53-0400 Body mass index (BMI) [Ratio] 34.64 kg/m2 Kt Merritt MD Work Phone: 3(168)[phone] [place] [address] 03-18-2023 11:53-0400 Body temperature 98.29 [degF] Kt Merritt MD Work Phone: 0(573)[phone] [place] [address] 03-18-2023 11:53-0400 Body weight 115.85 kg Kt Merritt MD Work Phone: 2(564)[phone] [place] [address] 03-18-2023 11:53-0400 Diastolic blood pressure 80 mm[Hg] Kt Merritt MD Work Phone: 9(818)[phone] [place] [address] 03-18-2023 11:53-0400 Heart rate 66 /min Kt Merritt MD Work Phone: 5(646)[phone] [place] [address] 03-18-2023 11:53-0400 Respiratory rate 18 /min Kt Merritt MD Work Phone: 8(411)[phone] [place] [address] 03-18-2023 11:53-0400 SaO2% (BldA) [Mass fraction] 97 % Kt Merritt MD Work Phone: 7(924)129-629076 [place] [address] 03-18-2023 11:53-0400 Systolic blood pressure 138 mm[Hg] Kt Merritt MD Work Phone: [facility] 03-06-2023 10:00-0400 Diastolic blood pressure 65 mm[Hg] Brooklynn Woodson MD Work Phone: [facility] 03-06-2023 10:00-0400 Heart rate 62 /min Brooklynn Woodson MD Work Phone: [facility] 03-06-2023 10:00-0400 Respiratory rate 22 /min Brooklynn Woodson MD Work Phone: [facility] 03-06-2023 10:00-0400 SaO2% (BldA) [Mass fraction] 95 % Brooklynn Woodson MD Work Phone: [facility] 03-06-2023 10:00-0400 Systolic blood pressure 127 mm[Hg] Brooklynn Woodson MD Work Phone: [facility] 03-06-2023 08:49-0400 Body height 193 cm Brooklynn Woodson MD Work Phone: [facility] 03-06-2023 08:49-0400 Body mass index (BMI) [Ratio] 30.67 kg/m2 Brooklynn Woodson MD Work Phone: [facility] 03-06-2023 08:49-0400 Body weight 114.31 kg Brooklynn Woodson MD Work Phone: [facility] 03-06-2023 08:21-0400 Heart rate 58 /min Kt Merritt MD Work Phone: [facility] 03-06-2023 08:19-0400 Body height 193 cm Kt Merritt MD Work Phone: [facility] 03-06-2023 08:19-0400 Diastolic blood pressure 85 mm[Hg] Kt Merritt MD Work Phone: [facility] 03-06-2023 08:19-0400 Systolic blood pressure 159 mm[Hg] Kt Merritt MD Work Phone: [facility] 01-22-2023 09:00-0400 Body height 198.12 cm Jonathon Ball Other [employer] Other 01-22-2023 09:00-0400 Body mass index (BMI) [Ratio] 29.19 kg/m2 Jonathon Ball Other [employer] Other 01-22-2023 09:00-0400 Body weight 114.58 kg Jonathon Ball Other [employer] Other 01-22-2023 09:00-0400 Diastolic blood pressure 72 mm[Hg] Jonathon Ball Other [employer] Other 01-22-2023 09:00-0400 Respiratory rate 12 /min Jonathon Ball Other [employer] Other 01-22-2023 09:00-0400 Systolic blood pressure 117 mm[Hg] Jonathon Ball Other [employer] Other 04-29-2022 10:50-0400 Diastolic blood pressure 58 mm[Hg] Brooklynn Woodson MD Work Phone: [facility] 04-29-2022 10:50-0400 Heart rate 44 /min Brooklynn Woodson MD Work Phone: [facility] 04-29-2022 10:50-0400 Respiratory rate 17 /min Brooklynn Woodson MD Work Phone: [facility] 04-29-2022 10:50-0400 SaO2% (BldA) [Mass fraction] 92 % Brooklynn Woodson MD Work Phone: [facility] 04-29-2022 10:50-0400 Systolic blood pressure 99 mm[Hg] Brooklynn Woodson MD Work Phone: [facility] 04-29-2022 09:20-0400 Body height 193 cm Brooklynn Woodson MD Work Phone: [facility] 04-29-2022 09:20-0400 Body mass index (BMI) [Ratio] 32.26 kg/m2 Brooklynn Woodson MD Work Phone: [facility] 04-29-2022 09:20-0400 Body weight 120.2 kg Brooklynn Woodson MD Work Phone: [facility] 03-11-2022 10:52-0400 Body height 194.3 cm Brooklynn Woodson MD Work Phone: [facility] 03-11-2022 10:52-0400 Diastolic blood pressure 90 mm[Hg] Brooklynn Woodson MD Work Phone: [facility] 03-11-2022 10:52-0400 Heart rate 55 /min Brooklynn Woodson MD Work Phone: [facility] 03-11-2022 10:52-0400 Systolic blood pressure 151 mm[Hg] Brooklynn Woodson MD Work Phone: [facility] Encounters Encounter Date Encounter Type Care Provider Facility Start: 01-06-2025 Non-patient / Non-visit Cassandra Chavez MD -[facility] Work Phone: Start: 01-06-2025 End: 01-06-2025 ambulatory Jonathon Hahn DO Work Phone: [facility] Work Phone: Start: 01-06-2025 End: 01-06-2025 Patient encounter procedure Jonathon Hahn DO -[facility] Work Phone: Start: 11-30-2024 End: 11-30-2024 ambulatory Lindsay Johnson RN [facility] Start: 11-05-2024 End: 11-05-2024 Subsequent hospital visit by physician Dottie Brown DENTAL TECHNICIAN INSTRUCTOR-SLABBING MACHINE OPERATOR Work Phone: [facility] Comment on above: Arrived Start: 11-05-2024 ambulatory DOTTIE VALADEZ Facility:[facility] Start: 11-02-2024 ambulatory JONATHON HAHN Facility: [facility] Start: 03-16-2024 ambulatory DC David CAGLESE Facility: [facility] Start: 03-15-2024 End: 03-15-2024 Subsequent hospital visit by physician Brooklynn Woodson MD Work Phone: [facility] Comment on above: Arrived Start: 03-15-2024 ambulatory BROOKLYNN Williamson CHINTAN Facility: [facility] Start: 01-28-2024 End: 01-28-2024 ambulatory BROOKLYNN Williamson CHINTAN Facility:[facility] Start: 01-28-2024 End: 01-28-2024 Evaluation and management of inpatient Brooklynn Woodson MD Work Phone: [facility] Comment on above: Atrial fibrillation, unspecified type Start: 12-24-2023 End: 12-24-2023 Evaluation and management of inpatient Brooklynn Woodson MD Work Phone: [facility] Comment on above: PAF (paroxysmal atri al fibrillation) Start: 11-20-2023 End: 11-20-2023 ambulatory DO Jonathon Ball Work Phone: [facility] Work Phone: Start: 11-20-2023 End: 11-20-2023 Patient encounter procedure DO Jonathon Ball Work Phone: [facility] Work Phone: Start: 11-10-2023 End: 11-10-2023 Subsequent hospital visit by physician Brooklynn Woodson MD Work Phone: [facility] Comment on above: Arrived Start: 10-29-2023 End: 10-29-2023 Patient encounter procedure DO Jonathon Ball Work Phone: [facility] Work Phone: Start: 10-03-2023 Non-patient / Non-visit DO Jonathon Hahn Work Phone: [facility] [employer] Work Phone: Start: 07-20-2023 End: 07-20-2023 ambulatory Jonathon Hahn Other [facility] [employer] Other Start: 07-20-2023 Telephone encounter Jonathon Hahn [facility] Start: 05-21-2023 End: 05-21-2023 ambulatory Jonathon Hahn Other [facility] [employer] Other Start: 05-21-2023 Telephone encounter Jonathon Hahn [facility] Start: 05-14-2023 End: 05-14-2023 ambulatory Jonathon Hahn Other [facility] [employer] Other Start: 05-14-2023 Telephone encounter Jonathon Hahn [facility] Start: 04-23-2023 End: 04-23-2023 ambulatory Jonathon Hahn Other [facility] [employer] Other Start: 04-23-2023 Telephone encounter Jonathon JONES [facility] Start: 03-18-2023 End: 03-18-2023 Office outpatient new 60 minutes Kt Merritt MD Work Phone: [facility] Comment on above: Enlargement of aorti c root Start: 03-06-2023 End: 03-06-2023 Subsequent hospital visit by physician Kt Merritt MD Work Phone: [facility] Comment on above: Arrived Start: 01-23-2023 End: 01-23-2023 ambulatory Jonathon Hahn Other [facility] [employer] Other Start: 01-23-2023 Telephone encounter Jonathon JONES [facility] Start: 01-22-2023 End: 01-22-2023 ambulatory Jonathon Hahn Other [facility] [employer] Other Start: 01-22-2023 Patient encounter procedure Jonathon Hahn [facility] Start: 04-29-2022 End: 04-29-2022 Subsequent hospital visit by physician Brooklynn Woodson MD Work Phone: [facility] Comment on above: Arrived Start: 03-11-2022 End: 03-11-2022 Subsequent hospital visit by physician Brooklynn Woodson MD Work Phone: [facility] Comment on above: Arrived Start: 01-22-2022 End: 01-23-[address] JONATHON HAHN Facility:[facility] Start: 01-09-2022 End: 01-09-[address] JONATHON HAHN Facility:[facility] Start: 11-19-2021 End: 11-20-[address] DOCTOR BATISTA Facility:[facility] Start: 03-20-2018 End: 03-28-2018 Patient encounter CELENA DOSS Facility:[facility] Start: 05-12-2017 End: 05-13-2017 Ambulatory DORA FERRARI Facility:[facility] Start: 05-05-2017 End: 05-06-2017 Ambulatory DEFAULT PHYSICIAN Facility:[facility] Start: 04-15-2017 End: 04-16-2017 Ambulatory DEFAULT PHYSICIAN Facility:[facility] Procedures Date Procedure Procedure Detail Performing Clinician Start: 11-05-2024 Myocardial spect mul tiple studies Dottie Brown DENTAL TECHNICIAN INSTRUCTOR-SLABBING MACHINE OPERATOR Work Phone: Start: 03-15-2024 Echo transesophag r- t 2d w/prb img acquisj i&r Brooklynn Woodson MD Work Phone: Start: 01-28-2024 Perq clsr tcat l atr apndge w/endocardial implnt Brooklynn Woodson MD Work Phone: Start: 01-28-2024 ACT* LOW RANGE, POC Sharif Woodson MD Work Phone: Start: 01-28-2024 End: 01-28-2024 ACT* LOW RANGE, POC Brooklynn Woodson MD Work Phone: Start: 01-28-2024 CBC AND ELECTRONIC DIFF Kiera Lacey DENTAL TECHNICIAN INSTRUCTOR-SLABBING MACHINE OPERATOR Work Phone: Start: 01-28-2024 Complete blood count with white cell differential, automated Kiera Lacey DENTAL TECHNICIAN INSTRUCTOR-SLABBING MACHINE OPERATOR Work Phone: Start: 01-28-2024 Creatinine blood Antoinette Lacey DENTAL TECHNICIAN INSTRUCTOR-SLABBING MACHINE OPERATOR Work Phone: Start: 12-24-2023 CBC AND ELECTRONIC DIFF Denise L Tartt DENTAL TECHNICIAN INSTRUCTOR-SLABBING MACHINE OPERATOR Work Phone: Start: 12-24-2023 Complete blood count with white cell differential, automated Denise L Tartt DENTAL TECHNICIAN INSTRUCTOR-SLABBING MACHINE OPERATOR Work Phone: Start: 12-24-2023 Creatinine blood Janey ly L Tartt DENTAL TECHNICIAN INSTRUCTOR-SLABBING MACHINE OPERATOR Work Phone: Start: 11-20-2023 Plain X-ray of right hip DO Jonathon Hahn Work Phone: Start: 11-10-2023 Ct heart contrast ev al cardiac structure&morph Brooklynn Woodson MD Work Phone: Start: 11-10-2023 Creatinine blood Brooklynn Woodson MD Work Phone: Start: 03-06-2023 Echo transesophag r- t 2d w/prb img acquisj i&r Brooklynn Woodson MD Work Phone: Start: 03-06-2023 Ct angiography chest w/contrast/noncontrast Kt Merritt MD Work Phone: Start: 03-06-2023 Creatinine blood Freda Merritt MD Work Phone: Start: 04-29-2022 Echo transesophag r- t 2d w/prb img acquisj i&r Brooklynn Woodson MD Work Phone: Start: 03-11-2022 Ct heart contrast ev al cardiac structure&morph Brooklynn Woodson MD Work Phone: Start: 03-11-2022 Creatinine blood Brooklynn Woodson MD Work Phone: Start: 01-22-[address] SHERIDAN [facility] [place] Comment on above: Performed By: #### P [facility] #### [facility] [address] [place] [address] Dr. Patricia Mcconnell Plan of Treatment Date Care Activity Detail Author Start: 09-23-2027 RSV VACCINE (1 - 1-dose 75+ series) RSV VACCINE (1 - 1-dose 75+ series) [facility] Start: 11-01-2025 End: 11-01-2025 Patient encounter procedure 11/01/2025 9:30 AM EDT Office Visit [facility] [address] [place] [phone] Dottie Brown, DENTAL TECHNICIAN INSTRUCTOR-SLABBING MACHINE OPERATOR [address] [place] [phone] [facility] Start: 04-26-2025 Tetanus vaccination TETANUS [facility] Start: 02-28-2025 Influenza vaccination INFLUENZA VACCINE (Season Ended) [facility] Start: 01-06-2025 Patient referral [facility] Work Phone: Start: 01-06-2025 End: 01-06-2025 [facility] Start: 11-02-2024 End: 11-02-2024 Patient encounter procedure 11/02/2024 9:30 AM EDT Office Visit [facility] [address] [place] [address] [phone] Dottie Brown, DENTAL TECHNICIAN INSTRUCTOR-SLABBING MACHINE OPERATOR [address] [place] [address] [phone] [facility] Start: 04-15-2024 Screening for malignant neoplasm of colon COLORECTAL CANCER SCREENING DISCUSSION [facility] Start: 02-29-2024 COVID-19 VACCINE ( season) COVID-19 VACCINE ( season) [facility] Start: 02-29-2024 COVID-19 VACCINE ( season) COVID-19 VACCINE ( season) [facility] Start: 02-29-2024 Influenza vaccination [facility] Start: 01-15-2024 End: 01-15-2024 Patient encounter procedure 01/15/2024 10:30 AM EDT Office Visit [facility] [address] [place] [phone] Brooklynn Woodson MD [address] [place] [phone] [facility] Start: 11-04-2023 End: 11-04-2023 Patient encounter procedure 11/04/2023 1:30 PM EDT Office Visit [facility] [address] [place] [address] [phone] Dottie Brown, DENTAL TECHNICIAN INSTRUCTOR-SLABBING MACHINE OPERATOR [address] [place] [phone] [facility] Start: 03-13-2023 End: 03-13-2023 Patient encounter procedure 03/13/2023 12:30 PM EDT Office Visit [facility] [address] [place] [address] [phone] [facility] Start: 02-28-2023 COVID-19 VACCINE ( season) COVID-19 VACCINE () [facility] Start: 02-28-2023 Influenza vaccination INFLUENZA VACCINE (#1) [facility] Start: 11-05-2022 End: 11-05-2022 Patient encounter procedure 11/05/2022 Office Visit Electrophysiology Dottie Brown, DENTAL TECHNICIAN INSTRUCTOR-SLABBING MACHINE OPERATOR [address] [place] [phone] [facility] Start: 04-30-2022 End: 04-30-2022 Telemedicine consultation with patient 04/30/2022 Telemedicine Electrophysiology Lisa Medellin, DENTAL TECHNICIAN INSTRUCTOR-SLABBING MACHINE OPERATOR [address] [place] [phone] Paroxysmal atrial fibrillation (Primary Dx); Typical atrial flutter; Presence of Watchman left atrial appendage closure device; Hypertension, essential [facility] Comment on above: Paroxysmal atrial fibrillation (Primary Dx); Typical atrial flutter; Presence of Watchman left atrial appendage closure device; Hypertension, essential Start: 02-28-2022 Influenza vaccination INFLUENZA VACCINE (#1) [facility] Start: 01-29-2022 COVID-19 VACCINE (2 - Pfizer series) COVID-19 VACCINE (2 - Pfizer series) [facility] Start: 12-25-2021 COVID-19 VACCINE (2 - Pfizer series) COVID-19 VACCINE (2 - Pfizer series) [facility] Start: 04-03-2021 Colonoscopy COLORECTAL CANCER SCREENING DISCUSSION [facility] Start: 04-03-2021 Screening for malignant neoplasm of colon COLORECTAL CANCER SCREENING DISCUSSION [facility] Start: 2017 Pneumococcal vaccination PNEUMOCOCCAL VACCINE SERIES (1 - PCV) [facility] Start: 2012 RSV VACCINE (1 - 1-dose 60+ series) RSV VACCINE (1 - 1-dose 60+ series) [facility] Start: 2002 Prostate specific antigen measurement PROSTATE CANCER SCREENING DISCUSSION [facility] Start: 2002 Zoster vaccine hzv live for subcutaneous use ZOSTER (SHINGLES) VACCINE (1 of 2) [facility] Start: 1992 Fasting lipid profile LIPID SCREENING [facility] Start: 1992 Lipid panel LIPID SCREENING [facility] Start: 09-23-1971 Third diphtheria, tetanus and acellular pertussis (DTaP) vaccination TDAP (ADULT) [facility] Start: 1970 Tetanus vaccination TETANUS [facility] Start: 1952 Hepatitis C antibody, confirmatory test HEPATITIS C VIRUS SCREENING [facility] Start: 1952 Hepatitis C screening HEPATITIS C VIRUS SCREENING [facility] Start: 1952 Tetanus vaccination [facility]US [facility] Comprehensive metabo lic 2000 panel - Serum or Plasma [facility] End: 01-28-2024 ECHOCARDIOGRAM TRANSESOPHAGEAL (ALLI) IN OR - IMAGES ECHOCARDIOGRAM TRANSESOPHAGEAL (ALLI) IN OR - IMAGES Imaging Routine One Time for 1 Occurrences starting 01/28/2024 until 01/28/2024 [facility] Work Phone: Comment on above: One Time for 1 Occurrences starting 12/30 until 01/28/2024 End: 12-22-2023 Electrophysiology study EP PROCEDURE - EPS/ABLATION/DEVICE Electrophysiology Routine Paroxysmal atrial fibrillation Atypical atrial flutter One Time for 1 Occurrences starting 12/22/2023 until 12/22/2023 [facility] Comment on above: One Time for 1 Occurrences starting 11/29 until 12/22/2023 Electrophysiology study EP PROCE DURE - EPS/ABLATION/DEVICE Electrophysiology Routine Atrial fibrillation, unspecified type 01/28/2024 2:44 PM EDT [facility] Patient referral [facility] Work Phone: Perq clsr tcat l atr apndge w/endocardial implnt LEFT ATRIAL APPENDAGE SCHED CLOSURE W/ IMPLANT ([id number]) Paroxysmal atrial fibrillation Atypical atrial flutter [facility] EP XR Hip - right 2 Views [facility] Immunizations Immunization Date Immunization Notes Care Provider Fa cility 04-24-2020 influenza virus vaccine, split virus (incl. purified surface antigen) Jonathon Hahn Other [employer] Other 04-24-2020 influenza virus vaccine, unspecified formulation Brooklynn Woodson MD Work Phone: [facility] 01-13-2018 pneumococcal polysaccharide vaccine, 23 valent Jonathon Hahn Other [facility] 04-02-2017 influenza virus vaccine, split virus (incl. purified surface antigen) Jonathon Hahn Other [employer] Other 04-02-2017 influenza virus vaccine, unspecified formulation DO Jonathon Hahn Work Phone: [facility] 12-03-2016 pneumococcal conjuga te vaccine, 13 valent Jonathon Hahn Other [facility] 04-26-2015 tetanus and diphther ia toxoids, adsorbed, preservative free, for adult use (5 Lf of tetanus toxoid and 2 Lf of diphtheria toxoid) Jonathon Hahn Other [facility] Payers Date Payer Category Payer Self-pay [id number] 2017 Managed Care (unspecified) [facility] [place] [place] [address] [id number] 2017 Private Health Insurance [id number] 2013 Medicare [id number] 1959 Medicare [id number] 1959 Private Health Insurance [id number] 1952 Unknown [id number] [id number]. 2.593 1952 Unknown [id number] [id number]. 2.593 1952 Unknown [id number] [id number]. 2.593 1952 Unknown [id number] [id number]. 2.594 1952 Unknown [id number] [id number]. 2.594 1952 Unknown [id number] [id number]. 2.594 1952 Unknown [id number] 2.16.840.1.365634.3.579. 2.594 1952 Unknown [id number] [id number]. 2.594 1952 Unknown [id number] 2.16.840.1.202965.3.579. 2.594 1952 Unknown [id number] 2.16.840.1.279484.3.579. 2.594 1952 Unknown [id number] [id number]. 2.594 Medicare [id number] Unknown Unknown Regular Insurance [id number] Unknown [id number] [id number] Social History Date Type Detail Facility Start: 03-12-2018 End: 01-06-2025 Tobacco smoking status NHIS Never smoked tobacco [facility] Start: 03-12-2018 End: 04-30-2022 Tobacco use and exposure Smokeless tobacco non-user [facility] Start: 11-07-2021 End: 03-18-2023 Alcohol intake Current drinker of alcohol (finding) [facility] Start: 03-12-2018 End: 04-30-2022 Tobacco Comment rare cigar [facility] Start: 1950 Sex Assigned At Not on file [facility] Start: 03-06-2023 End: 11-03-2024 Sex Assigned At [employer] Other Start: 03-06-2023 End: 11-03-2024 History of Social function [facility] Start: 03-10-2018 Gender identity Identifies as male gender (finding) [facility] Start: 12-21-2022 Sexual orientation Heterosexual (finding) [facility] Start: 11-04-2023 End: 11-03-2024 Alcoholic beverage intake Ex-drinker (finding) [facility] Start: 1950 Sex Assigned At Male [facility] Start: 03-10-2018 Sex Male (finding) [facility] Medical Equipment Procedure Code Equipment Code Equipment Original Text Equipment Identifier Dates Occluder Cardiov ascular 31mm Delivery System WatchPoikos Flx - [id number] FDA Start: 03-12-2022 Terumo Azur [id number] [id number] Start: 01-28-2024 Terumo Azur [id number] [id number] Start: 01-28-2024 Terumo Azur Cx Coil [id number] Star t: 01-28-2024 Azur 35 [id number] Start: 01-28-2024 Azur 35 [id number] Start: 01-28-2024 Terumo Azur Cx35 [id number] Start: 01-28-2024 Azur Cx35 [id number] Start: 01-28-2024 Azur Cx35 [id number] Start: 01-28-2024 Azur Cx35 [id number] Start: 01-28-2024 Azur 35 [id number] Start: 01-28-2024 Azur 35 [id number] Start: 01-28-2024 Azur 35 [id number] Start: 01-28-2024 Azur 35 [id number] Start: 01-28-2024 Terumo Azur Cx35 [id number] Start: 01-28-2024 Device Closure P erclose Proglide 6fr - [id number] Start: 01-28-2024 Device Closure P erclose Proglide 6fr - [id number] Start: 01-28-2024 Functional Status Date Assessment Result Facility 03-11-2018 Are you deaf, or do you have serious difficulty hearing No 03/11/2018 4:39 PM Areli Brown, ESAU No [facility] 03-11-2018 Are you blind, or do you have serious difficulty seeing, even when wearing glasses No 03/11/2018 4:39 PM Areli Brown, ESAU No [facility] 03-11-2018 Do you have serious difficulty walking or climbing stairs No 03/11/2018 4:39 PM Areli Brown, ESAU [facility] 03-11-2018 Do you have difficul ty dressing or bathing No 03/11/2018 4:39 PM Areli Brown, ESAU [facility] 03-11-2018 Because of a physica l, mental, or emotional condition, do you have difficulty doing errands alone such as visiting a physician's office or shopping No 03/11/2018 4:39 PM Areli Brown, ESAU [facility] Mental Status Date Assessment Result Facility 03-11-2018 Because of a physica l, mental, or emotional condition, do you have serious difficulty concentrating, remembering, or making decisions No 03/11/2018 4:39 PM Areli Brown, ESAU No [facility] Clinical Notes 04-29-2022 to 01-06-2025 Note Date & Type Note Facility 01-06-2025 Evaluation note Diagnosis Onset Date Resolution Atrial fibrillation acute January 06, 2025 10:16am Chronic kidney disease acute 2024 10:16am Elevated cholesterol acute January 06, 2025 10:16am Hypertension acute January 06, 025 10:16am Pernicious anemia acute January 062024 10:16am Positive colorectal cancer screening using Cologuard test acute January 06, 2025 10:16am Screening for colon cancer acute January 06, 2025 10:16am Screening PSA (prostate specific antigen) acute January 06 10:16am Medicare annual wellness visit, subsequent noneactive January 06, 2025 10:16am [facility] Work Phone: 1(818) 870-560706-03-2025 Telephone encounter Note* Telephone Encounter - Lindsay Johnson RN - 11/30/2024 11:19 AM EDT Pt called back in returning Dottienaeem Muniz' phone message. Results read: Reviewed results of stress testing- no evidence of ischemia. LVEF 52% 3 day Holter monitor showed a PVC burden average of 16%, PAC burden of 4.0%. Average heart rate 67 bpm. Heart rate range 36-97 bpm. Called patient and left VM to return call. Discussed case with Dr. Woodson. Will plan to repeat echo in 3 months. Message to Dottie Brown. [facility]06-03-2025 Miscellaneous Notes* Telephone Encounter - Lindsay Johnson RN - 11/30/2024 11:19 AM EDT Pt called back in returning Dottienaeem Muniz' phone message. Results read: Reviewed results of stress testing- no evidence of ischemia. LVEF 52% 3 day Holter monitor showed a PVC burden average of 16%, PAC burden of 4.0%. Average heart rate 67 bpm. Heart rate range 36-97 bpm. Called patient and left VM to return call. Discussed case with Dr. Woodson. Will plan to repeat echo in 3 months. Message to Dottie Brown. [facility] NoteThere is a watchman device placed 02/2022 c/b steph-device leaked fixed with coiling procedure 12/2023. No device leak or thrombus seen on 2D/3D or Doppler imaging of watchman today. Left ventricle is normal in size and has low normal to mildly reduced systolic function, visual EF 45-50%. Right ventricle is normal in size and has normal systolic function. Normal valve structure and function. No pericardial effusion is present. Grade 3 aortic atherosclerosis noted in the descending aorta. No interatrial shunt noted by Bubble study or color Doppler during normal respiration. Table formatting from the original result was not included. Images from the original result were not included. Facility [facility] Patient Information Patient Name Kristen Coates Legal Sex Male Indication for Exam Priority: Routine Dx: Atrial fibrillation, unspecified type [I48.91 (ICD-10-CM)] Comments: 45 day LAACD (watchman) assess device and r/o thrombus Interpretation Summary Result History is available. There is a watchman device placed 02/2022 c/b steph-device leaked fixed with coiling procedure 12/2023. No device leak or thrombus seen on 2D/3D or Doppler imaging of watchman today. Left ventricle is normal in size and has low normal to mildly reduced systolic function, visual EF 45-50%. Right ventricle is normal in size and has normal systolic function. Normal valve structure and function. No pericardial effusion is present. Grade 3 aortic atherosclerosis noted in the descending aorta. No interatrial shunt noted by Bubble study or color Doppler during normal respiration. Findings Left Ventricle Chamber size is normal. Mild global hypokinesis. Regional wall motion is normal. Ejection fraction is mildly reduced (45 - 50%). Diastolic function not assessed. Right Ventricle Chamber size is normal. Systolic function is normal. Left Atrium Chamber size is normal. Left atrial appendage occluder is present. No significant residual ADAN-LA communication. Right Atrium Chamber size is normal. Septum The atrial septum is normal. No evidence of patent foramen ovale determined by color flow and saline contrast. Mitral Valve Normal appearing leaflets. Mild posterior leaflet prolapse. Trace regurgitation. Aortic Valve Trileaflet valve. Lambl's Excrescences visualized. Leaflet mobility is normal. Trace regurgitation. Tricuspid Valve Normal leaflets. Leaflet mobility is normal. Trace regurgitation. Pulmonic Valve Normal structure. Trace regurgitation. Aorta Sinuses of Valsalva/aortic root is normal size. Ascending aorta is normal size. There is a grade 3 (<5mm) atheromatous plaque present in the descending aorta.SOV index: 1.72 cm/m2. Ascendingindex: 1.47 cm/m2. Reading Providers Reading Role Read Date Kathy Huerta MD Fellow - Reading 03/15/2024 Michael Walker MD Echo Tower, Test Electrical Prospecting Observer 03/15/2024 Great Vessels Aortic Root - End Diastolic Sinus 4.28 cm Ascending aorta 3.67 cm Vitals Height Weight BSA (Calculated - sq m) BP Pulse 1.956 m (6' 5 ) 116.6 kg (257 lb) 2.49 m2 170/96 57 Performing Staff Pat Go RN Study Details The risks and alternatives of the procedure and conscious sedation were explained to the patient/family member and/or their power of insurance attorney. Informed consent was obtained. All staff members involved in the procedure completed a timeout prior to the start of the procedure verifying correct patient identity and correct procedure to be performed. A transesophageal echocardiography study (including color flow Doppler and limited spectral Doppler) was performed. Overall study quality was good. ALLI probe type used: Bhavik. Probe insertion was not difficult. Patient reaction to probe was well-tolerated. Clinical history: s/p Coil procedure for leak repair. Indications for study: ADAN Occluder pre / post. There were no complications. Exam Details Performed Procedure Technologist Supporting Staff Performing Physician ECHO TRANSESOPHAGEAL STUDY DETAILS BILLING Pat Go RN Appointment Date/Status Modality Department 03/15/2024 Arrived ALLI TESTING, [facility] ECHOCARDIOGRAPHY ROSS Begin Exam End Exam 03/15/2024 12:03 PM 03/15/2024 12:50 PM Sedation Time Moderate sedation was performed on the patient. Patient was monitored by independent personnel for the duration of the procedure under the direct supervision of the physician for a total time of approximately 20 minutes. Please refer to the procedure log for information on medications given during the procedure. Sedation/Procedure Log Medications (03/15/2024 00:00 to 03/15/2024 12:50) 03/15/2024 Event Details User 12:11 Medication $$New Bag$$ Sodium chloride 0.9% IV solution - Rate: 20 mL/hr ; Route: Intravenous; Line: Peripheral IV Line - Single Lumen 03/15/24 1112 forearm, posterior, right 20 gauge ; Scheduled Time: 1215 [place] (more content not included)...[facility] 03-15-2024 History and physical note* Kathy Huerta MD - 03/15/2024 11:00 AM EDT ALLI HISTORY AND PHYSICAL IDENTIFYING INFORMATION PATIENT: Kristen Coates ADMIT DATE: 03/15/2024 TIME OF EVALUATION: 03/15/2024 11:13 AM HPI / Assessment & Plan Kristen Coates is a 73 y.o. male presenting for outpatient ALLI after Watchman device revision viacoiling on 01/28/24. ALLI Review of Systems Dentures / Loose Teeth - NO Dysphagia - NO GI Bleeding- NO Prior Gastric Surgery or Banding - NO Sleep Apnea / Home Oxygen Use - YES: on cpap Prior Surgery, Radiation, or Malignancy of the Chest or Esophagus - NO EtOH or Drug Use- NO Consent signed and sedation assessment completed. Will proceed with ALLI. Kathy Huerta MD Fellow, Cardiovascular Medicine HISTORY Past Medical [...] Tobacco comments: rare cigar Vaping Use Vaping status: Never Used Substance and Sexual Activity Alcohol use: Not Currently Alcohol/week: 11.0 standard drinks of alcohol Types: 10 Cans of beer, 1 Shots of liquor per week Drug use: No Sexual activity: [...] otherwise mentioned. PHYSICAL EXAM Pulse (Heart Rate): [60] 60 Resp Rate: [16] 16 BP: (155)/(98) 155/98 O2 Sat (%): [91 %] 91 % Weight: [116.6 kg (257 lb)] 116.6 kg (257 lb) Body mass index is 30.48 kg/m . General: NAD, lying in bed comfortably HEENT: Normocephalic, atraumatic. Moist mucus membranes, oropharynx clear w/o erythema or exudates,normal dentition. Mallampati Class: 2 Neck: Trachea is midline, normal range of motion Resp/Back: Lungs are clear to auscultation bilaterally Cardiac: Regular rate and rhythm, normal S1+S2 LABS Lab Results Component Value Date SODIUM 136 01/28/2024 SODIUM 138 03/20/2018 POTASSIUM 4.2 01/28/2024 POTASSIUM 4.0 03/20/2018 CHLORIDE 104 01/28/2024 CHLORIDE 105 03/20/2018 CO2 24 01/28/2024 CO2 26 03/20/2018 BUN 18 01/28/2024 BUN 17 03/20/2018 CREATSERUM 1.05 01/28/2024 CREATSERUM 0.99 11/10/2023 CREATSERUM 0.96 03/20/2018 Lab Results Component Value Date WBC 5.22 01/28/2024 WBC 6.37 03/20/2018 HGB 14.7 01/28/2024 HGB 13.7 03/20/2018 HCT 43.0 01/28/2024 HCT 42.1 03/20/2018 PLATELET 130 (L) 01/28/2024 PLATELET 144 (L) 03/20/2018 MCV 96.0 (H) 01/28/2024 MCV 93.8 (H) 03/20/2018 Lab Results Component Value Date INR 1.2 (H) 01/28/2024 INR 1.1 03/11/2018 PTT 27.4 01/28/2024 PTT 100.3 (HH) 03/12/2018 [facility] Work Phone: 1(110) 373-999509-16-2024 History and physical note* Kathy Whitaker MD - 03/15/2024 11:00 AM EDT ALLI HISTORY AND PHYSICAL IDENTIFYING INFORMATION PATIENT: Kristen Coates ADMIT DATE: 03/15/2024 TIME OF EVALUATION: 03/15/2024 11:13 AM HPI / Assessment & Plan Kristen Coates is a 73 y.o. male presenting for outpatient ALLI after Watchman device revision viacoiling on 01/28/24. ALLI Review of Systems Dentures / Loose Teeth - NO Dysphagia - NO GI Bleeding- NO Prior Gastric Surgery or Banding - NO Sleep Apnea / Home Oxygen Use - YES: on cpap Prior Surgery, Radiation, or Malignancy of the Chest or Esophagus - NO EtOH or Drug Use- NO Consent signed and sedation assessment completed. Will proceed with ALLI. Kathy Huerta MD Fellow, Cardiovascular Medicine HISTORY Past Medical [...] Tobacco comments: rare cigar Vaping Use Vaping status: Never Used Substance and Sexual Activity Alcohol use: Not Currently Alcohol/week: 11.0 standard drinks of alcohol Types: 10 Cans of beer, 1 Shots of liquor per week Drug use: No Sexual activity: [...] otherwise mentioned. PHYSICAL EXAM Pulse (Heart Rate): [60] 60 Resp Rate: [16] 16 BP: (155)/(98) 155/98 O2 Sat (%): [91 %] 91 % Weight: [116.6 kg (257 lb)] 116.6 kg (257 lb) Body mass index is 30.48 kg/m . General: NAD, lying in bed comfortably HEENT: Normocephalic, atraumatic. Moist mucus membranes, oropharynx clear w/o erythema or exudates,normal dentition. Mallampati Class: 2 Neck: Trachea is midline, normal range of motion Resp/Back: Lungs are clear to auscultation bilaterally Cardiac: Regular rate and rhythm, normal S1+S2 LABS Lab Results Component Value Date SODIUM 136 01/28/2024 SODIUM 138 03/20/2018 POTASSIUM 4.2 01/28/2024 POTASSIUM 4.0 03/20/2018 CHLORIDE 104 01/28/2024 CHLORIDE 105 03/20/2018 CO2 24 01/28/2024 CO2 26 03/20/2018 BUN 18 01/28/2024 BUN 17 03/20/2018 CREATSERUM 1.05 01/28/2024 CREATSERUM 0.99 11/10/2023 CREATSERUM 0.96 03/20/2018 Lab Results Component Value Date WBC 5.22 01/28/2024 WBC 6.37 03/20/2018 HGB 14.7 01/28/2024 HGB 13.7 03/20/2018 HCT 43.0 01/28/2024 HCT 42.1 03/20/2018 PLATELET 130 (L) 01/28/2024 PLATELET 144 (L) 03/20/2018 MCV 96.0 (H) 01/28/2024 MCV 93.8 (H) 03/20/2018 Lab Results Component Value Date INR 1.2 (H) 01/28/2024 INR 1.1 03/11/2018 PTT 27.4 01/28/2024 PTT 100.3 (HH) 03/12/2018 documented in [facility]07-31-[facility]24 Nurse Note* Nursing Notes - Heidi Sanchez RN - 01/28/2024 7:53 PM EDTSummary: avs Patient verbalize understanding of discharge instructions, saline lock removed, catheter intact, to transport home [facility]07-31-2024 Miscellaneous Notes* Nursing Notes - Heidi Sanchez RN - 01/28/2024 7:53 PM EDTSummary: avs Patient verbalize understanding of discharge instructions, saline lock removed, catheter intact, to transport home * Nursing Notes - Rochelle Garcia RN - 01/28/2024 9:30 AM EDT Consults Vascular Access Consult Note Assessment: Patient seen and evaluated for peripheral IV insertion using ultrasound guidance. ID band present, allergies verified and patient/nurse questioned of limb precautions. Skin integrity within normal limits at time of insertion. No evidence of ecchymosis, infiltration, hematoma, or any condition that would prevent safe insertion of a peripheral IV with ultrasound. Insertion Ultrasound guided access: 18 gauge 1.25 length Nexiva catheter inserted into left forearm. Peripheral IV placed per aseptic technique under ultrasound guidance. Positive blood return, flushes easily without symptoms, occlusive dressing applied. Patient tolerated procedure well. [x]Obtained labs. [x]Call light. [x]Bed locked. [x]Bed low. [x]Tray table within reach. [x]Physician and/hauling contractor notified of the above Education Patient/Family informed to notify nurse of any complications including pain, redness, swelling, or leaking post-insertion. [facility] Hospital Discharge instructions* Discharge Instr - Activity* Jordyn Vela APRN-DEANGELO - 01/28/2024 3:24 PM EDT Your Activity restrictions for the [...] machinery or power equipment for 24 hours. * Discharge Instr - Diet* SHYANNE Gandara - 01/28/2024 3:24 PM EDT Diet: Cardiac 4gm NA Low sodium, low fat, low cholesterol, caffeine controlled. Sodium restricted to 4 grams. * Discharge Instr - Notify* SHYANNE Gandara - 01/28/2024 3:24 PM EDT LEFT ATRIAL APPENDAGE CLOSURE DEVICE [...] to bleed or notice any unusual bleeding. * Discharge Instr - Wound Care* SHYANNE Gandara - 01/28/2024 3:24 PM EDT Catheter site care You can [...] your doctor or seek immediate medical care. * Attachments The following attachments cannot be sent through Care Everywhere. * Healthy Diet: Heart ([place]) * Heart Healthy Diet ([facility]) ([place]) documented in this encounterTriHealth07-31-2024 History and physical note* SHYANNE Gandara - 01/28/2024 10:28 AM EDT Chief Complaint LAAO steph-device communication HPI Kristen Coates is a 73 y.o. male with persistent AF s/p WACA PVI 2018, AFL s/p CTI 2018, HTN, LBBB, TIA, MARYLOU on CPAP, enlarged aortic root, prior PPM followed by a complete system extraction due toinfection. Stress testing after pacemaker removed showed appropriate heart rate response. A Watchman device was placed in February 2023 and his ALLI post Watchman showed no residual leak so his OAC was stopped. Last October, he was in an atypical atrial flutter so a repeat cardioversion was performed. Prior to the cardioversion, a ALLI was performed and it showed a 4mm gap between the LA and ADAN. The patient is now back on Xarelto, due to his [id number] score of 4. He presents today to proceed withLAAO device plug placement. Past Medical History: Diagnosis Date A-fib Arrhythmia Bradycardia Congestive heart failure Coronary arteriosclerosis Dyslipidemia Hyperlipidemia Hypertensive disorder MARYLOU on CPAP Peripheral vascular disease TIA (transient ischemic attack) Transient cerebral ischemia Past Surgical History: Procedure Laterality Date PACEMAKER PLACEMENT 08/2017 APPENDECTOMY ARTHROPLASTY KNEE TOTAL Left CLOSURE PERCUTANEOUS LEFT ATRIAL APPENDAGE WITH IMPLANT Medications Prior to Admission Medication Sig Dispense Refill Last Dose acetaminophen (TYLENOL) 500 MG tablet Take 1 tablet by mouth every 6 hours as needed for Mild Pain.PRN for right hip pain 01/27/2024 atorvastatin 20 MG tablet Take 1 tablet by mouth daily. 30 tablet 0 01/27/2024 Cyanocobalamin (Vitamin B12) 100 MCG tablet Take 1 tablet by mouth daily. 01/27/2024 Lisinopril 20 MG tablet Take 1 tablet by mouth daily. Patient taking 20 mg daily 01/27/2024 magnesium oxide 400 MG tablet Take 1 tablet by mouth daily. 01/27/2024 Metoprolol succinate 25 MG tablet XL TAKE 1 TABLET BY MOUTH DAILY 90 tablet 3 01/27/2024 Rivaroxaban (Xarelto) 20 MG tablet Take 1 tablet by mouth daily with dinner. Take for 30 days and then stop. 01/27/2024 No Known Allergies Social History Socioeconomic History Marital status: Tobacco Use Smoking status: Never Smokeless tobacco: Never Tobacco comments: rare cigar Vaping Use Vaping status: Never Used Substance and Sexual Activity Alcohol use: Not Currently Alcohol/week: 11.0 standard drinks of alcohol Types: 10 Cans of beer, 1 Shots of liquor per week Drug use: No Family History Problem Relation Age of Onset Stroke Mother Hypertension Mother Emphysema Father Myocardial Infarction Father Arrhythmia Brother PCP Jonathon HURTADO MD: Chintan Anticoagulation: Xarelto Has the patient missed any doses of anticoagulation. none When was the last dose taken. 01/26 [id number]- Vasc score: 4 ( age, HTN, TIA ) Previous antiarrythmic medications: Rythmol Sotalol Amiodarone Prior Cardiac testing: ECHOCARDIOGRAM TRANSESOPHAGEAL (ALLI) 03/06/2023 (Final) Interpretation Summary S/p LAAOD placement on 03/12/2022 [...] pericardial effusion is present. Scattered aortic atherosclerosis CT CARDIAC PULMONARY VENOGRAM 11/10/2023 Watchman: - Watchman is seen in situ, with asymmetric positioning of the posterior shoulder - Evidence of incomplete LA closure with contrast opacification within the device and the distal ADAN. - Contrast is seen funneling/tracking along the posterior shoulder. More proximally the posterior shoulder-LA distance measures 6 mm in width, with a distal 2-3 mm focal communication to within thedevice through its struts, likely suggestive of sub-fabric leak (series 6, image [id number]). - No definite evidence of device-related thrombus - No evidence of thrombus within the left atrium proper. Review of System Constitutional: Negative for fever, weight loss, weight gain and malaise/fatigue. Skin: Negative. HEENT: Negative. Cardiovascular: Negative for leg swelling. Negative for palpitations, chest pain, dyspnea, orthopnea, claudication, edema and PND. Negative for lightheadedness or syncope. Respiratory: Negative for cough. Is not experiencing shortness of breath currently. Gastrointestinal: Negative for abdominal pain, nausea, vomiting, diarrhea, melena, and constipation. Endocrine: Negative for polyuria, polydipsia, heat or cold intolerance. Genitourinary: Negative for frequency or burning with urination. Neurological: Negative for dizziness and headaches. Psychiatric: Negative for depression, nervous/anxious and substance abuse. Telemetry/EKG: NSR with PVCs BP 155/90 (BP Location: Right arm, BP Position: Sitting) Pulse 55 Temp 98.1 F (36.7 C) (Oral) Resp 16 Ht 1.956 m (6' 5 ) Wt 117 kg (257 lb 15 oz) SpO2 95% BMI 30.59 kg/m Smoking Status Never Body mass index is 30.59 kg/m . Physical Exam General appearance - alert, LOC x 3, well appearing, and in no distress Neck - supple, no significant adenopathy, carotids upstroke normal bilaterally without bruits. Chest - respirations easy and unlabored Heart - regular rate and rhythm, S1 and S2 normal, no murmurs, clicks, gallops or rubs, normal bilateral carotid upstroke without bruits, no JVD Abdomen - soft, nontender, nondistended, no masses or organomegaly, bowel sounds present x 4 quadrants. Extremities - peripheral pulses normal, no pedal edema, no clubbing or cyanosis Skin - normal coloration and turgor, no rashes, no suspicious skin lesions noted Lab Results Component Value Date SODIUM 136 12/24/2023 POTASSIUM 4.4 12/24/2023 CHLORIDE 103 12/24/2023 CO2 23 12/24/2023 BUN 15 12/24/2023 CREATSERUM 0.99 12/24/2023 GLUCOSE 81 12/24/2023 Lab Results Component Value Date WBC 5.52 12/24/2023 HGB 15.1 12/24/2023 HCT 46.7 12/24/2023 PLATELET 131 (L) 12/24/2023 MCV 96.9 (H) 12/24/2023 INR Date Value Ref Range Status 01/28/2024 1.2 (H) 0.9 - 1.1 Final 12/24/2023 1.1 0.9 - 1.1 Final 03/12/2022 1.1 0.9 - 1.1 Final Assessment and Plan LAAO device with steph-device communication Here for LAAO device plug placement Arrived in NSR with PVCs NPO since 2099 NO missed doses of Xarelto >4 weeks OK to proceed today pending lab results Associated attestation - Brooklynn Woodson MD - 01/28/2024 11:46 AM EDT Patient EP plan progressing well. I discussed plan with patient and answered questions. We discussed the procedure, alternatives and risks and the patient wishes to proceed in this direction. Physical Exam: Constitutional: Alert and oriented x 3 Eyes: Extraocular motions are normal. Musculoskeletal: No edema. Neurological: Nonfocal Skin: Skin is warm and dry. Psychiatric: Affect normal. I have independently seen and examined the patient and agree with the history, physicial, assessment and plan of the certified nurse practitioner as addended by me. Brooklynn Woodson MD01/28/2024 [facility]07-31-2024 History and physical note* Jordyn Vela APRN-DEANGELO - 01/28/2024 10:28 AM EDT Chief Complaint LAAO steph-device communication HPI Kristen Coates is a 73 y.o. male with persistent AF s/p WACA PVI 2018, AFL s/p CTI 2018, HTN, LBBB, TIA, MARYLOU on CPAP, enlarged aortic root, prior PPM followed by a complete system extraction due toinfection. Stress testing after pacemaker removed showed appropriate heart rate response. A Watchman device was placed in February 2023 and his ALLI post Watchman showed no residual leak so his OAC was stopped. Last October, he was in an atypical atrial flutter so a repeat cardioversion was performed. Prior to the cardioversion, a ALLI was performed and it showed a 4mm gap between the LA and ADAN. The patient is now back on Xarelto, due to his [id number] score of 4. He presents today to proceed withLAAO device plug placement. Past Medical History: Diagnosis Date A-fib Arrhythmia Bradycardia Congestive heart failure Coronary arteriosclerosis Dyslipidemia Hyperlipidemia Hypertensive disorder MARYLOU on CPAP Peripheral vascular disease TIA (transient ischemic attack) Transient cerebral ischemia Past Surgical History: Procedure Laterality Date PACEMAKER PLACEMENT 08/2017 APPENDECTOMY ARTHROPLASTY KNEE TOTAL Left CLOSURE PERCUTANEOUS LEFT ATRIAL APPENDAGE WITH IMPLANT Medications Prior to Admission Medication Sig Dispense Refill Last Dose acetaminophen (TYLENOL) 500 MG tablet Take 1 tablet by mouth every 6 hours as needed for Mild Pain.PRN for right hip pain 01/27/2024 atorvastatin 20 MG tablet Take 1 tablet by mouth daily. 30 tablet 0 01/27/2024 Cyanocobalamin (Vitamin B12) 100 MCG tablet Take 1 tablet by mouth daily. 01/27/2024 Lisinopril 20 MG tablet Take 1 tablet by mouth daily. Patient taking 20 mg daily 01/27/2024 magnesium oxide 400 MG tablet Take 1 tablet by mouth daily. 01/27/2024 Metoprolol succinate 25 MG tablet XL TAKE 1 TABLET BY MOUTH DAILY 90 tablet 3 01/27/2024 Rivaroxaban (Xarelto) 20 MG tablet Take 1 tablet by mouth daily with dinner. Take for 30 days and then stop. 01/27/2024 No Known Allergies Social History Socioeconomic History Marital status: Tobacco Use Smoking status: Never Smokeless tobacco: Never Tobacco comments: rare cigar Vaping Use Vaping status: Never Used Substance and Sexual Activity Alcohol use: Not Currently Alcohol/week: 11.0 standard drinks of alcohol Types: 10 Cans of beer, 1 Shots of liquor per week Drug use: No Family History Problem Relation Age of Onset Stroke Mother Hypertension Mother Emphysema Father Myocardial Infarction Father Arrhythmia Brother PCP Jonathon HURTADO MD: Chintan Anticoagulation: Xarelto Has the patient missed any doses of anticoagulation. none When was the last dose taken. 01/26 [id number]- Vasc score: 4 ( age, HTN, TIA ) Previous antiarrythmic medications: Rythmol Sotalol Amiodarone Prior Cardiac testing: ECHOCARDIOGRAM TRANSESOPHAGEAL (ALLI) 03/06/2023 (Final) Interpretation Summary S/p LAAOD placement on 03/12/2022 [...] pericardial effusion is present. Scattered aortic atherosclerosis CT CARDIAC PULMONARY VENOGRAM 11/10/2023 Watchman: - Watchman is seen in situ, with asymmetric positioning of the posterior shoulder - Evidence of incomplete LA closure with contrast opacification within the device and the distal ADAN. - Contrast is seen funneling/tracking along the posterior shoulder. More proximally the posterior shoulder-LA distance measures 6 mm in width, with a distal 2-3 mm focal communication to within thedevice through its struts, likely suggestive of sub-fabric leak (series 6, image [id number]). - No definite evidence of device-related thrombus - No evidence of thrombus within the left atrium proper. Review of System Constitutional: Negative for fever, weight loss, weight gain and malaise/fatigue. Skin: Negative. HEENT: Negative. Cardiovascular: Negative for leg swelling. Negative for palpitations, chest pain, dyspnea, orthopnea, claudication, edema and PND. Negative for lightheadedness or syncope. Respiratory: Negative for cough. Is not experiencing shortness of breath currently. Gastrointestinal: Negative for abdominal pain, nausea, vomiting, diarrhea, melena, and constipation. Endocrine: Negative for polyuria, polydipsia, heat or cold intolerance. Genitourinary: Negative for frequency or burning with urination. Neurological: Negative for dizziness and headaches. Psychiatric: Negative for depression, nervous/anxious and substance abuse. Telemetry/EKG: NSR with PVCs BP 155/90 (BP Location: Right arm, BP Position: Sitting) Pulse 55 Temp 98.1 F (36.7 C) (Oral) Resp 16 Ht 1.956 m (6' 5 ) Wt 117 kg (257 lb 15 oz) SpO2 95% BMI 30.59 kg/m Smoking Status Never Body mass index is 30.59 kg/m . Physical Exam General appearance - alert, LOC x 3, well appearing, and in no distress Neck - supple, no significant adenopathy, carotids upstroke normal bilaterally without bruits. Chest - respirations easy and unlabored Heart - regular rate and rhythm, S1 and S2 normal, no murmurs, clicks, gallops or rubs, normal bilateral carotid upstroke without bruits, no JVD Abdomen - soft, nontender, nondistended, no masses or organomegaly, bowel sounds present x 4 quadrants. Extremities - peripheral pulses normal, no pedal edema, no clubbing or cyanosis Skin - normal coloration and turgor, no rashes, no suspicious skin lesions noted Lab Results Component Value Date SODIUM 136 12/24/2023 POTASSIUM 4.4 12/24/2023 CHLORIDE 103 12/24/2023 CO2 23 12/24/2023 BUN 15 12/24/2023 CREATSERUM 0.99 12/24/2023 GLUCOSE 81 12/24/2023 Lab Results Component Value Date WBC 5.52 12/24/2023 HGB 15.1 12/24/2023 HCT 46.7 12/24/2023 PLATELET 131 (L) 12/24/2023 MCV 96.9 (H) 12/24/2023 INR Date Value Ref Range Status 01/28/2024 1.2 (H) 0.9 - 1.1 Final 12/24/2023 1.1 0.9 - 1.1 Final 03/12/2022 1.1 0.9 - 1.1 Final Assessment and Plan LAAO device with steph-device communication Here for LAAO device plug placement Arrived in NSR with PVCs NPO since 2099 NO missed doses of Xarelto >4 weeks OK to proceed today pending lab results Associated attestation - Brooklynn Woodson MD - 01/28/2024 11:46 AM EDT Patient EP plan progressing well. I discussed plan with patient and answered questions. We discussed the procedure, alternatives and risks and the patient wishes to proceed in this direction. Physical Exam: Constitutional: Alert and oriented x 3 Eyes: Extraocular motions are normal. Musculoskeletal: No edema. Neurological: Nonfocal Skin: Skin is warm and dry. Psychiatric: Affect normal. I have independently seen and examined the patient and agree with the history, physicial, assessment and plan of the certified nurse practitioner as addended by me. Brooklynn Woodson MD01/28/2024 documented [facility] this [facility] Nurse Note* Nursing Notes - Rochelle Garcia RN - 01/28/2024 9:30 AM EDT Consults Vascular Access Consult Note Assessment: Patient seen and evaluated for peripheral IV insertion using ultrasound guidance. ID band present, allergies verified and patient/nurse questioned of limb precautions. Skin integrity within normal limits at time of insertion. No evidence of ecchymosis, infiltration, hematoma, or any condition that would prevent safe insertion of a peripheral IV with ultrasound. Insertion Ultrasound guided access: 18 gauge 1.25 length Nexiva catheter inserted into left forearm. Peripheral IV placed per aseptic technique under ultrasound guidance. Positive blood return, flushes easily without symptoms, occlusive dressing applied. Patient tolerated procedure well. [x]Obtained labs. [x]Call light. [x]Bed locked. [x]Bed low. [x]Tray table within reach. [x]Physician and/hauling contractor notified of the above Education Patient/Family informed to notify nurse of any complications including pain, redness, swelling, or leaking post-insertion. [facility] Hospital Discharge instructions* Discharge Instr - Activity* SHYANNE Singh - 12/24/2023 12:55 PM EDT [...] machinery or power equipment for 24 hours. * Discharge Instr - Diet* SHYANNE Singh - 12/24/2023 12:55 PM EDT [...] help manage and maintain consistent blood glucose levels.Simple sugars are limited and carbohydrate intake is balanced throughout the day. Avoid adding saltto your food and use heart healthy fats such as canola or olive oil. * Discharge Instr - Notify* SHYANNE Singh - 12/24/2023 12:55 PM EDT [...] to bleed or notice any unusual bleeding. * Discharge Instr - Wound Care* SHYANNE Singh - 12/24/2023 12:55 PM EDT Catheter [...] your doctor or seek immediate medical care. * Discharge Instr - DME* SHYANNE Singh - 12/24/2023 12:55 PM EDT EP Patient Information If you have questions or concerns about your EP procedure or EP follow-up care please call: [phone]. Appointments You will find your scheduled appointments [...] see is a participant in your insurance planby calling your carrier. If your insurance will not cover this visit or you have no insurance coverage, you will be required to make a down payment at the time of service. At 45 days post-implant, you will be scheduled for a follow-up appointment and we will perform device assessment with ALLI to assess the presence of AADN blood flow through and/or around the LEFT ATRIAL APPENDAGE CLOSURE device. Additional Contacts: If you have questions or concerns about your EP procedure or EP follow-up care please call: [phone]. Evening and Weekend Contacts If you have questions or concerns during evening, weekend, or holiday hours, please call: [phone] If you having an emergency, call 911. Miscellaneous Education New Depression Warning Sign - The rate of clinical depression is higher in individuals with a serious medical illness, such as heart disease and stroke, than in the general population. Because of this you should be aware of the warning signs for depression. They include problems concentrating and re membering details or making decisions, fatigue, decreased energy, feeling guilty, worthless, helpless, pessimistic or hopeless, insomnia, early-morning waking or excessive sleeping, irritability, restlessness, loss of interest in favorite activities or hobbies, loss of libido, overeating or appetite loss, persistent aches or pains, headaches, cramps and/or digestive problems that do not ease withtreatment, persistent sad, anxious or empty feelings, thoughts [...] with low, broad heels and soles that tank cleaner. Drink enough liquid each day. Ask your doctor how much is enough. Consider using an emergency personal medical alert system. Get up slowly after sitting or lying down. Remove throw rugs, improve li ghting, use reflective tape on stairs. If you get a prescription for PT, call the [facility] at [phone] to schedule an appointment. If you don't have a primary doctor, call [phone] or your local hospital to get one. [...] the day before. You MUST have a tow motor driver with you.If you have any questions please call [phone]. documented in this encounterOS[facility] Miscellaneous Notes* Result Encounter Note - Brooklynn Woodson MD - 11/10/2023 1:40 PM EDT I am unsure this leak needs closure. Not clear it connects to posterior ADAN documented in this encounterOS[facility] Progress note* Result Encounter Note - Brooklynn Woodson MD - 11/10/2023 1:40 PM EDT I am unsure this leak needs closure. Not clear it connects to posterior ADAN [facility]01-21-2024 Evaluation note* Encounter Date Diagnosis Assessment Notes Treatment Notes Treatment Clinical Notes Jun, Paroxysmal atrial fibrillation (ICD-10 - I48.0) This patient is in NSR. This patient is anticoagulated to prevent thromboembolic events. They are maintaining regular scheduled appts with their vice president of compliance. s/p ablation for atrial fibrillation and atrial flutter. He is being scheduled for Watchman's device in order for him to d/c lifelong anticoagulation and associated increased bleeding complications. [employer] Other 11-22-2023 Evaluation note* Encounter Date Diagnosis Assessment Notes Treatment Notes Treatment Clinical Notes Apr, Familial hypercholesterolemia (ICD-10 - E78.01) Diet and exercise w/ continued statin therapy. [employer] Other 09-19-2023 History of Present illness Narrative* Hafsa Avalos, NAE-DEANGELO - 03/18/2023 12:30 PM EDT Cardiothoracic Surgery [...] in activity due to symptoms, even during gtzu-kray-[id number] activity, e.g. walking short distances (20-100 m). [...] and patient satisfaction of care management. * Kt Merritt MD - 03/18/2023 12:30 PM EDT [...] over 4 years. All questions were answered. Kt Merritt MD Attending Surgeon Division of Cardiac Surgery documented in this [facility] Instructions* Patient Instructions* SHYANNE Alvarado - 03/18/2023 12:30 PM EDT Thank you for choosing [facility] Division of Cardiac Surgery [facility] for your cardiac surgical needs. We will plan to see you back in our clinic in 2 years for follow-up with Dr. Merritt. Your appointment is on TBD at TBD at the [facility]. In preparation for this appointment, we will need the following testing completed: CT Scan - Your appointment is on TBD at the following facility: TBD. Your arrival time for your study is TBD. For Questions regarding these appointments or if you need to cancel them, please call [phone] Merritt s senior administrative support. Guidelines for maintaining a healthy and stable Aorta - Blood Pressure Goals: SBP (top number) < 130, DBP (bottom number) < 90, Heart rate < 80. You should monitor these numbers at home on a regular basis. If you notice they are above these recommendations, please see you Primary Doctor (family doctor) or Video Arcade Manager (heart doctor) right away. Avoid strenuous exercises [...] have an AORTIC ANEURYSM. documented in this encounterOS[facility]23 NoteLAA OCCLUDER COMMUNICATION DIAMETER OF FLOW4.0mmOSU [facility] Work Phone: 1(349) 733-806109-07-2023 History and physical note* Micky Trent MD [...] sedation assessment completed. Will proceed with ALLI. Mikcy Trent MD Fellow, Cardiovascular Medicine HISTORY Past [...] PTT 28.7 03/12/2022 PTT 100.3 (HH) 03/12/2018 [facility] Work Phone: 1(794) 563-556709-07-2023 History and physical note* Micky Trent MD [...] PTT 100.3 (HH) 03/12/2018 documented in this encounterTri[facility]07-26-2023 Evaluation note * Encounter Date Diagnosis Assessment [...] cardiovascular disease. 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 s/p ablation for atrial fibrillation and atrial flutter. He is being scheduled for Watchman's device in order for him to d/c lifelong anticoagulation and associated increased bleeding complications. This patient is in NSR. This patient is anticoagulated to prevent thromboembolic events. They are maintaining regular scheduled appts with their vice president of compliance. Dec, Pernicious anemia (ICD-10 - D51.0) Continue healthy Dec, Thrombocytopenia (IC D-10 - D69.6) No bleeding complications Recheck Plt count Dec, Screening for colon cancer (ICD-10 - Z12.11) Dec, Screening PSA (prost ate specific antigen) (ICD-10 - Z12.5) [employer] Other 10-31-2022 History and physical note* Jimenez [...] PTT 28.7 03/12/2022 PTT 100.3 (HH) 03/12/2018 [facility] Work Phone: [phone]) 882-650710-31-2022 History and physical note* Jimenez Wilkins MD [...] PTT 100.3 (HH) 03/12/2018 documented in this encounterOS[facility]* Diagnosis Atrial fibrillation, unspecified type documented in this encounter [facility] noteNo PharmaxisRoff [facility] Other Evaluation note* Diagnosis Enlargement of aortic root documented in this [facility]* Diagnosis Presence of Watchman left atrial appendage closure device Paroxysmal atrial fibrillation Atrial fibrillation Atypical atrial flutter Atrial flutter documented [facility]* Diagnosis Enlargement of aortic root documented in [facility]* Diagnosis Paroxysmal atrial fibrillation Atrial fibrillation Atypical atrial flutter Atrial flutter documented [facility]* Diagnosis Onset Date Resolution Status Hypertension acute Pain of right hip acute Primary osteoarthritis of right hip acute Umbilical hernia acute Primary osteoarthritis of right hip acute [facility] Work Phone: Evaluation note* Diagnosis PAF (paroxysmal atrial fibrillation)- Primary Atrial fibrillation Paroxysmal atrial fibrillation Atrial fibrillation Atypical atrial flutter Atrial flutter documented [facility]* Diagnosis Atrial fibrillation, unspecified type- Primary Atrial fibrillation, unspecified type 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-titanium alloy with polyethylene terephthalate membrane Atrial fibrillation, unspecified type documented in this [facility]* Diagnosis Atrial flutter- Primary Cardiac device, implant, or graft infection or inflammation, initial encounter Atrial flutter, unspecified type High risk medication use Encounter for long-term (current) use of other medications Pacemaker infection Infection and inflammatory reaction due to cardiac device, implant, and graft Essential hypertension Unspecified essential hypertension Nonischemic cardiomyopathy Other primary cardiomyopathies Paroxysmal atrial fibrillation Atrial fibrillation Obesity: body mass index of 30.0-34.9 Obesity, unspecified KJ (acute kidney injury) Acute kidney failure, unspecified Sick sinus syndrome Sinoatrial node dysfunction High risk medication use Encounter for long-term (current) use of other medications PVC's (premature ventricular contractions) Other premature beats Dyspnea on exertion Other dyspnea and respiratory abnormality documented in this encounter [facility]* Diagnosis Onset Date Resolution Status Admit Date Atrial fibrillation acute January 06, 2025 10:16am Chronic kidney disease acute Ju 2024 10:16am Elevated cholesterol acute January 06, 2025 10:16am Hypertension acute January 06, 025 10:16am Pernicious anemia acute January 062024 10:16am Positive colorectal cancer screening using Cologuard test acute J lance 2024 10:16am Screening for colon cancer acute January 06, 2025 10:16am Screening PSA (prostate specific antigen) acute January 06 10:16am Medicare annual wellness visit, subsequent noneactive January 06 10:16am [facility] Work Phone: History general Narrative - Reported* Type Description Date Medical History Palpitations Medical History Essential (primary) hypertension 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 Medical History [...] Watchman Procedure 2020 Surgical History Afib Ablation 2018 Hospitalization History see surgical hx [employer] Other Reason for referral (narrative)No reason for referral information availableTrihealth [facility] Work Phone: Reason for visit Narrative* Radiology (Routine) - New Request Specialty Diagnoses / Procedures Referred By Contac t Referred To Contact Diagnoses PVC's (premature ventricular contractions) Dyspnea on exertion Procedures NUC MYOCARD PERF STRESS MIBI EXERCISE CHG MYOCARDIAL SPECT MULTIPLE STUDIES NJ CV STRS TST XERS&/OR RX CONT ECG TRCG ONLY Dottie Brown, DENTAL TECHNICIAN INSTRUCTOR-SLABBING MACHINE OPERATOR [address] [place] [address] Phone: tel: fax: Referral ID Status Reason Start Date Expiration Date V isits Requested Visits Authorized [id number] New Request 11/02/2024 11/27/2025 1 1 [facility] Summary Purpose Family History No Family History Records Found Relationship Condition Age at Onset Recorded Date/T yas father Heart disease Unknown Hypertension Unknown Unknown Not Specified Unknown History of stroke Unknown Relationship Condition Age at Onset Recorded Date/T yas father Heart disease Unknown Hypertension Unknown Unknown mother Unknown History of stroke Unknown Advance Directives [...] Advance Directives No May 05, 2017 11:32am Date Activated Date Inactivated Comments 03/12/2022 2:19 PM Date Activated Date Inactivated Comments 04/20/2019 7:38 PM 03/12/2022 2:19 PM Date Activated Date Inactivated Comments 03/12/2018 11:13 AM 04/20/2019 7:38 PM Reason for Referral Specialty Diagnoses / Procedures Referred By Contac t Referred To Contact Diagnoses Atrial fibrillation, unspecified type Procedures CT CARDIAC PULMONARY VENOGRAM NJ CHG CT HEART CONTRAST EVAL CARDIAC STRUCT/MORPH Brooklynn Woodson MD [address] [place] [address] Referral ID Status Reason Start Date Expiration Date V isits Requested Visits Authorized [id number] New Request 02/12/2022 03/09/2023 1 1 Specialty Diagnoses / Procedures Referred By Contac t Referred To Contact Diagnoses Enlargement of aortic root Procedures CT ANGIO CHEST (NONCORONARY) NJ CT ANGIO, CHEST (NON-CORON), COMBO, INCL IMG PROC Kt Merritt MD [address] [place] [address] Referral ID Status Reason Start Date Expiration Date V isits Requested Visits Authorized [id number] New Request 08/06/2022 08/31/2023 1 1 Specialty Diagnoses / Procedures Referred By Marin poole Referred To Contact Diagnoses Presence of Watchman left atrial appendage closure device Paroxysmal atrial fibrillation Atypical atrial flutter Procedures ECHOCARDIOGRAM TRANSESOPHAGEAL (ALLI) NJ ECHO TRANSESOPHAG R-T 2D W/PRB IMG ACQUISJ I&R Brooklynn Woodson MD [address] [place] [address] Referral ID Status Reason Start Date Expiration Date V isits Requested Visits Authorized [id number] New Request 11/11/2022 12/06/2023 1 1 Specialty Diagnoses / Procedures Referred By Marin poole Referred To Contact Diagnoses Paroxysmal atrial fibrillation Atypical atrial flutter Procedures CT CARDIAC PULMONARY VENOGRAM NJ CHG CT HEART CONTRAST EVAL CARDIAC STRUCT/MORPH Brooklynn Woodson MD [address] [place] [address] Referral ID Status Reason Start Date Expiration Date V isits Requested Visits Authorized [id number] New Request 11/06/2023 11/30/2024 1 1 Specialty Diagnoses / Procedures Referred By Marin poole Referred To Contact Procedures ECHOCARDIOGRAM TRANSESOPHAGEAL (ALLI) IN OR - IMAGES Clem Frost MD [address] [place] [address] Referral ID Status Reason Start Date Expiration Date V isits Requested Visits Authorized [id number] New Request 01/28/2024 02/21/2025 1 1 Chief Complaint and Reason for Visit Chief Complaint Amb Documentation RIGHT HIP PAIN CONSULT DR HAHN RT HIP PAIN, [place]R/[facility] [place] M16.11 - Unilateral primary osteoarthritis, right Reason for Visit Hypertension Pain of right hip Primary osteoarthritis of right hip Umbilical hernia Primary osteoarthritis of right hip Chief Complaint Admit Date Wellness January 06, 2025 10:1 6am Reason for Visit Admit Date Atrial fibrillation January 06, 2025 10:1 6am Chronic kidney disease January 06, 2025 1 0:16am Elevated cholesterol January 06, 2025 10: 16am Hypertension January 06, 2025 10:1 6am Pernicious anemia January 06, 2025 10:1 6am Positive colorectal cancer screening usi ng Cologuard test January 06, 2025 10:16am Screening for colon cancer January 06 10:16am Screening PSA (prostate specific antigen ) January 06, 2025 10:16am Medicare annual wellness visit, subseque nt January 06, 2025 10:16am Additional Source Comments (unrecognized sect ion and content) No Status Records FoundNo Status Records FoundNo Status Records FoundNo Status Records FoundNo Status Records Found INFORMATION SOURCE (unrecogn ized section and content) DATE CREATED AUTHOR 12/23/2017 [facility] DATE CREATED AUTHOR AUTHOR'S ORGANIZ ATION 04/20/2018 [facility] DATE CREATED AUTHOR AUTHOR'S ORGANIZ ATION 01/29/2022 [facility] DATE CREATED AUTHOR AUTHOR'S ORGANIZ ATION 12/16/2024 [facility] DATE CREATED AUTHOR AUTHOR'S ORGANIZ ATION 01/10/2025 [facility] Reason for Visit (unrecogniz ed section and content) Specialty Diagnoses / Procedures Referred By Contac t Referred To Contact Diagnoses Atrial fibrillation, unspecified type Procedures CT CARDIAC PULMONARY VENOGRAM [place] CHG CT HEART CONTRAST EVAL CARDIAC STRUCT/MORPH Brooklynn Woodson MD [address] [place] [address] Referral ID Status Reason Start Date Expiration Date V isits Requested Visits Authorized [id number] New Request 02/12/2022 03/09/2023 1 1 Specialty Diagnoses / Procedures Referred By Contac t Referred To Contact Diagnoses Atrial fibrillation, unspecified type Procedures ECHOCARDIOGRAM TRANSESOPHAGEAL (ALLI) NJ ECHO TRANSESOPHAG R-T 2D W/PRB IMG ACQUISJ I&R Brooklynn Woodson MD [address] [place] [address] Referral ID Status Reason Start Date Expiration Date V isits Requested Visits Authorized [id number] New Request 03/13/2022 04/07/2023 1 1 Specialty Diagnoses / Procedures Referred By Contac t Referred To Contact Diagnoses Enlargement of aortic root Procedures CT ANGIO CHEST (NONCORONARY) [place] CT ANGIO, CHEST (NON-CORON), COMBO, INCL IMG PROC Kt Merritt MD [address] [place] [phone] Referral ID Status Reason Start Date Expiration Date V isits Requested Visits Authorized [id number] New Request 08/06/2022 08/31/2023 1 1 Specialty Diagnoses / Procedures Referred By Contac t Referred To Contact Diagnoses Presence of Watchman left atrial appendage closure device Paroxysmal atrial fibrillation Atypical atrial flutter Procedures ECHOCARDIOGRAM TRANSESOPHAGEAL (ALLI) NJ ECHO TRANSESOPHAG R-T 2D W/PRB IMG ACQUISJ I&R Brooklynn Woodson MD [address] [place] [phone] Referral ID Status Reason Start Date Expiration Date V isits Requested Visits Authorized [id number] New Request 11/11/2022 12/06/2023 1 1 Reason Comments New Patient Specialty Diagnoses / Procedures [facility] To Contact Thor[facility] Surgery Diagnoses Enlargement of aortic root Brooklynn Woodson MD [address] [place] [phone] Kt Merritt MD [address] [place] [phone] Referral ID Status Reason Start Date Expiration Date V isits Requested Visits Authorized [id number] New Request 08/13/2022 09/07/2023 1 1 Specialty Diagnoses / Procedures [facility] Referred To Contact Diagnoses Paroxysmal atrial fibrillation Atypical atrial flutter Procedures CT CARDIAC PULMONARY VENOGRAM [place] CHG CT HEART CONTRAST EVAL CARDIAC STRUCT/MORPH Brooklynn Woodson MD [address] [place] [phone] Referral ID Status Reason Start Date Expiration Date V isits Requested Visits Authorized [id number] New Request 11/06/2023 11/30/2024 1 1 Specialty Diagnoses / Procedures Referred By Contac t Referred To Contact Diagnoses Paroxysmal atrial fibrillation Atypical atrial flutter Paroxysmal atrial fibrillation [I48.0] Atypical atrial flutter [I48.4] Procedures NJ PERQ CLSR TCAT L ATR APNDGE W/ENDOCARDIAL IMPLNT LEFT ATRIAL APPENDAGE SCHED CLOSURE W/ IMPLANT ([id number]) Brooklynn Woodson MD [address] [place] [phone] [facility] [address] [place] [phone] Referral ID Status Reason Start Date Expiration Date Visits Re quested Visits Authorized [id number] 1 1 Specialty Diagnoses / Procedures Referred By Contac t Referred To Contact Diagnoses Atrial fibrillation, unspecified type Atrial fibrillation, unspecified type [I48.91] Procedures NJ PERQ CLSR TCAT L ATR APNDGE W/ENDOCARDIAL IMPLNT LEFT ATRIAL APPENDAGE SCHED CLOSURE W/ IMPLANT ([id number]) Brooklynn Woodson MD [address] [place] [phone] [facility] [address] [place] [phone] Referral ID Status Reason Start Date Expiration Date Visits Re quested Visits Authorized [id number] 1 1 Referral ID Status Reason Start Date Expiration Date V isits Requested Visits Authorized [id number] New Request 02/02/2024 02/26/2025 1 1 Reason Onset Date Comments Results 11/30/2024 Care Teams (unrecognized sec tion and content) Team Status: Active Member Role Status Dates Jonathon Hahn DO Primary Care Provider Active Team Status: Inactive Member Role Status Dates Jonathon Hahn DO Primary Care Provider Active Start: January 06, 2025 End: January 06, 2025 Jonathon Hahn DO Attending Provider Active Sta rt: January 06, 2025 End: January 06, 2025 Team Status: Active Member Role Status Dates Jonathon Hahn DO Primary Care Provider Active Start: January 06, 2025 Jonathon Hahn DO Attending Provider Active Sta rt: January 06, 2025 Critical Care Nurse Relationship Specialty Start Date End Date Jonathon Hahn DO [address] [place] [address] PCP - General Internal Medicine 03/17/18 Bryan Cortes MD [address] [place] [facility] [place] [address] (Fax) PCP - Referring 1 Cardiovascular Disease 03/17/18 Brooklynn Woodson MD [address] [place] [address], [place] [address] PCP - Referring 2 Clinical Cardiac Electrophysiology 04/20/19 Bryan Cortes MD [address] [place] [facility] [place] [address] Cardiovascular Disease 03/12/18 Jonathon Hahn, DO [address] [place] [facility] [address] Internal Medicine 03/12/18 Gordo Gifford MD [address] [place] [address] Consulting Physician Clinical Cardiac Electrophysiology 05/29/18 Critical Care Nurse Relationship Specialty Start Date End Date Jonathon Hahn, DO [address] [place] [facility] [place] [address] PCP - General Internal Medicine 03/17/18 Bryan Cortes MD [address] [place] [facility] [place] [address] (Fax) PCP - Referring 1 Cardiovascular Disease 03/17/18 Brooklynn Woodson MD [address] [place] [address], [place] [address] PCP - Referring 2 Clinical Cardiac Electrophysiology 04/20/19 Bryan Cortes MD [address] [place] [facility] [place] [address] Cardiovascular Disease 03/12/18 Jonathon Hahn, DO [address] [place] [facility] [place] [address] Internal Medicine 03/12/18 Gordo Gifford MD [address] [place] [address] Consulting Physician Clinical Cardiac Electrophysiology 05/29/18 Critical Care Nurse Relationship Specialty Start Date End Date Jonathon Hahn DO [address] [place] [facility] [address] PCP - General Internal Medicine 03/17/18 Bryan Cortes MD [address] [place] [facility] [address] (Fax) PCP - Referring 1 Cardiovascular Disease 03/17/18 Brooklynn Woodson MD [address] [place] [phone] PCP - Referring 2 Clinical Cardiac Electrophysiology 04/20/19 Bryan Cortes MD [address] [place] [facility] [place] [address] (Fax) Cardiovascular Disease 03/12/18 Jonathon Hahn DO [address] [place] [facility] [address] Internal Medicine 03/12/18 [place] [address] [place] [address] Consulting Physician Clinical Cardiac Electrophysiology 05/29/18 Critical Care Nurse Relationship Specialty Start Date End Date Jonathon Hahn DO [address] [place] [facility] [place] [address] PCP - General Internal Medicine 03/17/18 Bryan Cortes MD [address] [place] [facility] [place] [address] PCP - Referring 1 Cardiovascular Disease 03/17/18 Brooklynn Woodson MD [address] [place] [phone] PCP - Referring 2 Clinical Cardiac Electrophysiology 04/20/19 Bryan Cortes MD [address] [place] [facility] [place] [address] Cardiovascular Disease 03/12/18 Jonathon Hahn DO [address] [place] [facility] [place] [address] Internal Medicine 03/12/18 Gordo Gifford MD [address] [place] [address] Consulting Physician Clinical Cardiac Electrophysiology 05/29/18 Critical Care Nurse Relationship Specialty Start Date End Date Jonathon Hahn DO [address] [place] [facility] [address] PCP - General Internal Medicine 03/17/18 Bryan Cortes MD [address] [place] [facility] [address] PCP - Referring 1 Cardiovascular Disease 03/17/18 Brooklynn Woodson MD [address] [place] [address] PCP - Referring 2 Clinical Cardiac Electrophysiology 04/20/19 Bryan Cortes MD [address] [place] [facility] [place] [address] Cardiovascular Disease 03/12/18 Jonathon Hahn DO [address] [place] [address] Internal Medicine 03/12/18 Gordo Gifford MD [address] [place] [address] Consulting Physician Clinical Cardiac Electrophysiology 05/29/18 Critical Care Nurse Relationship Specialty Start Date End Date Jonathon Hahn DO [address] [place] [address] PCP - General Internal Medicine 03/17/18 Bryan Cortes MD PCP - Referring 1 Cardiovascular Disease 03/17/18 Brooklynn Woodson MD [address] [place] [phone] PCP - Referring 2 Clinical Cardiac Electrophysiology 04/20/19 Bryan Cortes MD Cardiovascular Disease 03/12/18 Jonathon Hahn DO [address] [place] [address] Internal Medicine 03/12/18 Gordo Gifford MD [facility] [place] [address] Consulting Physician Clinical Cardiac Electrophysiology 05/29/18 Team [...] November 20, 2023 End: November 20, 2023 Critical Care Nurse Relationship Specialty Start Date End Date Jonathon Hahn DO [address] [place] [facility] [place] [address] PCP - General Internal Medicine 03/17/18 Bryan Cortes MD PCP - Referring 1 Cardiovascular Disease 03/17/18 Brooklynn Woodson MD [address] [place] [phone] PCP - Referring 2 Clinical Cardiac Electrophysiology 04/20/19 Bryan Cortes MD Cardiovascular Disease 03/12/18 Jonathon Hahn DO [address] [place] [facility] [place] [address] Internal Medicine 03/12/18 Gordo Gifford MD [address] [place] [address] Consulting Physician Clinical Cardiac Electrophysiology 05/29/18 Critical Care Nurse Relationship Specialty Start Date End Date Jonathon Hahn DO [address] [place] [facility] [place] [address] PCP - General Internal Medicine 03/17/18 Bryan Cortes MD PCP - Referring 1 Cardiovascular Disease 03/17/18 Brooklynn Woodson MD [address] [place] [phone] PCP - Referring 2 Clinical Cardiac Electrophysiology 04/20/19 Bryan Cortes MD Cardiovascular Disease 03/12/18 Jonathon Hahn DO [address] [place] [address] Internal Medicine 03/12/18 [place] [address] [place], [place] [phone] Consulting Physician Clinical Cardiac Electrophysiology 05/29/18 Critical Care Nurse Relationship Specialty Start Date End Date Jonathon Hahn DO [address] [place] [address] PCP - General Internal Medicine 03/17/18 Bryan Cortes MD PCP - Referring 1 Cardiovascular Disease 03/17/18 Brooklynn Woodson MD [address] [place] [address] PCP - Referring 2 Clinical Cardiac Electrophysiology 04/20/19 Bryan Cortes MD Cardiovascular Disease 03/12/18 Jonathon Hahn DO [address] [place] [address] Internal Medicine 03/12/18 Gordo Gifford MD [address] [place] [address] Consulting Physician Clinical Cardiac Electrophysiology 05/29/18 Critical Care Nurse Relationship Specialty Start Date End Date Jonathon Hahn DO PCP - General Internal Medicine 03/17/18 Bryan Cortes MD PCP - Referring 1 Cardiovascular Disease 03/17/18 Brooklynn Woodson MD [address] [place] [address] PCP - Referring 2 Clinical Cardiac Electrophysiology 04/20/19 Bryan Cortes MD Cardiovascular Disease 03/12/18 Jonathon Hahn DO Internal Medicine 03/12/18 Gordo Gifford MD [address] [place], [place] [phone] Consulting Physician Clinical Cardiac Electrophysiology 05/29/18 Critical Care Nurse Relationship Specialty Start Date End Date Jonathon Hahn DO PCP - General Internal Medicine 03/17/18 Bryan Cortes MD PCP - Referring 1 Cardiovascular Disease 03/17/18 Brooklynn Woodson MD [address] [place] [address] PCP - Referring 2 Clinical Cardiac Electrophysiology 04/20/19 Bryan Cortes MD Cardiovascular Disease 03/12/18 Jonathon Hahn DO Internal Medicine 03/12/18 Gordo Gifford MD [address] [place] [address] Consulting Physician Clinical Cardiac Electrophysiology 05/29/18 Team Status: Active Member Role Status Dates Jonathon Hahn DO Primary Care Provider Active Start: January 06, 2025 Jonathon Hahn DO Other Provider Active Start: January 06, 2025 Cassandra Chavez MD Attending Provider Active Sta rt: January 06, 2025 Goals (unrecognized section and content) Goals may [...] 1,500 mg, Intravenous, Administer over 1 Hours, INDUSTRIAL RELATIONS WORKER TO PROCEDURE, 1 dose, Starting on Fri12/24/23 at 0000, Until Fri12/24/23 at 1354, Other, Preoperative antibiotic, Order should be timed for day of procedure. 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 Vancomycin is preferred agent for device implants, based on national, community and local ([facility]) MRSA rates., Pre-op/Pre-Proc 1254 ($$New Bag$$ - Provider: Isidoro Rouse RN) Scheduled Medication Order 01/26/2024 01/27/2024 01/28/2024 Rivaroxaban (XARELTO) tablet 20 mg 20 mg, Oral, DAILY WITH DINNER, First dose on Fri01/28/24 at 2100, Until Discontinued, Due to the rapid onset of action [...] the stomach for this route., Indications: Atrial Fibrillation, Post-op/Post-Proc 2100 (Canceled Entry - Provider: System Discharge - Comment: Automatically canceled at discontinue of medication order) Continuous Medication Order 01/26/2024 01/27/2024 01/28/2024 Sodium chloride 0.9% IV solution 500 mL Intravenous, at 10 mL/hr, CONTINUOUS, Starting on Fri01/28/24 at 0930, Until Fri01/28/24 at 2129, KVO fluids, start the morning of procedure., Pre-op/Pre-Proc 0942 ($$New Bag$$ - Provider: Isidoro Rouse RN)1238 (Paused - Provider: LUANN Montes - Comment: Switch to gravity)1239 (Restarted - Provider: LUANN Montes)1456 (Anesthesia Volume Adjustment - Provider: ROXIE Johnson) PRN Medication Order 01/26/2024 01/27/2024 01/28/2024 Acetaminophen (TYLENOL) tablet 650 mg 650 mg, Oral, EVERY 6 HOURS NEEDED, Starting on Fri01/28/24 at 1448, Until Fri01/28/24 at 2156, Mild Pain, Maximum dose of acetaminophen is 4000 mg from all sources in 24 hours., Post-op/Post-Proc alum/mag hydrox.-simethicone oral suspension 30 mL 30 mL, Oral, EVERY 6 HOURS NEEDED, Starting on Fri01/28/24 at 1448, Until Fri01/28/24 at 2156, Indigestion, Per 5 mL is equivalent to: (Alum-Mag Hydroxide 200-225 mg and Simethicone 20 mg) and (Alum-Mag Hydroxide 200-200 mg and Simethicone 20 mg), Post-op/Post-Proc HYDROmorphone (DILAUDID) injection 0.2 mg 0.2 mg, Intravenous, EVERY 10 MINUTES NEEDED, 10 doses, Starting on Fri01/28/24 at 1210, Until Fri01/28/24 at 2156, Moderate Pain, Severe Pain, May give a total of 2mg in PACU., Recovery Iohexol (OMNIPAQUE) 300 MG/ML vial (CANCELED) NEEDED, Starting on Fri01/28/24 at 1431, Until Fri01/28/24 at 1455, Intra-op/Intra-Proc 1431 (Given - Provid er: Brooklynn Woodson MD - Comment: total for whole case) Lidocaine (XYLOCAINE) 10 mg/mL injection (CANCELED) NEEDED, Starting on Fri01/28/24 at 1302, Until Fri01/28/24 at 1450, Intra-op/Intra-Proc 1302 (Given - Provid er: Ash Lewis DO) magnesium oxide (MAG-OX) tablet 800 mg 800 mg, Oral, ADMINISTER DIRECTED, Starting on Fri01/28/24 at 1448, Until Fri01/28/24 at 2156, See admin instructions, For Magnesium 1.6 - 2.0, give 800 mg of Magnesium oxide, Post-op/Post-Proc Melatonin tablet 3 mg 3 mg, Oral, DAILY AT BEDTIME NEEDED, Starting on Fri01/28/24 at 1448, Until Fri01/28/24 at 2156, Insomnia, Post-op/Post-Proc Ondansetron 4mg/2ml (ZOFRAN) injection 4 mg 4 mg, Intravenous, ONCE NEEDED, 1 dose, Starting on Fri01/28/24 at 1210, Until Fri01/28/24 at 215, Nausea / Vomiting, FIRST line antiemetic, Do not administer within 6 hours of intra-operative dose., Recovery Polyethylene glycol (MIRALAX) packet 17 g 17 g, Oral, DAILY NEEDED, Starting on Fri01/28/24 at 1448, Until Fri01/28/24 at 2156, Constipation 1st Line, Post-op/Post-Proc Potassium chloride (K-DUR) tablet ER 40-60 mEq 40-60 mEq, Oral, ADMINISTER DIRECTED, Starting on Fri01/28/24 at 1448, Until Fri01/28/24 at 2156, See admin instructions, If Cr less than 2.0 mg/dL 1. For Potassium 3.6 - 4.0, give 40 mEq of Potassium Chloride orally, recheck in the AM. 2. For Potassium less than 3.6, give 60 mEq Potassium Chloride orally, recheck in 8 hours. 3. If potassium is low please administer magnesium first if indicated., Post-op/Post-Proc Vancomycin HCl in NaCl (Vancocin) 1,500 mg 290 ml premade IVPB (COMPLETED) 1,500 mg, Intravenous, Administer over 1 Hours, INDUSTRIAL RELATIONS WORKER TO PROCEDURE, 1 dose, Starting on Fri01/28/24 at 0000, Until Fri01/28/24 at 1043, Other, Preoperative antibiotic, Order should be timed for day of procedure. 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 Vancomycin is preferred agent for device implants, based on national, community and local ([facility]) MRSA rates., Pre-op/Pre-Proc 0943 ($$New Bag$$ - Provider: Isidoro Rouse RN) [...] BE BASED ON THE PRIMARY CLINICAL RECORDS. [employer] [facility]. provides no warranty or guarantee of the accuracy or completeness of information in this document.
== END 2025-01-14 15:48 | disposition home or self-care (01) ==
PROVIDERS: PCP Internal Medicine
DX: I48.0 Paroxysmal atrial fibrillation (principal)
CPT/HCPCS: 93005

== ENCOUNTER 2025-01-19 09:17 | Outpatient (OUT) | payer MEDICARE, OTHER, SELFPAY ==
--- OUTSIDE RECORDS SUMMARY | 2025-01-14 11:45 | XMS_ITS | Encounter Summary ---
Author Organization [facility] enter Address [address] [place] [address] Care Team Providers Care Correspondence Section Supervisor Name Role Phone Bryan Lacy MD Unavailable [phone] Jonathon Hahn DO Unavailable [phone] Jonathon Hahn DO Primary Care Provider [phone] Bryan Lacy MD Unavailable Gordo Gifford MD Unavailable Stuart Woodson MD Unavailable [phone] Reason for Visit * Radiology (Routine) - New Request Specialty Diagnoses / Procedures Referred By Contac t Referred To Contact Diagnoses Paroxysmal atrial fibrillation Procedures [facility]IN[facility] Dottie Brown APRN-OPTICAL GLASS INSPECTOR [address] [place] [address] Phone: tel: fax: Referral ID Status Reason Start Date Expiration Date V isits Requested Visits Authorized [id number] New Request 01/14/2025 02/08/2026 1 1 Encounter Details Date Type Department Care Team (Latest Contact Info) Description 01/14/2025 11:45 AM EDT Ancillary Procedure [facility] [address] [facility] [address] [place] [address] Paroxysmal atrial fibrillation Social History [...] PM EDT Appointment Imaging [facility] [address] [place] [address] [address] [place] [address] Hafsa Avalos, FRINGING MACHINE OPERATOR-OPTICAL GLASS INSPECTOR [address] [place] [phone] 03/01/2025 3:00 PM EDT Office Visit [facility] [address] [place] [phone] Kt Merritt MD [address] [place] [phone] 03/18/2025 9:00 AM EDT Appointment [facility] [address] [facility] 2nd [place] [address] Dottie Brown, FRINGING MACHINE OPERATOR-OPTICAL GLASS INSPECTOR [address] [place] [phone] 11/01/2025 9:30 AM EDT Office Visit [facility] Guajardo [facility] [address] [place] [phone] Dottie Brown, FRINGING MACHINE OPERATOR-OPTICAL GLASS INSPECTOR [address] [place] [phone] Pending Results Name Type Priority Associated Diagnoses Date /Time [facility]OLTER MONITOR - CUSTODIAL Cardiac Services Routine Paroxysmal atrial fibrillation 01/14/2025 11:40 AM EDT Scheduled Procedures Name Priority Associated Diagnoses Date/Ti me CARDIOVERSION (EP LAB) Persistent atrial fibrillation documented as of this encounter Visit Diagnoses Diagnosis Paroxysmal atrial fibrillation Atrial fibrillation documented in this encounter Care Teams Correspondence Section Supervisor Relationship Specialty Start Date End Date Jonathon Hahn DO PCP - General Internal Medicine 03/17/18 Bryan Lacy MD PCP - Referring 1 Cardiovascular Disease 03/17/18 Stuart Woodson MD [address] [place] [phone] PCP - Referring 2 Clinical Cardiac Electrophysiology 04/20/19 Bryan Lacy MD Cardiovascular Disease 03/12/18 Jonathon Hahn DO Internal Medicine 03/12/18 Gordo Gifford MD [address] [place] [address] Consulting Physician Clinical Cardiac Electrophysiology 05/29/18 documented as of this encounter
--- OUTSIDE RECORDS SUMMARY | 2025-01-19 09:21 | XMS_ITS | Clinical Summary ---
Author Organization [facility] Address [address] [place] [address] Care Team Providers Care Teacher Of The Deaf Name Role Phone Unavailable Primary Care Provider [...]
--- OUTSIDE RECORDS SUMMARY | 2025-01-19 09:21 | XMS_ITS | Encounter Summary ---
Author Organization [facility] enter Address [address] [place] [address] Care Team Providers Care Hand Compositor Name Role Phone Bryan Lacy MD Unavailable Jonathon Hahn DO Unavailable [phone] Jonathon Hahn DO Primary Care Provider [phone] Bryan Lacy MD Unavailable Gordo Gifford MD Unavailable Stuart Woodson MD Unavailable [phone] Reason for Referral * (Routine) - New Request Specialty Diagnoses / Procedures Referred By Contac t Referred To Contact Diagnoses Persistent atrial fibrillation Procedures CASE REQUEST - EP CARDIOVERSION EXTERNAL Geeta Juárez APRN-CNP [address] [place] [phone] Phone: tel: fax: Referral ID Status Reason Start Date Expiration Date V isits Requested Visits Authorized [id number] New Request 01/17/2025 02/11/2026 1 1 * Radiology (Routine) - New Request Specialty Diagnoses / Procedures Referred By Contac t Referred To Contact Diagnoses Paroxysmal atrial fibrillation Procedures ECG Geeta Juárez APRN-CNP [address] [place] [phone] Phone: tel: fax: Referral ID Status Reason Start Date Expiration Date V isits Requested Visits Authorized [id number] New Request 01/14/2025 02/08/2026 1 1 * Radiology (Routine) - New Request Specialty Diagnoses / Procedures Referred By Marin poole Referred To Contact Diagnoses Paroxysmal atrial fibrillation Procedures HOLTER MONITOR - CUSTODIAL Geeta Juárez APRN-CNP [address] [place] [phone] Phone: tel: fax: Referral ID Status Reason Start Date Expiration Date V isits Requested Visits Authorized [id number] New Request 01/14/2025 02/08/2026 1 1 Reason for Visit * Reason Comments Follow-up Encounter Details Date Type Department Care Team (Latest Contact Info) Description 01/14/2025 Documentation Only [facility] Gu[facility]ardo [facility] [address] [place] [address] Geeta Juárez APRN-CNP [address] [place] [phone] Paroxysmal atrial fibrillation (Primary Dx); Persistent atrial fibrillation Social History Tobacco Use Types [...] of Assessment Author No 03/11/2018 4:39 PM EDAreli Hartley RN * Do you have difficulty dressing or bathing (5 yrs or older)? Answer Date of Assessment Author No 03/11/2018 4:39 PM EDAreli Hartley RN * Because of a physical, mental, or emotional condition, do you have difficulty doing errands alone such as visiting a doctor's office or shopping (5 yrs or older)? Answer Date of Assessment Author No 03/11/2018 4:39 PM EDAreli Hartley RN documented as of this encounter Mental Status * Because of a physical, mental, or emotional condition, do you have serious difficulty concentrating, remembering, or making decisions (5 yrs or older)? Answer Entry Date Author No 03/11/2018 4:39 PM Areli Brown RN documented in this encounter Progress Notes * SHYANNE Mathur - 01/14/2025 11:36 AM EDT Received [employer] message from patient: Patient notes he was at his PCP 100-125 and took and EKG that showed atrial fibrillation Went to the ER and was shown to be atrial fibrillation but his heart rate slowed down so they endedup sending him home. He was told to take an extra dose of Metoprolol. Patient notes that he has no symptoms and he notes that he never really knows when he is in atrial fibrillation. BP was checked today and it was 140/105 but he states he had been working outside so was a little higher than normal. HR was at 69 today when he checked it. He is currently taking 25 mg of Metoprolol Succinate once per day. He is also taking 40 mg of Lisinopril. He is post Watchman and is on Plavix 75 mg daily. Patient does not have any device to confirm his rhythm. Will check an ECG to confirm he is back in SR. If so, will recommend continuing metoprolol and willhave patient wear a 3 day Holter monitor prior to his next OV. If not, will plan for cardioversion. Reviewed ECG, patient remains in atrial fibrillation. Cardioversion ordered * Mena King RN - 01/14/2025 11:36 AM EDT Geeta reviewed 12 lead and has ordered a CT/cardioversion for pt. LMOM and sent pt instructions viamychart. Need to hold lisinopril am. Pt to message or call back if any questions. PT has a watchman. documented in this encounter Miscellaneous Notes * Addendum Note - SHYANNE Mathur - 01/14/2025 11:36 AM EDTAddended by: GEETA JUÁREZ on: 01/14/2025 01:12 PM Modules accepted: Orders * Addendum Note - SHYANNE Mathur - 01/14/2025 11:36 AM EDTAddended by: GEETA JUÁREZ on: 01/17/2025 01:06 PM Modules accepted: Orders documented in this encounter Plan of Treatment Upcoming Encounters Date Type Department Care Team (Late st Contact Info) Description 03/01/2025 1:45 PM EDT Appointment Imaging [facility] [address] [facility] 2nd [place] [address] Hafsa Avalos APRN-CNP [address] [place] [address] 03/01/2025 3:00 PM EDT Office Visit [facility] [address] [place] [phone] Kt Merritt MD [address] [place] [address] 03/18/2025 9:00 AM EDT Appointment Heart and Vascular [facility] [address] [facility] 2nd [place] [address] Geeta Juárez, CADD MANAGER-MILLING/POLISHING OPERATOR [address] [place] [phone] 11/01/2025 9:30 AM EDT Office Visit [facility] [address] [place] [phone] Geeta Juárez, CADD MANAGER-MILLING/POLISHING OPERATOR [address] [place] [phone] Pending Results Name Type Priority Associated Diagnoses Date /Time HOLTER MONITOR - CUSTODIAL Cardiac Services Routine Paroxysmal atrial fibrillation 01/14/2025 11:40 AM EDT Scheduled Orders Name Type Priority Associated Diagnoses Orde r Schedule HOLTER MONITOR - SIZING MACHINE OPERATOR Cardiac Services Routine Paroxysmal atrial fibrillation Expected: 10/31/2025, Expires: 01/14/2026 ECG ECG Routine Paroxysmal atrial fibrillation Ordered: 01/14/2025 Scheduled Procedures Name Priority Associated Diagnoses Date/Ti me CARDIOVERSION (EP LAB) Persistent atrial fibrillation documented as of this encounter Visit Diagnoses Diagnosis Paroxysmal atrial fibrillation- Primary Atrial fibrillation Persistent atrial fibrillation Atrial fibrillation documented in this encounter Care Teams Hand Compositor Relationship Specialty Start Date End Date Jonathon Hahn DO PCP - General Internal Medicine 03/17/18 Bryan Lacy MD PCP - Referring 1 Cardiovascular Disease 03/17/18 Stuart Woodson MD [address] [place] [phone] PCP - Referring 2 Clinical Cardiac Electrophysiology 04/20/19 Bryan Lacy MD Cardiovascular Disease 03/12/18 Jonathon Hahn DO Internal Medicine 03/12/18 Gordo Gifford MD [address] [place] [address] Consulting Physician Clinical Cardiac Electrophysiology 05/29/18 documented as of this encounter
--- OUTSIDE RECORDS SUMMARY | 2025-01-19 09:21 | XMS_ITS | Encounter Summary ---
Author Organization [facility] enter Address [address] [place] [address] Care Team Providers Care Credit Collections Rep Name Role Phone Bryan Lacy MD Unavailable Jonathon Hahn DO Unavailable [phone] Jonathon Hahn DO Primary Care Provider [phone] Bryan Lacy MD Unavailable [phone] Gordo Gifford MD Unavailable Stuart Woodson MD Unavailable [phone] Reason for Visit * Reason Onset Date Comments Appointment 01/14/2025 Encounter Details Date Type Department Care Team (Late st Contact Info) Description 01/14/2025 Telephone Central Scheduling [address] [place] [address] Verna Owusu Appointment Social History Tobacco Use Types Packs/Day Years [...] Author No 03/11/2018 4:39 PM EDT Areli Kendall, RN * Are you blind or do [...] Areli Kendall RN documented in this encounter Miscellaneous Notes * Telephone Encounter - Verna Owusu - 01/14/2025 11:13 AM EDT Called pt and got him scheduled for [address] and apt w Dr. Merritt. Ishaan Coates [phone] needs a CT & René appt please documented in this encounter Plan of Treatment Upcoming Encounters Date Type Department Care Team (Late st Contact Info) Description 03/01/2025 1:45 PM EDT Appointment Imaging [facility] [address] [facility] 2nd [place] [address] Hafsa Avalos, MANAGER COSMETICS-PENSION ADMINISTRATOR [address] [place] [address] 03/01/2025 3:00 PM EDT Office Visit [facility] [address] [place] [phone] Kt Merritt MD [address] [place] [address] 03/18/2025 9:00 AM EDT Appointment Heart and Vascular [facility] [address] 2nd [place] [address] Dottie Brown, MANAGER COSMETICS-PENSION ADMINISTRATOR [address] [place] [phone] 11/01/2025 9:30 AM EDT Office Visit [facility] [address] [place] [phone] Dottie Brown, MANAGER COSMETICS-PENSION ADMINISTRATOR [address] [place] [phone] Scheduled Procedures Name Priority Associated Diagnoses Date/Ti me CARDIOVERSION (EP LAB) Persistent atrial fibrillation documented as of this encounter Visit Diagnoses Not on filedocumented in this encounter Care Teams Credit Collections Rep Relationship Specialty Start Date End Date Jonathon Hahn DO PCP - General Internal Medicine 03/17/18 Bryan Lacy MD PCP - Referring 1 Cardiovascular Disease 03/17/18 Stuart Woodson MD [address] [place] [phone] PCP - Referring 2 Clinical Cardiac Electrophysiology 04/20/19 Bryan Lacy MD Cardiovascular Disease 03/12/18 Jonathon Hahn DO Internal Medicine 03/12/18 Gordo Gifford MD [address] [place] [address] Consulting Physician Clinical Cardiac Electrophysiology 05/29/18 documented as of this encounter
--- OUTSIDE RECORDS SUMMARY | 2025-01-19 09:21 | XMS_ITS | Encounter Summary ---
Author Organization [facility] enter Address [address] [place] [address] Care Team Providers Care Taxicab Starter Name Role Phone Bryan Lacy MD Unavailable Jonathon Hahn DO Unavailable [phone] Jonathon Hahn DO Primary Care Provider [phone] Bryan Lacy MD Unavailable Gordo Gifford MD Unavailable Stuart Woodson MD Unavailable [phone] Encounter Details Date Type Department Care Team (Late st Contact Info) Description 04/26/2022 Telephone Cardiovascular Imaging Lab [facility] [address] [place] [phone] Nestor Preston RN Social History Tobacco [...] PM EDT Appointment Imaging [facility] [address] [place] [phone] Hafsa Avalos, YOUTH AGENT-MOVING PICTURE OPERATOR [address] [place] [phone] 03/01/2025 3:00 PM EDT Office Visit [facility] [address] [place] [phone] Kt Merritt MD [address] [place] [address] 03/18/2025 9:00 AM EDT Appointment [facility] and Vascular [facility] [address] [phone] Dottie Brown, YOUTH AGENT-MOVING PICTURE OPERATOR [address] [place] [phone] 11/01/2025 9:30 AM EDT Office Visit [facility] [address] [place] [phone] Dottie Brown, YOUTH AGENT-MOVING PICTURE OPERATOR [address] [place] [phone] Scheduled Procedures Name Priority Associated Diagnoses Date/Ti me CARDIOVERSION (EP LAB) Persistent atrial fibrillation documented as of this encounter Visit Diagnoses Not on filedocumented in this encounter Care Teams Taxicab Starter Relationship Specialty Start Date End Date Jonathon Hahn DO PCP - General Internal Medicine 03/17/18 Bryan Lacy MD PCP - Referring 1 Cardiovascular Disease 03/17/18 Stuart Woodson MD [address] [place] [phone] PCP - Referring 2 Clinical Cardiac Electrophysiology 04/20/19 Bryan Lacy MD Cardiovascular Disease 03/12/18 Jonathon Hahn DO Internal Medicine 03/12/18 Gordo Gifford MD [address] [place] [address] Consulting Physician Clinical Cardiac Electrophysiology 05/29/18 documented as of this encounter
--- OUTSIDE RECORDS SUMMARY | 2025-01-19 09:21 | XMS_ITS | Encounter Summary ---
Author Organization [facility] enter Address [address] [place] [address] Care Team Providers Care Coroner Name Role Phone Bryan Lacy MD Unavailable [phone] Jonathon Hahn DO Unavailable [phone] Jonathon Hahn DO Primary Care Provider Bryan Lacy MD Unavailable [phone] Gordo Gifford MD Unavailable Stuart Woodson MD Unavailable [phone] Reason for Referral * MRI/CAT Scan (Routine) - New Request Specialty Diagnoses / Procedures Referred By Contac t Referred To Contact Diagnoses Enlargement of aortic root Procedures CT ANGIO CHEST (NONCORONARY) CHG CT ANGIOGRAPHY CHEST W/CONTRAST/NONCONTRAST Hafsa Avalos APRN-CNP [address] [place] [phone] Phone: tel: fax: Referral ID Status Reason Start Date Expiration Date V isits Requested Visits Authorized [id number] New Request 01/14/2025 02/08/2026 1 1 Encounter Details Date Type Department Care Team (Late st Contact Info) Description 01/14/2025 Orders Only [facility] [address] [place] [address] Hafsa Avalos APRN-CNP [address] [place] [phone] Enlargement of aortic root (Primary Dx) Social History Tobacco Use Types Packs/Day Years [...] of Assessment Author No 03/11/2018 4:39 PM WARNERT Areli Kendall RN * Do you have [...] of Assessment Author No 03/11/2018 4:39 PM Areli Brown RN documented as of this encounter Mental Status * Because of a physical, mental, or emotional condition, do you have serious difficulty concentrating, remembering, or making decisions (5 yrs or older)? Answer Entry Date Author No 03/11/2018 4:39 PM Areli Brown RN documented in this encounter Plan of Treatment Upcoming Encounters Date Type Department Care Team (Late st Contact Info) Description 03/01/2025 1:45 PM EDT Appointment Imaging [facility] [address] [facility] 2nd [place] [address] Hafsa Avalos, HARVESTING CONTRACTOR-AUDITING CONTROL CLERK [address] [place] [phone] 03/01/2025 3:00 PM EDT Office Visit [facility] [address] [place] [phone] Kt Merritt MD [address] [place] [address] 03/18/2025 9:00 AM EDT Appointment Heart and Vascular [facility] [address] [facility] 2nd [place] [phone] Dottie Brown, HARVESTING CONTRACTOR-AUDITING CONTROL CLERK [address] [place] [phone] 11/01/2025 9:30 AM EDT Office Visit [facility] [address] [place] [phone] Dottie Brown, HARVESTING CONTRACTOR-AUDITING CONTROL CLERK [address] [place] [phone] Scheduled Orders Name Type Priority Associated Diagnoses Orde r Schedule CT ANGIO CHEST (NONCORONARY) Imaging Routine Enlargement of aortic root Expected: 01/14/2025, Expires: 01/14/2026 Scheduled Procedures Name Priority Associated Diagnoses Date/Ti me CARDIOVERSION (EP LAB) Persistent atrial fibrillation documented as of this encounter Visit Diagnoses Diagnosis Enlargement of aortic root- Primary documented in this encounter Care Teams Coroner Relationship Specialty Start Date End Date Jonathon Hahn DO PCP - General Internal Medicine 03/17/18 Bryan Lacy MD PCP - Referring 1 Cardiovascular Disease 03/17/18 Stuart Woodson MD [address] [place], [place] [address] [place] [address] PCP - Referring 2 Clinical Cardiac Electrophysiology 04/20/19 Bryan Lacy MD Cardiovascular Disease 03/12/18 Jonathon Hahn DO Internal Medicine 03/12/18 Gordo Gifford MD [address] [place] [address] Consulting Physician Clinical Cardiac Electrophysiology 05/29/18 documented as of this encounter
--- OUTSIDE RECORDS SUMMARY | 2025-01-19 09:21 | XMS_ITS | Patient Health Record ---
Author Organization [facility] Address [address] [facility] [address] [place] [address] Care Team Providers Care Ice Cream Dipper Name Role Phone CELENA HONG MD Primary Care Provider Unavail able John Escobarnath Unavailable [phone] Titi Garrison DO Unavailable Unavailable Reason For [...] Status Risk Notes Problem Sick sinus syndrome (28467432) Sick sinus syndrome (I49.5) Active confirmed Problem Cardiovascular stress test abnormal (605321895) Abnormal stress test (R94.39) Active confirmed Problem Atrial fibrillation (93540518) AF (paroxysmal atrial fibrillation) (I48.0) Active confirmed Problem Essential hypertension (56430397) HTN, goal below 140/90 (I10) Active confirmed Problem Cardiac pacemaker in situ (473619432) S/P placement of cardiac pacemaker (Z95.0) Active confirmed Problem History of cerebrovascular accident without residual deficits (702285623) H/O TIA (transient ischemic attack) and stroke (Z86.73) Active confirmed Problem Personal risk factor (381409368) At risk for coronary artery disease (Z91.89) Active confirmed Plan Of Treatment Pending Test Test Name Order Date Nuclear Cardiolite Stress Test 25909, 93 015, A9500 08/08/2017 LHC/Graft/LV 96926 08/15/2017 PPM SINGLE Insertion of new transvenous electrode(s); atrial 09/12/2017 Pacer check Dual Chamber device [place] [address] 08/08/2017 Loop recoder removal [id number] 09/12/2017 Insurance Providers Payer Name Payer Address Payer Phone Subscriber Number Group Number Insured Name Patient Relationship to Insured Coverage Start Date Coverage End Date MEDICARE [employer] [address] [address] [place] [address] [id number] KRISTEN COWAN Self - patient is the insured [facility] [address] [place] [address] [id number] KRISTEN COWAN Self - patient is the insured Medical (General) History Medical History History ICD Code TIA 2016 htn hyperlipidemia pacemaker atrial fibrilation Surgical History Surgery Date(Month/Year) l tkr 2010 appey 1972 pacemaker placement 09/2017 Hospitalization History Reason Date(Month/Year) No cardiac hospitalizations
--- OUTSIDE RECORDS SUMMARY | 2025-01-19 09:21 | XMS_ITS | Encounter Summary ---
Author Organization [facility] enter Address [address] [place] [address] Care Team Providers Care Scheduling Assistant Name Role Phone Bryan Lacy MD Unavailable [phone] Jonathon Hahn DO Unavailable [phone] Jonathon Hahn DO Primary Care Provider Bryan Lacy MD Unavailable Gordo Gifford MD Unavailable Stuart Woodson MD Unavailable Reason for Visit * Reason Onset Date Comments Advice Only 01/06/2025 Change In Symptoms 01/06/2025 Encounter Details Date Type Department Care Team (Late st Contact Info) Description 01/06/2025 Telephone Central Scheduling [address] [place] [address] Tanja Sanchez Advice Only; Change In Symptoms Social History Tobacco Use Types Packs/Day Years [...] encounter Miscellaneous Notes * Telephone Encounter - Anahi Castillo RN - 01/14/2025 1:35 PM EDT Called patient and let him know that Dottie wanted to get and EKG to see if still out of rhythm. If EKG still shows atrial fibrillation then we will plan for cardioversion. EKG order was faxed to PCP with confirmation obtained. Patient agreeable with the plan. * Telephone Encounter - Anahi Castillo RN - 01/14/2025 11:15 AM EDT Patient notes he was at his PCP and his heart rate was 100-125. Did an EKG that showed atrial fibrillation and his PCP sent him to the ER. Went to the ER and was shown to be atrial fibrillation but his heart rate slowed down so they ended up sending him home. He was told to [...] have any device to confirm his rhythm. States overall he is feeling well. * Telephone Encounter - Anahi Castillo RN - 01/13/2025 9:56 AM EDT Attempted to call patient at this time to try and obtain some more information in regards to his recent ER visit. No answer at this time so left a message with our callback number. * Telephone Encounter - Tanja Sanchez - 01/06/2025 3:39 PM EDT Patient Symptom Message Provider: Dottie Brown Date of Last Office Visit: 11/02/24 Patients Symptom(s) (including location) : Pt was seen in ER with low HR. Was told to call EP and take Metoprolol Duration of symptom/complaint: this week Frequency: daily High Risk Questions (If Yes, route as high priority & warm transfer to RN) Actively Having Chest Pain: no Pain level and location. scale of 1-10 : 0 (No Pain) Shortness of Breath: no Fainting or dizziness:no Pt has complained of any of the following symptoms: Slow or Fast Heart Rate Additional comments: Low HR documented in this encounter Plan of Treatment Upcoming Encounters Date Type Department Care Team (Late st Contact Info) Description 03/01/2025 1:45 PM EDT Appointment Imaging [facility] [address] [facility] 2nd [place] [address] Hafsa Avalos, MOLD PARTER-FIG WASHER [address] [place] [address] 03/01/2025 3:00 PM EDT Office Visit Insurance Claim Approver [facility] [address] [place] [address], [place] [address] Kt Merritt MD [address] [place] [id number] 03/18/2025 9:00 AM EDT Appointment Heart and Vascular [facility] [address] [facility] 2nd [place] [phone] Dottie Brown, MOLD PARTER-FIG WASHER [address] [place] [phone] 11/01/2025 9:30 AM EDT Office Visit Insurance Claim Approver [facility] [address] [place] [address], [place] [address] Dottie Brown, MOLD PARTER-FIG WASHER [address] [place] [phone] Scheduled Procedures Name Priority Associated Diagnoses Date/Ti me CARDIOVERSION (EP LAB) Persistent atrial fibrillation documented as of this encounter Visit Diagnoses Not on filedocumented in this encounter Care Teams Scheduling Assistant Relationship Specialty Start Date End Date Jonathon Hahn DO PCP - General Internal Medicine 03/17/18 Bryan Lacy MD PCP - Referring 1 Cardiovascular Disease 03/17/18 Stuart Woodson MD [address] [place] [phone] PCP - Referring 2 Clinical Cardiac Electrophysiology 04/20/19 Bryan Lacy MD Cardiovascular Disease 03/12/18 Jonathon Hahn DO Internal Medicine 03/12/18 Gordo Gifford MD [address] [place] [address] Consulting Physician Clinical Cardiac Electrophysiology 05/29/18 documented as of this encounter
--- OUTSIDE RECORDS SUMMARY | 2025-01-19 09:21 | XMS_ITS | Encounter Summary ---
Author Organization [facility] enter Address [address] [place] [address] Care Team Providers Care Sign Builder Supervisor Name Role Phone Bryan Lacy MD Unavailable [phone] Jonathon Hahn DO Unavailable [phone] Jonathon Hahn DO Primary Care Provider [phone] Bryan Lacy MD Unavailable [phone] Gordo Gifford MD Unavailable Stuart Woodson MD Unavailable [phone] Reason for Visit * Reason Onset Date Comments Outside Medical Records Request 01/07/2025 Encounter Details Date Type Department Care Team (Late st Contact Info) Description 01/07/2025 Telephone [facility] [address] [place] [phone] Lesia Zurita Outside Medical Records Request Social History Tobacco Use Types Packs/Day Years [...] encounter Miscellaneous Notes * Telephone Encounter - Lesia Zurita - 01/07/2025 8:19 AM EDT Received ER visit notes from [facility]. Sent to Sara. documented in this encounter Plan of Treatment Upcoming Encounters Date Type Department Care Team (Late st Contact Info) Description 03/01/2025 1:45 PM EDT Appointment Imaging [facility] [address] [place] [address] 2nd [place] [address] Hafsa Avalos, NEWS VIDEOTAPE EDITOR-ARTIST SUSPECT [address] [place] [phone] 03/01/2025 3:00 PM EDT Office Visit [facility] Micky Casandra [facility] [address] [place] [phone] Kt Merritt MD [address] [place] [phone] 03/18/2025 9:00 AM EDT Appointment Heart and Vascular [facility] [address] [facility] 2nd [place] [phone] Dottie Brown, NEWS VIDEOTAPE EDITOR-ARTIST SUSPECT [address] [place] [phone] 11/01/2025 9:30 AM EDT Office Visit [facility] [address] [place] [phone] Dottie Brown, NEWS VIDEOTAPE EDITOR-ARTIST SUSPECT [address] [place] [phone] Scheduled Procedures Name Priority Associated Diagnoses Date/Ti me CARDIOVERSION (EP LAB) Persistent atrial fibrillation documented as of this encounter Visit Diagnoses Not on filedocumented in this encounter Care Teams Sign Builder Supervisor Relationship Specialty Start Date End Date Jonathon Hahn DO PCP - General Internal Medicine 03/17/18 Bryan Lacy MD PCP - Referring 1 Cardiovascular Disease 03/17/18 Stuart Woodson MD [address] [place] [phone] PCP - Referring 2 Clinical Cardiac Electrophysiology 04/20/19 Bryan Lacy MD Cardiovascular Disease 03/12/18 Jonathon Hahn DO Internal Medicine 03/12/18 Gordo Gifford MD [address] [place] [address] Consulting Physician Clinical Cardiac Electrophysiology 05/29/18 documented as of this encounter
--- OUTSIDE RECORDS SUMMARY | 2025-01-19 09:21 | XMS_ITS | Clinical Summary ---
Author Organization [facility] Address [address] [place] [address] Care Team Providers Care Distribution Warehouse Manager Name Role Phone Bryan Lacy MD Unavailable Jonathon Hahn DO Unavailable [phone] Jonathon Hahn DO Primary Care Provider [phone] Bryan Lacy MD Unavailable Gordo Gifford MD Unavailable Stuart Woodson MD Unavailable [phone] Allergies No known active allergies Medications magnesium oxide 400 MG tablet Take 1 tablet by mouth daily. Active atorvastatin 20 MG tablet Take 1 tablet by mouth daily. 30 tablet 0 Active Cyanocobalamin (Vitamin B12) 100 MCG tablet Take 1 tablet by mouth daily. Active Metoprolol succinate 25 MG tablet XL TAKE 1 TABLET BY MOUTH DAILY 90 tablet 3 3 Active acetaminophen (TYLENOL) 500 MG tablet Take 1 tablet by mouth every 6 hours as needed for Mild Pain. PRN for right hip pain Active Clopidogrel 75 MG tablet Take 1 tablet by mouth daily. 90 tablet 3 5 Active Lisinopril 40 MG tablet Take 1 tablet by mouth daily. Patient taking 20 mg daily 90 tablet 3 5 Active Additional Information Patient taking differently:40 mg Oral DAILY,(No instructions reported), Reported on 12/15/2024 Active Problems Problem Noted Date Diagnosed Date Atrial fibrillation, unspecified type 01/28/2024 Presence of left atrial appe ndage closure device composed of nickel-titanium alloy with polyethylene terephthalate membrane 03/12/2022 Status post ablation of atrial fibrillation 03/31 PAF (paroxysmal atrial fibrillation) 06/17/2018 Overview (06/17/2018): Added automatically from request for surgery [id number] Sick sinus syndrome 03/17/2018 Assessment & Plan [...] function improved , QUINN resumed Will attempt protestant and maintenance of NSR to improve EF [...] recommendations Pocket + Pseudomonas Blood cultures NGTD 2/5 Now on 14 day course of Cefepime. Afebrile, WBC 5.8 Continue packing Q day. Cardiac device, implant, or graft infection or inflammation, initial encounter 03/11/2018 Overview (03/11/2018): Added automatically from request for surgery [id number] Atrial flutter 03/11/2018 Overview (03/16/2018): Added automatically from request for surgery [id number] Resolved Problems Problem Noted Date Diagnosed Date [...] Abn SNRT. Started on Sotalol for suppression [id number] Continue Xarelto Encounters Date Type Department Care Team Description 01/18/2025 Telephone [facility] Micky Guajardo [facility] [address] [place] [address] Kimberley Peralta Appointment 01/14/2025 11:45 AM EDT Ancillary Procedure [facility] [address] [place] [address] Paroxysmal atrial fibrillation 01/14/2025 Documentation Only [facility] [address] [place] [phone] Dottie Brown APRN-CNP Paroxysmal atrial fibrillation (Primary Dx); Persistent atrial fibrillation 01/14/2025 Telephone Central Scheduling [address] [place] [address] Verna Owusu Appointment 01/14/2025 Orders Only [facility] [address] [place] [address] Hafsa Avalos APRN-CNP Enlargement of aortic root (Primary Dx) 01/07/2025 Telephone [facility] [address] [place] [address] Lesia Zurita Outside Medical Records Request 01/06/2025 Telephone Central Scheduling [address] [place] [phone] Tanja Sanchez Advice Only; Change In Symptoms 11/30/2024 Nurse Triage [facility] [address] [place] [phone] Lindsay Johnson RN 11/29/2024 Documentation Only [facility] [address] [place] [phone] Dottie Brown APRN-CNP Dyspnea on exertion (Primary Dx) 11/05/2024 6:42 AM EDT - 11/05/2024 11:59 PM EDT Hospital Encounter Cardiovascular Imaging Lab [facility] [address] [place] [phone] Dottie Brown APRN-CNP Discharge Disposition: Home or Self Care 11/02/2024 10:00 AM EDT Ancillary Procedure [facility] [address] [place] [address] [address] [place] [address] PVC's (premature ventricular contractions) 11/02/2024 9:30 AM EDT Office Visit [facility] [address] [place] [address] Dottie Brown APRN-RECORD TESTER Paroxysmal atrial fibrillation (Primary Dx); Atypical atrial flutter; PVC's (premature ventricular contractions); Dyspnea on exertion 10/25/2024 Refill [facility] [address] [place] [phone] Fátima Colon APRN-CNP 10/25/2024 Refill [facility] [address] [place] [phone] Fátima Colon APRN-DEANGELO from Last 3 Months Family History Medical [...] Appointment Imaging [facility] [address] [place] [facility] [place] [address] Hafsa Avalos, TELEMETRY MONITOR-RECORD TESTER [address] [place] [phone] 03/01/2025 3:00 PM EDT Office Visit [facility] [address] [place] [address], [place] [address] Kt Merritt MD [address] [place] [address], [place] [address] 03/18/2025 9:00 AM EDT Appointment [facility] [address] [place] [phone] Dottie Brown, TELEMETRY MONITOR-RECORD TESTER [address] [place] [phone] 11/01/2025 9:30 AM EDT Office Visit [facility] [address] [place] [address] Dottie Brown, TELEMETRY MONITOR-RECORD TESTER [address] [place] [phone] Scheduled Procedures Name Priority Associated Diagnoses Date/Ti me CARDIOVERSION (EP LAB) Persistent atrial fibrillation Health Maintenance Due Date Last Done Comments HEPATITIS C VIRUS SCREENING 1950 TETANUS 1950 TDAP (ADULT) 09/23/1971 LIPID SCREENING 1992 ZOSTER (SHINGLES) VACCINE (1 of 2) 2002 COVID-19 VACCINE (2 - 2023-2 5 season) 2024 12/04/2021 COLORECTAL CANCER SCREENING DISCUSSION 04/15/2024 04/15/2023, 04/03/2020 INFLUENZA VACCINE (#1) 2025 , 05/01/2018 RSV VACCINE (1 - 1-dose 75+ series) 09/23/2027 PNEUMOCOCCAL VACCINE SERIES Completed 12/28, 12/03/2016 HEP B VACCINE Aged Out No longer elig ible based on patient's age to complete this topic Medical Devices Implanted Type Area Order Picker/Assembler Device Identifier Shelf Expiration Date Model / Serial / Lot Azur 35 Implanted:Qty: 1 on 01/28/2024 by Harinder Varma MD at [facility] Coil N/A: Heart HELICAL HYDROCOIL EMBOLIZATION SYSTEM / [id number] / Azur 35 Implanted:Qty: 1 on 01/28/2024 by Harinder Varma MD at [facility] Coil N/A: Heart 04/29/2025 HELICAL HYDROCOIL EMBOLIZATION SYSTEM / [id number] / [id number] Terumo Azur Cx35 Implanted:Qty: 2 on 01/28/2024 by Harinder Varma MD at [facility] Coil N/A: Heart 11/27/2028 [id number] / [id number] / [id number] Terumo Azur Cx35 Implanted:Qty: 1 on 01/28/2024 by Harinder Varma MD at [facility] Coil N/A: Heart 11/27/2028 [id number] / [id number] / [id number] Terumo Azur Cx35 Implanted:Qty: 1 on 01/28/2024 by Harinder Varma MD at [facility] Coil N/A: Heart 11/27/2028 [id number] / [id number] / [id number] Terumo Azur Cx Coil Implanted:Qty: 1 on 01/28/2024 by Stuart Woodson MD at [facility] Coil N/A: Heart 03/29/2027 [id number] / [id number] / [id number] Azur 35 Implanted:Qty: 1 on 01/28/2024 by Harinder Varma MD at [facility] Coil N/A: Heart 09/27/2028 HELICAL HYDROCOIL EMBOLIZATION / [id number] / [id number] Azur 35 Implanted:Qty: 1 on 01/28/2024 by Harinder Varma MD at [facility] Coil N/A: Heart 09/27/2028 HELICAL HYDROCOIL EMBOLIZATION / [id number] / [id number] Terumo Azur Cx35 Implanted:Qty: 1 on 01/28/2024 by Stuart Woodson MD at [facility] Coil N/A: Heart 11/27/2028 [id number] / [id number] / [id number] Azur Cx35 Implanted:Qty: 1 on 01/28/2024 by Harinder Varma MD at [facility] Coil N/A: Heart 03/29/2027 CX COIL / [id number] / Azur Cx35 Implanted:Qty: 1 on 01/28/2024 by Harinder Varma MD at [facility] Coil N/A: Heart CX COIL / [id number] / Azur Cx35 Implanted:Qty: 1 on 01/28/2024 by Harinder Varma MD at [facility] Coil N/A: Heart 07/30/2028 CX COIL / [id number] / Azur 35 Implanted:Qty: 1 on 01/28/2024 by Harinder Varma MD at [facility] Coil N/A: Heart 03/29/2027 CX COIL / [id number] / Azur 35 Implanted:Qty: 1 on 01/28/2024 by Harinder Varma MD at [facility] Coil N/A: Heart HELICAL HYDROCOIL EMBOLIZATION SYSTEM / [id number] / [id number] Occluder Cardiovascular 31mm Delivery System Watchman Flx - [id number] Implanted:Qty: 1 on 03/12/2022 by Stuart Woodson MD at [facility] ADAN Closure Device N/A: Heart [employer]PER[employer]HERAL [employer]VEN [id number] 07/04/2024 [id number] / / [id number] Device Closure Perclose Proglide 6fr - [id number] Implanted:Qty: 1 on 01/28/2024 by Stuart Woodson MD at [facility] Other Right: Groin [address] [employer] 10/27/2025 [id number] / [id number] / [id number] Device Closure Perclose Proglide 6fr - [id number] Implanted:Qty: 1 on 01/28/2024 by Ash Lewis DO at [facility] Other Right: Pushpa [address] [employer] 10/27/2025 [id number] / [id number] / [id number] Explanted Type Area Order Picker/Assembler Device Identifier Shelf Expiration Date Model / Serial / Lot Lead Pace Standard Mdt 5076 - [id number] Explanted:Qty : 1 on 03/12/2018 at [facility] Lead N/A: Heart [employer] PACER 5076-45 / [id number] / Lead Pace Standard Mdt 5076 - [id number] Explanted:Qty : 1 on 03/12/2018 by Jovon Montero MD at [facility] Lead N/A: Heart [employer] PACER 5076-45 / [id number] / Pacer Dual Mri Advisa Chamber - [id number] Explanted:Qty : 1 on 03/12/2018 by Jovon Montero MD at [facility] Pacemaker N/A: Chest [employer] PACER [id number] / [id number] / Procedures Procedure Name Priority Date/Time Associated Diagnosis Comments ECG (OUTSIDE) 01/06/2025 NUC MYOCARD PERF STRESS MIBI - REST, STRESS, AND ECG Routine 11/05/2024 9:11 AM EDT PVC's (premature ventricular contractions) Dyspnea on exertion HOLTER MONITOR - INTERMEDIATE Routine 11/02/2024 9:57 AM EDT PVC's (premature ventricular contractions) ECG Routine 11/02/2024 9:24 AM EDT Paroxysmal atrial fibrillation Atypical atrial flutter from Last 3 Months Results * ECG (OUTSIDE) (01/06/2025) 01/06/2025 us Other Other OT ECG ORDERABLES Final Result * NUC MYOCARD PERF STRESS MIBI - [...] CT images were obtained. Imaging system used: [facility]. Stress Findings A pharmacological stress test [...] All other segments are normal. Dottie Brown TELEMETRY MONITOR-RECORD TESTER NM ORDERABLES Final Res ult * HOLTER MONITOR - INTERMEDIATE (11/02/2024 9:57 AM EDT) Heart rate minimum 36 bpm I [employer] Heart rate maximum 185 bpm I [employer] Heart rate (average) 67 bpm [employer] [...] 120 bpm. Isolated SVEs were occasional (4.0%, 31436), SVE Couplets were rare (<1.0%, 265), and SVE Triplets were rare (<1.0%, 23). Isolated VEs were frequent (16.4%, 41459), VE Couplets were occasional (1.7%, 2531), and [...] of 120 bpm. Isolated SVEs wereoccasional (4.0%, 41314), SVE Couplets were rare (<1.0%, 265), and SVETriplets were rare (<1.0%, 23). Isolated VEs were frequent (16.4%, 63792),VE Couplets were occasional (1.7%, 2531), and VE Triplets were rare(<1.0%, 72). Ventricular Bigeminy and Trigeminy were present. Inverted QRScomplexes possibly due to inverted placement of device. IMPRESSION: Agree with Findings. Dottie Brown APRN-RECORD TESTER CARDIAC SERVICES ORDERABL ES Final Result * ECG (11/02/2024 9:24 AM EDT) 11/02/2024 9:24 AM EDT 11/05/2024 9:15 PM EDT Dottie Brown APRN-RECORD TESTER ECG ORDERABLES Final Res ult Performing Organization Address City/State/[facility] Co de Phone Number RADIOLOGY from Last 3 Months Insurance [employer] Advance Directives For more information, please contact: [phone] (7:30 AM - 6PM [place], Friday-Friday) * Full Code (Latest Code Status on File) Date Activated Date Inactivated Comments 03/12/2022 2:19 PM * Full Code Date Activated Date Inactivated Comments 04/20/2019 7:38 PM 03/12/2022 2:19 PM * Full Code Date Activated Date Inactivated Comments 03/12/2018 11:13 AM 04/20/2019 7:38 PM Care Teams Distribution Warehouse Manager Relationship Specialty Start Date End Date Jonathon Hahn DO PCP - General Internal Medicine 03/17/18 Bryan Lacy MD PCP - Referring 1 Cardiovascular Disease 03/17/18 Stuart Woodson MD [address] [place] [phone] PCP - Referring 2 Clinical Cardiac Electrophysiology 04/20/19 Bryan Lacy MD Cardiovascular Disease 03/12/18 Jonathon Hahn DO Internal Medicine 03/12/18 Gordo Gifford MD [address] [place] [address] Consulting Physician Clinical Cardiac Electrophysiology 05/29/18
--- OUTSIDE RECORDS SUMMARY | 2025-01-19 09:21 | XMS_ITS | Encounter Summary ---
Author Organization [facility] Address [address] [place] [address] Care Team Providers Care Rotary Envelope Machine Operator Name Role Phone Bryan Lacy MD Unavailable [phone] Jonathon Hahn DO Unavailable [phone] Jonathon Hahn DO Primary Care Provider [phone] Bryan Lacy MD Unavailable [phone] Gordo Gifford MD Unavailable Stuart Woodson MD Unavailable [phone] Reason for Visit * Reason Onset Date Comments Appointment 01/18/2025 Encounter Details Date Type Department Care Team (Late st Contact Info) Description 01/18/2025 Telephone [facility] [address] [place] [phone] Kimberley Peralta Appointment Social History Tobacco Use Types Packs/Day [...] PM EDT Appointment Imaging [facility] [address] [place] [phone] Hafsa Avalos, J2EE JAVA DEVELOPER-DISPATCHER [employer] [address] [place] [phone] 03/01/2025 3:00 PM EDT Office Visit [facility] Micky Guajardo [facility] [address] [place] [phone] Kt Merritt MD [address] [place] [address] 03/18/2025 9:00 AM EDT Appointment [facility] [address] [facility] [address] [place] [phone] Dottie Brown, J2EE JAVA DEVELOPER-DISPATCHER [employer]OMOBI[employer] RENTAL [address] [place] [phone] 11/01/2025 9:30 AM EDT Office Visit [facility] Micky Guajardo [facility] [address] [place] [address] Dottie Brown, J2EE JAVA DEVELOPER-DISPATCHER [employer] [address] [place] [address] Scheduled Procedures Name Priority Associated Diagnoses Date/Ti me CARDIOVERSION (EP LAB) Persistent atrial fibrillation documented as of this encounter Visit Diagnoses Not on filedocumented in this encounter Care Teams Rotary Envelope Machine Operator Relationship Specialty Start Date End Date Jonathon Hahn DO PCP - General Internal Medicine 03/17/18 Bryan Lacy MD PCP - Referring 1 Cardiovascular Disease 03/17/18 Stuart Woodson MD [address] [place] [address] PCP - Referring 2 Clinical Cardiac Electrophysiology 04/20/19 Bryan Lacy MD Cardiovascular Disease 03/12/18 Jonathon Hahn DO Internal Medicine 03/12/18 Gordo Gifford MD [address] [place] [address] Consulting Physician Clinical Cardiac Electrophysiology 05/29/18 documented as of this encounter
--- NOTE | 2025-01-19 09:30 | ECG_ITS ---
[facility] Test Date: 2025-01-19 Pat Name: KRISTEN RODRIGUEZ Department: Room: - Gender: Male Live Hanger: : 1950 Requested By: [id number] Order Number: [id number] Reading MD: SMITH ISAAC M.D. Measurements Intervals [place] Rate: 97 P: [place]: QRS: -87 QRSD: 153 T: 81 QT: 364 QTc: 464 Interpretive Statements ATRIAL FLUTTER WITH ABERRANT CONDUCTION OR VENTRICULAR PREMATURE COMPLEXES MARKED LEFT AXIS DEVIATION [QRS AXIS < -30] INTRAVENTRICULAR CONDUCTION DELAY [130+ ms QRS DURATION] Compared to ECG 01/14/2025 14:56:02 Left-axis deviation now present Electronically Signed On 01-21-2025 6:36:54 EDT by SMITH ISAAC M.D.
--- OUTSIDE RECORDS SUMMARY | 2025-01-19 09:41 | XMS_ITS | CCD ---
Author Organization [facility] CliniSyil Care Team Providers Care Offset Pressman Name Role Phone PHYSICIAN, DEFAULT Unavailable Unavailable PHYSICIAN, DEFAULT Unavailable Unavailable PHYSICIAN, DEFAULT Unavailable Unavailable PHYSICIAN, DEFAULT Unavailable Unavailable DORA FERRARI AM Unavailable Unavailable DORA FERRARI AM Unavailable Unavailable HOLDEN, JONATHON Unavailable Unavailable BALL, JONATHON Unavailable Unavailable ROMARIO, CELENA Campos Unavailable Unavailable ROMARIO, CELENA Campos Unavailable Unavailable BRYAN CORTES Unavailable Unavailable BALL, DR TORO Primary Care Unavailable [...] JACK Consulting Unavailable Bryan Cortes MD Unavailable Holden CHILDERS Jonathon Unavailable Jonathon Hhan DO Primary Care Provider Bryan Cortes MD Unavailable Gordo Gifford MD Unavailable Brooklynn Woodson MD Unavailable Bryan Cortes MD Unavailable [phone] Holden CHILDERS Jonathon Unavailable Jonathon Hahn DO Primary Care Provider [phone] Bryan Cortes MD Unavailable [phone] Gordo Gifford MD Unavailable Brooklynn Woodson MD Unavailable Jonathon Hahn Unavailable Bryan Cortes MD Unavailable Holden CHILDERS Jonathon Unavailable Jonathon Hahn DO Primary Care Provider Bryan Cortes MD Unavailable Ирина COLÓN Gordo Unavailable Brooklynn Woodson MD Unavailable Bryan Cortes MD Unavailable Bryan Cortes MD Unavailable Ball, DO Jonathon Primary Care Provider MD Titi Arora II Attending Provider [phone] Ball DO, Jonathon Unavailable Ball DO, Jonathon Primary Care Provider Ball DO, Jonathon Primary Care Provider Ball DO, Jonathon Attending Provider [phone] Ball DO, Jonathon Other Provider Cassandra Chavez MD Attending Provider Ball, Jonathon Attending Unavailable Ball, Jonathon Primary Care Unavailable Ball, Jonathon Admitting Unavailable BALL, JONATHON Primary Care Unavailable MEASE, DOTTIE Lynn Referring Unavailable BALL, JONATHON Primary Care Unavailable MEASE, DOTTIE K Attending Unavailable BALL, JONATHON Referring Unavailable BALL, AMARILLO Primary Care Unavailable MAT, DC N Attending Unavailable CHINTAN, BROOKLYNN Williamson Referring Unavailable BALL, AMARILLO Primary Care Unavailable HOUMSSE, UZIELMOUD Attending Unavailable CHINTAN, BROOKLYNN Williamson Referring Unavailable BALL, AMARILLO Primary Care Unavailable CHINTAN, BROOKLYNN Williamson Attending Unavailable CHINTAN, BROOKLYNN Williamson Referring Unavailable MEASE, DOTTIE Lynn Attending Unavailable MEASE, DOTTIE Lynn Referring Unavailable BALL, JONATHON Primary Care Unavailable BALL, JONATHON Primary Care Unavailable CHINTAN, BROOKLYNN Williamson Referring Unavailable CHNITAN, BROOKLYNN Williamson Admitting Unavailable CHINTAN, BROOKLYNN Williamson Attending Unavailable MEASEDOTTIE Referring Unavailable BALL, AMARILLO Primary Care Unavailable Allergies Allergy Classification Reported Allergen(s) Allergy Type Date of Onset Reaction(s) Facility (2 sources) No Known Allergies; Translations: [No Known Allergies] Propensity to adverse reactions (disorder) 7 [facility] Repository Medications Current Medications Medication Drug [...] Fri01/28/24 at 1448, Until Fri01/28/24 at 215, Insomnia, Post-op/Post-Proc 2 ml midazolam 1 mg/ml [...] of intra-operative dose., Recovery polyethylene glycol [id number] [id number] mg powder for oral solution (1 source) Osmotic Laxative Start: 01-28-2024 End: 01-28-2024 17 g, Oral, DAILY NEEDED, Starting on Fri01/28/24 at 1448, Until Fri01/28/24 at 215, Constipation 1st Line, Post-op/Post-Proc microencapsulated potassium chloride [...] 1,500 mg, Intravenous, Administer over 1 Hours, 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 Vancomycin is preferred agent for device implants, based on national, community and local ([facility]) MRSA rates., Pre-op/Pre-Proc Start: 12-24-2023 End: 12-24-2023 1,500 mg, Intravenous, Admin ister over 1 Hours, TECHNICAL EDUCATION TEACHER TO PROCEDURE, 1 dose, Starting on Fri12/24/23 at 0000, Until Fri12/24/23 at 1354, Other, Preoperative antibiotic, Order should be timed for day of procedure. 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 Vancomycin is preferred agent [...] disease (1 source) Atherosclerotic heart disease of [place] coronary artery without angina pectoris; Translations: [ATHSCL HEART DISEASE OF [place] CORONARY ARTERY W/O ANG PCTRS] Onset: 7 [...] 02-23-2024 Chronic Other aftercare (4 sources) Other intermission coordinator (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 therapy; Translations: [[facility] CURRENT DRUG THERAPY] Onset: 2 Episodic Other aftercare (2 sources) Long-term current use of drug therapy; Translations: [Other prison (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 therapy] 02-23-2024 Episodic Other circulatory [...] 03-11-2018 03-13-2018 Episodic Other aftercare (2 sources) 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 block 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 (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) use of anticoagulants; Translations: [group home (current) use of aspirin] Onset: 05-12-2017 Episodic Other aftercare (11 sources) Taking high risk medication; Translations: [Other prison (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 therapy] Onset: 03-17-2018 03-17-2018 Episodic [...] Basophils (Bld) [#/Vol] 0.0 10 3/uL 0.0-0.1 [facility] Basophils/100 WBC Auto (Bld) Ordered By: Jonathon Hahn on 01-06-2025 Basophils/100 WBC (Bld) 0.6 % 0.2-2.0 [facility] Eosinophils/100 WBC Auto (Bl d)Ordered By: Jonathon Hahn on 01-06-2025 Eosinophils/100 WBC (Bld) 1.3 % 0.9-7.0 [facility] Erythrocyte distribution wid th Auto (RBC) [Ratio]Ordered By: Jonathon Hahn on 01-06-2025 Erythrocyte distribution width (RBC) [Ratio] 13.5 % 11.0-15.0 [facility] Estimated glomerular filtrat ion rate (GFR) non- AmericanOrdered By: Eliazar Hernández on 01-06-2025 GFR/1.73 sq M.predicted among non-blacks MDRD (S/P/Bld) [Vol rate/Area] mL/min/{1.73_m2} >=60 mL/min/1.7 3m 2 [facility] FPG ECG *PCP OFFICE ONLY*on 01-06-2025 FPG ECG *PCP OFFICE ONLY* [facility] [place] [address] Electrocardiograph Report Signed Patient: Kristen Coates MR#: [id number] [birth year] : 1950 Acct:[id number] Age/Sex: 74 / M ADM Date: 01/06/25 [facility]: Type: [facility] Attending Dr: Jonathon Hahn DO Ordering Provider: [...] previous ECGs available Confirmed by Cassandra Chavez ([id number]) on 01/06/2025 1:57:59 PM Referred By: Electronically Signed By: Cassandra Chavez Transcribed By: MUS Signed By Cassandra Chavez MD 5 [id number] Normal [facility] Hematocrit Auto (Bld) [Volum e fraction]Ordered By: Jonathon Hahn on 01-06-2025 Hematocrit (Bld) [Volume fraction] 45.7 % 42.0-54.0 [facility] Hemoglobin [Mass/volume] in BloodOrdered By: Jonathon Hahn on 01-06-2025 Hemoglobin (Bld) [Mass/Vol] 15.4 g/dL 14.0-18.0 [facility] Laboratory - Chemistry and C hemistry - challengeOrdered By: Eliazar Hernández on 01-06-2025 Calcium [Mass/Vol] 9.6 mg/dL 8.5-10.1 [facility] Chloride [Moles/Vol] 106 mmol/L 98-107 [facility] CO2 [Moles/Vol] 23.1 mmol/L 21.0-32.0 [facility] Creatinine [Mass/Vol] 1.15 mg/dL 0.70-1.30 [facility] GFR/1.73 sq M.predicted MDRD (S/P/Bld) [Vol rate/Area] mL/min/{1.73_m2} >=60 mL/min/1.7 3m 2 [facility] Glucose [Mass/Vol] 105 mg/dL 74-106 [facility] Magnesium [Mass/Vol] 2.2 mg/dL 1.8-2.4 [facility] Potassium [Moles/Vol] 4.7 mmol/L 3.5-5.1 [facility] Sodium [Moles/Vol] 140 mmol/L 136-145 [facility] Urea nitrogen [Mass/Vol] 17.0 mg/dL 7.0-18.0 [facility] Urea nitrogen/Creatinine [Mass ratio] 14.8 mg/mg [facility] Laboratory - Hematology and Cell countsOrdered By: Jonathon Hahn on 01-06-2025 Immature granulocytes/100 WBC (Bld) 0.3 % 0.0-0.5 [facility] Leukocytes [#/volume] correc jose for nucleated erythrocytes in Blood by Automated counOrdered By: Jonathon Hahn on 01-06-2025 WBC corrected for nucl RBC Auto (Bld) [#/Vol] 6.7 10 3/uL 4.0-11.0 [facility] Lymphocytes Auto (Bld) [#/Vo l]Ordered By: Jonathon Hahn on 01-06-2025 Lymphocytes (Bld) [#/Vol] 1.3 10 3/uL 1.2-3.8 [facility] Lymphocytes/100 WBC Auto (Bl d)Ordered By: Jonathon Hahn on 01-06-2025 Lymphocytes/100 WBC (Bld) 18.9 % Low 20.5-60.0 [facility] MCH Auto (RBC) [Entitic mass ]Ordered By: Jonathon Hahn on 01-06-2025 MCH (RBC) [Entitic mass] 31.6 pg 25.9-34.0 [facility] MCHC Auto (RBC) [Mass/Vol]Or dered By: Jonathon Hahn on 01-06-2025 MCHC (RBC) [Mass/Vol] 33.7 g/dL 29.9-35.2 [facility] MCV Auto (RBC) [Entitic vol] Ordered By: Jonathon Hahn on 01-06-2025 MCV (RBC) [Entitic vol] 93.8 fL 80.0-94.0 [facility] Monocytes Auto (Bld) [#/Vol] Ordered By: Jonathon Hahn on 01-06-2025 Monocytes (Bld) [#/Vol] 0.6 10 3/uL 0.3-0.8 [facility] Monocytes/100 WBC Auto (Bld) Ordered By: Jonathon Hahn on 01-06-2025 Monocytes/100 WBC (Bld) 8.2 % 1.7-12.0 [facility] Neutrophils Auto (Bld) [#/Vo l]Ordered By: Jonathon Hahn on 01-06-2025 Neutrophils (Bld) [#/Vol] 4.8 10 3/uL 1.4-6.5 [facility] Neutrophils/100 WBC Auto (Bl d)Ordered By: Jonathon Hahn on 01-06-2025 Neutrophils/100 WBC (Bld) 70.7 % 43.0-75.0 [facility] No Panel InformationOrdered By: Jonathon Hahn on 01-06-2025 Eosinophils # (Auto) 0.1 10 3/uL 0.0-0.7 [facility] Immature Granulocyte # (Auto) 0.02 10 3/uL 0.00-0.03 [facility] No Panel InformationOrdered By: Eliazar Hernández on 01-06-2025 Troponin I High Sensitivity 31.0 pg/mL 4.0-76.1 [facility] Comment on above: CUT-OFF POINTS HAVE BEEN [...] volume (Bld) [Entitic vol] 11.6 fL 9.5-13.5 [facility] Platelets Auto (Bld) [#/Vol] Ordered By: Jonathon Hahn on 01-06-2025 Platelets (Bld) [#/Vol] 141 10 3/uL Low 150-450 [facility] RBC Auto (Bld) [#/Vol]Ordere d By: Jonathon Hahn on 01-06-2025 RBC (Bld) [#/Vol] 4.87 10 6/uL 4.70-6.10 [facility] Serum or plasma anion gap de terminationOrdered By: Eliazar Hernández on 01-06-2025 Anion gap [Moles/Vol] 15.6 mmol/L [facility] NUC MYOCARD PERF STRESS MIBI EXERCISEon 11-05-2024 [...] from the original result were not included. [facility] Facility [facility] Patient Information Patient Name Kristen Coates [...] - Reading 11/05/2024 Rubi Saldivar MD ECG [place], SPECT [place], Test Inhalation Therapy Teacher 11/05/2024 Stress Measurements Baseline Vitals-Supine Baseline HR [...] is normal (more content not included)... Normal [facility] SPECT Heart perfusion at res t and W stress and W radionuclide IVOrdered By: Rubi Saldivar on 11-05-2024 % [facility]MAX 58 % [facility]: APHRMAX 148 bpm [facility] Work Phone: Baseline DBP 88 mmHg [facility] Work Phone: Baseline HR 59 bpm [facility] Work Phone: Baseline SBP 172 mmHg [facility] Work Phone: Body surface area Derived from formula 2.55 m2 [facility] Work Phone: NM ED vol idx 61.17 mL/m2 [facility] Work Phone: NM ES vol idx 29.41 mL[facility]: Nuc Stress EF 52 % [facility] Work Phone: Peak DBP 72 mmHg [facility] Work Phone: Peak HR 86 bpm [facility] Work Phone: Peak SBP 144 mmHg [facility] Work Phone: Rate Pressure Product [phone] [facility] Work Phone: [facility] Work Phone: SPECT Heart perfusion at res [...] CT images were obtained. Imaging system used: [facility]. Stress Findings A pharmacological stress test [...] segments: apex. All other segments are normal. [facility] Radiology Study observation (narrative) [facility] EP PROCEDURE - EPS/ABLATION/ DEVICEon 06-10-2024 EP [...] 45 days and then follow up with [facility] [place] Femoral access care protocol (Perclose) May send [...] 45 days and then follow up with [facility] at the [facility] Femoral access care protocol (Perclose) May send home today if meets criteria Table formatting from the original result was not included. Images from the original result were not included. Kristen Coates EP Procedure - EPS/Ablation/Device Ordering Physician: BROOKLYNN WOODSON Order #: [id number] Study Date: 01/28/2024 Patient Information Name MRN Description Kristen Alexanderer [id number] 73 y.o. 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 Normal [facility] ACT* LOW RANGE, POCon 2023 ACT LOW RANGE, POC 274.[address] [facility] Interpretation and review of laboratory results Abnormal [facility] Test performed at ad dress of the patient encounter. [facility] ACT LOW RANGE, POC 384.[address] [facility] Interpretation and review of laboratory results Abnormal [facility] Test performed at ad dress of the patient encounter. [facility] ACT LOW RANGE, POC 385.[address] [facility] Interpretation and review of laboratory results Abnormal [facility] Test performed at ad dress of the patient encounter. [facility] ACT LOW RANGE, POC [facility] Comment on above: Out of Range High. The test result is outside clinical range and should not be used for patient-management decisions. Test performed at ad dress of the patient encounter. [facility] CBC AND ELECTRONIC DIFFon Basophils (Bld) [#/Vol] K/uL 0.00 - 0.09 K/uL [facility] Basophils/100 WBC (Bld) 0.6 % [facility] Differential cell count method Nom (Bld) Electronic Differential [facility] Eosinophils (Bld) [#/Vol] 0.10 10*3/uL 0.00 - 0.48 K/uL [facility] Eosinophils/100 WBC (Bld) 1.9 % [facility] Erythrocyte distribution width (RBC) [Ratio] 13.7 % 10.9 - 14.3 % [facility] Comment on above: This is an appended report. These results have been appended to a previously preliminary verified report. Hematocrit (Bld) [Volume fraction] 43.0 % 39.6 - 48.8 % [facility] Comment on above: This is an appended report. These results have been appended to a previously preliminary verified report. Hemoglobin (Bld) [Mass/Vol] 14.7 g/dL 13.4 - 16.8 g/dL [facility] Comment on above: This is an appended report. These results have been appended to a previously preliminary verified report. Immature granulocytes (Bld) [#/Vol] 0.04 10*3/uL NINF - 0.07 K/uL [facility] Immature granulocytes/100 WBC (Bld) 0.8 % [facility] Interpretation and review of laboratory results Abnormal [facility] Lymphocytes (Bld) [#/Vol] 1.16 10*3/uL 0.83 - 3.57 K/uL [facility] Lymphocytes/100 WBC (Bld) 22.2 % [facility] MCH (RBC) [Entitic mass] 32.8 pg 26.1 - 33.3 pg [facility] Comment on above: This is an appended report. These results have been appended to a previously preliminary verified report. MCHC (RBC) [Mass/Vol] 34.2 g/dL 31.9 - 36.5 g/dL [facility] Comment on above: This is an appended report. These results have been appended to a previously preliminary verified report. MCV (RBC) [Entitic vol] 96.0 fL High 79.0 - 94.5 fL [facility] Comment on above: This is an appended report. These results have been appended to a previously preliminary verified report. Monocytes (Bld) [#/Vol] 0.45 10*3/uL 0.24 - 0.93 K/uL [facility] Monocytes/100 WBC (Bld) 8.6 % [facility] Neutrophils (Bld) [#/Vol] 3.44 10*3/uL 1.57 - 6.19 K/uL [facility] Nucleated RBC/100 WBC (Bld) [Ratio] 0.0 % NINF [facility] Comment on above: This is an appended report. These results have been appended to a previously preliminary verified report. Platelet mean volume (Bld) [Entitic vol] [facility] Comment on above: Not measured Platelets (Bld) [#/Vol] 130 10*3/uL Low 146 - 337 K/uL [facility] Comment on above: This is an appended report. These results have been appended to a previously preliminary verified report. RBC (Bld) [#/Vol] 4.48 10*6/uL [facility] Comment on above: This is an appended report. These results have been appended to a previously preliminary verified report. Segmented neutrophils/100 WBC (Bld) 65.9 % [facility] WBC (Bld) [#/Vol] 5.22 10*3/uL 3.73 - 10.10 K/uL [facility] Comment on above: This is an appended report. These results have been appended to a previously preliminary verified report. [facility] Abs Baso Auto < Normal 0.00-0.09 [facility] Comment on above: Performed By: #### L [id number] #### [facility] (DEFAULT) [address] [place] [address] Basophils/100 WBC (Bld) 0.6 % Normal [facility] Comment on above: Performed By: #### L [id number] #### [facility] (DEFAULT) [address] [place] [address] DIFF STATUS Electronic Differential Normal [facility] Comment on above: Performed By: #### L [id number] #### [facility] (DEFAULT) [address] [place] [address] Eosinophils (Bld) [#/Vol] 0.10 10*3/uL Normal 0.00-0.48 [facility] Comment on above: Performed By: #### L [id number] #### [facility] (DEFAULT) [address] [address] Eosinophils/100 WBC (Bld) 1.9 % Normal [facility] Comment on above: Performed By: #### L [id number] #### [facility] (DEFAULT) [address] [address] Hematocrit (Bld) [Volume fraction] 43.0 % Normal 39.6-48.8 [facility] Comment on above: Result Comment: This is an appended report. These results have been appended to a previously preliminary verified report. Performed By: #### L [id number] #### [facility] (DEFAULT) [address] [address] Hemoglobin (Bld) [Mass/Vol] 14.7 g/dL Normal 13.4-16.8 [facility] Comment on above: Result Comment: This is an appended report. These results have been appended to a previously preliminary verified report. Performed By: #### L [id number] #### [facility] (DEFAULT) [address] [address] Immature Grans % 0.8 % Normal [facility] Comment on above: Performed By: #### L [id number] #### [facility] (DEFAULT) [address] [address] Immature Grans Absolute 0.04 K/uL Normal <=0.07 [facility] Comment on above: Performed By: #### L [id number] #### [facility] (DEFAULT) [address] [address] Lymphocytes (Bld) [#/Vol] 1.16 10*3/uL Normal 0.83-3.57 [facility] Comment on above: Performed By: #### L [id number] #### [facility] (DEFAULT) [address] [address] Lymphocytes/100 WBC (Bld) 22.2 % Normal [facility] Comment on above: Performed By: #### L [id number] #### [facility] (DEFAULT) [address] [address] MCV (RBC) [Entitic vol] 96.0 fL High 79.0-94.5 [facility] Comment on above: Result Comment: This is an appended report. These results have been appended to a previously preliminary verified report. Performed By: #### L [id number] #### [facility] (DEFAULT) [address] [address] Mean Cell Hgb 32.8 pg Normal 26.1-33.3 [facility] Comment on above: Result Comment: This is an appended report. These results have been appended to a previously preliminary verified report. Performed By: #### L [id number] #### [facility] (DEFAULT) [address] [address] Mean Cell Hgb Conc 34.2 g/dL Normal 31.9-36.5 [facility] Comment on above: Result Comment: This is an appended report. These results have been appended to a previously preliminary verified report. Performed By: #### L [id number] #### [facility] (DEFAULT) [address] [address] Mean Platelet Volume Normal [facility] Comment on above: Result Comment: Not measured Performed By: #### L [id number] #### [facility] (DEFAULT) [address] [address] Monocytes (Bld) [#/Vol] 0.45 10*3/uL Normal 0.24-0.93 [facility] Comment on above: Performed By: #### L [id number] #### [facility] (DEFAULT) [address] [address] Monocytes/100 WBC (Bld) 8.6 % Normal [facility] Comment on above: Performed By: #### L [id number] #### [facility] (DEFAULT) [address] [address] Nucleated RBC 0.0 /100 WBC Normal <=0.2 [facility] Comment on above: Result Comment: This is an appended report. These results have been appended to a previously preliminary verified report. Performed By: #### L [id number] #### [facility] (DEFAULT) [address] [address] Platelets (Bld) [#/Vol] 130 10*3/uL Low 146-337 [facility] Comment on above: Result Comment: This is an appended report. These results have been appended to a previously preliminary verified report. Performed By: #### L [id number] #### [facility] (DEFAULT) [address] [address] RBC (Bld) [#/Vol] 4.48 10*6/uL Normal 4.38-5.83 [facility] Comment on above: Result Comment: This is an appended report. These results have been appended to a previously preliminary verified report. Performed By: #### L [id number] #### [facility] (DEFAULT) [address] [address] RBC Distribution 13.7 % Normal 10.9-14.3 [facility] Comment on above: Result Comment: This is an appended report. These results have been appended to a previously preliminary verified report. Performed By: #### L [id number] #### [facility] (DEFAULT) [address] [address] Segs + Bands Auto 65.9 % Normal [facility] Comment on above: Performed By: #### L [id number] #### [facility] (DEFAULT) [address] [address] Segs + Bands,Absolute Auto 3.44 K/uL Normal 1.57-6.19 [facility] Comment on above: Performed By: #### L [id number] #### [facility] (DEFAULT) [address] [address] WBC (Bld) [#/Vol] 5.22 10*3/uL Normal 3.73-10.10 [facility] Comment on above: Result Comment: This is an appended report. These results have been appended to a previously preliminary verified report. Performed By: #### L [id number] #### [facility] (DEFAULT) [address] [place] [address] CHEM 7 (LYTES,BUN,CREA,GLUC) on 01-28-2024 Anion gap [Moles/Vol] 12 mmol/L 7 - 17 mmol/L [facility] Chloride [Moles/Vol] 104 mmol/L 98 - 10 8 mmol/L [facility] CO2 [Moles/Vol] 24 mmol/L 21 - 31 mmol/L [facility] Creatinine [Mass/Vol] 1.05 mg/dL 0.70 - 1.30 mg/dL [facility] eGFR, CKD-EPI, Male 78 - PINF [facility] Comment on above: Reported eGFR is bas ed on the CKD-EPI 2020 equation using creatinine, age, and sex. Glucose [Mass/Vol] 97 mg/dL 70 - 99 mg/dL [facility] Osmolality Calc [Osmolality] 287 [facility] Potassium [Moles/Vol] 4.2 mmol/L 3.5 - 5.0 mmol/L [facility] Sodium [Moles/Vol] 136 mmol/L 135 - 145 mmol/L [facility] Urea nitrogen [Mass/Vol] 18 mg/dL 7 - 25 mg/dL [facility] Urea nitrogen/Creatinine [Mass ratio] 17 mg/mg [facility] Anion gap [Moles/Vol] 12 mmol/L Normal 7-[address] [facility] Comment on above: Performed By: #### C HM7 #### [facility] (DEFAULT) [address] [place] [address] Chloride [Moles/Vol] 104 mmol/L Normal 98-108 [facility] Comment on above: Performed By: #### C HM7 #### [facility] (DEFAULT) [address] [place] [address] CO2 [Moles/Vol] 24 mmol/L Normal 21-31 [facility] Comment on above: Performed By: #### C HM7 #### [facility] (DEFAULT) [address] [place] [address] Creatinine [Mass/Vol] 1.05 mg/dL Normal 0.70-1.30 [facility] Comment on above: Performed By: #### C HM7 #### [facility] (DEFAULT) [address] [place] [address] GFR/1.73 sq M.predicted among non-blacks MDRD (S/P/Bld) [Vol rate/Area] 76 mL/min/{1.73_m2} Normal >=60 [facility] Comment on above: Result Comment: Repo rted eGFR is based on the CKD-EPI 2020 equation using creatinine, age, and sex. Performed By: #### C HM7 #### [facility] (DEFAULT) [address] [place] [address] Glucose [Mass/Vol] 97 mg/dL Normal 70-99 [facility] Comment on above: Performed By: #### C HM7 #### [facility] (DEFAULT) [address] [place] [address] Osmolality [Osmolality] 287 mosm/kg Normal 278-305 [facility] Comment on above: Performed By: #### C HM7 #### [facility] (DEFAULT) [address] [place] [address] Potassium [Moles/Vol] 4.2 mmol/L Normal 3.5-5.0 [facility] Comment on above: Performed By: #### C HM7 #### [facility] (DEFAULT) [address] [place] [address] Sodium [Moles/Vol] 136 mmol/L Normal 135-145 [facility] Comment on above: Performed By: #### C HM7 #### [facility] (DEFAULT) [address] [place] [address] Urea nitrogen [Mass/Vol] 18 mg/dL Normal 7-25 [facility] Comment on above: Performed By: #### C HM7 #### [facility] (DEFAULT) [address] [place] [address] Urea nitrogen/Creatinine [Mass ratio] 17 mg/mg Normal [facility] Comment on above: Performed By: #### C HM7 #### [facility] (DEFAULT) [address] [place] [address] PT,INR,PTTon 01-28-2024 aPTT Coag (PPP) [Time] 27.4 s [facility] INR Coag (Bld) [Relative time] 1.2 {INR} High 0.9 - 1.1 [facility] Interpretation and review of laboratory results Abnormal [facility] PT Coag (PPP) [Time] 14.8 s High [facility] aPTT Coag (Bld) [Time] 27.4 s Normal 24.0-34.3 [facility] Comment on above: Performed By: #### P TPTT #### [facility] (DEFAULT) [address] [place] [address] INR Coag (PPP) [Relative time] 1.2 {INR} High 0.9-1.1 [facility] Comment on above: Performed By: #### P TPTT #### [facility] (DEFAULT) [address] [place] [address] PT Coag (PPP) [Time] 14.8 s High 11.9-14.2 [facility] Comment on above: Performed By: #### P TPTT #### [facility] (DEFAULT) [address] [place] [address] CBC AND ELECTRONIC DIFFon Basophils (Bld) [#/Vol] K/uL 0.00 - 0.09 K/uL [facility] Basophils/100 WBC (Bld) 0.5 % [facility] Differential cell count method Nom (Bld) Electronic Differential [facility] Eosinophils (Bld) [#/Vol] 0.11 10*3/uL 0.00 - 0.48 K/uL [facility] Eosinophils/100 WBC (Bld) 2.0 % [facility] Erythrocyte distribution width (RBC) [Ratio] 13.2 % 10.9 - 14.3 % [facility] Comment on above: This is an appended report. These results have been appended to a previously preliminary verified report. Hematocrit (Bld) [Volume fraction] 46.7 % 39.6 - 48.8 % [facility] Comment on above: This is an appended report. These results have been appended to a previously preliminary verified report. Hemoglobin (Bld) [Mass/Vol] 15.1 g/dL 13.4 - 16.8 g/dL [facility] Comment on above: This is an appended report. These results have been appended to a previously preliminary verified report. Immature granulocytes (Bld) [#/Vol] K/uL NINF - 0.07 K/uL [facility] Immature granulocytes/100 WBC (Bld) 0.5 % [facility] Interpretation and review of laboratory results Abnormal [facility] Lymphocytes (Bld) [#/Vol] 1.40 10*3/uL 0.83 - 3.57 K/uL [facility] Lymphocytes/100 WBC (Bld) 25.4 % [facility] MCH (RBC) [Entitic mass] 31.3 pg 26.1 - 33.3 pg [facility] Comment on above: This is an appended report. These results have been appended to a previously preliminary verified report. MCHC (RBC) [Mass/Vol] 32.3 g/dL 31.9 - 36.5 g/dL [facility] Comment on above: This is an appended report. These results have been appended to a previously preliminary verified report. MCV (RBC) [Entitic vol] 96.9 fL High 79.0 - 94.5 fL [facility] Comment on above: This is an appended report. These results have been appended to a previously preliminary verified report. Monocytes (Bld) [#/Vol] 0.42 10*3/uL 0.24 - 0.93 K/uL [facility] Monocytes/100 WBC (Bld) 7.6 % [facility] Neutrophils (Bld) [#/Vol] 3.53 10*3/uL 1.57 - 6.19 K/uL [facility] Nucleated RBC/100 WBC (Bld) [Ratio] 0.0 % [facility] Comment on above: This is an appended report. These results have been appended to a previously preliminary verified report. Platelet mean volume (Bld) [Entitic vol] [facility] Comment on above: Not measured Platelets (Bld) [#/Vol] 131 10*3/uL Low 146 - 337 K/uL [facility] Comment on above: This is an appended report. These results have been appended to a previously preliminary verified report. RBC (Bld) [#/Vol] 4.82 10*6/uL [facility] Comment on above: This is an appended report. These results have been appended to a previously preliminary verified report. Segmented neutrophils/100 WBC (Bld) 64.0 % [facility] WBC (Bld) [#/Vol] 5.52 10*3/uL 3.73 - 10.10 K/uL [facility] Comment on above: This is an appended report. These results have been appended to a previously preliminary verified report. [facility] CHEM 7 (LYTES,BUN,CREA,GLUC) on 12-24-2023 Anion gap [Moles/Vol] 14 mmol/L 7 - 17 mmol/L [facility] Chloride [Moles/Vol] 103 mmol/L 98 - 10 8 mmol/L [facility] CO2 [Moles/Vol] 23 mmol/L 21 - 31 mmol/L [facility] Creatinine [Mass/Vol] 0.99 mg/dL 0.70 - 1.30 mg/dL [facility] eGFR, CKD-EPI, Male 81 - PINF [facility] Comment on above: Reported eGFR is bas ed on the CKD-EPI 2020 equation using creatinine, age, and sex. Glucose [Mass/Vol] 81 mg/dL 70 - 99 mg/dL [facility] Osmolality Calc [Osmolality] 286 [facility] Potassium [Moles/Vol] 4.4 mmol/L 3.5 - 5.0 mmol/L [facility] Sodium [Moles/Vol] 136 mmol/L 135 - 145 mmol/L [facility] Urea nitrogen [Mass/Vol] 15 mg/dL 7 - 25 mg/dL [facility] Urea nitrogen/Creatinine [Mass ratio] 15 mg/mg [facility] PT,INR,PTTon 12-24-2023 aPTT Coag (PPP) [Time] 27.6 s [facility] INR Coag (Bld) [Relative time] 1.1 {INR} 0.9 - 1.1 [facility] Interpretation and review of laboratory results Normal [facility] PT Coag (PPP) [Time] 14.2 s [facility] CREAT/GFRon 11-11-2023 Creatinine [Mass/Vol] 0.99 mg/dL 0.70 - 1.30 mg/dL [facility] GFR/1.73 sq M.predicted CKD-EPI (S/P/Bld) [Vol rate/Area] 81 - PINF [facility] Comment on above: Reported eGFR is bas ed on the CKD-EPI 2020 equation using creatinine, age, and sex. Interpretation and review of laboratory results Normal [facility] Test performed at ad dress of the patient encounter. [facility] Chest>Heart.atrium.left+Pulm onary veins CT angiogram and 3D reconstruction W contrast Allie 11-10-2023 [facility] [address] Report Name: KRISTEN COATES Andres : 1950 Scan Date: 2023-11-10 12:55:52 Electronically [...] OF ORDER: Appropriate BILLING ---- Patient Account [id number] CPT Codes 69231 ICD10 Codes I48.0, I48.4 Report generated by [employer], a product of [employer] CARDIOLOGY Smith Solomon M D - 11/10/[address] [facility] [address] Report Name: KRISTEN COATES : 1950 [...] SMITH SOLOMON FELLOW: ÁLVARO SANTIAGO TECHNOLOGIST: Lindsay HarperR) (CT) NURSE: Javi Langston CONTRAST AGENT DOSE: [...] APPROPRIATENESS OF ORDER: Appropriate BILLING Patient Account [id number] CPT Codes 48110 ICD10 Codes I48.0, I48.4 Report generated by [employer], a product of [employer] [facility] Radiology Study observation (narrative) [facility] Chest>Heart.atrium.left+Pulm onary veins CT angiogram and 3D reconstruction W contrast IVOrdered By: Smith Solomon on 11-10-2023 [facility] CREAT/GFRon 03-06-2023 Creatinine [Mass/Vol] 0.82 mg/dL 0.70 - 1.30 mg/dL [facility] GFR/1.73 sq M.predicted CKD-EPI (S/P/Bld) [Vol rate/Area] - PINF [facility] Comment on above: Reported eGFR is bas ed on the CKD-EPI 2020 equation using creatinine, age, and sex. Interpretation and review of laboratory results Normal [facility] Test performed at ad dress of the patient encounter. [facility] CT ANGIO CHEST (NONCORONARY) on [...] Abdominal Wall: Normal RADIOLOGY Smith Solomon M B/[facility] - 03/06/2023 EXAM: CT ANGIO CHEST (NONCORONARY), [...] Other ancillary findings are noted as above. [facility] Radiology Study observation (narrative) [facility] CT ANGIO CHEST (NONCORONARY) Ordered By: Smith Solomon on 03-06-2023 [facility] ECHOCARDIOGRAM TRANSESOPHAGE AL (ALLI)Ordered By: Kt Davis on 03-06-2023 Ao ASC index 1.48 cm/m2 [facility] Work Phone: Ascending aorta 3.60 cm [facility] Work Phone: Body surface area Derived from formula 2.44 m2 [facility] Work Phone: [facility] Work Phone: ECHOCARDIOGRAM TRANSESOPHAGE AL (ALLI)on 03-06-2023 [...] the patient/family member and/or their power of claims attorney. Informed consent was obtained. All staff members involved in the procedure completed a timeout prior to the start of the procedure verifying correct patient identity and correct procedure to be performed. A transesophageal echocardiography study (including color flow Doppler, limited spectral Doppler and 3D) was performed. Total time physician provided [id number] service beginning with the administration of sedation medications until the patient was sufficiently recovered after the procedure was 22 minutes. Indications for study: ADAN Occluder pre / post. There were no complications. [facility] Radiology Study observation (narrative) [facility] CREAT/GFRon 03-11-2022 Creatinine [Mass/Vol] 1.08 mg/dL 0.70 - 1.30 mg/dL [facility] GFR/1.73 sq M.predicted among non-blacks MDRD (S/P/Bld) [Vol rate/Area] 70 mL/min/{1.73_m2} >=60 mL/min/1.7 3m2 [facility] Comment on above: Reported eGFR equati on is based on the CKD-EPI 2009 equation. Interpretation and review of laboratory results Normal [facility] Test performed at ad dress of the patient encounter. 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: [employer] SCANNER MODEL: [employer] CT750 HD DOSE REDUCTION ALGORITHM: Helical with dose modulation [...] Stafford RT (R) (CT) BILLING Patient Account [id number] CPT Codes 58224 ICD10 Codes I48.91 Report generated by [employer], a product of [employer] CARDIOLOGY Ailin Roland MBB 03/11/[address] [facility] [address] Report Name: KRISTEN COATES : 1950 [...] SCAN INFO === TEST TYPE: Venogram SCANNER FERN CUTTER: [employer] SCANNER MODEL: [employer] CT750 [employer] DOSE REDUCTION ALGORITHM: Helical with dose modulation [...] RT (R) (CT) BILLING === Patient Account [id number] CPT Codes 01451 ICD10 Codes I48.91 Report generated by [employer], a product of [employer] [facility] Radiology Study observation (narrative) [facility] CT CARDIAC PULMONARY VENOGRA MOrdered By: Ailin Roland on 03-11-2022 [facility] Work Phone: CBC AUTO DIFFon 01-22-2022 BASO # 0.0 103/ul Normal 0.0-0.1 [facility] Comment on above: Performed By: #### C BC #### [facility] [address] [address] [address] Patricia Mcconnell Basophils/100 WBC (Bld) 0.7 % Normal 0.2-2.0 [facility] Comment on above: Performed By: #### C BC #### [facility] [address] [address] [address] Patricia Mcconnell EO # 0.1 103/ul Normal 0.0-0.7 [facility] Comment on above: Performed By: #### C BC #### [facility] [address] [place] [address] Dr. Patricia Mcconnell Eosinophils/100 WBC (Bld) 2.4 % Normal 0.9-7.0 [facility] Comment on above: Performed By: #### C BC #### [facility] [address] [place] [address] Dr. Patricia Mcconnell Erythrocyte distribution width (RBC) [Ratio] 12.8 % Normal 11.0-15.0 [facility] Comment on above: Performed By: #### C BC #### [facility] [address] [place] [address] Dr. Patricia Mcconnell Hematocrit (Bld) [Volume fraction] 44.5 % Normal 42.0-54.0 [facility] Comment on above: Performed By: #### C BC #### [facility] [address] [place] [address] Dr. Patricia Mcconnell Hemoglobin (Bld) [Mass/Vol] 14.9 g/dL Normal 14.0-18.0 [facility] Comment on above: Performed By: #### C BC #### [facility] [address] [place] [address] Dr. Patricia Mcconnell IG # 0.02 10e3/ul Normal 0.00-0.03 [facility] Comment on above: Performed By: #### C BC #### [facility] [address] [place] [address] Dr. Patricia Mcconnell IG % 0.4 % Normal 0.0-0.5 [facility] Comment on above: Performed By: #### C BC #### [facility] [address] [place] [address] Dr. Patricia Mcconnell LYMPH # 1.8 103/ul Normal 1.2-3.8 [facility] Comment on above: Performed By: #### C BC #### [facility] [address] [place] [address] Dr. Patricia Mcconnell Lymphocytes/100 WBC (Bld) 33.0 % Normal 20.5-60.0 [facility] Comment on above: Performed By: #### C BC #### [facility] [address] [place] [address] Dr. Patricia Mcconnell MANUAL DIFF REQ NO Normal [facility] Comment on above: Performed By: #### C BC #### [facility] [address] [place] [address] Dr. Patricia Mcconnell MCH (RBC) [Entitic mass] 31.6 pg Normal 25.9-34.0 [facility] Comment on above: Performed By: #### C BC #### [facility] [address] [place] [address] Dr. Patricia Mcconnell MCHC (RBC) [Mass/Vol] 33.5 g/dL Normal 29.9-35.2 [facility] Comment on above: Performed By: #### C BC #### [facility] [address] [place] [address] Dr. Patricia Mcconnell MCV (RBC) [Entitic vol] 94.3 fL Critically high 80.0-94.0 [facility] Comment on above: Performed By: #### C BC #### [facility] [address] [place] [address] Dr. Patricia Mcconnell MONO # 0.5 103/ul Normal 0.3-0.8 [facility] Comment on above: Performed By: #### C BC #### [facility] [address] [place] [address] Dr. Patricia Mcconnell Monocytes/100 WBC (Bld) 9.3 % Normal 1.7-12.0 [facility] Comment on above: Performed By: #### C BC #### [facility] [address] [place] [address] Dr. Patricia Mcconnell NEUT # 2.9 103/ul Normal 1.4-6.5 [facility] Comment on above: Performed By: #### C BC #### [facility] [address] [place] [address] Dr. Patricia Mcocnnell Neutrophils/100 WBC (Bld) 54.2 % Normal 43.0-75.0 [facility] Comment on above: Performed By: #### C BC #### [facility] [address] [address] [address] Patricia Mcconnell Platelet mean volume (Bld) [Entitic vol] 11.4 fL Normal 9.5-13.5 [facility] Comment on above: Performed By: #### C BC #### [facility] [address] [address] [address] Patricia Mcconnell PLT 145 103/ul Critically low 150-450 [facility] Comment on above: Performed By: #### C BC #### [facility] [address] [address] [address] Patricia Mcconnell RBC 4.72 106/ul Normal 4.70-6.10 [facility] Comment on above: Performed By: #### C BC #### [facility] [address] [place] [address] Dr. Patricia Mcconnell WBC 5.4 103/ul Normal 4.0-11.0 [facility] Comment on above: Performed By: #### C BC #### [facility] [address] [place] [address] Dr. Patricia Mcconnell LIPID PROFILEon 01-22-2022 CHOL-HDL RATIO NORM SEE BELOW Normal [facility] Comment on above: Result Comment: 3.3 - 4.4 LOW RISK 4.4 - 7.1 AVERAGE RISK 7.1 - 11.0 MODERATE RISK >11.0 HIGH RISK Performed By: #### B MP, LIPID, ALT #### [facility] [address] [place] [address] Dr. Patricia Mcconnell Cholesterol [Mass/Vol] 152 mg/dL Normal <=200 [facility] Comment on above: Performed By: #### B MP, LIPID, ALT #### [facility] [address] [place] [address] Dr. Patricia Mcconnell Cholesterol in HDL [Mass/Vol] 47 mg/dL Normal 40-60 [facility] Comment on above: Performed By: #### B MP, LIPID, ALT #### [facility] [address] [place] [address] Dr. Patricia Mcconnell Cholesterol in LDL [Mass/Vol] 88.2 mg/dL Normal [facility] Comment on above: Performed By: #### B MP, LIPID, ALT #### [facility] [address] [address] [address] Patricia Mcconnell Cholesterol.total/Cho lesterol in HDL [Mass ratio] 3.2 {ratio} Normal [facility] Comment on above: Performed By: #### B MP, LIPID, ALT #### [facility] [address] [address] [address] Patricia Mcconnell HDL NORMAL > or = 60 mg/dl - LO W CARDIOVASCULAR RISK <40 mg/dl - HIGH CARDIOVASCULAR RISK Normal [facility] Comment on above: Performed By: #### B MP, LIPID, ALT #### [facility] [address] [place] [address] Dr. Patricia Mcconnell LDL CALC NORMAL SEE BELOW Normal [facility] Comment on above: Result Comment: <100 mg/dl OPTIMAL 100 - 129 mg/dl NEAR OR ABOVE OPTIMAL 130 - 159 mg/dl BORDERLINE HIGH 160 - 189 mg/dl HIGH >190 mg/dl VERY HIGH Performed By: #### B MP, LIPID, ALT #### [facility] [address] [place] [address] Dr. Patricia Mcconnell Triglyceride [Mass/Vol] 84 mg/dL Normal <=150 [facility] Comment on above: Performed By: #### B MP, LIPID, ALT #### [facility] [address] [place] [address] Dr. Patricia Mcconnell VLDL CALC 16.8 mg/dL Normal [facility] Comment on above: Performed By: #### B MP, LIPID, ALT #### [facility] [address] [address] [address] Patricia Mcconnell PROF CHEM 8 (BAS METB)on Anion gap [Moles/Vol] 12.5 mmol/L Normal [facility] Comment on above: Performed By: #### B MP, LIPID, ALT #### [facility] [address] [place] [address] Dr. Patricia Mcconnell Calcium [Mass/Vol] 9.2 mg/dL Normal 8.5-10.1 [facility] Comment on above: Performed By: #### B MP, LIPID, ALT #### [facility] [address] [address] [address] Patricia cMconnell Chloride [Moles/Vol] 103 mmol/L Normal 98-107 [facility] Comment on above: Performed By: #### B MP, LIPID, ALT #### [facility] [address] [address] [address] Patricia Mcconnell CO2 [Moles/Vol] 26.1 mmol/L Normal 21.0-32.0 [facility] Comment on above: Performed By: #### B MP, LIPID, ALT #### [facility] [address] [address] [address] Patricia Mcconnell Creatinine [Mass/Vol] 1.14 mg/dL Normal 0.70-1.30 [facility] Comment on above: Performed By: #### B MP, LIPID, ALT #### [facility] [address] [address] [address] Patricia Mcconnell EGFR-AF CROATIAN >60 Normal >=60 [facility] Comment on above: Performed By: #### B MP, LIPID, ALT #### [facility] [address] [address] [address] Patricia Mcconnell EGFR-NON AF CROATIAN >60 Normal >=60 [facility] Comment on above: Performed By: #### B MP, LIPID, ALT #### [facility] [address] [address] [address] Patricia Mcconnell Glucose [Mass/Vol] 103 mg/dL Normal 74-106 [facility] Comment on above: Performed By: #### B MP, LIPID, ALT #### [facility] [address] [address] [address] Patricia Mcconnell Potassium [Moles/Vol] 4.6 mmol/L Normal 3.5-5.1 [facility] Comment on above: Performed By: #### B MP, LIPID, ALT #### [facility] [address] [address] [address] Patricia Mcconnell Sodium [Moles/Vol] 137 mmol/L Normal 136-145 [facility] Comment on above: Performed By: #### B MP, LIPID, ALT #### [facility] [address] [place] [address] Dr. Patricia Mcconnell Urea nitrogen [Mass/Vol] 22.0 mg/dL Critically high 7.0-18.0 [facility] Comment on above: Performed By: #### B MP, LIPID, ALT #### [facility] [address] [place] [address] Dr. Patricia Mcconnell Urea nitrogen/Creatinine [Mass ratio] 19.3 mg/mg Normal [facility] Comment on above: Performed By: #### B MP, LIPID, ALT #### [facility] [address] [place] [address] Dr. Patricia Mcconnell SGPTon 01-22-2022 ALT [Catalytic activity/Vol] 43 U/L Normal 16-63 [facility] Comment on above: Performed By: #### B MP, LIPID, ALT #### [facility] [address] [place] [address] Dr. Patricia Mcconnell URINE T PROTEIN CREAT RATIOo n 01-22-2022 UR PROT CREAT RAT 0.[address] [facility] Comment on above: Performed By: #### U RTPCR #### [facility] [address] [place] [address] Dr. Patricia Mcconnell UR TOTAL PROTEIN <6.0 Normal <=12.0 [facility] Comment on above: Performed By: #### U RTPCR #### [facility] [address] [place] [address] Dr. Patricia Mcconnell URINE CREAT 86.86 mg/dL Normal 20.00-300. 00 [facility] Comment on above: Performed By: #### U RTPCR #### [facility] [address] [place] [address] Dr. Patricia Mcconnell PROF CHEM 8 (BAS METB)on Anion gap [Moles/Vol] 13.6 mmol/L Normal [facility] Comment on above: Performed By: #### B MP #### [facility] [address] [place] [address] Dr. Patricia Mcconnell Calcium [Mass/Vol] 9.2 mg/dL Normal 8.5-10.1 [facility] Comment on above: Performed By: #### B MP #### [facility] [address] [address] [address] Patricia Mcconnell Chloride [Moles/Vol] 101 mmol/L Normal 98-107 [facility] Comment on above: Performed By: #### B MP #### [facility] [address] [address] [address] Patricia Mcconnell CO2 [Moles/Vol] 26.0 mmol/L Normal 21.0-32.0 [facility] Comment on above: Performed By: #### B MP #### [facility] [address] [place] [address] Dr. Patricia Mcconnell Creatinine [Mass/Vol] 1.29 mg/dL Normal 0.70-1.30 [facility] Comment on above: Performed By: #### B MP #### [facility] [address] [place] [address] Dr. Patricia Mcconnell EGFR-AF CROATIAN >60 Normal >=60 [facility] Comment on above: Performed By: #### B MP #### [facility] [address] [place] [address] Dr. Patricia Mcconnell EGFR-NON AF CROATIAN 55 mL/min/1.73m2 Critically low >=60 [facility] Comment on above: Performed By: #### B MP #### [facility] [address] [place] [address] Dr. Patricia Mcconnell Glucose [Mass/Vol] 100 mg/dL Normal 74-106 [facility] Comment on above: Performed By: #### B MP #### [facility] [address] [place] [address] Dr. Patricia Mcconnell Potassium [Moles/Vol] 4.6 mmol/L Normal 3.5-5.1 [facility] Comment on above: Performed By: #### B MP #### [facility] [address] [place] [address] Dr. Patricia Mcconnell Sodium [Moles/Vol] 136 mmol/L Normal 136-145 [facility] Comment on above: Performed By: #### B MP #### [facility] [address] [place], [place] [address] Dr. Patricia Mcconnell Urea nitrogen [Mass/Vol] 21.0 mg/dL Critically high 7.0-18.0 [facility] Comment on above: Performed By: #### B MP #### [facility] [id number] Patricia Mcconnell Urea nitrogen/Creatinine [Mass ratio] 16.3 mg/mg Normal [facility] Comment on above: Performed By: #### B MP #### [facility] [id number] Patricia Mcconnell Auto Diffon 03-23-2018 Basophils Auto #/vol (Bld) 0.8 % Normal 0.0-2.0 [facility] Comment on above: Order Comment: Order Added by Discern Expert. Performed By: #### 2 993243, 7616820, 0212038, 2426490, 68011172, 6359660 ####[facility] [address] [place] [address] Basophils/Leukocytes Auto Pure number fraction (Bld) 0.0 E9/L Normal 0.0-0.2 [facility] Comment on above: Order Comment: Order Added by Discern Expert. Performed By: #### 2 838272, 4264459, 3178444, 4874187, 19865992, 5989040 ####[facility] [address] [place] [address] Eosinophils/100 WBC Auto (Bld) 3.7 % Normal 0.0-8.0 [facility] Comment on above: Order Comment: Order Added by Discern Expert. Performed By: #### 2 946249, 7329405, 4087637, 7972932, 92467941, 1164950 ####[facility] [address] [place] [address] Eosinophils/Leukocyte s Auto Pure number fraction (Bld) 0.2 E9/L Normal 0.0-0.5 [facility] Comment on above: Order Comment: Order Added by True Expert. Performed By: #### 2 012150, 6206768, 1196929, 4940651, 33593171, 7214769 ####[facility] [address] [place] [address] Lymphocytes/100 WBC Auto (Bld) 23.1 % Normal 14.0-50.0 [facility] Comment on above: Order Comment: Order Added by True Expert. Performed By: #### 2 971179, 6200737, 9672454, 2483415, 27282064, 8684433 ####[facility] [address] [place] [address] Lymphocytes/Leukocyte s Auto Pure number fraction (Bld) 1.2 E9/L Normal 1.0-4.0 [facility] Comment on above: Order Comment: Order Added by True Expert. Performed By: #### 2 699056, 0889672, 1255612, 5207399, 19459211, 3490972 ####[address] [place] [address] Monocytes/100 WBC Auto (Bld) 7.3 % Normal 4.0-14.0 [facility] Comment on above: Order Comment: Order Added by True Expert. Performed By: #### 2 511380, 0500057, 1693808, 3669306, 03202679, 3775737 ####[facility] [address] [place] [address] Monocytes/Leukocytes Auto Pure number fraction (Bld) 0.4 E9/L Normal 0.2-1.0 [facility] Comment on above: Order Comment: Order Added by True Expert. Performed By: #### 2 711583, 5175178, 1507828, 9253790, 22731244, 8255962 ####[facility] [address] [place] [address] Neutrophils/100 WBC Auto (Bld) 65.1 % Normal 36.0-75.0 [facility] Comment on above: Order Comment: Order Added by True Expert. Performed By: #### 2 291297, 7730827, 2163319, 9012832, 85094273, 0024550 ####[facility] [address] [place] [address] Neutrophils/Leukocyte s Auto Pure number fraction (Bld) 3.4 E9/L Normal 2.0-7.5 [facility] Comment on above: Order Comment: Order Added by Discern Expert. Performed By: #### 2 921495, 1986850, 5054904, 2489212, 25497938, 8366998 ####[facility] [address] [place] [address] BUNon 03-23-2018 Urea nitrogen mass conc 16 mg/dL Normal 5-21 [facility] Comment on above: Performed By: #### 2 334526, 3186420, 2315478, 2037564, 53507691, 1842855 ####[address] [address] CBC w/ Auto Diffon 8 Erythrocyte distribution width Auto Ratio (RBC) 13.6 % Normal 10.9-14.2 [facility] Comment on above: Performed By: #### 2 188993, 9928675, 4700101, 5968103, 86218824, 2481366 ####[facility] [address] [place] [address] Hematocrit Auto Volume Fraction (Bld) 41.7 % Normal 37.7-49.0 [facility] Comment on above: Performed By: #### 2 301309, 2442746, 6852187, 9803669, 49293837, 9389309 ####[facility] [address] [place] [address] Hemoglobin mass conc (Bld) 14.3 g/dL Normal 13.5-17.5 [facility] Comment on above: Performed By: #### 2 475841, 1023708, 8803063, 8668323, 78794313, 2910238 ####[address] [place] [address] MCH Auto Entitic mass (RBC) 31.8 pg Normal 27.0-34.0 [facility] Comment on above: Performed By: #### 2 340128, 6725651, 6861885, 0031518, 08402849, 5127583 ####[address] MCHC Auto mass conc (RBC) 34.3 g/dL Normal 31.4-39.3 [facility] Comment on above: Performed By: #### 2 495075, 1687583, 2151172, 4889096, 41156327, 4159759 ####[address] MCV Auto Entitic volume (RBC) 92.5 fL Normal 80.0-100.0 [facility] Comment on above: Performed By: #### 2 705611, 7035205, 6727067, 0186790, 43955652, 1032087 ####[place] [address] Platelet mean volume Auto Entitic volume (Bld) 10.1 fL Normal 6.4-10.8 [facility] Comment on above: Performed By: #### 2 852161, 6656727, 7114764, 8213452, 82413472, 3041998 ####[address] Platelets Auto #/vol (Bld) 142.0 E9/L Low 150.0-500. 0 [facility] Comment on above: Performed By: #### 2 579175, 6175798, 8311775, 0370684, 67373285, 6710605 ####[address] RBC Auto #/vol (Bld) 4.5 E12/L Normal 4.3-5.9 [facility] Comment on above: Performed By: #### 2 820271, 5772753, 4416920, 7413170, 60060764, 4391810 ####[address] WBC corrected for nucl RBC Auto #/vol (Bld) 5.2 E9/L Normal 4.0-11.0 [facility] Comment on above: Performed By: #### 2 638115, 5661022, 1735430, 5793666, 30647220, 7012333 ####[facility] [address] [place] [address] Coding Summary.on 03-23-2018 Coding Summary. CODING DATE: 018 FINAL [facility] STATUS: PAYOR: Medicare ADMIT DX: REASON FOR [...] Salguero Date Saved: 03/23/2018 02:49 pm Normal [facility] Creatinineon 03-23-2018 Creatinine mass conc 1.1 mg/dL Normal 0.5-1.3 [facility] Comment on above: Performed By: #### 2 372228, 1021191, 2887447, 6244949, 03217997, 8619147 ####[facility] [address] [place] [address] Lyteson 03-23-2018 Anion gap 3 molar conc 11 mmol/L Normal 6-16 [facility] Comment on above: Performed By: #### 2 963577, 8249623, 1967345, 2085194, 36728523, 2091387 ####[facility] [address] [place] [address] Chloride molar conc 105 mmol/L Normal 101-111 [facility] Comment on above: Performed By: #### 2 476502, 0252029, 2276560, 8445733, 37112840, 2597640 ####[facility] [address] [place] [address] CO2 molar conc 24 mmol/L Normal 21-31 [facility] Comment on above: Performed By: #### 2 540404, 7594517, 4467637, 0042856, 65904996, 4219672 ####[facility] [address] [place] [address] Potassium molar conc 4.1 mmol/L Normal 3.5-5.3 [facility] Comment on above: Performed By: #### 2 878858, 3326019, 6220250, 9989544, 39705250, 5692014 ####[facility] [address] [place] [address] Sodium molar conc 136 mmol/L Normal 135-145 [facility] Comment on above: Performed By: #### 2 382198, 6870346, 3149999, 5377531, 41161113, 1480313 ####[facility] [address] [place] [address] eGFRon 03-23-2018 GFR/1.73 sq M predicted among blacks MDRD vol rate/area (S/P/Bld) mL/min/{1.73_m2} Normal >=59 [facility] Comment on above: Order Comment: Order added by Discern Expert. Result Comment: eGFR is race adjusted. AA=. Performed By: #### 2 434802, 2484589, 0555043, 0000053, 59793028, 2143249 ####[facility] [address] [place] [address] GFR/1.73 sq M predicted among non-blacks MDRD vol rate/area (S/P/Bld) mL/min/{1.73_m2} Normal >=59 [facility] Comment on above: Order Comment: Order added by Discern Expert. Result Comment: Brand Designer alec kidney disease could be indicated at eGFR's of less than 60 mL/min/1.73m2. Kidney failure is indicated at less than 15 mL/min/1.73m2. Performed By: #### 2 586875, 7994252, 5612715, 8758059, 19977402, 3541786 ####[facility] [address] [place] [address] Cardiovascular Lab Reporton 05-15-2017 Cardiovascular Lab Report [facility]: [id number] Physician: Dora Ferrari,Department of M.D.Medicine Service Date: 05/12/2017Division of Birthdate: 3Cardiology Room #: [facility] [place], [place] [address] Fax Cardiovascular Laboratory ReportPROCEDURE: LINQ implant.INDICATION: Atrial [...] procedure well.R-waves equal 0.4 mV.Medtronic LINQ serial #[id number].Medtronic LINQ model 69441 monitor [id number].CONCLUSION: Successful LINQ implant.Electronically Signed by:Dora Ferrari M.D. 05/21/2017 02:27 P Dora Ferrari M.D.Date Dict: 05/13/2017/11:50 P/Dora Ferrari M.D.Date Trans: 05/14/2017 11:02 P/[id number]: Jonathon Hahn D.O. [address] [place] [address] A [facility] [address] [facility] Vital Signs Date Time Vital Sign Value Performing Clinician Facility 01-06-2025 10:43-0400 Body height 198.12 cm Jonathon Ball DO Work Phone: [facility] 01-06-2025 10:43-0400 Body mass index (BMI) [Ratio] 31.4 kg/m2 Jonathon Ball DO Work Phone: [facility] 01-06-2025 10:43-0400 Body weight 123.09 kg Jonathon Ball DO Work Phone: [facility] 01-06-2025 10:43-0400 Diastolic blood pressure 84 mm[Hg] Jonathon Ball DO Work Phone: [facility] 01-06-2025 10:43-0400 Heart rate 153 /min Jonathon Ball DO Work Phone: [facility] 01-06-2025 10:43-0400 Respiratory rate 12 /min Jonathon Ball DO Work Phone: [facility] 01-06-2025 10:43-0400 Systolic blood pressure 121 mm[Hg] Jonathon Ball DO Work Phone: [facility] 11-05-2024 09:11-0400 Body height 196.9 cm Dottie Juárez APRN-MINE LABORER Work Phone: [facility] 11-05-2024 09:11-0400 Body mass index (BMI) [Ratio] 31.61 kg/m2 Dottie Juárez COORDINATING PRODUCER-MINE LABORER Work Phone: [facility] 11-05-2024 09:11-0400 Body weight 122.47 kg Dottie Juárez COORDINATING PRODUCER-MINE LABORER Work Phone: 4(141)065-792312 [place] [address] 03-15-2024 13:09-0400 Diastolic blood pressure 78 mm[Hg] Brooklynn Woodson MD Work Phone: 4(043)900-110712 [place] [address] 03-15-2024 13:09-0400 Heart rate 59 /min Brooklynn Woodson MD Work Phone: 8(497)330-585612 [place] [address] 03-15-2024 13:09-0400 Respiratory rate 20 /min Brooklynn Woodson MD Work Phone: 6(882)446-679712 [place] [address] 03-15-2024 13:09-0400 Systolic blood pressure 148 mm[Hg] Brooklynn Woodson MD Work Phone: 6(284)122-554812 [place] [address] 03-15-2024 13:05-0400 SaO2% (BldA) [Mass fraction] 93 % Brooklynn Woodson MD Work Phone: 3(397)606-676112 [place] [address] 03-15-2024 10:36-0400 Body height 195.6 cm Brooklynn Woodson MD Work Phone: 9(260)759-003312 [place] [address] 03-15-2024 10:36-0400 Body mass index (BMI) [Ratio] 30.48 kg/m2 Brooklynn Woodson MD Work Phone: 2(476)271-982312 [place] [address] 03-15-2024 10:36-0400 Body weight 116.57 kg Brooklynn Woodson MD Work Phone: 7(364)605-774912 [place] [address] 01-28-2024 19:15-0400 Heart rate 68 /min Brooklynn Woodson MD Work Phone: 2(398)069-268712 [place] [address] 01-28-2024 19:15-0400 Respiratory rate 24 /min Brooklynn Woodson MD Work Phone: 3(506)022-145712 [place] [address] 01-28-2024 17:30-0400 Diastolic blood pressure 64 mm[Hg] Brooklynn Woodson MD Work Phone: 1(142)160-282912 [place] [address] 01-28-2024 17:30-0400 SaO2% (BldA) [Mass fraction] 96 % Brooklynn Woodson MD Work Phone: [facility] 01-28-2024 17:30-0400 Systolic blood pressure 117 mm[Hg] Brooklynn Woodson MD Work Phone: 4(068)035-479073 [address] 01-28-2024 14:45-0400 Body temperature 98.01 [degF] Brooklynn Woodson MD Work Phone: 1(939)180-421573 [address] 01-28-2024 09:16-0400 Body height 195.6 cm Brooklynn Woodson MD Work Phone: 0(649)859-302973 [address] 01-28-2024 09:16-0400 Body mass index (BMI) [Ratio] 30.59 kg/m2 Brooklynn Woodson MD Work Phone: 3(235)106-522173 [address] 01-28-2024 09:16-0400 Body weight 117 kg Brooklynn Woodson MD Work Phone: 9(173)769-977773 [address] 12-24-2023 12:50-0400 Body height 195.6 cm Brooklynn Woodson MD Work Phone: 6(802)977-135873 [address] 12-24-2023 12:50-0400 Body mass index (BMI) [Ratio] 30.83 kg/m2 Brooklynn Woodson MD Work Phone: 5(261)008-206373 [address] 12-24-2023 12:50-0400 Body weight 117.94 kg Brooklynn Woodson MD Work Phone: 7(901)610-149673 [address] 12-24-2023 12:39-0400 Respiratory rate 16 /min Brooklynn Woodson MD Work Phone: 6(028)663-935073 [address] 11-10-2023 12:47-0400 Body height 195.6 cm Brooklynn Woodson MD Work Phone: 6(456)573-029373 [address] 11-10-2023 12:47-0400 Diastolic blood pressure 91 mm[Hg] Brooklynn Woodson MD Work Phone: 0(251)183-946473 [address] 11-10-2023 12:47-0400 Heart rate 67 /min Brooklynn Woodson MD Work Phone: [facility] 11-10-2023 12:47-0400 Systolic blood pressure 163 mm[Hg] Brooklynn Woodson MD Work Phone: [facility] 10-29-2023 11:14-0400 Body height 198.12 cm DO Jonathon Ball Work Phone: [facility] 10-29-2023 11:14-0400 Body mass index (BMI) [Ratio] 30.4 kg/m2 DO Jonathon Ball Work Phone: [facility] 10-29-2023 11:14-0400 Body weight 119.74 kg DO Jonathon Ball Work Phone: [facility] 10-29-2023 11:14-0400 Diastolic blood pressure 78 mm[Hg] DO Jonathon Ball Work Phone: [facility] 10-29-2023 11:14-0400 Heart rate 88 /min DO Jonathon Ball Work Phone: [facility] 10-29-2023 11:14-0400 SaO2% (BldA) [Mass fraction] 98 % DO Jonathon Ball Work Phone: [facility] 10-29-2023 11:14-0400 Systolic blood pressure 132 mm[Hg] DO Jonathon Ball Work Phone: [facility] 03-18-2023 11:53-0400 Body height 182.9 cm Kt Merritt MD Work Phone: [facility] 03-18-2023 11:53-0400 Body mass index (BMI) [Ratio] 34.64 kg/m2 Kt Merritt MD Work Phone: [facility] 03-18-2023 11:53-0400 Body temperature 98.29 [degF] Kt Merritt MD Work Phone: [facility] 03-18-2023 11:53-0400 Body weight 115.85 kg Kt Merritt MD Work Phone: [facility] 03-18-2023 11:53-0400 Diastolic blood pressure 80 mm[Hg] Kt Merritt MD Work Phone: [facility] 03-18-2023 11:53-0400 Heart rate 66 /min Kt Merritt MD Work Phone: [facility] 03-18-2023 11:53-0400 Respiratory rate 18 /min Kt Merritt MD Work Phone: [facility] 03-18-2023 11:53-0400 SaO2% (BldA) [Mass fraction] 97 % Kt Merritt MD Work Phone: [facility] 03-18-2023 11:53-0400 Systolic blood pressure 138 mm[Hg] Kt Merritt MD Work Phone: [facility] 03-06-2023 10:00-0400 Diastolic blood pressure 65 mm[Hg] Brooklynn Woodson MD Work Phone: [facility] 03-06-2023 10:00-0400 Heart rate 62 /min Brooklynn Woodson MD Work Phone: [facility] 03-06-2023 10:00-0400 Respiratory rate 22 /min Brooklynn Woodson MD Work Phone: [facility] 03-06-2023 10:00-0400 SaO2% (BldA) [Mass fraction] 95 % Brooklynn Woodson MD Work Phone: [facility] 03-06-2023 10:00-0400 Systolic blood pressure 127 mm[Hg] Brooklynn Woodson MD Work Phone: [facility] 03-06-2023 08:49-0400 Body height 193 cm Brooklynn Woodson MD Work Phone: [facility] 03-06-2023 08:49-0400 Body mass index (BMI) [Ratio] 30.67 kg/m2 Brooklynn Woodson MD Work Phone: [facility] 03-06-2023 08:49-0400 Body weight 114.31 kg Brooklynn Woodson MD Work Phone: [facility] 03-06-2023 08:21-0400 Heart rate 58 /min Kt Merritt MD Work Phone: [facility] 03-06-2023 08:19-0400 Body height 193 cm Kt Merritt MD Work Phone: [facility] 03-06-2023 08:19-0400 Diastolic blood pressure 85 mm[Hg] Kt Merritt MD Work Phone: [facility] 03-06-2023 08:19-0400 Systolic blood pressure 159 mm[Hg] Kt Merritt MD Work Phone: [facility] 01-22-2023 09:00-0400 Body height 198.12 cm Jonathon Ball Other [email or web address] [facility] [employer] Other 01-22-2023 09:00-0400 Body mass index (BMI) [Ratio] 29.19 kg/m2 Jonathon Ball Other [employer] Other 01-22-2023 09:00-0400 Body weight 114.58 kg Jonathon Ball Other [employer] Other 01-22-2023 09:00-0400 Diastolic blood pressure 72 mm[Hg] Jonathon Ball Other [employer] Other 01-22-2023 09:00-0400 Respiratory rate 12 /min Jonathon Ball Other [employer] Other 01-22-2023 09:00-0400 Systolic blood pressure 117 mm[Hg] Jonathon Hahn Other [facility] [employer] Other 04-29-2022 10:50-0400 Diastolic blood pressure 58 mm[Hg] Brooklynn Woodson MD Work Phone: [facility] 04-29-2022 10:50-0400 Heart rate 44 /min Brooklynn Woodson MD Work Phone: [facility] 04-29-2022 10:50-0400 Respiratory rate 17 /min Brooklynn Woodson MD Work Phone: [facility] 04-29-2022 10:50-0400 SaO2% (BldA) [Mass fraction] 92 % Brooklynn Woodson MD Work Phone: [facility] 04-29-2022 10:50-0400 Systolic blood pressure 99 mm[Hg] Brooklynn Woodson MD Work Phone: [facility] 04-29-2022 09:20-0400 Body height 193 cm Brooklynn Woodson MD Work Phone: [facility] 04-29-2022 09:20-0400 Body mass index (BMI) [Ratio] 32.26 kg/m2 Brooklynn Woodson MD Work Phone: [facility] 04-29-2022 09:20-0400 Body weight 120.2 kg Brooklynn Woodson MD Work Phone: [facility] 03-11-2022 10:52-0400 Body height 194.3 cm Brooklynn Woodson MD Work Phone: [facility] 03-11-2022 10:52-0400 Diastolic blood pressure 90 mm[Hg] Brooklynn Woodson MD Work Phone: [facility] 03-11-2022 10:52-0400 Heart rate 55 /min Brooklynn Woodson MD Work Phone: [facility] 03-11-2022 10:52-0400 Systolic blood pressure 151 mm[Hg] Brooklynn Woodson MD Work Phone: [facility] Encounters Encounter Date Encounter Type Care Provider Facility Start: 01-14-2025 ambulatory DOTTIE JUÁREZ Facility: [facility] Start: 01-06-2025 Non-patient / Non-visit Cassandra Chavez MD -[facility] Work Phone: Start: 01-06-2025 End: 01-06-2025 ambulatory Jonathon Hahn DO Work Phone: [facility] Work Phone: Start: 01-06-2025 End: 01-06-2025 Patient encounter procedure Jonathon Hahn DO -[facility] Work Phone: Start: 11-30-2024 End: 11-30-2024 ambulatory Lindsay Johnson RN [facility] Start: 11-05-2024 End: 11-05-2024 Subsequent hospital visit by physician Dottie Juárez COORDINATING PRODUCER-MINE LABORER Work Phone: [facility] Comment on above: Arrived Start: 11-05-2024 ambulatory DOTTIE JUÁREZ Facility: [facility] Start: 11-02-2024 ambulatory JONATHON BALL Facility: [facility] Start: 03-16-2024 ambulatory JONATHON BALL Facility: [facility] Start: 03-15-2024 End: 03-15-2024 Subsequent hospital visit by physician Brooklynn Woodson MD Work Phone: [facility] Comment on above: Arrived Start: 03-15-2024 ambulatory JONATHON BALL Facility: [facility] Start: 01-28-2024 End: 01-28-2024 ambulatory JONATHON BRUNO Facility:[facility] Start: 01-28-2024 End: 01-28-2024 Evaluation and [...] 11-20-2023 ambulatory DO Jonathon Ball Work Phone: [facility] Work Phone: Start: 11-20-2023 End: 11-20-2023 Patient encounter procedure DO Jonathon Ball Work Phone: [facility] Work Phone: Start: 11-10-2023 End: 11-10-2023 Subsequent hospital visit by physician Brooklynn Woodson MD Work Phone: [facility] Comment on above: Arrived Start: 10-29-2023 End: 10-29-2023 Patient encounter procedure DO Jonathon Ball Work Phone: [facility] Work Phone: Start: 10-03-2023 Non-patient / Non-visit DO Jonathon Ball Work Phone: [facility] [employer] Work Phone: Start: 07-20-2023 End: 07-20-2023 ambulatory Jonathon Ball Other [employer] Other Start: 07-20-2023 Telephone encounter Jonathon Ball [facility] Start: 05-21-2023 End: 05-21-2023 ambulatory Jonathon Ball Other [employer] Other Start: 05-21-2023 Telephone encounter Jonathon Ball [facility] Start: 05-14-2023 End: 05-14-2023 ambulatory Jonathon Ball Other [employer] Other Start: 05-14-2023 Telephone encounter Jonathon Ball [facility] Start: 04-23-2023 End: 04-23-2023 ambulatory Jonathon Ball Other [employer] Other Start: 04-23-2023 Telephone encounter Jonathon Hahn [facility] Start: 03-18-2023 End: 03-18-2023 Office outpatient new 60 minutes Kt Merritt MD Work Phone: [facility] Comment on above: Enlargement of aorti c root Start: 03-06-2023 End: 03-06-2023 Subsequent hospital visit by physician Kt Merritt MD Work Phone: [facility] Comment on above: Arrived Start: 01-23-2023 End: 01-23-2023 ambulatory Jonathon Hahn Other [employer] Other Start: 01-23-2023 Telephone encounter Jonathon Hahn [facility] Start: 01-22-2023 End: 01-22-2023 ambulatory Jonathon Hahn Other [employer] Other Start: 01-22-2023 Patient encounter procedure Jonathon Holden Hahn [facility] Start: 04-29-2022 End: 04-29-2022 Subsequent hospital visit by physician Brooklynn Woodson MD Work Phone: [facility] Comment on above: Arrived Start: 03-11-2022 End: 03-11-2022 Subsequent hospital visit by physician Brooklynn Woodson MD Work Phone: [facility] Comment on above: Arrived Start: 01-22-2022 End: 01-23-[address] JONATHON HAHN Facility:[facility] Start: 01-09-2022 End: 01-09-[address] JONATHON HAHN Facility:[facility] Start: 11-19-2021 End: 11-20-[address] DOCTOR BATISTA Facility:[facility] Start: 03-20-2018 End: 03-28-2018 Patient encounter CELENA DOSS [facility] Start: 05-12-2017 End: 05-13-2017 Ambulatory DORA FERRARI Facility:[facility] Start: 05-05-2017 End: 05-06-2017 Ambulatory DEFAULT PHYSICIAN Facility:[facility] Start: 04-15-2017 End: 04-16-2017 Ambulatory DEFAULT PHYSICIAN Facility:[facility] Procedures Date Procedure Procedure Detail Performing Clinician Start: 11-05-2024 Myocardial spect mul tiple studies Dottie Juárez COORDINATING PRODUCER-MINE LABORER Work Phone: Start: 03-15-2024 Echo transesophag r- [...] Start: 01-28-2024 CBC AND ELECTRONIC DIFF Kiera G Overmeyer COORDINATING PRODUCER-MINE LABORER Work Phone: Start: 01-28-2024 Complete blood count with white cell differential, automated Kiera G Overmeyer COORDINATING PRODUCER-MINE LABORER Work Phone: Start: 01-28-2024 Creatinine blood Antoinette virkcarlos Yolanda Overmeyer COORDINATING PRODUCER-MINE LABORER Work Phone: Start: 12-24-2023 CBC AND ELECTRONIC DIFF Denise L Tartt COORDINATING PRODUCER-MINE LABORER Work Phone: Start: 12-24-2023 Complete blood count with white cell differential, automated Denise L Tartt COORDINATING PRODUCER-MINE LABORER Work Phone: Start: 12-24-2023 Creatinine blood Janey ly L Tartt COORDINATING PRODUCER-MINE LABORER Work Phone: Start: 11-20-2023 Plain X-ray of right hip DO Jonathon Ball Work Phone: Start: 11-10-2023 Ct heart contrast [...] Start: 01-22-[address] SHERIDAN IN [facility] Comment on above: Performed By: #### [facility] #### [facility] [address] [place] [address] Dr. Patricia Mcconnell Plan of Treatment Date Care Activity Detail Author Start: 09-23-2027 RSV VACCINE (1 - 1-dose 75+ series) RSV VACCINE (1 - 1-dose 75+ series) [facility] Start: 11-01-2025 End: 11-01-2025 Patient encounter procedure 11/01/2025 9:30 AM EDT Office Visit [facility] [address] [place] [address] Dottie Juárez APRN-DEANGELO [address] [place] [phone] [facility] Start: 04-26-2025 Tetanus vaccination TETANUS [facility] Start: 02-28-2025 Influenza vaccination INFLUENZA VACCINE (Season Ended) [facility] Start: 01-06-2025 Patient referral [facility] Work Phone: Start: 01-06-2025 End: 01-06-2025 [facility] Start: 11-02-2024 End: 11-02-2024 Patient encounter procedure 11/02/2024 9:30 AM EDT Office Visit [facility] [address] [place] [phone] Dottie Juárez, COORDINATING PRODUCER-MINE LABORER [address] [place] [phone] [facility] Start: 04-15-2024 Screening for malignant neoplasm of colon COLORECTAL CANCER SCREENING DISCUSSION [facility] Start: 02-29-2024 COVID-19 VACCINE ( season) COVID-19 VACCINE ( season) [facility] Start: 02-29-2024 COVID-19 VACCINE ( season) COVID-19 VACCINE ( season) [facility] Start: 02-29-2024 Influenza vaccination [facility] Start: 01-15-2024 End: 01-15-2024 Patient encounter procedure 01/15/2024 10:30 AM EDT Office Visit [facility] [address] [place] [phone] Brooklynn Woodson MD [address] [place] [phone] [facility] Start: 11-04-2023 End: 11-04-2023 Patient encounter procedure 11/04/2023 1:30 PM EDT Office Visit [facility] [address] [place] [phone] Dottie Juárez, COORDINATING PRODUCER-MINE LABORER [address] [place] [address] [facility] Start: 03-13-2023 End: 03-13-2023 Patient encounter procedure 03/13/2023 12:30 PM EDT Office Visit [facility] [address] [place] [phone] [facility] Start: 02-28-2023 COVID-19 VACCINE () COVID-19 VACCINE () [facility] Start: 02-28-2023 Influenza vaccination INFLUENZA VACCINE (#1) [facility] Start: 11-05-2022 End: 11-05-2022 Patient encounter procedure 11/05/2022 Office Visit Electrophysiology Dottie Juárez, COORDINATING PRODUCER-MINE LABORER [address] [place] [phone] [facility] Start: 04-30-2022 End: 04-30-2022 Telemedicine consultation with patient 04/30/2022 Telemedicine Electrophysiology Lisa Medellin, COORDINATING PRODUCER-MINE LABORER [address] [place] [phone] Paroxysmal atrial fibrillation (Primary Dx); Typical atrial flutter; Presence of Watchman left atrial appendage closure device; Hypertension, essential [facility] Comment on above: Paroxysmal atrial fibrillation (Primary Dx); Typical atrial flutter; Presence of Watchman left atrial appendage closure device; Hypertension, essential Start: 02-28-2022 Influenza vaccination INFLUENZA VACCINE (#1) [facility] Start: 01-29-2022 COVID-19 VACCINE (2 - Pfizer series) COVID-19 VACCINE (2 - Pfizer series) [facility] Start: 12-25-2021 COVID-19 VACCINE (2 - Pfizer series) COVID-19 VACCINE (2 - Pfizer series) [facility] Start: 04-03-2021 Colonoscopy COLORECTAL CANCER SCREENING DISCUSSION [facility] Start: 04-03-2021 Screening for malignant neoplasm of colon COLORECTAL CANCER SCREENING DISCUSSION [facility] Start: 2017 Pneumococcal vaccination PNEUMOCOCCAL VACCINE SERIES (1 - PCV) [facility] Start: 2012 RSV VACCINE (1 - 1-dose 60+ series) RSV VACCINE (1 - 1-dose 60+ series) [facility] Start: 2002 Prostate specific antigen measurement PROSTATE CANCER SCREENING DISCUSSION [facility] Start: 2002 Zoster vaccine hzv live for subcutaneous use ZOSTER (SHINGLES) VACCINE (1 of 2) [facility] Start: 1992 Fasting lipid profile LIPID SCREENING [facility] Start: 1992 Lipid panel LIPID SCREENING [facility] Start: 09-23-1971 Third diphtheria, tetanus and acellular pertussis (DTaP) vaccination TDAP (ADULT) [facility] Start: 1970 Tetanus vaccination TETANUS [facility] Start: 1952 Hepatitis C antibody, confirmatory test HEPATITIS C VIRUS SCREENING [facility] Start: 1952 Hepatitis C screening HEPATITIS C VIRUS SCREENING [facility] Start: 1952 Tetanus vaccination TETANUS [facility] Comprehensive metabo lic 2000 panel - Serum or Plasma [facility] End: 01-28-2024 ECHOCARDIOGRAM TRANSESOPHAGEAL (ALLI) IN OR - IMAGES ECHOCARDIOGRAM TRANSESOPHAGEAL (ALLI) IN OR - IMAGES Imaging Routine One Time for 1 Occurrences starting 01/28/2024 until 01/28/2024 [facility] Work Phone: Comment on above: One Time for 1 Occurrences starting 12/30 until 01/28/2024 End: 12-22-2023 Electrophysiology study EP PROCEDURE - EPS/ABLATION/DEVICE Electrophysiology Routine Paroxysmal atrial fibrillation Atypical atrial flutter One Time for 1 Occurrences starting 12/22/2023 until 12/22/2023 [facility] Comment on above: One Time for 1 Occurrences starting 11/29 until 12/22/2023 Electrophysiology study EP PROCE DURE - EPS/ABLATION/DEVICE Electrophysiology Routine Atrial fibrillation, unspecified type 01/28/2024 2:44 PM EDT [facility] Patient referral [facility] Work Phone: Perq clsr tcat l atr apndge w/endocardial implnt LEFT ATRIAL APPENDAGE SCHED CLOSURE W/ IMPLANT ([id number]) Paroxysmal atrial fibrillation Atypical atrial flutter [facility] EP XR Hip - right 2 Views [facility] Immunizations Immunization Date Immunization Notes Care Provider Fa cility 04-24-2020 influenza virus vaccine, split virus (incl. purified surface antigen) Jonathon Hahn Other [employer] [place] [employer] Other 04-24-2020 influenza virus vaccine, unspecified formulation Brooklynn Woodson MD Work Phone: [facility] 01-13-2018 pneumococcal polysaccharide vaccine, 23 valent Jonathon Hahn Other [facility] 04-02-2017 influenza virus vaccine, split virus (incl. purified surface antigen) Jonathon Hahn Other [employer] Other 04-02-2017 influenza virus vaccine, unspecified formulation DO Jonathon Hahn Work Phone: [facility] 12-03-2016 pneumococcal conjuga te vaccine, 13 valent Jonathon Hahn Other [facility] 04-26-2015 tetanus and diphther ia toxoids, adsorbed, preservative free, for adult use (5 Lf of tetanus toxoid and 2 Lf of diphtheria toxoid) Jonathon Hahn Other [facility] Payers Date Payer Category Payer Self-pay [id number] 2017 Managed Care (unspecified) [facility] [id number] 2017 Private Health Insurance [id number] 2013 Medicare [id number] 1959 Medicare [id number] 1959 Private Health Insurance [id number] 1952 Unknown [id number]. 2.593 1952 Unknown [id number] [id number]. 2.593 1952 Unknown [id number] [id number]. 2.593 1952 Unknown [id number] [id number]. 2.594 1952 Unknown [id number] [id number]. 2.594 1952 Unknown [id number] [id number]. 2.594 1952 Unknown [id number] 2.16.840.1.587994.3.579. 2.594 1952 Unknown [id number] [id number]. 2.594 1952 Unknown [id number] [id number]. 2.594 1952 Unknown [id number] [id number]. 2.594 1952 Unknown [id number] [id number]. 2.594 Medicare [id number] Unknown Unknown Regular Insurance [id number] Unknown [id number] [id number] Social History Date Type Detail Facility Start: 03-12-2018 End: 01-06-2025 Tobacco smoking status NHIS Never smoked tobacco [facility] Start: 03-12-2018 End: 04-30-2022 Tobacco use and exposure Smokeless tobacco non-user [facility] Start: 11-07-2021 End: 03-18-2023 Alcohol intake Current drinker of alcohol (finding) [facility] Start: 03-12-2018 End: 04-30-2022 Tobacco Comment rare cigar [facility] Start: 1950 Sex Assigned At Not on file [facility] Start: 03-06-2023 End: 11-03-2024 Sex Assigned At [facility] Other Start: 03-06-2023 End: 11-03-2024 History of Social function [facility] Start: 03-10-2018 Gender identity Identifies as male gender (finding) [facility] Start: 12-21-2022 Sexual orientation Heterosexual (finding) [facility] Start: 11-04-2023 End: 11-03-2024 Alcoholic beverage intake Ex-drinker (finding) [facility] Start: 1950 Sex Assigned At Male [facility] Start: 03-10-2018 Sex Male (finding) [facility] Medical Equipment Procedure Code Equipment Code Equipment Original Text Equipment Identifier Dates Occluder Cardiov ascular 31mm Delivery System Watchman Flx - [id number] FDA Start: 03-12-2022 Terumo Azur [...] Device Closure P erclose Proglide 6fr - [id number] Start: 01-28-2024 Device Closure P erclose Proglide 6fr - [id number] Start: 01-28-2024 Functional Status Date Assessment Result Facility 03-11-2018 Are you deaf, or do you have serious difficulty hearing No 03/11/2018 4:39 PM Areli Brown RN No [facility] 03-11-2018 Are you blind, or do you have serious difficulty seeing, even when wearing glasses No 03/11/2018 4:39 PM Areli Brown, ESAU No [facility] 03-11-2018 Do you have serious difficulty walking or climbing stairs No 03/11/2018 4:39 PM Areli Brown, ESAU No [facility] 03-11-2018 Do you have difficul ty dressing or bathing No 03/11/2018 4:39 PM Areli Brown, ESAU No [facility] 03-11-2018 Because of a physica l, mental, or emotional condition, do you have difficulty doing errands alone such as visiting a physician's office or shopping No 03/11/2018 4:39 PM EDT Areli Kendall, ESAU No [facility] Mental Status Date Assessment Result Facility 03-11-2018 Because of a physica l, mental, or emotional condition, do you have serious difficulty concentrating, remembering, or making decisions No 03/11/2018 4:39 PM EDT Areli Kendall, ESAU No [facility] Clinical Notes 04-29-2022 to 01-06-2025 Note Date [...] visit, subsequent noneactive January 06, 2025 10:16am [facility] Work Phone: 1(190) 784-374706-03-2025 Telephone encounter Note* Telephone Encounter - Lindsay Johnson RN - 11/30/2024 11:19 AM EDT Pt called back in returning Dottie Muniz' phone message. Results read: Reviewed results of stress testing- no evidence of ischemia. LVEF 52% 3 day Holter monitor showed a PVC burden average of 16%, PAC burden of 4.0%. Average heart rate 67 bpm. Heart rate range 36-97 bpm. Called patient and left VM to return call. Discussed case with Dr. Wodoson. Will plan to repeat echo in 3 months. Message to Dottie Juárez. [facility]06-03-2025 Miscellaneous Notes* Telephone Encounter - Lindsay Johnson RN - 11/30/2024 11:19 AM EDT Pt called back in returning Dottie Muniz' phone message. Results read: Reviewed results [...] echo in 3 months. Message to Dottie Juárez. documented in [facility] encounter[facility] NoteThere is a watchman device placed 02/2022 [...] original result were not included. Facility [facility] Patient Information Patient Name Kristen Coates [...] - Reading 03/15/2024 Michael Walker MD Echo [place], Test Inhalation Therapy Teacher 03/15/2024 Great Vessels Aortic Root - End [...] the patient/family member and/or their power of claims attorney. Informed consent was obtained. All staff members involved in the procedure completed a timeout prior to the start of the procedure verifying correct patient identity and correct procedure to be performed. A transesophageal echocardiography study (including color flow Doppler and limited spectral Doppler) was performed. Overall study quality was good. ALLI probe type used: Radiation Watch. Probe insertion was not difficult. Patient reaction to probe was well-tolerated. Clinical history: s/p Coil procedure for leak repair. Indications for study: ADAN Occluder pre / post. There were no complications. Exam Details Performed Procedure Technologist Supporting Staff Performing Physician ECHO TRANSESOPHAGEAL STUDY DETAILS BILLING Pat Go RN Appointment Date/Status Modality Department 03/15/2024 Arrived ALLI TESTING, [facility] ECHOCARDIOGRAPHY ROSS Begin Exam End Exam 03/15/2024 [...] Scheduled Time: 1215 [place] (more content not included)...[facility] 03-15-2024 History and physical note* Kathy [...] PTT 27.4 01/28/2024 PTT 100.3 (HH) 03/12/2018 [facility] Work Phone: 1(757) 231-591709-16-2024 History and physical note* Kathy Whitaker MD [...] PTT 100.3 (HH) 03/12/2018 [facility] Nurse Note* Nursing Notes - Heidi Sanchez RN - 01/28/2024 7:53 PM EDTSummary: avs Patient verbalize understanding of discharge instructions, saline lock removed, catheter intact, to transport home [facility]07-31-2024 Miscellaneous Notes* Nursing Notes - Heidi Sanchez [...] [x]Bed low. [x]Tray table within reach. [x]Physician and/behavioral sciences department chair notified of the above Education Patient/Family informed to notify nurse of any complications including pain, redness, swelling, or leaking post-insertion. documented in this encounterOS[facility] Hospital Discharge instructions* Discharge Instr - Activity* SHYANNE Gandara - 01/28/2024 3:24 PM EDT Your Activity [...] through Care Everywhere. * Healthy Diet: Heart ([place]) * Heart Healthy Diet ([facility]) ([place]) documented in this encounterU [facility] History and physical note* SHYANNE Gandara - 01/28/2024 10:28 AM EDT Chief Complaint LAAO setph-device communication HPI Kristen Coates is a 73 [...] now back on Xarelto, due to his [id number] score of 4. He presents today to [...] When was the last dose taken. 01/26 [id number]- Vasc score: 4 ( age, HTN, TIA [...] as addended by me. Brooklynn Woodson MD01/28/2024 [facility]07-31-2024 History and physical note* Jordyn Vela APRN-MINE LABORER - 01/28/2024 10:28 AM EDT Chief Complaint LAAO steph-device communication JULIANE Coates is a 73 y.o. male with persistent AF s/p WACA PVI 2018, AFL s/p CTI 2017, HTN, LBBB, TIA, [...] now back on Xarelto, due to his [id number] score of 4. He presents today to [...] Father Arrhythmia Brother PCP Jonathon HURTADO MD: [facility] Anticoagulation: Xarelto Has the patient missed any doses of anticoagulation. none When was the last dose taken. 01/26 [id number]- Vasc score: 4 ( age, HTN, TIA [...] Brooklynn Woodson MD01/28/2024 documented in this encounterOSU [facility] Nurse Note* Nursing Notes - Rochelle Garcia [...] [x]Bed low. [x]Tray table within reach. [x]Physician and/behavioral sciences department chair notified of the above Education Patient/Family informed to notify nurse of any complications including pain, redness, swelling, or leaking post-insertion. [facility]06-26-2024 Hospital Discharge instructions* Discharge Instr - Activity* [...] procedure or EP follow-up care please call: [phone] Chest pain or shortness of breath Bleeding/Bruising [...] procedure or EP follow-up care please call: [phone]. Appointments You will find your scheduled appointments [...] evening, weekend, or holiday hours, please call: [phone] If you having an emergency, call 221. Miscellaneous Education New Depression Warning Sign - [...] with low, broad heels and soles that writer technical publications. Drink enough liquid each day. Ask your doctor how much is enough. Consider using an emergency personal medical alert system. Get up slowly after sitting or lying down. Remove throw rugs, improve li ghting, use reflective tape on stairs. If you get a prescription for PT, call the [facility] at [phone] to schedule an appointment. If you don't have a primary doctor, call [phone] or your local hospital to get one. [...] the day before. You MUST have a race car driver with you.If you have any questions please call [phone]. documented in this encounterUniversity Hospitals Cleveland [facility] Center05-13-2024 Miscellaneous Notes* Result Encounter Note - Brooklynn Woodson MD - 11/10/2023 1:40 PM EDT I am unsure this leak needs closure. Not clear it connects to posterior ADAN documented in this encounterUniversity Hospitals Cleveland Medical Center05-13-2024 Progress note* Result Encounter Note - Brooklynn Woodson MD - 11/10/2023 1:40 PM EDT I am unsure this leak needs closure. Not clear it connects to posterior ADAN [facility]01-[facility] Evaluation note* Encounter Date Diagnosis Assessment Notes Treatment Notes Treatment Clinical Notes Jun, Paroxysmal atrial fibrillation (ICD-10 - I48.0) This patient is in NSR. This patient is anticoagulated to prevent thromboembolic events. They are maintaining regular scheduled appts with their fabricator assembler metal products. s/p ablation for atrial fibrillation and atrial flutter. He is being scheduled for Watchman's device in order for him to d/c lifelong anticoagulation and associated increased bleeding complications. [facility] Other 11-22-2023 Evaluation note* Encounter Date Diagnosis Assessment Notes Treatment Notes Treatment Clinical Notes Apr, Familial hypercholesterolemia (ICD-10 - E78.01) Diet and exercise w/ continued statin therapy. [facility] Other 09-19-2023 History of Present illness Narrative* Hafsa Avalos, COORDINATING PRODUCER-MINE LABORER - 03/18/2023 12:30 PM EDT Cardiothoracic Surgery [...] in activity due to symptoms, even during [id number] activity, e.g. walking short distances (20-100 m). [...] Division of Cardiac Surgery documented in this encounterOSFulton County [facility] Center09-19-2023 Instructions* Patient Instructions* Hafsa Avalos COORDINATING PRODUCER-MINE LABORER - 03/18/2023 12:30 PM EDT Thank you for choosing [facility] Division of Cardiac Surgery [facility] for your cardiac surgical needs. We will plan to see you back in our clinic in 2 years for follow-up with Dr. Merritt. Your appointment is on TBD at TBD at the [facility]. In preparation for this appointment, we will need the following testing completed: CT Scan - Your appointment is on TBD at the following facility: [facility]. Your arrival time for your study is TBD. For Questions regarding these appointments or if you need to cancel them, please call [phone] Merritt s administrative support manager. Guidelines for maintaining a healthy and stable Aorta - Blood Pressure Goals: SBP (top number) < 130, DBP (bottom number) < 90, Heart rate < 80. You should monitor these numbers at home on a regular basis. If you notice they are above these recommendations, please see you Primary Doctor (family doctor) or Bologna Lacer (heart doctor) right away. Avoid strenuous exercises [...] have an AORTIC ANEURYSM. documented in this encounterUniversity Hospitals Cleveland Medical Center09-07-2023 NoteLAA OCCLUDER COMMUNICATION DIAMETER OF FLOW4.0mmUniversity Hospitals Cleveland [facility] Center Work Phone: 1(132) 850-317909-07-2023 History and physical note* Micky Trent MD [...] PTT 28.7 03/12/2022 PTT 100.3 (HH) 03/12/2018 [facility] Work Phone: 1(422) 899-822809-07-2023 History and physical note* Micky Trent MD [...] PTT 100.3 (HH) 03/12/2018 documented in this encounterUniversity Hospitals Cleveland Medical Center07-26-2023 Evaluation note * Encounter Date Diagnosis Assessment [...] are maintaining regular scheduled appts with their fabricator assembler metal products. s/p ablation for atrial fibrillation and atrial flutter. He is being scheduled for Watchman's device in order for him to d/c lifelong anticoagulation and associated increased bleeding complications. This patient is in NSR. This patient is anticoagulated to prevent thromboembolic events. They are maintaining regular scheduled appts with their fabricator assembler metal products. Dec, Pernicious anemia (ICD-10 - D51.0) Continue healthy Dec, Thrombocytopenia (IC D-10 - D69.6) No bleeding complications Recheck Plt count Dec, Screening for colon cancer (ICD-10 - Z12.11) Dec, Screening PSA (prost ate specific antigen) (ICD-10 - Z12.5) [facility] Other 10-31-2022 History and physical note* Jimenez [...] PTT 28.7 03/12/2022 PTT 100.3 (HH) 03/12/2018 [facility] Work Phone: 1(643) 438-668110-31-2022 History and physical note* Jimenez Wilkins MD [...] PTT 100.3 (HH) 03/12/2018 documented in this encounterUniversity Hospitals Cleveland Medical CenterEvaluation note* Diagnosis Atrial fibrillation, unspecified type documented in this encounter [facility] noteNo [email or web address] Other Evaluation note* Diagnosis Enlargement of aortic root documented in this encounter [facility] CenterEvalus[facility] note* Diagnosis Presence of Watchman left atrial appendage closure device Paroxysmal atrial fibrillation Atrial fibrillation Atypical atrial flutter Atrial flutter documented in this encounter [facility]* Diagnosis Enlargement of aortic root documented [facility] this encounter [facility]* Diagnosis Paroxysmal atrial fibrillation Atrial fibrillation Atypical atrial flutter Atrial flutter documented in this encounter [facility]Eval[facility] note* Diagnosis Onset Date Resolution Status Hypertension acute Pain of right hip acute Primary osteoarthritis of right hip acute Umbilical hernia acute Primary osteoarthritis of right hip acute [facility] Work Phone: Evaluation note* Diagnosis PAF (paroxysmal atrial fibrillation)- Primary Atrial fibrillation Paroxysmal atrial fibrillation Atrial fibrillation Atypical atrial flutter Atrial flutter documented in this encounter [facility]* Diagnosis Atrial fibrillation, unspecified type- Primary Atrial fibrillation, unspecified type 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-titanium alloy with polyethylene terephthalate membrane Atrial fibrillation, unspecified type documented in this encounter [facility] CenterEvaluation [facility]* Diagnosis Atrial flutter- Primary Cardiac device, [...] and respiratory abnormality documented in this encounter [facility] CenterEvaluation note* Diagnosis Onset Date Resolution Status Admit Date Atrial fibrillation acute January 06, 2025 10:16am Chronic kidney disease acute Ju 2024 10:16am Elevated cholesterol acute January 06, 2025 10:16am Hypertension acute January 06, 025 10:16am Pernicious anemia acute January 062024 10:16am Positive colorectal cancer screening using Cologuard test acute J lance2024 10:16am Screening for colon cancer acute January 06, 2025 10:16am Screening PSA (prostate specific antigen) acute January 06 10:16am Medicare annual wellness visit, subsequent noneactive January 06 10:16am [facility] Work Phone: History general Narrative - Reported* Type Description Date Medical History Palpitations Medical History Essential (primary) hypertension Medical History group home (current) use of antic oagulants Medical History [...] Ablation 2019 Hospitalization History see surgical hx [facility] Other Reason for referral (narrative)No reason for referral information availableOhio State University [facility] Work Phone: Reason for visit Narrative* Radiology (Routine) - New Request Specialty Diagnoses / Procedures Referred By Contac t Referred To Contact Diagnoses PVC's (premature ventricular contractions) Dyspnea on exertion Procedures NUC MYOCARD PERF STRESS MIBI EXERCISE CHG MYOCARDIAL SPECT MULTIPLE STUDIES MN CV STRS TST XERS&/OR RX CONT ECG TRCG ONLY Dottie Juárez, COORDINATING PRODUCER-MINE LABORER [address] [place] [address] Phone: tel: fax: Referral ID Status Reason Start Date Expiration Date V isits Requested Visits Authorized [id number] New Request 11/02/2024 11/27/2025 1 1 U [facility] Summary Purpose Family History No Family History [...] unspecified type Procedures CT CARDIAC PULMONARY VENOGRAM MN CHG CT HEART CONTRAST EVAL CARDIAC STRUCT/MORPH Brooklynn Woodson MD [address] [place] [phone] Referral ID Status Reason Start Date Expiration Date V isits Requested Visits Authorized [id number] New Request 02/12/2022 03/09/2023 1 1 Specialty Diagnoses / Procedures Referred By Contac t Referred To Contact Diagnoses Enlargement of aortic root Procedures CT ANGIO CHEST (NONCORONARY) MN CT ANGIO, CHEST (NON-CORON), COMBO, INCL IMG PROC Kt Merritt MD [address] [place], [place] [id number] Referral ID Status Reason Start Date Expiration Date V isits Requested Visits Authorized [id number] New Request 08/06/2022 08/31/2023 1 1 Specialty Diagnoses / Procedures Referred By Contac t Referred To Contact Diagnoses Presence of Watchman left atrial appendage closure device Paroxysmal atrial fibrillation Atypical atrial flutter Procedures ECHOCARDIOGRAM TRANSESOPHAGEAL (ALLI) MN ECHO TRANSESOPHAG R-T 2D W/PRB IMG ACQUISJ I&R Brooklynn Woodson MD [address] [place] [phone] Referral ID Status Reason Start Date Expiration Date V isits Requested Visits Authorized [id number] New Request 11/11/2022 12/06/2023 1 1 Specialty Diagnoses / Procedures Referred By Contac t Referred To Contact Diagnoses Paroxysmal atrial fibrillation Atypical atrial flutter Procedures CT CARDIAC PULMONARY VENOGRAM MN CHG CT HEART CONTRAST EVAL CARDIAC STRUCT/MORPH Brooklynn Woodson MD [address] [place] [phone] Referral ID Status Reason Start Date Expiration Date V isits Requested Visits Authorized [id number] New Request 11/06/2023 11/30/2024 1 1 Specialty Diagnoses / Procedures Referred By Marin poole Referred To Contact Procedures ECHOCARDIOGRAM TRANSESOPHAGEAL (ALLI) IN OR - IMAGES Clem Frost MD [address] [place] [address] Referral ID Status Reason Start Date Expiration Date V isits Requested Visits Authorized [id number] New Request 01/28/2024 02/21/2025 1 1 Chief Complaint and Reason for Visit Chief Complaint Amb Documentation RIGHT HIP PAIN CONSULT DR HAHN RT HIP PAIN, XR/[facility] M16.11 - Unilateral primary osteoarthritis, right Reason [...] section and content) DATE CREATED AUTHOR 12/23/2017 [facility] DATE CREATED AUTHOR AUTHOR'S ORGANIZ ATION 04/20/2018 [facility] DATE CREATED AUTHOR AUTHOR'S ORGANIZ ATION [facility]/29/2022 [facility] DATE CREATED AUTHOR AUTHOR'S ORGANIZ ATION 01/10/2025 [facility] DATE CREATED AUTHOR AUTHOR'S ORGANIZ ATION 01/17/2025 [facility] Reason for Visit (unrecogniz ed section and content) Specialty Diagnoses / Procedures Referred By Contac t Referred To Contact Diagnoses Atrial fibrillation, unspecified type Procedures CT CARDIAC PULMONARY VENOGRAM MN CHG CT HEART CONTRAST EVAL CARDIAC STRUCT/MORPH Brooklynn Woodson MD [address] [place] [phone] Referral ID Status Reason Start Date Expiration Date V isits Requested Visits Authorized [id number] New Request 02/12/2022 03/09/2023 1 1 Specialty Diagnoses / Procedures Referred By Contac t Referred To Contact Diagnoses Atrial fibrillation, unspecified type Procedures ECHOCARDIOGRAM TRANSESOPHAGEAL (ALLI) MN ECHO TRANSESOPHAG R-T 2D W/PRB IMG ACQUISJ I&R Brooklynn Woodson MD [address] [place] [phone] Referral ID Status Reason Start Date Expiration Date V isits Requested Visits Authorized [id number] New Request 03/13/2022 04/07/2023 1 1 Specialty Diagnoses / Procedures Referred By Contac t Referred To Contact Diagnoses Enlargement of aortic root Procedures CT ANGIO CHEST (NONCORONARY) MN CT ANGIO, CHEST (NON-CORON), COMBO, INCL IMG PROC Kt Merritt MD [address] [place] [phone] Referral ID Status Reason Start Date Expiration Date V isits Requested Visits Authorized [id number] New Request 08/06/2022 08/31/2023 1 1 Specialty Diagnoses / Procedures Referred By Contac t Referred To Contact Diagnoses Presence of Watchman left atrial appendage closure device Paroxysmal atrial fibrillation Atypical atrial flutter Procedures ECHOCARDIOGRAM TRANSESOPHAGEAL (ALLI) MN ECHO TRANSESOPHAG R-T 2D W/PRB IMG ACQUISMay I&R Brooklynn Woodson MD [address] [place] [phone] Referral ID Status Reason Start Date Expiration Date V isits Requested Visits Authorized [id number] New Request 11/11/2022 12/06/2023 1 1 Reason Comments New Patient Specialty Diagnoses / Procedures Referred By Contac t Referred To Contact Thoracic Surgery Diagnoses Enlargement of aortic root Brooklynn Woodson MD [address] [place] [phone] Kt Merritt MD [address] [place] [address] Referral ID Status Reason Start Date Expiration Date V isits Requested Visits Authorized [id number] New Request 08/13/2022 09/07/2023 1 1 Specialty Diagnoses / Procedures Referred By Contac t Referred To Contact Diagnoses Paroxysmal atrial fibrillation Atypical atrial flutter Procedures CT CARDIAC PULMONARY VENOGRAM [place] CHG CT HEART CONTRAST EVAL CARDIAC STRUCT/MORPH Brooklynn Woodson MD [address] [place] [phone] Referral ID Status Reason Start Date Expiration Date V isits Requested Visits Authorized [id number] New Request 11/06/2023 11/30/2024 1 1 Specialty Diagnoses / Procedures Referred By Contac t Referred To Contact Diagnoses Paroxysmal atrial fibrillation Atypical atrial flutter Paroxysmal atrial fibrillation [I48.0] Atypical atrial flutter [I48.4] Procedures MN PERQ CLSR TCAT L ATR APNDGE W/ENDOCARDIAL IMPLNT LEFT ATRIAL APPENDAGE SCHED CLOSURE W/ IMPLANT ([id number]) Brooklynn Woodson MD [address] [place] [phone] [facility] [address] [place] [address] Referral ID Status Reason Start Date Expiration Date Visits Re quested Visits Authorized [id number] 1 1 Specialty Diagnoses / Procedures Referred By Contac t Referred To Contact Diagnoses Atrial fibrillation, unspecified type Atrial fibrillation, unspecified type [I48.91] Procedures MN PERQ CLSR TCAT L ATR APNDGE W/ENDOCARDIAL IMPLNT LEFT ATRIAL APPENDAGE SCHED CLOSURE W/ IMPLANT (66823) Brooklynn Woodson MD [address] [place] [phone] [facility] [address] [place] [address] Referral ID Status Reason Start Date Expiration Date Visits Re quested Visits Authorized [id number] 1 1 Referral ID Status Reason Start Date Expiration Date V isits Requested Visits Authorized [id number] New Request 02/02/2024 02/26/2025 1 1 Reason [...] Provider Active Sta rt: January 06, 2025 Offset Pressman Relationship Specialty Start Date End Date Jonathon Hahn DO [address] [place] [address] PCP - General Internal Medicine 03/17/18 Bryan Cortes MD [address] [phone] (Fax) PCP - Referring 1 Cardiovascular Disease 03/17/18 Brooklynn Woodson MD [address] [place] [address] PCP - Referring 2 Clinical Cardiac Electrophysiology 04/20/19 Bryan Cortes MD [address] [place] [address] (Fax) Cardiovascular Disease 03/12/18 Jonathon Hahn DO [address] [place] [address] Internal Medicine 03/12/18 Gordo Gifford MD [address] [place] [address] Consulting Physician Clinical Cardiac Electrophysiology 05/29/18 Offset Pressman Relationship Specialty Start Date End Date Jonathon Hahn DO [address] [place] [facility] [address] PCP - General Internal Medicine 03/17/18 Bryan Cortes MD [address] [place] [address] PCP - Referring 1 Cardiovascular Disease 03/17/18 Brooklynn Woodson MD [address] [place] [address], [place] [phone] PCP - Referring 2 Clinical Cardiac Electrophysiology 04/20/19 Bryan Cortes MD [address] [place] [facility] [address] (Fax) Cardiovascular Disease 03/12/18 Jonathon Hahn DO [address] [place] [facility] [address] Internal Medicine 03/12/18 Gordo Gifford MD [address] [place] [address] Consulting Physician Clinical Cardiac Electrophysiology 05/29/18 Offset Pressman Relationship Specialty Start Date End Date HoldenJonathonDO [address] [place] [facility] [address] PCP - General Internal Medicine 03/17/18 Bryan Cortes MD [address] [place] [facility] [address] PCP - Referring 1 Cardiovascular Disease 03/17/18 Brooklynn Woodson MD [address] [facility] [place] [address] PCP - Referring 2 Clinical Cardiac Electrophysiology 04/20/19 Bryan Cortes MD [address] [place] [address] (Fax) Cardiovascular Disease 03/12/18 Jonathon Hahn DO [address] [place] [address] Internal Medicine 03/12/18 Gordo Gifford MD [address] [place] [address] Consulting Physician Clinical Cardiac Electrophysiology 05/29/18 Offset Pressman Relationship Specialty Start Date End Date Jonathon Hahn DO [address] [place] [address] PCP - General Internal Medicine 03/17/18 Bryan Cortes MD [address] [phone] PCP - Referring 1 Cardiovascular Disease 03/17/18 Brooklynn Woodson MD [address] [place] [phone] PCP - Referring 2 Clinical Cardiac Electrophysiology 04/20/19 Bryan Cortes MD [address] [phone] Cardiovascular Disease 03/12/18 Jonathon Hahn DO [address] [place] [address] Internal Medicine 03/12/18 Gordo Gifford MD [address] [place] [address] Consulting Physician Clinical Cardiac Electrophysiology 05/29/18 Offset Pressman Relationship Specialty Start Date End Date Jonathon Hahn DO [address] [place] [facility] [address] PCP - General Internal Medicine 03/17/18 Bryan Cortes MD [address] [place], [place] [phone] PCP - Referring 1 Cardiovascular Disease 03/17/18 Brooklynn Woodson MD [address] [place] [address] PCP - Referring 2 Clinical Cardiac Electrophysiology 04/20/19 Bryan Cortes MD [address] [place], [place] [phone] (Fax) Cardiovascular Disease 03/12/18 Jonathon Hahn DO [address] [place] [facility] [address] Internal Medicine 03/12/18 Gordo Gifford MD [address] [place] [address] Consulting Physician Clinical Cardiac Electrophysiology 05/29/18 Offset Pressman Relationship Specialty Start Date End Date Jonathon Hahn DO [address] [place] [address] PCP - General Internal Medicine 03/17/18 Bryan Cortes MD PCP - Referring 1 Cardiovascular Disease 03/17/18 Brooklynn Woodson MD [address] [place] [address] PCP - Referring 2 Clinical Cardiac Electrophysiology 04/20/19 Bryan Cortes MD Cardiovascular Disease 03/12/18 Jonathon Hahn DO [address] [place] [address] Internal Medicine 03/12/18 Gordo Gifford MD [address] [phone] Consulting Physician Clinical Cardiac Electrophysiology 05/29/18 Team [...] November 20, 2023 End: November 20, 2023 Offset Pressman Relationship Specialty Start Date End Date Jonathon Hahn DO [address] [place] [address] PCP - General Internal Medicine 03/17/18 Bryan Cortes MD PCP - Referring 1 Cardiovascular Disease 03/17/18 Brooklynn Woodson MD [address] [place] [address] PCP - Referring 2 Clinical Cardiac Electrophysiology 04/20/19 Bryan Cortes MD Cardiovascular Disease 03/12/18 Jonathon Hahn DO [address] [place] [facility] [address] Internal Medicine 03/12/18 Gordo Gifford MD [address] [place] [address] Consulting Physician Clinical Cardiac Electrophysiology 05/29/18 Offset Pressman Relationship Specialty Start Date End Date Jonathon Hahn DO [address] [place] [facility] [address] PCP - General Internal Medicine 03/17/18 Bryan Cortes MD PCP - Referring 1 Cardiovascular Disease 03/17/18 Brooklynn Woodson MD [address] [place], [place] [address] PCP - Referring 2 Clinical Cardiac Electrophysiology 04/20/19 Bryan Cortes MD Cardiovascular Disease 03/12/18 Jonathon Hahn DO [address] [place] [facility] [address] Internal Medicine 03/12/18 Gordo Gifford MD [address] [place], [place] [phone] Consulting Physician Clinical Cardiac Electrophysiology 05/29/18 Offset Pressman Relationship Specialty Start Date End Date Jonathon Hahn DO [address] [place] [address] PCP - General Internal Medicine 03/17/18 Bryan Cortes MD PCP - Referring 1 Cardiovascular Disease 03/17/18 Brooklynn Woodson MD [address] [place] [phone] PCP - Referring 2 Clinical Cardiac Electrophysiology 04/20/19 Bryan Cortes MD Cardiovascular Disease 03/12/18 Jonathon Hahn DO [address] [place] [address] Internal Medicine 03/12/18 Gordo Gifford MD [address] [place] [address] Consulting Physician Clinical Cardiac Electrophysiology 05/29/18 Offset Pressman Relationship Specialty Start Date End Date Jonathon Hahn DO PCP - General Internal Medicine 03/17/18 Bryan Cortes MD PCP - Referring 1 Cardiovascular Disease 03/17/18 Brooklynn Woodson MD [address] [place] [address] PCP - Referring 2 Clinical Cardiac Electrophysiology 04/20/19 Bryan Cortes MD Cardiovascular Disease 03/12/18 Jonathon Hahn DO Internal Medicine 03/12/18 Gordo Gifford MD [address] [place] [address] Consulting Physician Clinical Cardiac Electrophysiology 05/29/18 Offset Pressman Relationship Specialty Start Date End Date Jonathon Hahn DO PCP - General Internal Medicine 03/17/18 Bryan Cortes MD PCP - Referring 1 Cardiovascular Disease 03/17/18 Brooklynn Woodson MD [address] [place] [address] PCP - Referring 2 Clinical Cardiac Electrophysiology 04/20/19 Bryan Cortes MD Cardiovascular Disease 03/12/18 Jonathon Hahn DO Internal Medicine 03/12/18 Gordo Gifford MD [address] [place] [address] Consulting Physician Clinical Cardiac Electrophysiology 05/29/18 Team [...] 1,500 mg, Intravenous, Administer over 1 Hours, TECHNICAL EDUCATION TEACHER TO PROCEDURE, 1 dose, Starting on Fri12/24/23 at 0000, Until Fri12/24/23 at 1354, Other, Preoperative antibiotic, Order should be timed for day of procedure. 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 Vancomycin is preferred agent [...] Until Fri01/28/24 at 215, See admin instructions, For Magnesium 1.6 - 2.0, give 800 mg of Magnesium oxide, Post-op/Post-Proc Melatonin tablet 3 mg 3 mg, Oral, DAILY AT BEDTIME NEEDED, Starting on Fri01/28/24 at 1448, Until Fri01/28/24 at 215, Insomnia, Post-op/Post-Proc Ondansetron 4mg/2ml (ZOFRAN) injection 4 [...] 1,500 mg, Intravenous, Administer over 1 Hours, 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 Vancomycin is preferred agent [...] BE BASED ON THE PRIMARY CLINICAL RECORDS. [employer] [facility]. provides no warranty or guarantee of the accuracy or completeness of information in this document.
== END 2025-01-19 09:18 | disposition home or self-care (01) ==
LOC: CARD 09:18
PROVIDERS: PCP Internal Medicine
DX: I48.0 Paroxysmal atrial fibrillation (principal)
CPT/HCPCS: 93005

== ENCOUNTER 2025-01-27 09:00 | Outpatient (OUT) | payer MEDICARE, OTHER, SELFPAY ==
--- OUTSIDE RECORDS SUMMARY | 2025-01-14 11:45 | XMS_ITS | Encounter Summary ---
Author Organization [facility] Address [address] [place] [address] Care Team Providers Care Pipe Fitter Helper Name Role Phone Bryan Lacy MD Unavailable [phone] Jonathon Hahn DO Unavailable [phone] Jonathon Hahn DO Primary Care Provider [phone] Bryan Lacy MD Unavailable [phone] Gordo Gifford MD Unavailable Stuart Woodson MD Unavailable [phone] Reason for Visit * Radiology (Routine) - New Request Specialty Diagnoses / Procedures Referred By Contac t Referred To Contact Diagnoses Paroxysmal atrial fibrillation Procedures HOLTER MONITOR - TOWER TECHNICIAN Dottie Brown APRN-FIREMAN [address] [place] [address] Phone: tel: fax: Referral ID Status Reason Start Date Expiration Date V isits Requested Visits Authorized [id number] New Request 01/14/2025 02/08/2026 1 1 Encounter Details Date Type Department Care Team (Latest Contact Info) Description 01/14/2025 11:45 AM EDT Ancillary Procedure [facility] [address] [facility] Anish [address] [place] [address] Paroxysmal atrial fibrillation Social History Tobacco Use Types Packs/Day Years [...] Assessment Author No 03/11/2018 4:39 PM EDT Arlei Kendall RN documented as of this encounter Mental Status * Because of a physical, mental, or emotional condition, do you have serious difficulty concentrating, remembering, or making decisions (5 yrs or older)? Answer Entry Date Author No 03/11/2018 4:39 PM EDT Areli Kendall RN documented in this encounter Plan of Treatment Upcoming Encounters Date Type Department Care Team (Late st Contact Info) Description 03/01/2025 1:45 PM EDT Appointment Imaging [facility] [address] [place] [address] 2nd [place] [address] Hafsa Avalos, SAMPLE SEWER-FIREMAN [address] [place] [phone] 03/01/2025 3:00 PM EDT Office [facility] [address] [place] [phone] Kt Merritt MD [address] [place] [phone] 03/18/2025 9:00 AM EDT Appointment Heart and Vascular [facility] [address] [facility] 2nd [place] [address] Dottie Brown, SAMPLE SEWER-FIREMAN [address] [place] [phone] 11/01/2025 9:30 AM EDT Office Visit Credit Collections Clerk Center Micky Guajardo [facility] [address] [place] [phone] Dottie Brown, SAMPLE SEWER-FIREMAN [address] [place] [phone] Pending Results Name Type Priority Associated Diagnoses Date /Time HOLTER MONITOR - [facility] Cardiac Services Routine Paroxysmal atrial fibrillation 01/14/2025 11:40 AM EDT Scheduled Procedures Name Priority Associated Diagnoses Date/Ti me CARDIOVERSION (EP LAB) Persistent atrial fibrillation documented as of this encounter Visit Diagnoses Diagnosis Paroxysmal atrial fibrillation Atrial fibrillation documented in this encounter Care Teams Pipe Fitter Helper Relationship Specialty Start Date End Date Jonathon Hahn DO PCP - General Internal Medicine 03/17/18 Bryan Lacy MD PCP - Referring 1 Cardiovascular Disease 03/17/18 Stuart Woodson MD [address] [place] [phone] PCP - Referring 2 Clinical Cardiac Electrophysiology 04/20/19 Bryan Lacy MD Cardiovascular Disease 03/12/18 Jonathon Hahn DO Internal Medicine 03/12/18 Gordo Gifford MD [address] [place] [address] Consulting Physician Clinical Cardiac Electrophysiology 05/29/18 documented as of this encounter
--- OUTSIDE RECORDS SUMMARY | 2025-01-27 09:04 | XMS_ITS | Patient Health Record ---
Author Organization [facility] Address [address] [facility] [address] [place] [address] Care Team Providers Care Medicare Contact Specialist Name Role Phone CELENA HONG MD Primary Care Provider Unavail able John Escobarnath Unavailable [phone] Titi Garrison DO Unavailable Unavailable Reason For [...] Status Risk Notes Problem Sick sinus syndrome (61730253) Sick sinus syndrome (I49.5) Active confirmed Problem Cardiovascular stress test abnormal (087570594) Abnormal stress test (R94.39) Active confirmed Problem Atrial fibrillation (67152249) AF (paroxysmal atrial fibrillation) (I48.0) Active confirmed Problem Essential hypertension (43667555) HTN, goal below 140/90 (I10) Active confirmed Problem Cardiac pacemaker in situ (511813196) S/P placement of cardiac pacemaker (Z95.0) Active confirmed Problem History of cerebrovascular accident without residual deficits (122757472) H/O TIA (transient ischemic attack) and stroke (Z86.73) Active confirmed Problem Personal risk factor (654923072) At risk for coronary artery disease (Z91.89) Active confirmed Plan Of Treatment Pending Test Test Name Order Date Nuclear Cardiolite Stress Test 91992, 93 015, A9500 08/08/2017 LHC/Graft/LV 49554 08/15/2017 PPM SINGLE Insertion of new transvenous electrode(s); atrial 09/12/2017 Pacer check Dual Chamber device [place] [address] 08/08/2017 Loop recoder removal 02050 09/12/2017 Insurance Providers Payer Name Payer Address Payer Phone Subscriber Number Group Number Insured Name Patient Relationship to Insured Coverage Start Date Coverage End Date MEDICARE RAILNumber 100 [address] [address] [place] [address] [id number] KRISTEN COWAN Self - patient is the insured [facility] [address] [place] [address] [phone] [id number] KRISTEN COWAN Self - patient is the insured Medical (General) History Medical History History ICD Code TIA 2016 htn hyperlipidemia pacemaker atrial fibrilation Surgical History Surgery Date(Month/Year) l tkr 2010 appey 1972 pacemaker placement 09/2017 Hospitalization History Reason Date(Month/Year) No cardiac hospitalizations
--- OUTSIDE RECORDS SUMMARY | 2025-01-27 09:04 | XMS_ITS | Encounter Summary ---
Author Organization [facility] Address [address] [place] [address] Care Team Providers Care Hoisting Pile Driving Engineer Name Role Phone Bryan Lacy MD Unavailable Jonathon Hahn DO Unavailable [phone] Jonathon Hahn DO Primary Care Provider [phone] Bryan Lacy MD Unavailable Gordo Gifford MD Unavailable Stuart Woodson MD Unavailable [phone] Encounter Details Date Type Department Care Team (Late st Contact Info) Description 04/26/2022 Telephone Cardiovascular Imaging Lab [facility] [address] [place] [address] Nestor Preston RN Social History Tobacco [...] PM EDT Appointment Imaging [facility] [address] [place] [phone] Hafsa Avalos, PROGRAMMING SPECIALIST-SHACTOR [address] [place] [phone] 03/01/2025 3:00 PM EDT Office Visit [facility]le Surgeon Center Micky Guajardo [facility] [address] [place] [phone] Kt Merritt MD [address] [place] [address] 03/18/2025 9:00 AM EDT Appointment [facility] [address] [phone] Dottie Brown, PROGRAMMING SPECIALIST-SHACTOR [address] [place] [phone] 11/01/2025 9:30 AM EDT Office Visit [facility]le Surgeon Center Micky Guajardo [facility] [address] [place] [phone] Dottie Brown, PROGRAMMING SPECIALIST-SHACTOR [address] [place] [phone] Scheduled Procedures Name Priority Associated Diagnoses Date/Ti me CARDIOVERSION (EP LAB) Persistent atrial fibrillation documented as of this encounter Visit Diagnoses Not on filedocumented in this encounter Care Teams Hoisting Pile Driving Engineer Relationship Specialty Start Date End Date Jonathon Hahn DO PCP - General Internal Medicine 03/17/18 Bryan Lacy MD PCP - Referring 1 Cardiovascular Disease 03/17/18 Stuart Woodson MD [address] [place] [address] PCP - Referring 2 Clinical Cardiac Electrophysiology 04/20/19 Bryan Lacy MD Cardiovascular Disease 03/12/18 Jonathon Hahn DO Internal Medicine 03/12/18 Gordo Gifford MD [address] [place] [address] Consulting Physician Clinical Cardiac Electrophysiology 05/29/18 documented as of this encounter
--- OUTSIDE RECORDS SUMMARY | 2025-01-27 09:04 | XMS_ITS | Encounter Summary ---
Author Organization [facility] enter Address [address] [place] [address] Care Team Providers Care Health Information Technician Name Role Phone Bryan Lacy MD Unavailable [phone] Jonathon Hahn DO Unavailable [phone] Jonathon Hahn DO Primary Care Provider Bryan Lacy MD Unavailable Gordo Gifford MD Unavailable Stuart Woodson MD Unavailable [phone] Reason for Referral * MRI/CAT Scan (Routine) - New Request Specialty Diagnoses / Procedures Referred By Contac t Referred To Contact Diagnoses Enlargement of aortic root Procedures CT ANGIO CHEST (NONCORONARY) CHG CT ANGIOGRAPHY CHEST W/CONTRAST/NONCONTRAST Hafsa Avalos APRN-CNP [address] [place] [phone] Phone: tel: fax: Referral ID Status Reason Start Date Expiration Date V isits Requested Visits Authorized [id number] New Request 01/14/2025 02/08/2026 1 1 Encounter Details Date Type Department Care Team (Late st Contact Info) Description 01/14/2025 Orders Only Electronic Equipment Set Up Operator Center Micky Guajardo [facility] [address] [place] [phone] Hafsa Avalos APRN-CNP [address] [place] [phone] Enlargement of aortic root (Primary Dx) [...] Appointment Imaging [facility] [address] [facility] 2nd [place] [address] Hafsa Avalos, PLASMA CENTER TECHNICIAN-ROBOTIC MACHINE OPERATOR [address] [place] [address] 03/01/2025 3:00 PM EDT Office Visit Electronic Equipment Set Up Operator Center [facility] [address] [place] [phone] Kt Merritt MD [address] [place] [address] 03/18/2025 9:00 AM EDT Appointment Heart and Vascular [facility] [address] [facility] 2nd [place] [phone] Dottie Brown, PLASMA CENTER TECHNICIAN-ROBOTIC MACHINE OPERATOR [address] [place] [phone] 11/01/2025 9:30 AM EDT Office Visit Electronic Equipment Set Up Operator Center [facility] [address] [place] [phone] Dottie Brown, PLASMA CENTER TECHNICIAN-ROBOTIC MACHINE OPERATOR [address] [place] [phone] Scheduled Orders Name Type Priority Associated Diagnoses Orde r Schedule CT ANGIO CHEST (NONCORONARY) Imaging Routine Enlargement of aortic root Expected: 01/14/2025, Expires: 01/14/2026 Scheduled Procedures Name Priority Associated Diagnoses Date/Ti me CARDIOVERSION (EP LAB) Persistent atrial fibrillation documented as of this encounter Visit Diagnoses Diagnosis Enlargement of aortic root- Primary documented in this encounter Care Teams Health Information Technician Relationship Specialty Start Date End Date Jonathon Hahn DO PCP - General Internal Medicine 03/17/18 Bryan Lacy MD PCP - Referring 1 Cardiovascular Disease 03/17/18 Stuart Woodson MD [address] [place], [place] [address] [place] [address] PCP - Referring 2 Clinical Cardiac Electrophysiology 04/20/19 Bryan Lacy MD Cardiovascular Disease 03/12/18 Jonathon Hanh DO Internal Medicine 03/12/18 Gordo Gifford MD [address] [place] [address] Consulting Physician Clinical Cardiac Electrophysiology 05/29/18 documented as of this encounter
--- OUTSIDE RECORDS SUMMARY | 2025-01-27 09:04 | XMS_ITS | Clinical Summary ---
Author Organization [facility] Address [address] [place] [address] Care Team Providers Care Inspector Handbag Frames Name Role Phone Unavailable Primary Care Provider [...] 03/30/2019 11:38 AM EDT Plan of Treatment Health Maintenance Due Date Last Done Comments CT Colonography 1952 Colonoscopy 1952 Colorectal Cancer Screening 1952 Diabetes: Hemoglobin A1C 1952 FIT-DNA 1952 FIT 1952 FOBT 1952 Medicare Annual Wellness (AWV) 1952 Sigmoidoscopy 1952 Diabetes: Retinopathy Screening 1962 Depression Screening 1964 Diabetes: Urine Protein Screening 09/23/1971 Adult Tetanus 1974 Pneumococcal Vaccine: 50+ Ye ars (1 of 1 - PCV) 2002 Zoster Vaccines (1 of 2) 2002 Fall Risk Screening 2017 COVID-19 Vaccine (1 2023-2 5 season) 2024 Influenza Vaccine (#1) 2025 HIB Vaccines Aged Out No longer eligi ble based on patient's age to complete this topic HPV Vaccines Aged Out No longer eligi ble based on patient's age to complete this topic IPV Vaccines Aged Out No longer eligi ble based on patient's age to complete this topic Meningococcal B Vaccine Aged Out No l onger eligible based on patient's age to complete this topic Meningococcal Vaccine Aged Out No myron shay eligible based on patient's age to complete this topic Rotavirus Vaccines Aged Out No longer eligible based on patient's age to complete this topic Insurance MEDICARE Member Subscriber Plan / Payer (Ef fective 2013-Present) Name:Ishaan Coates Member ID:[id number] Relation to Subscriber:Self Name:Ishaan Coates Subscriber ID:[id number] Payer ID:[id number] Group ID:Not on file Type:Medicare Address: [facility] [place] [id number] [facility]
--- OUTSIDE RECORDS SUMMARY | 2025-01-27 09:04 | XMS_ITS | Encounter Summary ---
Author Organization [facility] Address [address] [place] [address] Care Team Providers Care Conference Coordinator Name Role Phone Bryan Lacy MD Unavailable [phone] Jonathon Hahn DO Unavailable [phone] Jonathon Hahn DO Primary Care Provider [phone] Bryan Lacy MD Unavailable [phone] Gordo Gifford MD Unavailable Stuart Woodson MD Unavailable [phone] Reason for Visit * Reason Onset Date Comments Appointment 01/14/2025 Encounter Details Date Type Department Care Team (Late st Contact Info) Description 01/14/2025 Telephone Central Scheduling [address] [place] [address] Verna Owusu Appointment Social History [...] and apt w Dr. Merritt. Ishaan Coates [phone] needs a CT & René appt please documented in this encounter Plan of Treatment Upcoming Encounters Date Type Department Care Team (Late st Contact Info) Description 03/01/2025 1:45 PM EDT Appointment Imaging [facility] [address] [facility] 2nd [place] [address] Hafsa Avalos, ACCOUNT CLASSIFICATION CLERK-SCREEN MAKING TECHNICIAN [address] [place] [address] 03/01/2025 3:00 PM EDT Office Visit [facility] [address] [place] [phone] Kt Merritt MD [address] [place] [address] 03/18/2025 9:00 AM EDT Appointment Heart and Vascular [facility] [address] 2nd [place] [address] Dottie Brown, ACCOUNT CLASSIFICATION CLERK-SCREEN MAKING TECHNICIAN [address] [place] [phone] 11/01/2025 9:30 AM EDT Office Visit Price Analyst Center Micky Guajardo [facility] [address] [place] [phone] Dottie Brown, ACCOUNT CLASSIFICATION CLERK-SCREEN MAKING TECHNICIAN [address] [place] [phone] Scheduled Procedures Name Priority Associated Diagnoses Date/Ti me CARDIOVERSION (EP LAB) Persistent atrial fibrillation documented as of this encounter Visit Diagnoses Not on filedocumented in this encounter Care Teams Conference Coordinator Relationship Specialty Start Date End Date Jonathon Hahn DO PCP - General Internal Medicine 03/17/18 Bryan Lacy MD PCP - Referring 1 Cardiovascular Disease 03/17/18 Stuart Woodson MD [address] [place] [phone] PCP - Referring 2 Clinical Cardiac Electrophysiology 04/20/19 Bryan Lacy MD Cardiovascular Disease 03/12/18 Jonathon Hahn DO Internal Medicine 03/12/18 Gordo Gifford MD [address] [place] [address] Consulting Physician Clinical Cardiac Electrophysiology 05/29/18 documented as of this encounter
--- OUTSIDE RECORDS SUMMARY | 2025-01-27 09:04 | XMS_ITS | Clinical Summary ---
Author Organization [facility] Address [address] [place] [address] Care Team Providers Care Semiconductor Processor Name Role Phone Bryan Lacy MD Unavailable Jonathon Hahn DO Unavailable [phone] Jonathon Hahn DO Primary Care Provider [phone] Bryan Lacy MD Unavailable [phone] Gordo Gifford MD Unavailable Stuart Woodson MD Unavailable [phone] Allergies No known active allergies Medications [...] (06/17/2018): Added automatically from request for surgery [id number] Sick sinus syndrome 03/17/2018 Assessment & Plan [...] function improved , QUINN resumed Will attempt denominational and maintenance of NSR to improve EF [...] (03/11/2018): Added automatically from request for surgery [id number] Atrial flutter 03/11/2018 Overview (03/16/2018): Added automatically from request for surgery [id number] Resolved Problems Problem Noted Date Diagnosed Date [...] Abn SNRT. Started on Sotalol for suppression [id number] Continue Xarelto Encounters Date Type Department Care Team Description 01/18/2025 Telephone Photograph Retoucher Center Micky Guajardo [facility] [address] [place] [address] Kimberley Peralta Appointment 01/14/2025 11:45 AM EDT Ancillary Procedure [facility] [address] [place] [address] Paroxysmal atrial fibrillation 01/14/2025 Documentation Only Photograph Retoucher Center [facility] [address] [place] [phone] Dottie Brown APRN-CNP Paroxysmal atrial fibrillation (Primary Dx); Persistent atrial fibrillation 01/14/2025 Telephone Central Scheduling [address] [place] [address] Verna Owusu Appointment 01/14/2025 Orders Only Photograph Retoucher Center [facility] [address] [place] [phone] Hafsa Avalos APRN-CNP Enlargement of aortic root (Primary Dx) 01/07/2025 Telephone Photograph Retoucher Center [facility] [address] [place] [phone] Lesia Zurita Outside Medical Records Request 01/06/2025 Telephone Central Scheduling [address] [place] [address] Tanja Sanchez Advice Only; Change In Symptoms 11/30/2024 Nurse Triage Photograph [facility]cher Center [facility] [address] [place] [phone] Lindsay Johnson RN 11/29/2024 Documentation Only Photograph [facility]cher Center [facility] [address] [place] [phone] Dottie Brown APRN-CNP Dyspnea on exertion (Primary Dx) 11/05/2024 6:42 AM EDT - 11/05/2024 11:59 PM EDT Hospital Encounter Cardiovascular Imaging Lab [facility] [address] [place] [phone] Dottie Brown APRN-CNP Discharge Disposition: Home or Self Care 11/02/2024 10:00 AM EDT Ancillary Procedure [facility] [address] [place] [address] [address] [place] [address] PVC's (premature ventricular contractions) 11/02/2024 9:30 AM EDT Office Visit Photograph Retoucher Center [facility] [address] [place] [address] Dottie Brown, TRIAGE CLINICIAN-DEANGELO Paroxysmal atrial fibrillation (Primary Dx); Atypical atrial flutter; PVC's (premature ventricular contractions); Dyspnea on exertion from Last 3 Months Family History Medical [...] PM EDT Appointment Imaging [facility] [address] [place] [address] 2nd [place] [address] Hafsa Avalos APRN-CNP [address] [place] [address] 03/01/2025 3:00 PM EDT Office Visit Photograph Retoucher Center [facility] [address] [place] [address], [place] [address] Kt Merritt MD [address] [place] [address], [place] [phone] 03/18/2025 9:00 AM EDT Appointment Heart and Vascular [facility] [address] [facility] 2nd [place] [address] Dottie Brown, TRIAGE CLINICIAN-FIELD ENUMERATOR [address] [place] [address], [place] [address] 11/01/2025 9:30 AM EDT Office Visit Photograph Retoucher Center [facility] [address] [place] [address], [place] [address] Dottie Brown, TRIAGE CLINICIAN-FIELD ENUMERATOR [address] [place] [phone] Scheduled Procedures Name Priority Associated Diagnoses Date/Ti [...] this topic Medical Devices Implanted Type Area Laborer General Device Identifier Shelf Expiration Date Model / Serial / Lot Azur 35 Implanted:Qty: 1 on 01/28/2024 by Harinder Varma MD at [facility] Coil N/A: Heart HELICAL HYDROCOIL EMBOLIZATION SYSTEM / [id number] / Azur 35 Implanted:Qty: 1 on 01/28/2024 by Harinder Varma MD at [facility] Coil N/A: Heart 04/29/2025 HELICAL HYDROCOIL EMBOLIZATION SYSTEM / [id number] / [id number] Terumo Azur Cx35 Implanted:Qty: 2 on 01/28/2024 by Harinder Varma MD at [facility] Coil N/A: Heart 11/27/2028 45-272302 / [id number] / [id number] Terumo Azur Cx35 Implanted:Qty: 1 on 01/28/2024 by Harinder Varma MD at [facility] Coil N/A: Heart 11/27/2028 45-430950 / [id number] / [id number] Terumo Azur Cx35 Implanted:Qty: 1 on 01/28/2024 by Harinder Varma MD at [facility] Coil N/A: Heart 11/27/2028 45-005835 / [id number] / [id number] Terumo Azur Cx Coil Implanted:Qty: 1 on 01/28/2024 by Stuart Woodson MD at [facility] Coil N/A: Heart 03/29/2027 [id number] / [id number] / [id number] Azur 35 Implanted:Qty: 1 on 01/28/2024 by Harinder Varma MD at [facility] Coil N/A: Heart 09/27/2028 HELICAL HYDROCOIL EMBOLIZATION / [id number] / [id number] Azur 35 Implanted:Qty: 1 on 01/28/2024 by Harinder Varma MD at [facility] Coil N/A: Heart 09/27/2028 HELICAL HYDROCOIL EMBOLIZATION / [id number] / [id number] Terumo Azur Cx35 Implanted:Qty: 1 on 01/28/2024 by Stuart Woodson MD at [facility] Coil N/A: Heart 11/27/2028 [id number] / [id number] / [id number] Azur Cx35 Implanted:Qty: 1 on 01/28/2024 by Harinder Varma MD at [facility] Coil N/A: Heart 03/29/2027 CX COIL / [id number] / Azur Cx35 Implanted:Qty: 1 on 01/28/2024 by Harinder Varma MD at [facility] Coil N/A: Heart CX COIL / [id number] / Azur Cx35 Implanted:Qty: 1 on 01/28/2024 by Harinder Varma MD at [facility] Coil N/A: Heart 07/30/2028 CX COIL / [id number] / Azur 35 Implanted:Qty: 1 on 01/28/2024 by Harinder Varma MD at [facility] Coil N/A: Heart 03/29/2027 CX COIL / [id number] / Azur 35 Implanted:Qty: 1 on 01/28/2024 by Harinder Varma MD at [facility] Coil N/A: Heart HELICAL HYDROCOIL EMBOLIZATION SYSTEM / [id number] / [id number] Occluder Cardiovascular 31mm Delivery System Watchman Flx - [id number] Implanted:Qty: 1 on 03/12/2022 by Stuart Woodson MD at [facility] ADAN Closure Device N/A: Heart [employer]/PERIPHERAL INTERVEN [id number] 07/04/2024 [id number] / / [id number] Device Closure Perclose Proglide 6fr - [id number] Implanted:Qty: 1 on 01/28/2024 by Stuart Woodson MD at [facility] Other Right: Groin [facility] J[facility]LEE 10/27/2025 [id number] / [id number] / [id number] Device Closure Perclose Proglide 6fr - [id number] Implanted:Qty: 1 on 01/28/2024 by Ash Lewis DO at [facility] Other Right: Groin [facility] JU[facility]E 10/27/2025 16932-67 / [id number] / [id number] Explanted Type Area Laborer General Device Identifier Shelf Expiration Date Model / Serial / Lot Lead Pace Standard Oleg 5076 - [id number] Explanted:Qty : 1 on 03/12/[address] [facility] Lead N/A: Heart MEDTRONIC PACER 5076-45 / [id number] / Lead Pace Standard Mdt 5076 - [id number] Explanted:Qty : 1 on 03/12/2018 by Jovon Montero MD at [facility] Lead N/A: Heart MEDTRONIC PACER 5076-45 / [id number] / Pacer Dual Mri Advisa Chamber - [id number] Explanted:Qty : 1 on 03/12/2018 by Jovon Montero MD at [facility] Pacemaker N/A: Chest MEDTRONIC PACER A2DR01 / [id number] / Procedures Procedure Name Priority Date/Time Associated Diagnosis Comments ECG (OUTSIDE) 01/19/2025 ECG (OUTSIDE) 01/06/2025 NUC MYOCARD PERF STRESS MIBI - REST, STRESS, AND ECG Routine 11/05/2024 9:11 AM EDT PVC's (premature ventricular contractions) Dyspnea on exertion HOLTER MONITOR - SKILLED NURSING Routine 11/02/2024 9:57 AM EDT PVC's (premature ventricular contractions) ECG Routine 11/02/2024 9:24 AM EDT Paroxysmal atrial fibrillation Atypical atrial flutter from Last 3 Months Results * ECG (OUTSIDE) (01/19/2025) 01/19/2025 us Other Other OT ECG ORDERABLES Final Result * ECG (OUTSIDE) (01/06/2025) 01/06/2025 us Other [...] CT images were obtained. Imaging system used: [facility]. Stress Findings A pharmacological stress test was [...] segments: apex. All other segments are normal. us Dottie Brown TRIAGE CLINICIAN-FIELD ENUMERATOR NM ORDERABLES Final Res ult * HOLTER MONITOR - SKILLED NURSING (11/02/2024 9:57 AM EDT) Heart rate minimum [...] 120 bpm. Isolated SVEs were occasional (4.0%, 41849), SVE Couplets were rare (<1.0%, 265), and SVE Triplets were rare (<1.0%, 23). Isolated VEs were frequent (16.4%, 59499), VE Couplets were occasional (1.7%, 2531), and [...] of 120 bpm. Isolated SVEs wereoccasional (4.0%, 02952), SVE Couplets were rare (<1.0%, 265), and SVETriplets were rare (<1.0%, 23). Isolated VEs were frequent (16.4%, 87240),VE Couplets were occasional (1.7%, 2531), and VE Triplets were rare(<1.0%, 72). Ventricular Bigeminy and Trigeminy were present. Inverted QRScomplexes possibly due to inverted placement of device. IMPRESSION: Agree with Findings. Dottie rBown APRN-FIELD ENUMERATOR CARDIAC SERVICES ORDERABL ES Final Result * ECG (11/02/2024 9:24 AM EDT) 11/02/2024 9:24 AM EDT 11/05/2024 9:15 PM EDT Dottie Brown APRN-FIELD ENUMERATOR ECG ORDERABLES Final Res ult RADIOLOGY from Last 3 Months Insurance [facility] MEDICARE RAILROAD Advance Directives For more information, please contact: [phone] (7:30 AM - 6PM [facility] Friday-Friday) * Full Code (Latest Code Status on File) Date Activated Date Inactivated Comments 03/12/2022 2:19 PM * Full Code Date Activated Date Inactivated Comments 04/20/2019 7:38 PM 03/12/2022 2:19 PM * Full Code Date Activated Date Inactivated Comments 03/12/2018 11:13 AM 04/20/2019 7:38 PM Care Teams Semiconductor Processor Relationship Specialty Start Date End Date Jonathon Hahn DO PCP - General Internal Medicine 03/17/18 Bryan Lacy MD PCP - Referring 1 Cardiovascular Disease 03/17/18 Stuart Woodson MD [address] [phone] PCP - Referring 2 Clinical Cardiac Electrophysiology 04/20/19 Bryan Lacy MD Cardiovascular Disease 03/12/18 Jonathon Hahn DO Internal Medicine 03/12/18 Gordo Gifford MD [address] [place] [address] Consulting Physician Clinical Cardiac Electrophysiology 05/29/18
--- OUTSIDE RECORDS SUMMARY | 2025-01-27 09:04 | XMS_ITS | Encounter Summary ---
Author Organization [facility] Address [address] [place] [address] Care Team Providers Care Management Consultant Name Role Phone Bryan Lacy MD Unavailable Jonathon Hahn DO Unavailable [phone] Jonathon Hahn DO Primary Care Provider Bryan Lacy MD Unavailable Gordo Gifford MD Unavailable Stuart Woodson MD Unavailable [phone] Reason for Visit * Reason Onset Date Comments Advice Only 01/06/2025 Change In Symptoms 01/06/2025 Encounter Details Date Type Department Care Team (Late st Contact Info) Description 01/06/2025 Telephone Central Scheduling [address] [place] [address] Tanja Sanchez Advice Only; Change [...] Appointment Imaging [facility] [address] [facility] 2nd [place] [address] Hafsa Avalos, LEHR LOADER-CONTRACT ADMIN [address] [place] [address] 03/01/2025 3:00 PM EDT Office Visit [facility] [address] [place] [address], [place] [phone] Kt Merritt MD [address] [place] [phone] 03/18/2025 9:00 AM EDT Appointment Heart and Vascular [facility] [address] [facility] 2nd [place] [phone] Dottie Brown, LEHR LOADER-CONTRACT ADMIN [address] [place] [phone] 11/01/2025 9:30 AM EDT Office Visit [facility] [address] [place] [address], [place] [address] Dottie Brown, LEHR LOADER-CONTRACT ADMIN [address] [place] [phone] Scheduled Procedures Name Priority Associated Diagnoses Date/Ti me CARDIOVERSION (EP LAB) Persistent atrial fibrillation documented as of this encounter Visit Diagnoses Not on filedocumented in this encounter Care Teams Management Consultant Relationship Specialty Start Date End Date Jonathon Hahn DO PCP - General Internal Medicine 03/17/18 Bryan Lacy MD PCP - Referring 1 Cardiovascular Disease 03/17/18 Stuart Woodson MD [address] [place] [phone] PCP - Referring 2 Clinical Cardiac Electrophysiology 04/20/19 Bryan Lacy MD Cardiovascular Disease 03/12/18 Jonathon Hahn DO Internal Medicine 03/12/18 Gordo Gifford MD [address] [place] [address] Consulting Physician Clinical Cardiac Electrophysiology 05/29/18 documented as of this encounter
--- OUTSIDE RECORDS SUMMARY | 2025-01-27 09:04 | XMS_ITS | Encounter Summary ---
Author Organization [facility] Address [address] [place] [address] Care Team Providers Care Java User Interface Developer Name Role Phone Bryan Lacy MD Unavailable Jonathon Hahn DO Unavailable [phone] Jonathon Hahn DO Primary Care Provider [phone] Bryan Lacy MD Unavailable [phone] Gordo Gifford MD Unavailable Stuart Woodson MD Unavailable [phone] Reason for Visit * Reason Onset Date Comments Appointment 01/18/2025 Encounter Details Date Type Department Care Team (Late st Contact Info) Description 01/18/2025 Telephone [facility] [address] [place] [phone] Kimberley Peralta Appointment Social History Tobacco Use [...] PM EDT Appointment Imaging [facility] [address] [place] [phone] Hafsa Avalos, STEAM BOILER FIREMAN-ENTERTAINER & COMIC [address] [place] [phone] 03/01/2025 3:00 PM EDT Office Visit [facility] Micky Guajardo [facility] [address] [place] [phone] Kt Merritt MD [address] [place] [phone] 03/18/2025 9:00 AM EDT Appoint[facility] [address] [facility] [address]nd [place] [phone] Dottie Brown, STEAM BOILER FIREMAN-ENTERTAINER & COMIC [address] [place] [phone] 11/01/2025 9:30 AM EDT Office Visit [facility] Micky Guajardo [facility] [address] [place] [address] Dottie Brown, STEAM BOILER FIREMAN-ENTERTAINER & COMIC [address] [place] [address] Scheduled Procedures Name Priority Associated Diagnoses Date/Ti me CARDIOVERSION (EP LAB) Persistent atrial fibrillation documented as of this encounter Visit Diagnoses Not on filedocumented in this encounter Care Teams Java User Interface Developer Relationship Specialty Start Date End Date Jonathon Hahn DO PCP - General Internal Medicine 03/17/18 Bryan Lacy MD PCP - Referring 1 Cardiovascular Disease 03/17/18 Stuart Woodson MD [address] [place] [address] PCP - Referring 2 Clinical Cardiac Electrophysiology 04/20/19 Bryan aLcy MD Cardiovascular Disease 03/12/18 Jonathon Hahn DO Internal Medicine 03/12/18 Gordo Gifford MD [address] [place] [address] Consulting Physician Clinical Cardiac Electrophysiology 05/29/18 documented as of this encounter
--- OUTSIDE RECORDS SUMMARY | 2025-01-27 09:04 | XMS_ITS | Encounter Summary ---
Author Organization [facility] enter Address [address] [place] [address] Care Team Providers Care Temple Meat Cutter Name Role Phone Bryan Lacy MD Unavailable Jonathon Hahn DO Unavailable [phone] Jonathon Hahn DO Primary Care Provider Bryan Lacy MD Unavailable [phone] Gordo Gifford MD Unavailable Stuart Woodson MD Unavailable [phone] Reason for Referral * (Routine) - New Request Specialty Diagnoses / Procedures Referred By Contac t Referred To Contact Diagnoses Persistent atrial fibrillation Procedures CASE REQUEST - EP CARDIOVERSION EXTERNAL Geeta Juárez APRN-CNP [address] [place] [phone] Phone: tel: fax: Referral ID Status Reason Start Date Expiration Date V isits Requested Visits Authorized [id number] New Request 01/17/2025 02/11/2026 1 1 * Radiology (Routine) - New Request Specialty Diagnoses / Procedures Referred By Contac t Referred To Contact Diagnoses Paroxysmal atrial fibrillation Procedures ECG Geeta Juárez APRN-CNP [address] [place] [phone] Phone: tel: fax: Referral ID Status Reason Start Date Expiration Date V isits Requested Visits Authorized [id number] New Request 01/14/2025 02/08/2026 1 1 * Radiology (Routine) - New Request Specialty Diagnoses / Procedures Referred By Marin poole Referred To Contact Diagnoses Paroxysmal atrial fibrillation Procedures HOLTER MONITOR - SHELTER Geeta Juárez APRN-CNP [address] [place] [phone] Phone: tel: fax: Referral ID Status Reason Start Date Expiration Date V isits Requested Visits Authorized [id number] New Request 01/14/2025 02/08/2026 1 1 Reason for Visit * Reason Comments Follow-up Encounter Details Date Type Department Care Team (Latest Contact Info) Description 01/14/2025 Documentation Only [facility] Micky Guajardo [facility] [address] [place] [phone] Geeta Juárez APRN-CNP [address] [place] [phone] Paroxysmal atrial fibrillation (Primary Dx); Persistent [...] Mathur - 01/14/2025 11:36 AM EDT Received Facile System message from patient: Patient notes he was [...] Appointment Imaging [facility] [address] [facility] 2nd [place] [address] Hafsa Avalos APRN-CNP [address] [place] [address] 03/01/2025 3:00 PM EDT Office Visit [facility] [address] [place] [phone] Kt Merritt MD [address] [place] [address] 03/18/2025 9:00 AM EDT Appointment Heart and Vascular [facility] [address] [facility] 2nd [place] [address] Geeta Juárez, SEISMOLOGY TECHNICAL OFFICER-DIRECTOR HEDIS [address] [place] [phone] 11/01/2025 9:30 AM EDT Office Visit [facility] [address] [place] [phone] Geeta Juárez, SEISMOLOGY TECHNICAL OFFICER-DIRECTOR HEDIS [address] [place] [phone] Pending Results Name Type Priority Associated Diagnoses Date /Time HOLTER MONITOR - SHELTER Cardiac Services Routine Paroxysmal atrial fibrillation 01/14/2025 11:40 AM EDT Scheduled Orders Name Type Priority Associated Diagnoses Orde r Schedule HOLTER MONITOR - MECHANIC SOUND TECHNICIAN Cardiac Services Routine Paroxysmal atrial fibrillation Expected: 10/31/2025, Expires: 01/14/2026 ECG ECG Routine Paroxysmal atrial fibrillation Ordered: 01/14/2025 Scheduled Procedures Name Priority Associated Diagnoses Date/Ti me CARDIOVERSION (EP LAB) Persistent atrial fibrillation documented as of this encounter Visit Diagnoses Diagnosis Paroxysmal atrial fibrillation- Primary Atrial fibrillation Persistent atrial fibrillation Atrial fibrillation documented in this encounter Care Teams Temple Meat Cutter Relationship Specialty Start Date End Date Jonathon Hahn DO PCP - General Internal Medicine 03/17/18 Bryan Lacy MD PCP - Referring 1 Cardiovascular Disease 03/17/18 Stuart Woodson MD [address] [place] [phone] PCP - Referring 2 Clinical Cardiac Electrophysiology 04/20/19 Bryan Lacy MD Cardiovascular Disease 03/12/18 Jonathon Hahn DO Internal Medicine 03/12/18 Gordo Gifford MD [address] [place] [address] Consulting Physician Clinical Cardiac Electrophysiology 05/29/18 documented as of this encounter
--- OUTSIDE RECORDS SUMMARY | 2025-01-27 09:16 | XMS_ITS | CCD ---
Author Organization [facility] Care Team Providers Care Fur Examiner Name Role Phone PHYSICIAN, DEFAULT Unavailable Unavailable [...] Primary Care Provider Bryan Cortes MD Unavailable [phone] Gordo Gifford MD Unavailable Brooklynn Woodson MD Unavailable Bryan Cortes MD Unavailable [phone] Holden CHILDERS Jonathon Unavailable Jonathon Hahn DO Primary Care Provider [phone] Brayn Cortes MD Unavailable [phone] Gordo Gifford MD Unavailable Brooklynn Woodson MD Unavailable Jonathon Hahn Unavailable Bryan Cortes MD Unavailable [phone] Holden CHILDERS Jonathon Unavailable Jonathon Hahn DO Primary Care Provider Bryan Cortes MD Unavailable Ирина COLÓN Gordo Unavailable Chintan COLÓN, Brooklynn Williamson Unavailable Bryan Cortes MD Unavailable [phone] Bryan Cortes MD Unavailable Ball, DO Jonathon Primary Care Provider MD Titi Arora II Attending Provider Ball DO, Jonathon Unavailable Ball DO, Jonathon Primary Care Provider Ball DO, Jonathon Primary Care Provider [phone] Ball DO, Jonathon Attending Provider [phone] Ball DO, Jonathon Other Provider Cassandra Chavez MD Attending Provider [phone] BALL, JONATHON Primary Care Unavailable MEASEDOTTIE Referring Unavailable BALL, JONATHON Primary Care Unavailable MEASEDOTTIE Attending Unavailable BALL, JONATHON Referring Unavailable BALL, HOUSTON Primary Care Unavailable MAT, DC Hernandez Attending Unavailable CHINTAN, BROOKLYNN Williamson Referring Unavailable BALL, HOUSTON Primary Care Unavailable HOUMSSETRISTEN Attending Unavailable CHINTAN, BROOKLYNN Williamson Referring Unavailable BALL, HOUSTON Primary Care Unavailable CHINTAN, BROOKLYNN Williamson Attending Unavailable CHINTAN, BROOKLYNN Williamson Referring Unavailable MEASE, DOTTIE Lynn Attending Unavailable MEASE, DOTTIE Lynn Referring Unavailable BALL, JONATHON Primary Care Unavailable BALL, JONATHON Primary Care Unavailable CHINTAN, BROOKLYNN Williamson Referring Unavailable CHINTAN, BROOKLYNN Williamson Admitting Unavailable CHINTAN, BROOKLYNN Williamson Attending Unavailable MEASE, DOTTIE Lynn Referring Unavailable BALL, JONATHON Primary Care Unavailable Ball, Jonathon Attending Unavailable Ball, Brantingham Primary Care Unavailable Ball, Jonathon Admitting Unavailable Allergies Allergy Classification Reported Allergen(s) Allergy Type Date of Onset Reaction(s) Facility (2 sources) No Known Allergies; Translations: [No Known Allergies] Propensity to adverse reactions (disorder) 7 [facility] Medications Current Medications Medication Drug Class(es) [...] of intra-operative dose., Recovery polyethylene glycol 3350 25766 mg powder for oral solution (1 source) [...] 1,500 mg, Intravenous, Administer over 1 Hours, CULTURAL ANTHROPOLOGY PROFESSOR TO PROCEDURE, 1 dose, Starting on Fri01/28/24 at 0000, Until Fri01/28/24 at 1043, Other, Preoperative antibiotic, Order should be timed for day of procedure. 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 Vancomycin is preferred agent for device implants, based on national, community and local ([facility]) MRSA rates., Pre-op/Pre-Proc Start: 12-24-2023 End: 12-24-2023 1,500 mg, Intravenous, Admin ister over 1 Hours, CULTURAL ANTHROPOLOGY PROFESSOR TO PROCEDURE, 1 dose, Starting on Fri12/24/23 at 0000, Until Fri12/24/23 at 1354, Other, Preoperative antibiotic, Order should be timed for day of procedure. 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 is preferred agent [...] disease (1 source) Atherosclerotic heart disease of [place] coronary artery without angina pectoris; Translations: [ATHSCL HEART DISEASE OF [place] CORONARY ARTERY W/O ANG PCTRS] Onset: 7 [...] 02-23-2024 Chronic Other aftercare (4 sources) Other epidemiology internship (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 therapy; Translations: [OTH JAIL CURRENT DRUG THERAPY] Onset: 2 Episodic Other aftercare (2 sources) Long-term current use of drug therapy; Translations: [Other halfway (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 therapy] 02-23-2024 Episodic Other circulatory [...] 03-11-2018 03-13-2018 Episodic Other aftercare (2 sources) dogger (current) use of anticoagulants; Translations: [FDC (current) use of aspirin] Onset: 05-12-2017 Episodic Other aftercare (11 sources) Taking high risk medication; Translations: [Other halfway (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 therapy] Onset: 03-17-2018 03-17-2018 Episodic [...] Basophils (Bld) [#/Vol] 0.0 10 3/uL 0.0-0.1 [facility] Basophils/100 WBC Auto (Bld) Ordered By: Jonathon Hahn on 01-06-2025 Basophils/100 WBC (Bld) 0.6 % 0.2-2.0 [facility] Eosinophils/100 WBC Auto (Bl d)Ordered By: Jonathon Hahn on 01-06-2025 Eosinophils/100 WBC (Bld) 1.3 % 0.9-7.0 [facility] Erythrocyte distribution wid th Auto (RBC) [Ratio]Ordered By: Jonathon Hahn on 01-06-2025 Erythrocyte distribution width (RBC) [Ratio] 13.5 % 11.0-15.0 [facility] Estimated glomerular filtrat ion rate (GFR) non- AmericanOrdered By: Eliazar Hernández on 01-06-2025 GFR/1.73 sq M.predicted among non-blacks MDRD (S/P/Bld) [Vol rate/Area] mL/min/{1.73_m2} >=60 mL/min/1.7 3m 2 [facility] FPG ECG *PCP OFFICE ONLY*on 01-06-2025 FPG ECG *PCP OFFICE ONLY* [facility] [place] [address] Electrocardiograph Report Signed Patient: Kristen Coates MR#: [id number] [birth year] : 1950 Acct:[id number] Age/Sex: 74 / M ADM Date: 01/06/25 [facility] Room: Type: [facility] Attending Dr: Jonathon Hahn DO Ordering Provider: [...] previous ECGs available Confirmed by Cassandra Chavez ([id number]) on 01/06/2025 1:57:59 PM Referred By: Electronically Signed By: Cassandra Chavez Transcribed By: MUS Signed By Cassandra Chavez MD [phone] Normal [facility] Hematocrit Auto (Bld) [Volum e fraction]Ordered By: Jonathon Hahn on 01-06-2025 Hematocrit (Bld) [Volume fraction] 45.7 % 42.0-54.0 [facility] Hemoglobin [Mass/volume] in BloodOrdered By: Jonathon Hahn on 01-06-2025 Hemoglobin (Bld) [Mass/Vol] 15.4 g/dL 14.0-18.0 [facility] Laboratory - Chemistry and C hemistry - challengeOrdered By: Eliazar Hernández on 01-06-2025 Calcium [Mass/Vol] 9.6 mg/dL 8.5-10.1 [facility] Chloride [Moles/Vol] 106 mmol/L 98-107 [facility] CO2 [Moles/Vol] 23.1 mmol/L 21.0-32.0 [facility] Creatinine [Mass/Vol] 1.15 mg/dL 0.70-1.30 [facility] GFR/1.73 sq M.predicted MDRD (S/P/Bld) [Vol rate/Area] mL/min/{1.73_m2} >=60 mL/min/1.7 3m 2 [facility] Glucose [Mass/Vol] 105 mg/dL 74-106 [facility] Magnesium [Mass/Vol] 2.2 mg/dL 1.8-2.4 [facility] Potassium [Moles/Vol] 4.7 mmol/L 3.5-5.1 [facility] Sodium [Moles/Vol] 140 mmol/L 136-145 [facility] Urea nitrogen [Mass/Vol] 17.0 mg/dL 7.0-18.0 [facility] Urea nitrogen/Creatinine [Mass ratio] 14.8 mg/mg [facility] Laboratory - Hematology and Cell countsOrdered By: Jonathon Hahn on 01-06-2025 Immature granulocytes/100 WBC (Bld) 0.3 % 0.0-0.5 [facility] Leukocytes [#/volume] correc jose for nucleated erythrocytes in Blood by Automated counOrdered By: Jonathon Hahn on 01-06-2025 WBC corrected for nucl RBC Auto (Bld) [#/Vol] 6.7 10 3/uL 4.0-11.0 [facility] Lymphocytes Auto (Bld) [#/Vo l]Ordered By: Jonathon Hahn on 01-06-2025 Lymphocytes (Bld) [#/Vol] 1.3 10 3/uL 1.2-3.8 [facility] Lymphocytes/100 WBC Auto (Bl d)Ordered By: Jonathon Hahn on 01-06-2025 Lymphocytes/100 WBC (Bld) 18.9 % Low 20.5-60.0 [facility] MCH Auto (RBC) [Entitic mass ]Ordered By: Jonathon Hahn on 01-06-2025 MCH (RBC) [Entitic mass] 31.6 pg 25.9-34.0 [facility] MCHC Auto (RBC) [Mass/Vol]Or dered By: Jonathon Hahn on 01-06-2025 MCHC (RBC) [Mass/Vol] 33.7 g/dL 29.9-35.2 [facility] MCV Auto (RBC) [Entitic vol] Ordered By: Jonathon Hahn on 01-06-2025 MCV (RBC) [Entitic vol] 93.8 fL 80.0-94.0 [facility] Monocytes Auto (Bld) [#/Vol] Ordered By: Jonathon Hahn on 01-06-2025 Monocytes (Bld) [#/Vol] 0.6 10 3/uL 0.3-0.8 [facility] Monocytes/100 WBC Auto (Bld) Ordered By: Jonathon Hahn on 01-06-2025 Monocytes/100 WBC (Bld) 8.2 % 1.7-12.0 [facility] Neutrophils Auto (Bld) [#/Vo l]Ordered By: Jonathon Hahn on 01-06-2025 Neutrophils (Bld) [#/Vol] 4.8 10 3/uL 1.4-6.5 [facility] Neutrophils/100 WBC Auto (Bl d)Ordered By: Jonathon Hahn on 01-06-2025 Neutrophils/100 WBC (Bld) 70.7 % 43.0-75.0 [facility] No Panel InformationOrdered By: Jonathon Hahn on 01-06-2025 Eosinophils # (Auto) 0.1 10 3/uL 0.0-0.7 [facility] Immature Granulocyte # (Auto) 0.02 10 3/uL 0.00-0.03 [facility] No Panel InformationOrdered By: Eliazar Hernández on 01-06-2025 Troponin I High Sensitivity 31.0 pg/mL 4.0-76.1 [facility] Comment on above: CUT-OFF POINTS HAVE [...] volume (Bld) [Entitic vol] 11.6 fL 9.5-13.5 [facility] Platelets Auto (Bld) [#/Vol] Ordered By: Jonathon Hahn on 01-06-2025 Platelets (Bld) [#/Vol] 141 10 3/uL Low 150-450 [facility] RBC Auto (Bld) [#/Vol]Ordere d By: Jonathon Hahn on 01-06-2025 RBC (Bld) [#/Vol] 4.87 10 6/uL 4.70-6.10 [facility] Serum or plasma anion gap de terminationOrdered By: Eliazar Hernández on 01-06-2025 Anion gap [Moles/Vol] 15.6 mmol/L [facility] NUC MYOCARD PERF STRESS MIBI EXERCISEon [...] from the original result were not included. [facility] Facility [facility] Patient Information Patient Name Kristen Coates Legal [...] - Reading 11/05/2024 Rubi Saldivar MD ECG [place], SPECT [place], Test [place] 11/05/2024 Stress Measurements Baseline Vitals-Supine Baseline HR [...] is normal (more content not included)... Normal [facility] SPECT Heart perfusion at res t and W stress and W radionuclide IVOrdered By: Rubi Saldivar on 11-05-2024 % [facility]MAX 58 % [facility] Work Phone: APHRMAX 148 bpm [facility] Work Phone: Baseline DBP 88 mmHg [facility] Work Phone: Baseline HR 59 bpm [facility] Work Phone: Baseline SBP 172 mmHg [facility] Work Phone: Body surface area Derived from formula 2.55 m2 [facility] Work Phone: NM ED vol idx 61.17 mL/m2 [facility] Work Phone: NM ES vol idx 29.41 mL/m2 [facility] Work Phone: Nuc Stress EF 52 % [facility] Work Phone: Peak DBP 72 mmHg [facility] Work Phone: Peak HR 86 bpm [facility] Work Phone: Peak SBP 144 mmHg [facility] Work Phone: Rate Pressure Product [phone] [facility] Work Phone: [facility] Work Phone: SPECT Heart perfusion at res [...] CT images were obtained. Imaging system used: [facility]. Stress Findings A pharmacological stress test [...] segments: apex. All other segments are normal. [facility] Radiology Study observation (narrative) [facility] EP PROCEDURE - EPS/ABLATION/ DEVICEon 06-10-2024 EP [...] 45 days and then follow up with [facility] clinic at the [facility] at the [place] Femoral access care protocol (Perclose) May send [...] 45 days and then follow up with [facility] clinic at the [facility] at the [place] Femoral access care protocol (Perclose) May send home today if meets criteria Table formatting from the original result was not included. Images from the original result were not included. Kristen Coates EP Procedure - EPS/Ablation/Device Ordering Physician: BROOKLYNN WOODSON Order #: [id number] Study Date: 01/28/2024 Patient Information Name MRN Description Kristen Alexanderer [id number] 73 y.o. 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 Normal [facility] ACT* LOW RANGE, POCon 2023 ACT LOW RANGE, POC 274.0 High [facility] Interpretation and review of laboratory results Abnormal [facility] Test performed at ad dress of the patient encounter. [facility] ACT LOW RANGE, POC 384.0 High [facility] Interpretation and review of laboratory results Abnormal [facility] Test performed at ad dress of the patient encounter. [facility] ACT LOW RANGE, POC 385.0 High [facility] Interpretation and review of laboratory results Abnormal [facility] Test performed at ad dress of the patient encounter. [facility] ACT LOW RANGE, POC [facility] Comment on above: Out of Range High. The test result is outside clinical range and should not be used for patient-management decisions. Test performed at ad dress of the patient encounter. [facility] CBC AND ELECTRONIC DIFFon Basophils (Bld) [#/Vol] K/uL 0.00 - 0.09 K/uL [facility] Basophils/100 WBC (Bld) 0.6 % [facility] Differential cell count method Nom (Bld) Electronic Differential [facility] Eosinophils (Bld) [#/Vol] 0.10 10*3/uL 0.00 - 0.48 K/uL [facility] Eosinophils/100 WBC (Bld) 1.9 % [facility] Erythrocyte distribution width (RBC) [Ratio] 13.7 % 10.9 - 14.3 % [facility] Comment on above: This is an appended report. These results have been appended to a previously preliminary verified report. Hematocrit (Bld) [Volume fraction] 43.0 % 39.6 - 48.8 % [facility] Comment on above: This is an appended report. These results have been appended to a previously preliminary verified report. Hemoglobin (Bld) [Mass/Vol] 14.7 g/dL 13.4 - 16.8 g/dL [facility] Comment on above: This is an appended report. These results have been appended to a previously preliminary verified report. Immature granulocytes (Bld) [#/Vol] 0.04 10*3/uL NINF - 0.07 K/uL [facility] Immature granulocytes/100 WBC (Bld) 0.8 % [facility] Interpretation and review of laboratory results Abnormal [facility] Lymphocytes (Bld) [#/Vol] 1.16 10*3/uL 0.83 - 3.57 K/uL [facility] Lymphocytes/100 WBC (Bld) 22.2 % [facility] MCH (RBC) [Entitic mass] 32.8 pg 26.1 - 33.3 pg [facility] Comment on above: This is an appended report. These results have been appended to a previously preliminary verified report. MCHC (RBC) [Mass/Vol] 34.2 g/dL 31.9 - 36.5 g/dL [facility] Comment on above: This is an appended report. These results have been appended to a previously preliminary verified report. MCV (RBC) [Entitic vol] 96.0 fL High 79.0 - 94.5 fL [facility] Comment on above: This is an appended report. These results have been appended to a previously preliminary verified report. Monocytes (Bld) [#/Vol] 0.45 10*3/uL 0.24 - 0.93 K/uL [facility] Monocytes/100 WBC (Bld) 8.6 % [facility] Neutrophils (Bld) [#/Vol] 3.44 10*3/uL 1.57 - 6.19 K/uL [facility] Nucleated RBC/100 WBC (Bld) [Ratio] 0.0 % NINF [facility] Comment on above: This is an appended report. These results have been appended to a previously preliminary verified report. Platelet mean volume (Bld) [Entitic vol] [facility] Comment on above: Not measured Platelets (Bld) [#/Vol] 130 10*3/uL Low 146 - 337 K/uL [facility] Comment on above: This is an appended report. These results have been appended to a previously preliminary verified report. RBC (Bld) [#/Vol] 4.48 10*6/uL [facility] Comment on above: This is an appended report. These results have been appended to a previously preliminary verified report. Segmented neutrophils/100 WBC (Bld) 65.9 % [facility] WBC (Bld) [#/Vol] 5.22 10*3/uL 3.73 - 10.10 K/uL [facility] Comment on above: This is an appended report. These results have been appended to a previously preliminary verified report. [facility] Abs Baso Auto < Normal 0.00-0.09 [facility] Comment on above: Performed By: #### L [id number] #### [facility] (DEFAULT) [address] [place] [address] Basophils/100 WBC (Bld) 0.6 % Normal [facility] Comment on above: Performed By: #### L [id number] #### [facility] (DEFAULT) [address] [place] [address] DIFF STATUS Electronic Differential Normal [facility] Comment on above: Performed By: #### L [id number] #### [facility] (DEFAULT) [address] [place] [address] Eosinophils (Bld) [#/Vol] 0.10 10*3/uL Normal 0.00-0.48 [facility] Comment on above: Performed By: #### L [id number] #### [facility] (DEFAULT) [address] [address] Eosinophils/100 WBC (Bld) 1.9 % Normal [facility] Comment on above: Performed By: #### L [id number] #### [facility] (DEFAULT) [address] [address] Hematocrit (Bld) [Volume fraction] 43.0 % Normal 39.6-48.8 [facility] Comment on above: Result Comment: This is an appended report. These results have been appended to a previously preliminary verified report. Performed By: #### L [id number] #### [facility] (DEFAULT) [address] [address] Hemoglobin (Bld) [Mass/Vol] 14.7 g/dL Normal 13.4-16.8 [facility] Comment on above: Result Comment: This is an appended report. These results have been appended to a previously preliminary verified report. Performed By: #### L [id number] #### [facility] (DEFAULT) [address] [address] Immature Grans % 0.8 % Normal [facility] Comment on above: Performed By: #### L [id number] #### [facility] (DEFAULT) [address] [address] Immature Grans Absolute 0.04 K/uL Normal <=0.07 [facility] Comment on above: Performed By: #### L [id number] #### [facility] (DEFAULT) [address] [address] Lymphocytes (Bld) [#/Vol] 1.16 10*3/uL Normal 0.83-3.57 [facility] Comment on above: Performed By: #### L [id number] #### [facility] (DEFAULT) [address] [address] Lymphocytes/100 WBC (Bld) 22.2 % Normal [facility] Comment on above: Performed By: #### L [id number] #### [facility] (DEFAULT) [address] [address] MCV (RBC) [Entitic vol] 96.0 fL High 79.0-94.5 [facility] Comment on above: Result Comment: This is an appended report. These results have been appended to a previously preliminary verified report. Performed By: #### L [id number] #### [facility] (DEFAULT) [address] [address] Mean Cell Hgb 32.8 pg Normal 26.1-33.3 [facility] Comment on above: Result Comment: This is an appended report. These results have been appended to a previously preliminary verified report. Performed By: #### L [id number] #### [facility] (DEFAULT) [address] [address] Mean Cell Hgb Conc 34.2 g/dL Normal 31.9-36.5 [facility] Comment on above: Result Comment: This is an appended report. These results have been appended to a previously preliminary verified report. Performed By: #### L [id number] #### [facility] (DEFAULT) [address] [address] Mean Platelet Volume Normal [facility] Comment on above: Result Comment: Not measured Performed By: #### L [id number] #### [facility] (DEFAULT) [address] [address] Monocytes (Bld) [#/Vol] 0.45 10*3/uL Normal 0.24-0.93 [facility] Comment on above: Performed By: #### L [id number] #### [facility] (DEFAULT) [address] [address] Monocytes/100 WBC (Bld) 8.6 % Normal [facility] Comment on above: Performed By: #### L [id number] #### [facility] (DEFAULT) [address] [address] Nucleated RBC 0.0 /100 WBC Normal <=0.2 [facility] Comment on above: Result Comment: This is an appended report. These results have been appended to a previously preliminary verified report. Performed By: #### L [id number] #### [facility] (DEFAULT) [address] [address] Platelets (Bld) [#/Vol] 130 10*3/uL Low 146-337 [facility] Comment on above: Result Comment: This is an appended report. These results have been appended to a previously preliminary verified report. Performed By: #### L [id number] #### [facility] (DEFAULT) [address] [address] RBC (Bld) [#/Vol] 4.48 10*6/uL Normal 4.38-5.83 [facility] Comment on above: Result Comment: This is an appended report. These results have been appended to a previously preliminary verified report. Performed By: #### L [id number] #### [facility] (DEFAULT) [address] [address] RBC Distribution 13.7 % Normal 10.9-14.3 [facility] Comment on above: Result Comment: This is an appended report. These results have been appended to a previously preliminary verified report. Performed By: #### L [id number] #### [facility] (DEFAULT) [address] [address] Segs + Bands Auto 65.9 % Normal [facility] Comment on above: Performed By: #### L [id number] #### [facility] (DEFAULT) [address] [address] Segs + Bands,Absolute Auto 3.44 K/uL Normal 1.57-6.19 [facility] Comment on above: Performed By: #### L [id number] #### [facility] (DEFAULT) [address] [address] WBC (Bld) [#/Vol] 5.22 10*3/uL Normal 3.73-10.10 [facility] Comment on above: Result Comment: This is an appended report. These results have been appended to a previously preliminary verified report. Performed By: #### L [id number] #### [facility] (DEFAULT) [address] [place] [address] CHEM 7 (LYTES,BUN,CREA,GLUC) on 01-28-2024 Anion gap [Moles/Vol] 12 mmol/L 7 - 17 mmol/L [facility] Chloride [Moles/Vol] 104 mmol/L 98 - 10 8 mmol/L [facility] CO2 [Moles/Vol] 24 mmol/L 21 - 31 mmol/L [facility] Creatinine [Mass/Vol] 1.05 mg/dL 0.70 - 1.30 mg/dL [facility] eGFR, CKD-EPI, Male 78 - PINF [facility] Comment on above: Reported eGFR is bas ed on the CKD-EPI 2020 equation using creatinine, age, and sex. Glucose [Mass/Vol] 97 mg/dL 70 - 99 mg/dL [facility] Osmolality Calc [Osmolality] 287 [facility] Potassium [Moles/Vol] 4.2 mmol/L 3.5 - 5.0 mmol/L [facility] Sodium [Moles/Vol] 136 mmol/L 135 - 145 mmol/L [facility] Urea nitrogen [Mass/Vol] 18 mg/dL 7 - 25 mg/dL [facility] Urea nitrogen/Creatinine [Mass ratio] 17 mg/mg [facility] Anion gap [Moles/Vol] 12 mmol/L Normal 7-17 [facility] Comment on above: Performed By: #### C HM7 #### [facility] (DEFAULT) [address] [place] [address] Chloride [Moles/Vol] 104 mmol/L Normal 98-108 [facility] Comment on above: Performed By: #### C HM7 #### [facility] (DEFAULT) [address] [place] [address] CO2 [Moles/Vol] 24 mmol/L Normal 21-31 [facility] Comment on above: Performed By: #### C HM7 #### [facility] (DEFAULT) [address] [place] [address] Creatinine [Mass/Vol] 1.05 mg/dL Normal 0.70-1.30 [facility] Comment on above: Performed By: #### C HM7 #### [facility] (DEFAULT) [address] [place] [address] GFR/1.73 sq M.predicted among non-blacks MDRD (S/P/Bld) [Vol rate/Area] 76 mL/min/{1.73_m2} Normal >=60 [facility] Comment on above: Result Comment: Repo rted eGFR is based on the CKD-EPI 2020 equation using creatinine, age, and sex. Performed By: #### C HM7 #### [facility] (DEFAULT) [address] [place] [address] Glucose [Mass/Vol] 97 mg/dL Normal 70-99 [facility] Comment on above: Performed By: #### C HM7 #### [facility] (DEFAULT) [address] [place] [address] Osmolality [Osmolality] 287 mosm/kg Normal 278-305 [facility] Comment on above: Performed By: #### C HM7 #### [facility] (DEFAULT) [address] [place] [address] Potassium [Moles/Vol] 4.2 mmol/L Normal 3.5-5.0 [facility] Comment on above: Performed By: #### C HM7 #### [facility] (DEFAULT) [address] [place] [address] [address] Sodium [Moles/Vol] 136 mmol/L Normal 135-145 [facility] Comment on above: Performed By: #### C HM7 #### [facility] (DEFAULT) [address] [place] [id number] Urea nitrogen [Mass/Vol] 18 mg/dL Normal 7-25 [facility] Comment on above: Performed By: #### C HM7 #### [facility] (DEFAULT) [address] [place] [address] Urea nitrogen/Creatinine [Mass ratio] 17 mg/mg Normal [facility] Comment on above: Performed By: #### C HM7 #### [facility] (DEFAULT) [address] [place] [address] PT,INR,PTTon 01-28-2024 aPTT Coag (PPP) [Time] 27.4 s [facility] INR Coag (Bld) [Relative time] 1.2 {INR} High 0.9 - 1.1 [facility] Interpretation and review of laboratory results Abnormal [facility] PT Coag (PPP) [Time] 14.8 s High [facility] aPTT Coag (Bld) [Time] 27.4 s Normal 24.0-34.3 [facility] Comment on above: Performed By: #### P TPTT #### [facility] (DEFAULT) [address] [place] [id number] INR Coag (PPP) [Relative time] 1.2 {INR} High 0.9-1.1 [facility] Comment on above: Performed By: #### P TPTT #### [facility] (DEFAULT) [address] [place] [address] PT Coag (PPP) [Time] 14.8 s High 11.9-14.2 [facility] Comment on above: Performed By: #### P TPTT #### [facility] (DEFAULT) [address] [place] [address] CBC AND ELECTRONIC DIFFon Basophils (Bld) [#/Vol] K/uL 0.00 - 0.09 K/uL [facility] Basophils/100 WBC (Bld) 0.5 % [facility] Differential cell count method Nom (Bld) Electronic Differential [facility] Eosinophils (Bld) [#/Vol] 0.11 10*3/uL 0.00 - 0.48 K/uL [facility] Eosinophils/100 WBC (Bld) 2.0 % [facility] Erythrocyte distribution width (RBC) [Ratio] 13.2 % 10.9 - 14.3 % [facility] Comment on above: This is an appended report. These results have been appended to a previously preliminary verified report. Hematocrit (Bld) [Volume fraction] 46.7 % 39.6 - 48.8 % [facility] Comment on above: This is an appended report. These results have been appended to a previously preliminary verified report. Hemoglobin (Bld) [Mass/Vol] 15.1 g/dL 13.4 - 16.8 g/dL [facility] Comment on above: This is an appended report. These results have been appended to a previously preliminary verified report. Immature granulocytes (Bld) [#/Vol] K/uL NINF - 0.07 K/uL [facility] Immature granulocytes/100 WBC (Bld) 0.5 % [facility] Interpretation and review of laboratory results Abnormal [facility] Lymphocytes (Bld) [#/Vol] 1.40 10*3/uL 0.83 - 3.57 K/uL [facility] Lymphocytes/100 WBC (Bld) 25.4 % [facility] MCH (RBC) [Entitic mass] 31.3 pg 26.1 - 33.3 pg [facility] Comment on above: This is an appended report. These results have been appended to a previously preliminary verified report. MCHC (RBC) [Mass/Vol] 32.3 g/dL 31.9 - 36.5 g/dL [facility] Comment on above: This is an appended report. These results have been appended to a previously preliminary verified report. MCV (RBC) [Entitic vol] 96.9 fL High 79.0 - 94.5 fL [facility] Comment on above: This is an appended report. These results have been appended to a previously preliminary verified report. Monocytes (Bld) [#/Vol] 0.42 10*3/uL 0.24 - 0.93 K/uL [facility] Monocytes/100 WBC (Bld) 7.6 % [facility] Neutrophils (Bld) [#/Vol] 3.53 10*3/uL 1.57 - 6.19 K/uL [facility] Nucleated RBC/100 WBC (Bld) [Ratio] 0.0 % [facility] Comment on above: This is an appended report. These results have been appended to a previously preliminary verified report. Platelet mean volume (Bld) [Entitic vol] [facility] Comment on above: Not measured Platelets (Bld) [#/Vol] 131 10*3/uL Low 146 - 337 K/uL [facility] Comment on above: This is an appended report. These results have been appended to a previously preliminary verified report. RBC (Bld) [#/Vol] 4.82 10*6/uL [facility] Comment on above: This is an appended report. These results have been appended to a previously preliminary verified report. Segmented neutrophils/100 WBC (Bld) 64.0 % [facility] WBC (Bld) [#/Vol] 5.52 10*3/uL 3.73 - 10.10 K/uL [facility] Comment on above: This is an appended report. These results have been appended to a previously preliminary verified report. [facility] CHEM 7 (LYTES,BUN,CREA,GLUC) on 12-24-2023 Anion gap [Moles/Vol] 14 mmol/L 7 - 17 mmol/L [facility] Chloride [Moles/Vol] 103 mmol/L 98 - 10 8 mmol/L [facility] CO2 [Moles/Vol] 23 mmol/L 21 - 31 mmol/L [facility] Creatinine [Mass/Vol] 0.99 mg/dL 0.70 - 1.30 mg/dL [facility] eGFR, CKD-EPI, Male 81 - PINF [facility] Comment on above: Reported eGFR is bas ed on the CKD-EPI 2020 equation using creatinine, age, and sex. Glucose [Mass/Vol] 81 mg/dL 70 - 99 mg/dL [facility] Osmolality Calc [Osmolality] 286 [facility] Potassium [Moles/Vol] 4.4 mmol/L 3.5 - 5.0 mmol/L [facility] Sodium [Moles/Vol] 136 mmol/L 135 - 145 mmol/L [facility] Urea nitrogen [Mass/Vol] 15 mg/dL 7 - 25 mg/dL [facility] Urea nitrogen/Creatinine [Mass ratio] 15 mg/mg [facility] PT,INR,PTTon 12-24-2023 aPTT Coag (PPP) [Time] 27.6 s [facility] INR Coag (Bld) [Relative time] 1.1 {INR} 0.9 - 1.1 [facility] Interpretation and review of laboratory results Normal [facility] PT Coag (PPP) [Time] 14.2 s [facility] CREAT/GFRon 11-11-2023 Creatinine [Mass/Vol] 0.99 mg/dL 0.70 - 1.30 mg/dL [facility] GFR/1.73 sq M.predicted CKD-EPI (S/P/Bld) [Vol rate/Area] 81 - PINF [facility] Comment on above: Reported eGFR is bas ed on the CKD-EPI 2020 equation using creatinine, age, and sex. Interpretation and review of laboratory results Normal [facility] Test performed at ad dress of the patient encounter. [facility] Chest>Heart.atrium.left+Pulm onary veins CT angiogram and 3D reconstruction W contrast Allie 11-10-[address] [facility] [address] Report Name: KRISTEN COATES Andres [...] OF ORDER: Appropriate BILLING ---- Patient Account [id number] CPT Codes 70672 ICD10 Codes I48.0, I48.4 Report generated by [employer], a product of [employer] CARDIOLOGY Smith Solomon M D - 11/10/[address] [facility] [address] Report Name: KRISTEN COATES : [...] APPROPRIATENESS OF ORDER: Appropriate BILLING Patient Account [id number] CPT Codes 07074 ICD10 Codes I48.0, I48.4 Report generated by [employer], a product of [employer] [facility] Radiology Study observation (narrative) [facility] Chest>Heart.atrium.left+Pulm onary veins CT angiogram and 3D reconstruction W contrast IVOrdered By: Smith Solomon on 11-10-2023 [facility] CREAT/GFRon 03-06-2023 Creatinine [Mass/Vol] 0.82 mg/dL 0.70 - 1.30 mg/dL [facility] GFR/1.73 sq M.predicted CKD-EPI (S/P/Bld) [Vol rate/Area] - PINF [facility] Comment on above: Reported eGFR is bas ed on the CKD-EPI 2020 equation using creatinine, age, and sex. Interpretation and review of laboratory results Normal [facility] Test performed at ad dress of the patient encounter. [facility] CT ANGIO CHEST (NONCORONARY) on [...] Abdominal Wall: Normal RADIOLOGY Smith Solomon M B/[facility] - 03/06/2023 EXAM: CT [...] Other ancillary findings are noted as above. [facility] Radiology Study observation (narrative) [facility] CT ANGIO CHEST (NONCORONARY) Ordered By: Smith Solomon on 03-06-2023 [facility] ECHOCARDIOGRAM TRANSESOPHAGE AL (ALLI)Ordered By: Kt Davis on 03-06-2023 Ao ASC index 1.48 cm/m2 [facility] Work Phone: Ascending aorta 3.60 cm [facility] Work Phone: Body surface area Derived from formula 2.44 m2 [facility] Work Phone: [facility] Work Phone: ECHOCARDIOGRAM TRANSESOPHAGE AL (ALLI)on 03-06-2023 [...] the patient/family member and/or their power of assistant county attorney. Informed consent was obtained. All staff members involved in the procedure completed a timeout prior to the start of the procedure verifying correct patient identity and correct procedure to be performed. A transesophageal echocardiography study (including color flow Doppler, limited spectral Doppler and 3D) was performed. Total time physician provided ibpt-[id number] service beginning with the administration of sedation medications until the patient was sufficiently recovered after the procedure was 22 minutes. Indications for study: ADAN Occluder pre / post. There were no complications. [facility] Radiology Study observation (narrative) [facility] CREAT/GFRon 03-11-2022 Creatinine [Mass/Vol] 1.08 mg/dL 0.70 - 1.30 mg/dL [facility] GFR/1.73 sq M.predicted among non-blacks MDRD (S/P/Bld) [Vol rate/Area] 70 mL/min/{1.73_m2} >=60 mL/min/1.7 3m2 [facility] Comment on above: Reported eGFR equati on is based on the CKD-EPI 2009 equation. Interpretation and review of laboratory results Normal [facility] Test performed at ad dress of the patient encounter. [facility] CT CARDIAC PULMONARY VENOGRA [facility] 03-11-[address] [facility] [address] Report Name: KRISTEN COATES : [...] cm SCAN INFO TEST TYPE: Venogram [employer]IST[employer] DIRECTOR: [employer] SCANNER MODEL: [employer] CT750 HD DOSE REDUCTION ALGORITHM: Helical with [...] Stafford RT (R) (CT) BILLING Patient Account [id number] CPT Codes 01714 ICD10 Codes I48.91 Report generated by [employer], a product of [employer] CARDIOLOGY Ailin Roland MBB 03/11/[address] [facility] [address] Report Name: KRISTEN COATES : [...] SCAN INFO === TEST TYPE: Venogram [employer] DIRECTOR: [employer] SCANNER MODEL: [employer] CT750 Say-Hey DOSE REDUCTION ALGORITHM: Helical with dose modulation [...] RT (R) (CT) BILLING === Patient Account [id number] CPT Codes 59591 ICD10 Codes I48.91 Report generated by [employer], a product of [employer] [facility] Radiology Study observation (narrative) [facility] CT CARDIAC PULMONARY VENOGRA MOrdered By: Ailin Roland on 03-11-2022 [facility] Work Phone: CBC AUTO DIFFon 01-22-2022 BASO # 0.0 103/ul Normal 0.0-0.1 [facility] Comment on above: Performed By: #### C BC #### [facility] [address] [address] [address] Patricia Mcconnell Basophils/100 WBC (Bld) 0.7 % Normal 0.2-2.0 [facility] Comment on above: Performed By: #### C BC #### [facility] [address] [address] [address] Patricia Mcconnell EO # 0.1 103/ul Normal 0.0-0.7 [facility] Comment on above: Performed By: #### C BC #### [facility] [address] [place] [address] Dr. Patricia Mcconnell Eosinophils/100 WBC (Bld) 2.4 % Normal 0.9-7.0 [facility] Comment on above: Performed By: #### C BC #### [facility] [address] [place] [address] Dr. Patricia Mcconnell Erythrocyte distribution width (RBC) [Ratio] 12.8 % Normal 11.0-15.0 [facility] Comment on above: Performed By: #### C BC #### [facility] [address] [place] [address] Dr. Patricia Mcconnell Hematocrit (Bld) [Volume fraction] 44.5 % Normal 42.0-54.0 [facility] Comment on above: Performed By: #### C BC #### [facility] [address] [place] [address] Dr. Patricia Mcconnell Hemoglobin (Bld) [Mass/Vol] 14.9 g/dL Normal 14.0-18.0 [facility] Comment on above: Performed By: #### C BC #### [facility] [address] [place] [address] Dr. Patricia Mcconnell IG # 0.02 10e3/ul Normal 0.00-0.03 [facility] Comment on above: Performed By: #### C BC #### [facility] [address] [place] [address] Dr. Patricia Mcconnell IG % 0.4 % Normal 0.0-0.5 [facility] Comment on above: Performed By: #### C BC #### [facility] [address] [place] [address] Dr. Patricia Mcconnell LYMPH # 1.8 103/ul Normal 1.2-3.8 [facility] Comment on above: Performed By: #### C BC #### [facility] [address] [place] [address] Dr. Patricia Mcconnell Lymphocytes/100 WBC (Bld) 33.0 % Normal 20.5-60.0 [facility] Comment on above: Performed By: #### C BC #### [facility] [address] [place] [address] Dr. Patricia Mcconnell MANUAL DIFF REQ NO Normal [facility] Comment on above: Performed By: #### C BC #### [facility] [address] [place] [address] Dr. Patricia Mcconnell MCH (RBC) [Entitic mass] 31.6 pg Normal 25.9-34.0 [facility] Comment on above: Performed By: #### C BC #### [facility] [address] [place] [address] Dr. Patricia Mcconnell MCHC (RBC) [Mass/Vol] 33.5 g/dL Normal 29.9-35.2 [facility] Comment on above: Performed By: #### C BC #### [facility] [address] [place] [address] Dr. Patricia Mcconnell MCV (RBC) [Entitic vol] 94.3 fL Critically high 80.0-94.0 [facility] Comment on above: Performed By: #### C BC #### [facility] [address] [place] [address] Dr. Patricia Mcconnell MONO # 0.5 103/ul Normal 0.3-0.8 [facility] Comment on above: Performed By: #### C BC #### [facility] [address] [place] [address] Dr. Patricia Mcconnell Monocytes/100 WBC (Bld) 9.3 % Normal 1.7-12.0 [facility] Comment on above: Performed By: #### C BC #### [facility] [address] [place] [address] Dr. Patricia Mcconnell NEUT # 2.9 103/ul Normal 1.4-6.5 [facility] Comment on above: Performed By: #### C BC #### [facility] [address] [place] [address] Dr. Patricia Mcconnell Neutrophils/100 WBC (Bld) 54.2 % Normal 43.0-75.0 [facility] Comment on above: Performed By: #### C BC #### [facility] [address] [address] [address] Patricia Mcconnell Platelet mean volume (Bld) [Entitic vol] 11.4 fL Normal 9.5-13.5 [facility] Comment on above: Performed By: #### C BC #### [facility] [address] [address] [address] Patricia Mcconnell PLT 145 103/ul Critically low 150-450 [facility] Comment on above: Performed By: #### C BC #### [facility] [address] [address] [address] Patricia Mcconnell RBC 4.72 106/ul Normal 4.70-6.10 [facility] Comment on above: Performed By: #### C BC #### [facility] [address] [place] [address] Dr. Patricia Mcconnell WBC 5.4 103/ul Normal 4.0-11.0 [facility] Comment on above: Performed By: #### C BC #### [facility] [address] [place] [address] Dr. Patricia Mcconnell LIPID PROFILEon 01-22-2022 CHOL-HDL RATIO NORM SEE BELOW Normal [facility] Comment on above: Result Comment: 3.3 - 4.4 LOW RISK 4.4 - 7.1 AVERAGE RISK 7.1 - 11.0 MODERATE RISK >11.0 HIGH RISK Performed By: #### B MP, LIPID, ALT #### [facility] [address] [place] [address] Dr. Patricia Mcconnell Cholesterol [Mass/Vol] 152 mg/dL Normal <=200 [facility] Comment on above: Performed By: #### B MP, LIPID, ALT #### [facility] [address] [place] [address] Dr. Patricia Mcconnell Cholesterol in HDL [Mass/Vol] 47 mg/dL Normal 40-60 [facility] Comment on above: Performed By: #### B MP, LIPID, ALT #### [facility] [address] [place] [address] Dr. Patricia Mcconnell Cholesterol in LDL [Mass/Vol] 88.2 mg/dL Normal [facility] Comment on above: Performed By: #### B MP, LIPID, ALT #### [facility] [address] [address] [address] Patricia Mcconnell Cholesterol.total/Cho lesterol in HDL [Mass ratio] 3.2 {ratio} Normal [facility] Comment on above: Performed By: #### B MP, LIPID, ALT #### [facility] [address] [address] [address] Patricia Mcconnell HDL NORMAL > or = 60 mg/dl - LO W CARDIOVASCULAR RISK <40 mg/dl - HIGH CARDIOVASCULAR RISK Normal [facility] Comment on above: Performed By: #### B MP, LIPID, ALT #### [facility] [address] [place] [address] Dr. Patricia Mcconnell LDL CALC NORMAL SEE BELOW Normal [facility] Comment on above: Result Comment: <100 mg/dl OPTIMAL 100 - 129 mg/dl NEAR OR ABOVE OPTIMAL 130 - 159 mg/dl BORDERLINE HIGH 160 - 189 mg/dl HIGH >190 mg/dl VERY HIGH Performed By: #### B MP, LIPID, ALT #### [facility] [address] [place] [address] Dr. Patricia Mcconnell Triglyceride [Mass/Vol] 84 mg/dL Normal <=150 [facility] Comment on above: Performed By: #### B MP, LIPID, ALT #### [facility] [address] [place] [address] Dr. Patricia Mcconnell VLDL CALC 16.8 mg/dL Normal [facility] Comment on above: Performed By: #### B MP, LIPID, ALT #### [facility] [address] [address] [address] Patricia Mcconnell PROF CHEM 8 (BAS METB)on Anion gap [Moles/Vol] 12.5 mmol/L Normal [facility] Comment on above: Performed By: #### B MP, LIPID, ALT #### [facility] [address] [place] [address] Dr. Patricia Mcconnell Calcium [Mass/Vol] 9.2 mg/dL Normal 8.5-10.1 [facility] Comment on above: Performed By: #### B MP, LIPID, ALT #### [facility] [address] [address] [address] Patricia Mcconnell Chloride [Moles/Vol] 103 mmol/L Normal 98-107 [facility] Comment on above: Performed By: #### B MP, LIPID, ALT #### [facility] [address] [address] [address] Patricia Mcconnell CO2 [Moles/Vol] 26.1 mmol/L Normal 21.0-32.0 [facility] Comment on above: Performed By: #### B MP, LIPID, ALT #### [facility] [address] [address] [address] Patricia Mcconnell Creatinine [Mass/Vol] 1.14 mg/dL Normal 0.70-1.30 [facility] Comment on above: Performed By: #### B MP, LIPID, ALT #### [facility] [address] [address] [address] Patricia Mcconnell EGFR-AF CONGOLESE >60 Normal >=60 [facility] Comment on above: Performed By: #### B MP, LIPID, ALT #### [facility] [address] [address] [address] Patricia Mcconnell EGFR-NON AF CONGOLESE >60 Normal >=60 [facility] Comment on above: Performed By: #### B MP, LIPID, ALT #### [facility] [address] [address] [address] Patricia Mcconnell Glucose [Mass/Vol] 103 mg/dL Normal 74-106 [facility] Comment on above: Performed By: #### B MP, LIPID, ALT #### [facility] [address] [address] [address] Patricia Mcconnell Potassium [Moles/Vol] 4.6 mmol/L Normal 3.5-5.1 [facility] Comment on above: Performed By: #### B MP, LIPID, ALT #### [facility] [address] [address] [address] Patricia Mcconnell Sodium [Moles/Vol] 137 mmol/L Normal 136-145 [facility] Comment on above: Performed By: #### B MP, LIPID, ALT #### [facility] [address] [place] [address] Dr. Patricia Mcconnell Urea nitrogen [Mass/Vol] 22.0 mg/dL Critically high 7.0-18.0 [facility] Comment on above: Performed By: #### B MP, LIPID, ALT #### [facility] [address] [place] [address] Dr. Patricia Mcconnell Urea nitrogen/Creatinine [Mass ratio] 19.3 mg/mg Normal [facility] Comment on above: Performed By: #### B MP, LIPID, ALT #### [facility] [address] [place] [address] Dr. Patricia Mcconnell SGPTon 01-22-2022 ALT [Catalytic activity/Vol] 43 U/L Normal 16-63 [facility] Comment on above: Performed By: #### B MP, LIPID, ALT #### [facility] [address] [place] [address] Dr. Patricia Mcconnell URINE T PROTEIN CREAT RATIOo n 01-22-2022 UR PROT CREAT RAT 0.07 Normal [facility] Comment on above: Performed By: #### U RTPCR #### [facility] [address] [place] [address] Dr. Patricia Mcconnell UR TOTAL PROTEIN <6.0 Normal <=12.0 [facility] Comment on above: Performed By: #### U RTPCR #### [facility] [address] [place] [address] Dr. Patricia Mcconnell URINE CREAT 86.86 mg/dL Normal 20.00-300. 00 [facility] Comment on above: Performed By: #### U RTPCR #### [facility] [address] [place] [address] Dr. Patricia Mcconnell PROF CHEM 8 (BAS METB)on Anion gap [Moles/Vol] 13.6 mmol/L Normal [facility] Comment on above: Performed By: #### B MP #### [facility] [address] [place] [address] Dr. Patricia Mcconnell Calcium [Mass/Vol] 9.2 mg/dL Normal 8.5-10.1 [facility] Comment on above: Performed By: #### B MP #### [facility] [address] [address] [address] Patricia Mcconnell Chloride [Moles/Vol] 101 mmol/L Normal 98-107 [facility] Comment on above: Performed By: #### B MP #### [facility] [address] [address] [address] Patricia Mcconnell CO2 [Moles/Vol] 26.0 mmol/L Normal 21.0-32.0 [facility] Comment on above: Performed By: #### B MP #### [facility] [address] [place] [address] Dr. Patricia Mcconnell Creatinine [Mass/Vol] 1.29 mg/dL Normal 0.70-1.30 [facility] Comment on above: Performed By: #### B MP #### [facility] [address] [place] [address] Dr. Patricia Mcconnell EGFR-AF CONGOLESE >60 Normal >=60 [facility] Comment on above: Performed By: #### B MP #### [facility] [address] [place] [address] Dr. Patricia Mcconnell EGFR-NON AF CONGOLESE 55 mL/min/1.73m2 Critically low >=60 [facility] Comment on above: Performed By: #### B MP #### [facility] [address] [place] [address] Dr. Patricia Mcconnell Glucose [Mass/Vol] 100 mg/dL Normal 74-106 [facility] Comment on above: Performed By: #### B MP #### [facility] [address] [place] [address] Dr. Patricia Mcconnell Potassium [Moles/Vol] 4.6 mmol/L Normal 3.5-5.1 [facility] Comment on above: Performed By: #### B MP #### [facility] [address] [place] [address] Dr. Patricia Mcconnell Sodium [Moles/Vol] 136 mmol/L Normal 136-145 [facility] Comment on above: Performed By: #### B MP #### [facility] [address] [place], [place] [address] Dr. Patricia Mcconnell Urea nitrogen [Mass/Vol] 21.0 mg/dL Critically high 7.0-18.0 [facility] Comment on above: Performed By: #### B MP #### [facility] [id number] Patricia Mcconnell Urea nitrogen/Creatinine [Mass ratio] 16.3 mg/mg Normal [facility] Comment on above: Performed By: #### B MP #### [facility] [id number] Patricia Mcconnell Auto Diffon 03-23-2018 Basophils Auto #/vol (Bld) 0.8 % Normal 0.0-2.0 [facility] Comment on above: Order Comment: Order Added by Discern Expert. Performed By: #### 2 [id number] ####[facility] [address] [place] [address] Basophils/Leukocytes Auto Pure number fraction (Bld) 0.0 E9/L Normal 0.0-0.2 [facility] Comment on above: Order Comment: Order Added by Discern Expert. Performed By: #### 2 207770, 8116451, 4421392, 0809065, 11259288, 9281944 ####[facility] [address] [place] [address] Eosinophils/100 WBC Auto (Bld) 3.7 % Normal 0.0-8.0 [facility] Comment on above: Order Comment: Order Added by Discern Expert. Performed By: #### 2 339595, 7354643, 8749196, 0971524, 41032220, 5465954 ####[facility] [address] [place] [address] Eosinophils/Leukocyte s Auto Pure number fraction (Bld) 0.2 E9/L Normal 0.0-0.5 [facility] Comment on above: Order Comment: Order Added by True Expert. Performed By: #### 2 675920, 9833534, 2922526, 4628000, 47336857, 3940112 ####[facility] [address] [place] [address] Lymphocytes/100 WBC Auto (Bld) 23.1 % Normal 14.0-50.0 [facility] Comment on above: Order Comment: Order Added by True Expert. Performed By: #### 2 037197, 0505782, 6824597, 6461657, 84222577, 0317924 ####[facility] [address] [place] [address] Lymphocytes/Leukocyte s Auto Pure number fraction (Bld) 1.2 E9/L Normal 1.0-4.0 [facility] Comment on above: Order Comment: Order Added by True Expert. Performed By: #### 2 553845, 3689809, 9234147, 8943572, 75403674, 3371192 ####[address] [place] [address] Monocytes/100 WBC Auto (Bld) 7.3 % Normal 4.0-14.0 [facility] Comment on above: Order Comment: Order Added by True Expert. Performed By: #### 2 155030, 1459743, 9736597, 3787504, 87953280, 7390417 ####[facility] [address] [place] [address] Monocytes/Leukocytes Auto Pure number fraction (Bld) 0.4 E9/L Normal 0.2-1.0 [facility] Comment on above: Order Comment: Order Added by True Expert. Performed By: #### 2 910889, 4301783, 2639483, 2667616, 58277693, 4258759 ####[facility] [address] [place] [address] Neutrophils/100 WBC Auto (Bld) 65.1 % Normal 36.0-75.0 [facility] Comment on above: Order Comment: Order Added by True Expert. Performed By: #### 2 384377, 6664198, 8979660, 5262278, 59181557, 4768918 ####[facility] [address] [place] [address] Neutrophils/Leukocyte s Auto Pure number fraction (Bld) 3.4 E9/L Normal 2.0-7.5 [facility] Comment on above: Order Comment: Order Added by Discern Expert. Performed By: #### 2 721065, 0290276, 6577831, 6074736, 01948077, 6119825 ####[facility] [address] [place] [address] BUNon 03-23-2018 Urea nitrogen mass conc 16 mg/dL Normal 5-21 [facility] Comment on above: Performed By: #### 2 489305, 0417992, 5701609, 2396843, 04759646, 7888391 ####[address] [address] CBC w/ Auto Diffon 8 Erythrocyte distribution width Auto Ratio (RBC) 13.6 % Normal 10.9-14.2 [facility] Comment on above: Performed By: #### 2 262284, 9333633, 9085260, 2017187, 93298746, 4852456 ####[facility] [address] [place] [address] Hematocrit Auto Volume Fraction (Bld) 41.7 % Normal 37.7-49.0 [facility] Comment on above: Performed By: #### 2 457665, 2427722, 3363271, 7631975, 88103186, 7460834 ####[facility] [address] [place] [address] Hemoglobin mass conc (Bld) 14.3 g/dL Normal 13.5-17.5 [facility] Comment on above: Performed By: #### 2 832353, 7842575, 1395819, 4511638, 15532219, 2846465 ####[address] [place] [address] MCH Auto Entitic mass (RBC) 31.8 pg Normal 27.0-34.0 [facility] Comment on above: Performed By: #### 2 854062, 8751046, 0692823, 9164559, 72241508, 0530947 ####[place] [id number] MCHC Auto mass conc (RBC) 34.3 g/dL Normal 31.4-39.3 [facility] Comment on above: Performed By: #### 2 131817, 9541584, 7265633, 0645945, 64725010, 5755109 ####[place] [address] MCV Auto Entitic volume (RBC) 92.5 fL Normal 80.0-100.0 [facility] Comment on above: Performed By: #### 2 073824, 8851443, 5928787, 0144915, 52505705, 0368239 ####[place] [address] Platelet mean volume Auto Entitic volume (Bld) 10.1 fL Normal 6.4-10.8 [facility] Comment on above: Performed By: #### 2 692213, 4488575, 5769066, 5917955, 64018940, 6738865 ####[place] [id number] Platelets Auto #/vol (Bld) 142.0 E9/L Low 150.0-500. 0 [facility] Comment on above: Performed By: #### 2 891420, 3880289, 8390045, 3107868, 53588273, 9910531 ####[place] [address] RBC Auto #/vol (Bld) 4.5 E12/L Normal 4.3-5.9 [facility] Comment on above: Performed By: #### 2 443924, 6572000, 6590343, 3259856, 37736263, 8842647 ####[place] [address] WBC corrected for nucl RBC Auto #/vol (Bld) 5.2 E9/L Normal 4.0-11.0 [facility] Comment on above: Performed By: #### 2 586460, 3153122, 6722287, 0888559, 15761911, 5810517 ####[facility] [address] [place] [address] Coding Summary.on 03-23-2018 Coding Summary. CODING DATE: 018 FINAL [facility] STATUS: PAYOR: Medicare ADMIT DX: [...] Salguero Date Saved: 03/23/2018 02:[address] [facility] Creatinineon 03-23-2018 Creatinine mass conc 1.1 mg/dL Normal 0.5-1.3 [facility] Comment on above: Performed By: #### 2 467115, 9224216, 8835642, 2414467, 18356979, 7171577 ####[facility] [address] [place] [address] Lyteson 03-23-2018 Anion gap 3 molar conc 11 mmol/L Normal 6-16 [facility] Comment on above: Performed By: #### 2 691836, 0446220, 4974846, 3492740, 43695048, 1275120 ####[facility] [address] [place] [address] Chloride molar conc 105 mmol/L Normal 101-111 [facility] Comment on above: Performed By: #### 2 234395, 4863213, 8396855, 6065962, 98227392, 6158342 ####[facility] [address] [place] [address] CO2 molar conc 24 mmol/L Normal 21-31 [facility] Comment on above: Performed By: #### 2 950396, 4309973, 4860208, 0863737, 70548546, 5166833 ####[facility] [address] [place] [address] Potassium molar conc 4.1 mmol/L Normal 3.5-5.3 [facility] Comment on above: Performed By: #### 2 442903, 0518808, 9279052, 3807560, 24335630, 2334682 ####[facility] [address] [place] [address] Sodium molar conc 136 mmol/L Normal 135-145 [facility] Comment on above: Performed By: #### 2 543648, 0152238, 6947146, 2321608, 52841038, 6763417 ####[facility] [address] [place] [address] eGFRon 03-23-2018 GFR/1.73 sq M predicted among blacks MDRD vol rate/area (S/P/Bld) mL/min/{1.73_m2} Normal >=59 [facility] Comment on above: Order Comment: Order added by Discern Expert. Result Comment: eGFR is race adjusted. AA=. Performed By: #### 2 197698, 4714874, 7454572, 8974000, 85256908, 7267497 ####[facility] [address] [place] [address] GFR/1.73 sq M predicted among non-blacks MDRD vol rate/area (S/P/Bld) mL/min/{1.73_m2} Normal >=59 [facility] Comment on above: Order Comment: Order added by Discern Expert. 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 Kidney failure is indicated at less than 15 mL/min/1.73m2. Performed By: #### 2 604826, 2578085, 9836074, 6036392, 53837814, 3225452 ####[facility] [address] [place] [address] Cardiovascular Lab Reporton 05-15-2017 Cardiovascular Lab Report [facility]: [id number] Physician: Dora Ferrari,Department of M.D.Medicine Service Date: 05/12/2017Division of Birthdate: 3Cardiology Room #: CCAdult CardiovascularServicesUn[facility] [place], [place] [address]Hwtub Fax Cardiovascular Laboratory ReportPROCEDURE: LINQ implant.INDICATION: Atrial [...] procedure well.R-waves equal 0.4 mV.Medtronic LINQ serial #[id number].Medtronic LINQ model 69872 monitor [id number].CONCLUSION: Successful LINQ implant.Electronically Signed by:Dora Ferrari M.D. 05/21/2017 02:27 P Dora Ferrari M.D.Date Dict: 05/13/2017/11:50 P/Dora Ferrari M.D.Date Trans: 05/14/2017 11:02 P/[id number]: Jonathon Hahn D.O. [address] [place] [address] A [facility] [address] [facility] Vital Signs Date Time Vital Sign Value Performing Clinician Facility 01-06-2025 10:43-0400 Body height 198.12 cm Jonathon Ball DO Work Phone: [facility] 01-06-2025 10:43-0400 Body mass index (BMI) [Ratio] 31.4 kg/m2 Jonathon Ball DO Work Phone: [facility] 01-06-2025 10:43-0400 Body weight 123.09 kg Jonathon Ball DO Work Phone: [facility] 01-06-2025 10:43-0400 Diastolic blood pressure 84 mm[Hg] Jonathon Ball DO Work Phone: [facility] 01-06-2025 10:43-0400 Heart rate 153 /min Jonathon Ball DO Work Phone: [facility] 01-06-2025 10:43-0400 Respiratory rate 12 /min Jonathon Ball DO Work Phone: [facility] 01-06-2025 10:43-0400 Systolic blood pressure 121 mm[Hg] Jonathon Ball DO Work Phone: [facility] 11-05-2024 09:11-0400 Body height 196.9 cm Dottie Juárez APRN-FIRST BREAKER FEEDER Work Phone: [facility] 11-05-2024 09:11-0400 Body mass index (BMI) [Ratio] 31.61 kg/m2 Dottie Juárez MESSAGE BROKER DEVELOPER-FIRST BREAKER FEEDER Work Phone: [facility] 11-05-2024 09:11-0400 Body weight 122.47 kg Dottie Juárez MESSAGE BROKER DEVELOPER-FIRST BREAKER FEEDER Work Phone: 1(652)624-863534 [place] [address] 03-15-2024 13:09-0400 Diastolic blood pressure 78 mm[Hg] Brooklynn Woodson MD Work Phone: 6(797)429-522234 [place] [address] 03-15-2024 13:09-0400 Heart rate 59 /min Brooklynn Woodson MD Work Phone: 5(940)335-031034 [place] [address] 03-15-2024 13:09-0400 Respiratory rate 20 /min Brooklynn Woodson MD Work Phone: 5(201)349-404534 [place] [address] 03-15-2024 13:09-0400 Systolic blood pressure 148 mm[Hg] Brooklynn Woodson MD Work Phone: 7(936)752-044734 [place] [address] 03-15-2024 13:05-0400 SaO2% (BldA) [Mass fraction] 93 % Brooklynn Woodson MD Work Phone: 0(159)600-369634 [place] [address] 03-15-2024 10:36-0400 Body height 195.6 cm Brooklynn Woodson MD Work Phone: 1(280)684-007034 [place] [address] 03-15-2024 10:36-0400 Body mass index (BMI) [Ratio] 30.48 kg/m2 Brooklynn Woodson MD Work Phone: 3(348)794-038034 [place] [address] 03-15-2024 10:36-0400 Body weight 116.57 kg Brooklynn Woodson MD Work Phone: 2(081)339-198034 [place] [address] 01-28-2024 19:15-0400 Heart rate 68 /min Brooklynn Woodson MD Work Phone: 3(762)195-051834 [place] [address] 01-28-2024 19:15-0400 Respiratory rate 24 /min Brooklynn Woodson MD Work Phone: 2(526)674-784034 [place] [address] 01-28-2024 17:30-0400 Diastolic blood pressure 64 mm[Hg] Brooklynn Woodson MD Work Phone: 6(275)121-440134 [place] [address] 01-28-2024 17:30-0400 SaO2% (BldA) [Mass fraction] 96 % Brooklynn Woodson MD Work Phone: [facility] 01-28-2024 17:30-0400 Systolic blood pressure 117 mm[Hg] Brooklynn Woodson MD Work Phone: 4(542)769-339859 [address] 01-28-2024 14:45-0400 Body temperature 98.01 [degF] Brooklynn Woodson MD Work Phone: 9(795)160-337559 [address] 01-28-2024 09:16-0400 Body height 195.6 cm Brooklynn Woodson MD Work Phone: 2(205)047-049459 [address] 01-28-2024 09:16-0400 Body mass index (BMI) [Ratio] 30.59 kg/m2 Brooklynn Woodson MD Work Phone: 5(161)835-460159 [address] 01-28-2024 09:16-0400 Body weight 117 kg Brooklynn Woodson MD Work Phone: 2(443)291-783559 [address] 12-24-2023 12:50-0400 Body height 195.6 cm Brooklynn Woodson MD Work Phone: 3(581)829-179159 [address] 12-24-2023 12:50-0400 Body mass index (BMI) [Ratio] 30.83 kg/m2 Brooklynn Woodson MD Work Phone: 5(318)227-343159 [address] 12-24-2023 12:50-0400 Body weight 117.94 kg Brooklynn Woodson MD Work Phone: 3(517)627-428459 [address] 12-24-2023 12:39-0400 Respiratory rate 16 /min Brooklynn Woodson MD Work Phone: 1(804)421-934759 [address] 11-10-2023 12:47-0400 Body height 195.6 cm Brooklynn Woodson MD Work Phone: 8(203)744-473959 [address] 11-10-2023 12:47-0400 Diastolic blood pressure 91 mm[Hg] Brooklynn Woodson MD Work Phone: 7(249)328-242959 [address] 11-10-2023 12:47-0400 Heart rate 67 /min Brooklynn Woodson MD Work Phone: [facility] 11-10-2023 12:47-0400 Systolic blood pressure 163 mm[Hg] Brooklynn Woodson MD Work Phone: [facility] 10-29-2023 11:14-0400 Body height 198.12 cm DO Jonathon Ball Work Phone: [facility] 10-29-2023 11:14-0400 Body mass index (BMI) [Ratio] 30.4 kg/m2 DO Jonathon Ball Work Phone: [facility] 10-29-2023 11:14-0400 Body weight 119.74 kg DO Jonathon Ball Work Phone: [facility] 10-29-2023 11:14-0400 Diastolic blood pressure 78 mm[Hg] DO Jonathon Ball Work Phone: [facility] 10-29-2023 11:14-0400 Heart rate 88 /min DO Jonathon Ball Work Phone: [facility] 10-29-2023 11:14-0400 SaO2% (BldA) [Mass fraction] 98 % DO Jonathon Ball Work Phone: [facility] 10-29-2023 11:14-0400 Systolic blood pressure 132 mm[Hg] DO Jonathon Ball Work Phone: [facility] 03-18-2023 11:53-0400 Body height 182.9 cm Kt Merritt MD Work Phone: [facility] 03-18-2023 11:53-0400 Body mass index (BMI) [Ratio] 34.64 kg/m2 Kt Merritt MD Work Phone: [facility] 03-18-2023 11:53-0400 Body temperature 98.29 [degF] Kt Merritt MD Work Phone: [facility] 03-18-2023 11:53-0400 Body weight 115.85 kg Kt Merritt MD Work Phone: [facility] 03-18-2023 11:53-0400 Diastolic blood pressure 80 mm[Hg] Kt Merritt MD Work Phone: [facility] 03-18-2023 11:53-0400 Heart rate 66 /min Kt Merritt MD Work Phone: [facility] 03-18-2023 11:53-0400 Respiratory rate 18 /min Kt Merritt MD Work Phone: [facility] 03-18-2023 11:53-0400 SaO2% (BldA) [Mass fraction] 97 % Kt Merritt MD Work Phone: [facility] 03-18-2023 11:53-0400 Systolic blood pressure 138 mm[Hg] Kt Merritt MD Work Phone: [facility] 03-06-2023 10:00-0400 Diastolic blood pressure 65 mm[Hg] Brooklynn Woodson MD Work Phone: [facility] 03-06-2023 10:00-0400 Heart rate 62 /min Brooklynn Woodson MD Work Phone: [facility] 03-06-2023 10:00-0400 Respiratory rate 22 /min Brooklynn Woodson MD Work Phone: [facility] 03-06-2023 10:00-0400 SaO2% (BldA) [Mass fraction] 95 % Brooklynn Woodson MD Work Phone: [facility] 03-06-2023 10:00-0400 Systolic blood pressure 127 mm[Hg] Brooklynn Woodson MD Work Phone: [facility] 03-06-2023 08:49-0400 Body height 193 cm Brooklynn Woodson MD Work Phone: [facility] 03-06-2023 08:49-0400 Body mass index (BMI) [Ratio] 30.67 kg/m2 Brooklynn Woodson MD Work Phone: [facility] 03-06-2023 08:49-0400 Body weight 114.31 kg Brooklynn Woodson MD Work Phone: [facility] 03-06-2023 08:21-0400 Heart rate 58 /min Kt Merritt MD Work Phone: [facility] 03-06-2023 08:19-0400 Body height 193 cm Kt Merritt MD Work Phone: [facility] 03-06-2023 08:19-0400 Diastolic blood pressure 85 mm[Hg] Kt Merritt MD Work Phone: [facility] 03-06-2023 08:19-0400 Systolic blood pressure 159 mm[Hg] Kt Merritt MD Work Phone: [facility] 01-22-2023 09:00-0400 Body height 198.12 cm Jonathon Ball Other [employer] [facility] [employer] Other 01-22-2023 09:00-0400 Body mass index (BMI) [Ratio] 29.19 kg/m2 Jonathon Ball Other [facility] Other 01-22-2023 09:00-0400 Body weight 114.58 kg Jonathon Ball Other [facility] Other 01-22-2023 09:00-0400 Diastolic blood pressure 72 mm[Hg] Jonathon Ball Other [facility] Other 01-22-2023 09:00-0400 Respiratory rate 12 /min Jonathon Ball Other [facility] Other 01-22-2023 09:00-0400 Systolic blood pressure 117 mm[Hg] Jonathon Hahn Other [facility] [employer] Other 04-29-2022 10:50-0400 Diastolic blood pressure 58 mm[Hg] Brooklynn Woodson MD Work Phone: [facility] 04-29-2022 10:50-0400 Heart rate 44 /min Brooklynn Woodson MD Work Phone: [facility] 04-29-2022 10:50-0400 Respiratory rate 17 /min Brooklynn Woodson MD Work Phone: [facility] 04-29-2022 10:50-0400 SaO2% (BldA) [Mass fraction] 92 % Brooklynn Woodson MD Work Phone: [facility] 04-29-2022 10:50-0400 Systolic blood pressure 99 mm[Hg] Brooklynn Woodson MD Work Phone: [facility] 04-29-2022 09:20-0400 Body height 193 cm Brooklynn Woodson MD Work Phone: [facility] 04-29-2022 09:20-0400 Body mass index (BMI) [Ratio] 32.26 kg/m2 Brooklynn Woodson MD Work Phone: [facility] 04-29-2022 09:20-0400 Body weight 120.2 kg Brooklynn Woodson MD Work Phone: [facility] 03-11-2022 10:52-0400 Body height 194.3 cm Brooklynn Woodson MD Work Phone: [facility] 03-11-2022 10:52-0400 Diastolic blood pressure 90 mm[Hg] Brooklynn Woodson MD Work Phone: [facility] 03-11-2022 10:52-0400 Heart rate 55 /min Brooklynn Woodson MD Work Phone: [facility] 03-11-2022 10:52-0400 Systolic blood pressure 151 mm[Hg] Brooklynn Woodson MD Work Phone: [facility] Encounters Encounter Date Encounter Type Care Provider Facility Start: 01-14-2025 ambulatory DOTTIE JUÁREZ Facility: [facility] Start: 01-06-2025 Non-patient / Non-visit Cassandra Chavez MD -[facility] Work Phone: Start: 01-06-2025 End: 01-06-2025 ambulatory Jonathon Hahn DO Work Phone: [facility] Work Phone: Start: 01-06-2025 End: 01-06-2025 Patient encounter procedure Jonathon Hahn DO -[facility] Work Phone: Start: 11-30-2024 End: 11-30-2024 ambulatory Lindsay Johnson RN [facility] Start: 11-05-2024 End: 11-05-2024 Subsequent hospital visit by physician Dottie Juárez MESSAGE BROKER DEVELOPER-FIRST BREAKER FEEDER Work Phone: [facility] Comment on above: Arrived Start: 11-05-2024 ambulatory DOTTIE JUÁREZ Facility: [facility] Start: 11-02-2024 ambulatory JONATHON BALL Facility: [facility] Start: 03-16-2024 ambulatory JONATHON BALL Facility: [facility] Start: 03-15-2024 End: 03-15-2024 Subsequent hospital visit by physician Brooklynn Woodson MD Work Phone: [facility] Comment on above: Arrived Start: 03-15-2024 ambulatory JONATHON BALL Facility: [facility] Start: 01-28-2024 End: 01-28-2024 ambulatory JONATHON LEOLA Facility:[facility] Start: 01-28-2024 End: 01-28-2024 Evaluation and [...] 11-20-2023 ambulatory DO Jonathon Ball Work Phone: [facility] Work Phone: Start: 11-20-2023 End: 11-20-2023 Patient encounter procedure DO Jonathon Ball Work Phone: [facility] Work Phone: Start: 11-10-2023 End: 11-10-2023 Subsequent hospital visit by physician Brooklynn Woodson MD Work Phone: [facility] Comment on above: Arrived Start: 10-29-2023 End: 10-29-2023 Patient encounter procedure DO Jonathon Ball Work Phone: [facility] Work Phone: Start: 10-03-2023 Non-patient / Non-visit DO Jonathon Ball Work Phone: [facility] Work Phone: Start: 07-20-2023 End: 07-20-2023 ambulatory Jonathon Ball Other [facility] Other Start: 07-20-2023 Telephone encounter Jonathon Ball [facility] Start: 05-21-2023 End: 05-21-2023 ambulatory Jonathon Ball Other [facility] Other Start: 05-21-2023 Telephone encounter Jonathon Ball [facility] Start: 05-14-2023 End: 05-14-2023 ambulatory Jonathon Ball Other [facility] Other Start: 05-14-2023 Telephone encounter Jonathon Ball [facility] Start: 04-23-2023 End: 04-23-2023 ambulatory Jonathon Ball Other [facility] Other Start: 04-23-2023 Telephone encounter Jonathon Hahn [facility] Start: 03-18-2023 End: 03-18-2023 Office outpatient new 60 minutes Kt Merritt MD Work Phone: [facility] Comment on above: Enlargement of aorti c root Start: 03-06-2023 End: 03-06-2023 Subsequent hospital visit by physician Kt Merritt MD Work Phone: [facility] Comment on above: Arrived Start: 01-23-2023 End: 01-23-2023 ambulatory Jonathon Hahn Other [facility] Other Start: 01-23-2023 Telephone encounter Jonathon Hahn [facility] Start: 01-22-2023 End: 01-22-2023 ambulatory Jonathon Hahn Other [facility] Other Start: 01-22-2023 Patient encounter procedure Jonathon Holden Hahn [facility] Start: 04-29-2022 End: 04-29-2022 Subsequent hospital visit by physician Brooklynn Woodson MD Work Phone: [facility] Comment on above: Arrived Start: 03-11-2022 End: 03-11-2022 Subsequent hospital visit by physician Brooklynn Woodson MD Work Phone: [facility] Comment on above: Arrived Start: 01-22-2022 End: 01-23-[address] JONATHON HAHN Facility:[facility] Start: 01-09-2022 End: 01-09-[address] JONATHON HAHN Facility:[facility] Start: 11-19-2021 End: 11-20-[address] DOCTOR BATISTA Facility:[facility] Start: 03-20-2018 End: 03-28-2018 Patient encounter CELENA DOSS Facility:[facility] Start: 05-12-2017 End: 05-13-2017 Ambulatory DORA FERRARI Facility:[facility] Start: 05-05-2017 End: 05-06-2017 Ambulatory DEFAULT PHYSICIAN Facility:[facility] Start: 04-15-2017 End: 04-16-2017 Ambulatory DEFAULT PHYSICIAN Facility:[facility] Procedures Date Procedure Procedure Detail Performing Clinician Start: 11-05-2024 Myocardial spect mul tiple studies Dottie Juárez MESSAGE BROKER DEVELOPER-FIRST BREAKER FEEDER Work Phone: Start: 03-15-2024 Echo transesophag r- [...] CBC AND ELECTRONIC DIFF Kiera G Overmeyer MESSAGE BROKER DEVELOPER-FIRST BREAKER FEEDER Work Phone: Start: 01-28-2024 Complete blood count with white cell differential, automated Kiera G Overmeyer MESSAGE BROKER DEVELOPER-FIRST BREAKER FEEDER Work Phone: Start: 01-28-2024 Creatinine blood Antoinette virkcarlos Yolanda Overmeyer MESSAGE BROKER DEVELOPER-FIRST BREAKER FEEDER Work Phone: Start: 12-24-2023 CBC AND ELECTRONIC DIFF Denise L Tartt MESSAGE BROKER DEVELOPER-FIRST BREAKER FEEDER Work Phone: Start: 12-24-2023 Complete blood count with white cell differential, automated Denise L Tartt MESSAGE BROKER DEVELOPER-FIRST BREAKER FEEDER Work Phone: Start: 12-24-2023 Creatinine blood Janey ly L Tartt MESSAGE BROKER DEVELOPER-FIRST BREAKER FEEDER Work Phone: Start: 11-20-2023 Plain X-ray of [...] Comment on above: Performed By: #### P [facility] #### [facility] [address] [place] [address] Dr. Patricia Mcconnell Plan of Treatment Date Care Activity Detail Author Start: 09-23-2027 RSV VACCINE (1 - 1-dose 75+ series) RSV VACCINE (1 - 1-dose 75+ series) [facility] Start: 11-01-2025 End: 11-01-2025 Patient encounter procedure 11/01/2025 9:30 AM EDT Office Visit [facility] [address] [place] [address] Dottie Juárez APRN-DEANGELO [address] [place] [id number] [facility] Start: 04-26-2025 Tetanus vaccination TETANUS [facility] Start: 02-28-2025 Influenza vaccination INFLUENZA VACCINE (Season Ended) [facility] Start: 01-06-2025 Patient referral [facility] Work Phone: Start: 01-06-2025 End: 01-06-2025 [facility] Start: 11-02-2024 End: 11-02-2024 Patient encounter procedure 11/02/2024 9:30 AM EDT Office Visit [facility] [address] [place] [phone] Dottie Juárez, MESSAGE BROKER DEVELOPER-FIRST BREAKER FEEDER [address] [place] [phone] [facility] Start: 04-15-2024 Screening for malignant neoplasm of colon COLORECTAL CANCER SCREENING DISCUSSION [facility] Start: 02-29-2024 COVID-19 VACCINE ( season) COVID-19 VACCINE ( season) [facility] Start: 02-29-2024 COVID-19 VACCINE ( season) COVID-19 VACCINE ( season) [facility] Start: 02-29-2024 Influenza vaccination [facility] Start: 01-15-2024 End: 01-15-2024 Patient encounter procedure 01/15/2024 10:30 AM EDT Office Visit [facility] [address] [place] [phone] Brooklynn Woodson MD [address] [place] [phone] [facility] Start: 11-04-2023 End: 11-04-2023 Patient encounter procedure 11/04/2023 1:30 PM EDT Office Visit [facility] [address] [place] [phone] Dottie Juárez, MESSAGE BROKER DEVELOPER-FIRST BREAKER FEEDER [address] [place] [address] [facility] Start: 03-13-2023 End: 03-13-2023 Patient encounter procedure 03/13/2023 12:30 PM EDT Office Visit [facility] [address] [place] [phone] [facility] Start: 02-28-2023 COVID-19 VACCINE () COVID-19 VACCINE () [facility] Start: 02-28-2023 Influenza vaccination INFLUENZA VACCINE (#1) [facility] Start: 11-05-2022 End: 11-05-2022 Patient encounter procedure 11/05/2022 Office Visit Electrophysiology Dottie Juárez, MESSAGE BROKER DEVELOPER-FIRST BREAKER FEEDER [address] [place] [phone] [facility] Start: 04-30-2022 End: 04-30-2022 Telemedicine consultation with patient 04/30/2022 Telemedicine Electrophysiology Lisa Medellin, MESSAGE BROKER DEVELOPER-FIRST BREAKER FEEDER [address] [place] [phone] Paroxysmal atrial fibrillation (Primary Dx); Typical atrial flutter; Presence of Watchman left atrial appendage closure device; Hypertension, essential [facility] Comment on above: Paroxysmal atrial fibrillation (Primary Dx); Typical atrial flutter; Presence of Watchman left atrial appendage closure device; Hypertension, essential Start: 02-28-2022 Influenza vaccination INFLUENZA VACCINE (#1) [facility] Start: 01-29-2022 COVID-19 VACCINE (2 - Pfizer series) COVID-19 VACCINE (2 - Pfizer series) [facility] Start: 12-25-2021 COVID-19 VACCINE (2 - Pfizer series) COVID-19 VACCINE (2 - Pfizer series) [facility] Start: 04-03-2021 Colonoscopy COLORECTAL CANCER SCREENING DISCUSSION [facility] Start: 04-03-2021 Screening for malignant neoplasm of colon COLORECTAL CANCER SCREENING DISCUSSION [facility] Start: 2017 Pneumococcal vaccination PNEUMOCOCCAL VACCINE SERIES (1 - PCV) [facility] Start: 2012 RSV VACCINE (1 - 1-dose 60+ series) RSV VACCINE (1 - 1-dose 60+ series) [facility] Start: 2002 Prostate specific antigen measurement PROSTATE CANCER SCREENING DISCUSSION [facility] Start: 2002 Zoster vaccine hzv live for subcutaneous use ZOSTER (SHINGLES) VACCINE (1 of 2) [facility] Start: 1992 Fasting lipid profile LIPID SCREENING [facility] Start: 1992 Lipid panel LIPID SCREENING [facility] Start: 09-23-1971 Third diphtheria, tetanus and acellular pertussis (DTaP) vaccination TDAP (ADULT) [facility] Start: 1970 Tetanus vaccination TETANUS [facility] Start: 1952 Hepatitis C antibody, confirmatory test HEPATITIS C VIRUS SCREENING [facility] Start: 1952 Hepatitis C screening HEPATITIS C VIRUS SCREENING [facility] Start: 1952 Tetanus vaccination TETANUS [facility] Comprehensive metabo lic 2000 panel - Serum or Plasma [facility] End: 01-28-2024 ECHOCARDIOGRAM TRANSESOPHAGEAL (ALLI) IN OR - IMAGES ECHOCARDIOGRAM TRANSESOPHAGEAL (ALLI) IN OR - IMAGES Imaging Routine One Time for 1 Occurrences starting 01/28/2024 until 01/28/2024 [facility] Work Phone: Comment on above: One Time for 1 Occurrences starting 12/30 until 01/28/2024 End: 12-22-2023 Electrophysiology study EP PROCEDURE - EPS/ABLATION/DEVICE Electrophysiology Routine Paroxysmal atrial fibrillation Atypical atrial flutter One Time for 1 Occurrences starting 12/22/2023 until 12/22/2023 [facility] Comment on above: One Time for 1 Occurrences starting 11/29 until 12/22/2023 Electrophysiology study EP PROCE DURE - EPS/ABLATION/DEVICE Electrophysiology Routine Atrial fibrillation, unspecified type 01/28/2024 2:44 PM EDT [facility] Patient referral [facility] Work Phone: Perq clsr tcat l atr apndge w/endocardial implnt LEFT ATRIAL APPENDAGE SCHED CLOSURE W/ IMPLANT ([id number]) Paroxysmal atrial fibrillation Atypical atrial flutter [facility] EP XR Hip - right 2 Views [facility] Immunizations Immunization Date Immunization Notes Care Provider Fa cility 04-24-2020 influenza virus vaccine, split virus (incl. purified surface antigen) Jonathon Hahn Other [employer] Other 04-24-2020 influenza virus vaccine, unspecified formulation Brooklynn Woodson MD Work Phone: [facility] 01-13-2018 pneumococcal polysaccharide vaccine, 23 valent Jonathon Hahn Other [facility] 04-02-2017 influenza virus vaccine, split virus (incl. purified surface antigen) Jonathon Hahn Other [employer] Other 04-02-2017 influenza virus vaccine, unspecified formulation DO Jonathon Hahn Work Phone: [facility] 12-03-2016 pneumococcal conjuga te vaccine, 13 valent Jonathon Hahn Other [facility] 04-26-2015 tetanus and diphther ia toxoids, adsorbed, preservative free, for adult use (5 Lf of tetanus toxoid and 2 Lf of diphtheria toxoid) Jonathon Hahn Other [facility] Payers Date Payer Category Payer Self-pay [id number] 2017 Managed Care (unspecified) [facility] [id number] 2017 Private Health Insurance [id number] 2013 Medicare [id number] 1959 Medicare [id number] 1959 Private Health Insurance [id number] 1952 Unknown [id number] [id number]. 2.593 1952 Unknown [id number] 2.16.840.1.392215.3.579. 2.593 1952 Unknown [id number] 2.16.840.1.388961.3.579. 2.593 1952 Unknown [id number] 2.16.840.1.945277.3.579. 2.594 1952 Unknown [id number] 2.16.840.1.075457.3.579. 2.594 1952 Unknown [id number] 2.16.840.1.526543.3.579. 2.594 1952 Unknown [id number] 2.16.840.1.895441.3.579. 2.594 1952 Unknown [id number] 2.16.840.1.203463.3.579. 2.594 1952 Unknown [id number] 2.16.840.1.022203.3.579. 2.594 1952 Unknown [id number] 2.16.840.1.418607.3.579. 2.594 1952 Unknown [id number] [id number]. 2.594 Medicare [id number] Unknown Unknown Regular Insurance [id number] Unknown [id number] [id number]. 2.531 Social History Date Type Detail Facility Start: 03-12-2018 End: 01-06-2025 Tobacco smoking status NHIS Never smoked tobacco [facility] Start: 03-12-2018 End: 04-30-2022 Tobacco use and exposure Smokeless tobacco non-user [facility] Start: 11-07-2021 End: 03-18-2023 Alcohol intake Current drinker of alcohol (finding) [facility] Start: 03-12-2018 End: 04-30-2022 Tobacco Comment rare cigar [facility] Start: 1950 Sex Assigned At Not on file [facility] Start: 03-06-2023 End: 11-03-2024 Sex Assigned At [employer] Other Start: 03-06-2023 End: 11-03-2024 History of Social function [facility] Start: 03-10-2018 Gender identity Identifies as male gender (finding) [facility] Start: 12-21-2022 Sexual orientation Heterosexual (finding) [facility] Start: 11-04-2023 End: 11-03-2024 Alcoholic beverage intake Ex-drinker (finding) [facility] Start: 1950 Sex Assigned At Male [facility] Start: 03-10-2018 Sex Male (finding) [facility] Medical Equipment Procedure Code Equipment Code Equipment Original Text Equipment Identifier Dates Occluder Cardiov ascular 31mm Delivery System [employer] Flx - [id number] FDA Start: 03-12-2022 Terumo Azur [...] Device Closure P erclose Proglide 6fr - [id number] Start: 01-28-2024 Device Closure P erclose Proglide 6fr - [id number] Start: 01-28-2024 Functional Status Date Assessment Result Facility 03-11-2018 Are you deaf, or do you have serious difficulty hearing No 03/11/2018 4:39 PM Areli Brown, ESAU No [facility] 03-11-2018 Are you blind, or do you have serious difficulty seeing, even when wearing glasses No 03/11/2018 4:39 PM Areli Brown, ESAU No [facility] 03-11-2018 Do you have serious difficulty walking or climbing stairs No 03/11/2018 4:39 PM Areli Brown, ESAU No [facility] 03-11-2018 Do you have difficul ty dressing or bathing No 03/11/2018 4:39 PM Areli Brown, ESAU No [facility] 03-11-2018 Because of a physica l, mental, or emotional condition, do you have difficulty doing errands alone such as visiting a physician's office or shopping No 03/11/2018 4:39 PM EDT Areli Kendall, ESAU No [facility] Mental Status Date Assessment Result Facility 03-11-2018 Because of a physica l, mental, or emotional condition, do you have serious difficulty concentrating, remembering, or making decisions No 03/11/2018 4:39 PM EDT Areli Kendall, ESAU No [facility] Clinical Notes 04-29-2022 to 01-06-2025 Note Date [...] visit, subsequent noneactive January 06, 2025 10:16am [facility] Work Phone: 1(474) 912-873606-03-2025 Telephone encounter Note* Telephone Encounter - Lindsay [...] in 3 months. Message to Dottie Juárez. [facility]06-03-2025 Miscellaneous Notes* Telephone Encounter - Lindsay Johnson [...] to Dottie Juárez. [facility] NoteThere is a watchman device placed [...] original result were not included. Facility [facility] Patient Information Patient Name Kristen [...] - Reading 03/15/2024 Michael Walker MD [place], Test [place] 03/15/2024 Great Vessels Aortic Root - End [...] the patient/family member and/or their power of assistant county attorney. Informed consent was obtained. All staff [...] Date/Status Modality Department 03/15/2024 Arrived ALLI TESTING, [facility] ECHOCARDIOGRAPHY ROSS Begin Exam End Exam [...] Scheduled Time: 1215 [address] (more content not included)...[facility] 03-15-2024 History and physical note* Kathy Huerta [...] PTT 27.4 01/28/2024 PTT 100.3 (HH) 03/12/2018 [facility] Work Phone: 1(875) 440-485909-16-2024 History and physical note* Kathy Whitaker MD [...] failure Coronary arteriosclerosis Dyslipidemia Hyperlipidemia Hypertensive disorder MAYRLOU on CPAP Peripheral vascular disease TIA (transient [...] PTT 100.3 (HH) 03/12/2018 documented in this encounterOhioHealth07-31-2024 Nurse Note* Nursing Notes - Heidi Sanchez RN - 01/28/2024 7:53 PM EDTSummary: avs Patient verbalize understanding of discharge instructions, saline lock removed, catheter intact, to transport home [facility]07-31-2024 Miscellaneous Notes* Nursing Notes - Heidi Sanchez [...] [x]Bed low. [x]Tray table within reach. [x]Physician and/food storeroom clerk notified of the above Education Patient/Family informed to notify nurse of any complications including pain, redness, swelling, or leaking post-insertion. documented in [facility] encounter[facility] Hospital Discharge instructions* Discharge Instr - [...] through Care Everywhere. * Healthy Diet: Heart (Kazakh) * Heart Healthy Diet ([facility]) (Kazakh) documented in this [facility] History and physical note* SHYANNE Gandara - [...] now back on Xarelto, due to his [id number] score of 4. He presents today to [...] Father Arrhythmia Brother PCP Jonathon HURTADO MD: [facility] Anticoagulation: Xarelto Has the patient missed any doses of anticoagulation. none When was the last dose taken. 01/26 VLE1IO1- Vasc score: 4 ( age, HTN, TIA [...] Arrived in NSR with PVCs NPO since 2100 NO missed doses of Xarelto >4 weeks [...] as addended by me. Brooklynn Woodson MD01/28/2024 [facility]07-31-2024 History and physical note* Jordyn Vela APRN-FIRST BREAKER FEEDER - 01/28/2024 10:28 AM EDT Chief Complaint [...] now back on Xarelto, due to his [id number] score of 4. He presents today to [...] Father Arrhythmia Brother PCP Jonathon HURTADO MD: [facility] Anticoagulation: Xarelto Has the patient missed any doses of anticoagulation. none When was the last dose taken. 01/26 ZBK1HJ3- Vasc score: 4 ( age, HTN, TIA [...] Brooklynn Woodson MD01/28/2024 documented in this encounterOS[facility] Nurse Note* Nursing Notes - Rochelle [...] [x]Bed low. [x]Tray table within reach. [x]Physician and/food storeroom clerk notified of the above Education Patient/Family informed to notify nurse of any complications including pain, redness, swelling, or leaking post-insertion. [facility]06-26-2024 Hospital Discharge instructions* Discharge Instr - Activity* [...] procedure or EP follow-up care please call: [phone]. Evening and Weekend Contacts If you have questions or concerns during evening, weekend, or holiday hours, please call: [phone] If you having an emergency, call 541. Miscellaneous Education New Depression Warning Sign - [...] with low, broad heels and soles that induction brazer. Drink enough liquid each day. Ask your doctor how much is enough. Consider using an emergency personal medical alert system. Get up slowly after sitting or lying down. Remove throw rugs, improve li ghting, use reflective tape on stairs. If you get a prescription for PT, call the [facility] at [phone] to schedule an appointment. If you don't have a primary doctor, call [phone] or your local hospital to get one. [...] the day before. You MUST have a trailer truck driver with you.If you have any questions please call [phone]. documented in this encounterOhioHealth05-13-2024 Miscellaneous Notes* Result Encounter Note - Brooklynn Woodson MD - 11/10/2023 1:40 PM EDT I am unsure this leak needs closure. Not clear it connects to posterior ADAN documented in this encounterOhioHealth05-13-2024 Progress note* Result Encounter Note - Brooklynn Woodson MD - 11/10/2023 1:40 PM EDT I am unsure this leak needs closure. Not clear it connects to posterior ADAN [facility]01-21-2024 Evaluation note* Encounter Date Diagnosis Assessment Notes Treatment Notes Treatment Clinical Notes Jun, Paroxysmal atrial fibrillation (ICD-10 - I48.0) This patient is in NSR. This patient is anticoagulated to prevent thromboembolic events. They are maintaining regular scheduled appts with their home energy consultant. s/p ablation for atrial fibrillation and atrial flutter. He is being scheduled for Watchman's device in order for him to d/c lifelong anticoagulation and associated increased bleeding complications. [facility] Other 11-22-2023 Evaluation note* Encounter Date Diagnosis Assessment Notes Treatment Notes Treatment Clinical Notes Apr, Familial hypercholesterolemia (ICD-10 - E78.01) Diet and exercise w/ continued statin therapy. [facility] Other 09-19-2023 History of Present illness Narrative* Hafsa vAalos, MESSAGE BROKER DEVELOPER-FIRST BREAKER FEEDER - 03/18/2023 12:30 PM EDT Cardiothoracic Surgery [...] in activity due to symptoms, even during uqxj-pjzc-juocklwz activity, e.g. walking short distances (20-100 m). [...] Division of Cardiac Surgery documented in [facility] encounterOSTri[facility] Instructions* Patient Instructions* Hafsa Avalos, MESSAGE BROKER DEVELOPER-FIRST BREAKER FEEDER - 03/18/2023 12:30 PM EDT Thank you for choosing [facility] Division of Cardiac Surgery & [facility] for your cardiac surgical needs. We will plan to see you back in our clinic in 2 years for follow-up with Dr. Merritt. Your appointment is on TBD at TBD at the [facility]. In preparation for this appointment, we will need the following testing completed: CT Scan - Your appointment is on TBD at the following facility: [facility]. Your arrival time for your study is TBD. For Questions regarding these appointments or if you need to cancel them, please call [phone] Merritt s administrative personal assistant. Guidelines for maintaining a healthy and stable Aorta - Blood Pressure Goals: SBP (top number) < 130, DBP (bottom number) < 90, Heart rate < 80. You should monitor these numbers at home on a regular basis. If you notice they are above these recommendations, please see you Primary Doctor (family doctor) or Ditcher (heart doctor) right away. Avoid strenuous exercises [...] have an AORTIC ANEURYSM. documented in this encounterOhioHealth09-07-2023 NoteLAA OCCLUDER COMMUNICATION DIAMETER OF FLOW4.0mmOhioHealth Work Phone: 1(470) 741-583509-07-2023 History and physical note* Micky Trent MD [...] PTT 28.7 03/12/2022 PTT 100.3 (HH) 03/12/2018 [facility] Work Phone: [phone]) 676-800809-07-2023 History and physical note* Micky Trent MD [...] PTT 100.3 (HH) 03/12/2018 documented in this encounterOhioHealth07-26-2023 Evaluation note * Encounter Date Diagnosis Assessment [...] are maintaining regular scheduled appts with their home energy consultant. s/p ablation for atrial fibrillation and atrial flutter. He is being scheduled for Watchman's device in order for him to d/c lifelong anticoagulation and associated increased bleeding complications. This patient is in NSR. This patient is anticoagulated to prevent thromboembolic events. They are maintaining regular scheduled appts with their home energy consultant. Dec, Pernicious anemia (ICD-10 - D51.0) Continue healthy Dec, Thrombocytopenia (IC D-10 - D69.6) No bleeding complications Recheck Plt count Dec, Screening for colon cancer (ICD-10 - Z12.11) Dec, Screening PSA (prost ate specific antigen) (ICD-10 - Z12.5) [facility] Other 10-31-2022 History and physical note* Jimenez [...] PTT 28.7 03/12/2022 PTT 100.3 (HH) 03/12/2018 [facility] Work Phone: [phone] 184-833810-31-2022 History and physical note* Jimenez Wilkins MD [...] PTT 100.3 (HH) 03/12/2018 documented in this encounterOhioHealthEvaluation note* Diagnosis Atrial fibrillation, unspecified type [facility]No [employer] Other Evaluation note* Diagnosis Enlargement of aortic root [facility]* Diagnosis Presence of Watchman left atrial appendage closure device Paroxysmal atrial fibrillation Atrial fibrillation Atypical atrial flutter Atrial flutter documented [facility]* Diagnosis Enlargement of aortic root [facility]* Diagnosis Paroxysmal atrial fibrillation Atrial fibrillation Atypical atrial flutter Atrial flutter documented [facility] encounter [facility]* Diagnosis Onset Date Resolution Status Hypertension acute Pain of right hip acute Primary osteoarthritis of right hip acute Umbilical hernia acute Primary osteoarthritis of right hip acute [facility] Work Phone: Evaluation note* Diagnosis PAF (paroxysmal atrial fibrillation)- Primary Atrial fibrillation Paroxysmal atrial fibrillation Atrial fibrillation Atypical atrial flutter Atrial flutter documented [facility] this encounter [facility]* Diagnosis Atrial fibrillation, unspecified type- Primary Atrial fibrillation, unspecified type 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-titanium alloy with polyethylene terephthalate membrane Atrial fibrillation, unspecified type [facility] Atrial flutter- Primary Cardiac [...] respiratory abnormality [facility] Diagnosis Onset Date Resolution Status [...] wellness visit, subsequent noneactive January 06 10:16am [facility] Work Phone: History general Narrative - Reported* Type Description Date Medical History Palpitations Medical History Essential (primary) hypertension Medical History FDC (current) use of antic oagulants Medical History [...] Ablation 2019 Hospitalization History see surgical hx [facility] Other Reason for referral (narrative)No reason for referral information [facility] Work Phone: Reason for visit Narrative* Radiology (Routine) - New Request Specialty Diagnoses / Procedures Referred By Contac t Referred To Contact Diagnoses PVC's (premature ventricular contractions) Dyspnea on exertion Procedures NUC MYOCARD PERF STRESS MIBI EXERCISE CHG MYOCARDIAL SPECT MULTIPLE STUDIES VA CV STRS TST XERS&/OR RX CONT ECG TRCG ONLY Dottie Juárez, MESSAGE BROKER DEVELOPER-FIRST BREAKER FEEDER [address] [place] [address] Phone: tel: fax: Referral ID Status Reason Start Date Expiration Date V isits Requested Visits Authorized [id number] New Request 11/02/2024 11/27/2025 1 1 [facility] Summary Purpose Family History No Family History [...] unspecified type Procedures CT CARDIAC PULMONARY VENOGRAM VA CHG CT HEART CONTRAST EVAL CARDIAC STRUCT/MORPH Brooklynn Woodson MD [address] [place] [phone] Referral ID Status Reason Start Date Expiration Date V isits Requested Visits Authorized [id number] New Request 02/12/2022 03/09/2023 1 1 Specialty Diagnoses / Procedures Referred By Contac t Referred To Contact Diagnoses Enlargement of aortic root Procedures CT ANGIO CHEST (NONCORONARY) VA CT ANGIO, CHEST (NON-CORON), COMBO, INCL IMG PROC Kt Merritt MD [address] [place] [phone] Referral ID Status Reason Start Date Expiration Date V isits Requested Visits Authorized [id number] New Request 08/06/2022 08/31/2023 1 1 Specialty Diagnoses / Procedures Referred By Contac t Referred To Contact Diagnoses Presence of Watchman left atrial appendage closure device Paroxysmal atrial fibrillation Atypical atrial flutter Procedures ECHOCARDIOGRAM TRANSESOPHAGEAL (ALLI) VA ECHO TRANSESOPHAG R-T 2D W/PRB IMG ACQUISJ I&R Brooklynn Woodson MD [address] [place] [address] Referral ID Status Reason Start Date Expiration Date V isits Requested Visits Authorized [id number] New Request 11/11/2022 12/06/2023 1 1 Specialty Diagnoses / Procedures Referred By Contac t Referred To Contact Diagnoses Paroxysmal atrial fibrillation Atypical atrial flutter Procedures CT CARDIAC PULMONARY VENOGRAM VA CHG CT HEART CONTRAST EVAL CARDIAC STRUCT/MORPH Brooklynn Woodson MD [address] [place] [address] Referral ID Status Reason Start Date Expiration Date V isits Requested Visits Authorized [id number] New Request 11/06/2023 11/30/2024 1 1 Specialty Diagnoses / Procedures Referred By Marin t Referred To Contact Procedures ECHOCARDIOGRAM TRANSESOPHAGEAL (ALLI) IN OR - IMAGES Clem Frost MD [address] [place] [address] Referral ID Status Reason Start Date Expiration Date V isits Requested Visits Authorized [id number] New Request 01/28/2024 02/21/2025 1 1 Chief Complaint and Reason for Visit Chief Complaint Amb Documentation RIGHT HIP PAIN CONSULT DR HAHN RT HIP PAIN, XR/[facility] M16.11 - Unilateral primary osteoarthritis, right Reason [...] and content) DATE CREATED AUTHOR 12/23/2017 [facility] DATE CREATED AUTHOR AUTHOR'S ORGANIZ ATION 04/20/2018 [facility] DATE CREATED AUTHOR AUTHOR'S ORGANIZ ATION 01/29/2022 [facility] DATE CREATED AUTHOR AUTHOR'S ORGANIZ ATION 01/17/2025 [facility] DATE CREATED AUTHOR AUTHOR'S ORGANIZ ATION 01/26/2025 [facility] Reason for Visit (unrecogniz ed section and content) Specialty Diagnoses / Procedures Referred By Contac t Referred To Contact Diagnoses Atrial fibrillation, unspecified type Procedures CT CARDIAC PULMONARY VENOGRAM VA CHG CT HEART CONTRAST EVAL CARDIAC STRUCT/MORPH Brooklynn Woodson MD [address] [place] [phone] Referral ID Status Reason Start Date Expiration Date V isits Requested Visits Authorized [id number] New Request 02/12/2022 03/09/2023 1 1 Specialty Diagnoses / Procedures Referred By Contac t Referred To Contact Diagnoses Atrial fibrillation, unspecified type Procedures ECHOCARDIOGRAM TRANSESOPHAGEAL (ALLI) VA ECHO TRANSESOPHAG R-T 2D W/PRB IMG ACQUISJ I&R Brooklynn Woodson MD [address] [place] [phone] Referral ID Status Reason Start Date Expiration Date V isits Requested Visits Authorized [id number] New Request 03/13/2022 04/07/2023 1 1 Specialty Diagnoses / Procedures Referred By Contac t Referred To Contact Diagnoses Enlargement of aortic root Procedures CT ANGIO CHEST (NONCORONARY) VA CT ANGIO, CHEST (NON-CORON), COMBO, INCL IMG PROC Kt Merritt MD [address] [place] [phone] Referral ID Status Reason Start Date Expiration Date V isits Requested Visits Authorized [id number] New Request 08/06/2022 08/31/2023 1 1 Specialty Diagnoses / Procedures Referred By Contac t Referred To Contact Diagnoses Presence of Watchman left atrial appendage closure device Paroxysmal atrial fibrillation Atypical atrial flutter Procedures ECHOCARDIOGRAM TRANSESOPHAGEAL (ALLI) VA ECHO TRANSESOPHAG R-T 2D W/PRB IMG ACQUKIMBERLY I&R Brooklynn Woodson MD [address] [place] [phone] Referral ID Status Reason Start Date Expiration Date V isits Requested Visits Authorized [id number] New Request 11/11/2022 12/06/2023 1 1 Reason Comments New Patient Specialty Diagnoses / Procedures Referred By Contac t Referred To Contact Thoracic Surgery Diagnoses Enlargement of aortic root Brooklynn Woodson MD [address] [place] [phone] Kt Merritt MD [address] [place] [phone] Referral ID Status Reason Start Date Expiration Date V isits Requested Visits Authorized [id number] New Request 08/13/2022 09/07/2023 1 1 Specialty Diagnoses / Procedures Referred By Contac t Referred To Contact Diagnoses Paroxysmal atrial fibrillation Atypical atrial flutter Procedures CT CARDIAC PULMONARY VENOGRAM VA CHG CT HEART CONTRAST EVAL CARDIAC STRUCT/MORPH Brooklynn Woodson MD [address] [place] [phone] Referral ID Status Reason Start Date Expiration Date V isits Requested Visits Authorized [id number] New Request 11/06/2023 11/30/2024 1 1 Specialty Diagnoses / Procedures Referred By Contac t Referred To Contact Diagnoses Paroxysmal atrial fibrillation Atypical atrial flutter Paroxysmal atrial fibrillation [I48.0] Atypical atrial flutter [I48.4] Procedures VA PERQ CLSR TCAT L ATR APNDGE W/ENDOCARDIAL IMPLNT LEFT ATRIAL APPENDAGE SCHED CLOSURE W/ IMPLANT (45129) Brooklynn Woodson MD [address] [place] [phone] [facility] [address] [place] [phone] Referral ID Status Reason Start Date Expiration Date Visits Re quested Visits Authorized [id number] 1 1 Specialty Diagnoses / Procedures Referred By Contac t Referred To Contact Diagnoses Atrial fibrillation, unspecified type Atrial fibrillation, unspecified type [I48.91] Procedures VA PERQ CLSR TCAT L ATR APNDGE W/ENDOCARDIAL IMPLNT LEFT ATRIAL APPENDAGE SCHED CLOSURE W/ IMPLANT (73474) Brooklynn Woodson MD [address] [place] [phone] [facility] [address] [place] [address] Referral ID Status Reason Start Date Expiration Date Visits Re quested Visits Authorized [id number] 1 1 Referral ID Status Reason Start Date Expiration Date V isits Requested Visits Authorized [id number] New Request 02/02/2024 02/26/2025 1 1 Reason [...] Provider Active Sta rt: January 06, 2025 Fur Examiner Relationship Specialty Start Date End Date Jonathon Hahn DO [address] [place] [phone] PCP - General Internal Medicine 03/17/18 Bryan Cortes MD [address] [place] [address] PCP - Referring 1 Cardiovascular Disease 03/17/18 Brooklynn Woodson MD [address] [place] [phone] PCP - Referring 2 Clinical Cardiac Electrophysiology 04/20/19 Bryan Cortes MD [address] [place] [address] Cardiovascular Disease 03/12/18 Jonathon Hahn DO [address] [place] [address] Internal Medicine 03/12/18 Gordo Gifford MD [address] [place] [address] Consulting Physician Clinical Cardiac Electrophysiology 05/29/18 Fur Examiner Relationship Specialty Start Date End Date Jonathon Hahn DO [address] [facility], [place] [address] PCP - General Internal Medicine 03/17/18 Bryan Cortes MD [address] [place] [address] PCP - Referring 1 Cardiovascular Disease 03/17/18 Boroklynn Woodson MD [address] [place] [phone] PCP - Referring 2 Clinical Cardiac Electrophysiology 04/20/19 Bryan Cortes MD [address] [facility], [place] [phone] Cardiovascular Disease 03/12/18 Jonathon Hahn DO [address] [facility], [place] [address] Internal Medicine 03/12/18 Gordo Gifford MD [address] [place] [address] Consulting Physician Clinical Cardiac Electrophysiology 05/29/18 Fur Examiner Relationship Specialty Start Date End Date Jonathon Hahn DO [address] [place] [address] PCP - General Internal Medicine 03/17/18 Bryan Cortes MD [address] [place] [address] PCP - Referring 1 Cardiovascular Disease 03/17/18 Brooklynn Woodson MD [address] [place] [address] PCP - Referring 2 Clinical Cardiac Electrophysiology 04/20/19 Bryan Cortes MD [address] [place] [address] (Fax) Cardiovascular Disease 03/12/18 Jonathon Hahn DO [address] [place] [phone] Internal Medicine 03/12/18 Gordo Gifford MD [address] [place] [address] Consulting Physician Clinical Cardiac Electrophysiology 05/29/18 Fur Examiner Relationship Specialty Start Date End Date Jonathon Hahn DO [address] [place] [phone] PCP - General Internal Medicine 03/17/18 Bryan Cortes MD [address] [place] [address] PCP - Referring 1 Cardiovascular Disease 03/17/18 Brooklynn Woodson MD [address] [place] [phone] PCP - Referring 2 Clinical Cardiac Electrophysiology 04/20/19 Bryan Cortes MD [address] [place] [id number] Cardiovascular Disease 03/12/18 Jonathon Hahn DO [address] [place] [phone] Internal Medicine 03/12/18 Gordo Gifford MD [address] [place] [address] Consulting Physician Clinical Cardiac Electrophysiology 05/29/18 Fur Examiner Relationship Specialty Start Date End Date Jonathon Hahn DO [address] [facility], [place] [address] PCP - General Internal Medicine 03/17/18 Bryan Cortes MD [address] [place], [place] [phone] PCP - Referring 1 Cardiovascular Disease 03/17/18 Brooklynn Woodson MD [address] [place] [phone] PCP - Referring 2 Clinical Cardiac Electrophysiology 04/20/19 Bryan Cortes MD [address] [place], [place] [id number] Cardiovascular Disease 03/12/18 Jonathon Hahn DO [address] [facility] [place] [address] Internal Medicine 03/12/18 Gordo Gifford MD [address] [place] [address] Consulting Physician Clinical Cardiac Electrophysiology 05/29/18 Fur Examiner Relationship Specialty Start Date End Date Jonathon Hahn DO [address] [place] [address] PCP - General Internal Medicine 03/17/18 Bryan Cortes MD PCP - Referring 1 Cardiovascular Disease 03/17/18 Brooklynn Woodson MD [address] [place] [phone] PCP - Referring 2 Clinical Cardiac Electrophysiology 04/20/19 Bryan Cortes MD Cardiovascular Disease 03/12/18 Jonathon Hahn DO [address] [place] [address] Internal Medicine 03/12/18 Gordo Gifford MD [address] [place] [phone] Consulting Physician Clinical Cardiac Electrophysiology 05/29/18 Team [...] November 20, 2023 End: November 20, 2023 Fur Examiner Relationship Specialty Start Date End Date Jonathon Hahn DO [address] [place] [address] PCP - General Internal Medicine 03/17/18 Bryan Cortes MD PCP - Referring 1 Cardiovascular Disease 03/17/18 Brooklynn Woodson MD [address] [place] [phone] PCP - Referring 2 Clinical Cardiac Electrophysiology 04/20/19 Bryan Cortes MD Cardiovascular Disease 03/12/18 Jonathon Hahn DO [address] [place] [address] Internal Medicine 03/12/18 Gordo Gifford MD [address] [place] [address] Consulting Physician Clinical Cardiac Electrophysiology 05/29/18 Fur Examiner Relationship Specialty Start Date End Date Jonathon Hahn DO [address] [place] [address] PCP - General Internal Medicine 03/17/18 Bryan Cortes MD PCP - Referring 1 Cardiovascular Disease 03/17/18 Brooklynn Woodson MD [address] [place], [place] [phone] PCP - Referring 2 Clinical Cardiac Electrophysiology 04/20/19 Bryan Cortes MD Cardiovascular Disease 03/12/18 Jonathon Hahn DO [address] [place] [address] Internal Medicine 03/12/18 Gordo Gifford MD [address] [place], [place] [id number] Consulting Physician Clinical Cardiac Electrophysiology 05/29/18 Fur Examiner Relationship Specialty Start Date End Date Jonathon Hahn DO [address] [place] [address] PCP - General Internal Medicine 03/17/18 Bryan Cortes MD PCP - Referring 1 Cardiovascular Disease 03/17/18 Brooklynn Woodson MD [address] [place] [phone] PCP - Referring 2 Clinical Cardiac Electrophysiology 04/20/19 Bryan Cortes MD Cardiovascular Disease 03/12/18 Jonathon Hahn DO [address] [place] [address] Internal Medicine 03/12/18 Gordo Gifford MD [address] [place] [address] Consulting Physician Clinical Cardiac Electrophysiology 05/29/18 Fur Examiner Relationship Specialty Start Date End Date Jonathon Hahn DO PCP - General Internal Medicine 03/17/18 Bryan Cortes MD PCP - Referring 1 Cardiovascular Disease 03/17/18 Brooklynn Woodson MD [address] [place] [phone] PCP - Referring 2 Clinical Cardiac Electrophysiology 04/20/19 Bryan Cortes MD Cardiovascular Disease 03/12/18 Jonathon Hahn DO Internal Medicine 03/12/18 Gordo Gifford MD [address] [place] [address] Consulting Physician Clinical Cardiac Electrophysiology 05/29/18 Fur Examiner Relationship Specialty Start Date End Date Jonathon Hahn DO PCP - General Internal Medicine 03/17/18 Bryan Cortes MD PCP - Referring 1 Cardiovascular Disease 03/17/18 Brooklynn Woodson MD [address] [place] [phone] PCP - Referring 2 Clinical Cardiac Electrophysiology 04/20/19 Bryan Cortes MD Cardiovascular Disease 03/12/18 Jonathon Hahn DO Internal Medicine 03/12/18 Gordo Gifford MD [address] [place] [address] Consulting Physician Clinical Cardiac Electrophysiology 05/29/18 Team [...] 1,500 mg, Intravenous, Administer over 1 Hours, CULTURAL ANTHROPOLOGY PROFESSOR TO PROCEDURE, 1 dose, Starting on Fri12/24/23 at 0000, Until Fri12/24/23 at 1354, Other, Preoperative antibiotic, Order should be timed for day of procedure. 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 Vancomycin is preferred agent [...] 1,500 mg, Intravenous, Administer over 1 Hours, CULTURAL ANTHROPOLOGY PROFESSOR TO PROCEDURE, 1 dose, Starting on Fri01/28/24 at 0000, Until Fri01/28/24 at 1043, Other, Preoperative antibiotic, Order should be timed for day of procedure. 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 Vancomycin is preferred agent [...] BE BASED ON THE PRIMARY CLINICAL RECORDS. [employer] provides no warranty or guarantee of the accuracy or completeness of information in this document.
[2025-01-27 09:56] LABS: Hematocrit 46.9 % (42.0-54.0); Hemoglobin 15.7 g/dL (14.0-18.0); Immature Granulocytes Abs Auto 0.02 10^3/uL (0.00-0.03); Immature Granulocytes Pct Auto 0.3 % (0.0-0.5); Lymphocytes Absolute Auto 1.4 10^3/uL (1.2-3.8); Mean Corpuscular HGB Conc 33.5 g/dL (29.9-35.2); Mean Corpuscular Hemoglobin 31.7 pg (25.9-34.0); Mean Corpuscular Volume 94.7 fL (80.0-94.0); Platelet Count 150 10^3/uL (150-450); Red Blood Count 4.95 10^6/uL (4.70-6.10); White Blood Count 6.4 10^3/uL (4.0-11.0)
[2025-01-27 10:04] LABS: Alanine Aminotransferase 39 U/L (16-63); Albumin Globulin Ratio 1.2; Albumin Level 3.9 g/dL (3.4-5.0); Alkaline Phosphatase 60 U/L (46-116); Anion Gap 14.0; Aspartate Amino Transferase 22 U/L (15-37); Blood Urea Nitrogen 25.0 mg/dL (7.0-18.0); Calcium 9.0 mg/dL (8.5-10.1); Carbon Dioxide 26.5 mmol/L (21.0-32.0); Chloride 104 mmol/L (98-107); Estimated GFR (African America >60 (>=60 mL/min/1.73m^2); Estimated GFR (Non-African Ame 52 (>=60 mL/min/1.73m^2); Globulin 3.3 g/dL; Glucose 100 mg/dL (74-106); Potassium 4.5 mmol/L (3.5-5.1); Sodium 140 mmol/L (136-145); Total Protein 7.2 g/dL (6.4-8.2); Triglycerides 82 mg/dL (<=150)
[2025-01-27 10:05] LABS: Cholesterol 137 mg/dL (<=200); HDL Cholesterol 48 mg/dL (40-60); Thyroid Stimulating Hormone 2.676 uIU/mL (0.358-3.740); VLDL CHOLESTEROL 16.4 mg/dL
== END 2025-01-27 09:01 | disposition home or self-care (01) ==
LOC: LAB 09:02
PROVIDERS: PCP Internal Medicine; Visit Provider Internal Medicine
DX: E78.00 Pure hypercholesterolemia, unspecified (principal); Z12.5 Encounter for screening for malignant neoplasm of prostate; R53.83 Other fatigue; N18.31 Chronic kidney disease, stage 3a; I48.0 Paroxysmal atrial fibrillation; I12.9 Hypertensive chronic kidney disease with stage 1 through stage 4 chronic kidney disease, or unspecified chronic kidney disease
CPT/HCPCS: 36415; 80053; 80061; 84443; 85025; G0103